=== PATIENT | male | born 1950 | race American Indian/Alaskan Native ===

== ENCOUNTER 2016-11-25 10:45 | Inpatient (IN) | payer OTHER ==
[2016-11-25 10:59] VITALS: BMI 34.9
[2016-11-25 11:41] LABS: BASO % 0.6 % (0.0-2.0); EOS % 0.4 % (0.0-4.0); LYMPH # 1.6 K/uL (1.0-4.3); MONO # 0.6 K/uL (0.0-0.8); WHITE BLOOD COUNT 6.3 K/uL (4.8-10.8)
[2016-11-25 11:49] LABS: HEMATOCRIT 33.1 % (35.0-51.0); LYMPH % 25.8 % (20.0-40.0); MEAN CORPUSCULAR HGB CONC 34.2 g/dL (33.0-37.0); MEAN PLATELET VOLUME 9.2 fL (7.2-11.7); MONO % 9.2 % (0.0-10.0); RED CELL DISTRIBUTION WIDTH 14.9 % (11.5-14.5)
[2016-11-25 11:51] LABS: CHLORIDE 100 mmol/L (98-107); POTASSIUM 3.5 mmol/L (3.6-5.2); SODIUM 141 mmol/L (132-148)
[2016-11-25 11:52] LABS: MEAN CELL VOLUME 108.2 fL (80.0-94.0)
[2016-11-25 11:53] LABS: AST/SGOT 80 U/L (17-59); CARBON DIOXIDE 27 mmol/L (22-30); GFR AFRICAN-AMERICAN > 60
[2016-11-25 11:54] LABS: ALKALINE PHOSPHATASE 160 U/L (38-126); ALT/SGPT 66 U/L (21-72); BLOOD UREA NITROGEN 15 mg/dL (9-20); CALCIUM 8.4 mg/dl (8.6-10.4); GLUCOSE,RANDOM 184 mg/dL (75-110); TOTAL PROTEIN 7.1 g/dL (6.3-8.3)
--- NOTE | 2016-11-25 11:59 | RAD ---
PROCEDURE: CHEST RADIOGRAPH, 1 VIEW HISTORY: SOB COMPARISON: 02/15/2015 FINDINGS: LUNGS: Clear. PLEURA: No pneumothorax or pleural fluid seen. CARDIOVASCULAR: The cardiomediastinal silhouette is suboptimally evaluated. There is obscuration of the aortic arch. OSSEOUS STRUCTURES: The osseous structures demonstrate degenerative changes. VISUALIZED UPPER ABDOMEN: Upper abdomen is suboptimally evaluated. OTHER FINDINGS: None. IMPRESSION: Suboptimally evaluated cardiomediastinal silhouette. Obscured visualization of aortic arch. This could be due to technique. Recommend PA lateral or repeat chest radiographs with optimal inspiration.
--- NOTE | 2016-11-25 12:09 | C.PDOC ---
History Of Present Illness 66 y/o male is sent to the ED by PMD, Dr. Dugan, for dizziness. Patient reports he was at his doctor's office today when he started to feel dizzy but symptoms have now resolved. Patient denies any shortness of breath, chest pain, palpitations, vomiting, or fever. Time Seen by Provider: 11/25/16 11:20 Chief Complaint (Nursing): Dizziness/Lightheaded History Per: Patient History/Exam Limitations: no limitations Onset/Duration Of Symptoms: Mins, Sudden Onset, Persistent Current Symptoms Are (Timing): Gone Fall Associated With With Symptoms: No Recent travel outside of the [place]: No Past Medical History Reviewed: Historical Data, Nursing Documentation, Vital Signs Vital Signs: Last Vital Signs Temp 97.4 F L 11/25/16 12:31 Pulse 50 L 11/25/16 12:31 Resp 18 11/25/16 12:31 BP 120/72 11/25/16 12:31 Pulse Ox 98 11/25/16 12:49 - Medical History PMH: Anemia, Diabetes, Gastritis, HTN, Hyperlipidemia Surgical History: No Surg Hx - [facility] Procedures ESOPHAGOGASTRODUODENOSCOPY [EGD] W/CLOSED BIOPSY (12/29/14) INSERT GASTRIC TUBE NEC (12/29/14) Family History: States: Unknown Family Hx - Social History Hx Tobacco Use: Yes Hx Alcohol Use: Yes (occasionally) Hx Substance Use: No - Immunization History Hx Tetanus Toxoid Vaccination: No Hx Influenza Vaccination: Yes (2014) Hx Pneumococcal Vaccination: No Review Of Systems Except As Marked, All Systems Reviewed And Found Negative. Constitutional: Negative for: Fever Cardiovascular: Negative for: Chest Pain, Palpitations Respiratory: Negative for: Shortness of Breath Gastrointestinal: Negative for: Vomiting Neurological: Positive for: Dizziness Physical Exam - Physical Exam Appears: Non-toxic, No Acute Distress Skin: Normal Color, Warm, Dry Head: Atraumatic, Normacephalic Eye(s): bilateral: Normal Inspection, PERRL, EOMI Neck: Normal ROM, Supple Chest: Symmetrical Cardiovascular: Rhythm Regular Respiratory: Normal Breath Sounds, No Rales, No Rhonchi, No Wheezing Gastrointestinal/Abdominal: Soft, No Tenderness, Hernia, Other (obese) Back: Normal Inspection, No CVA Tenderness Extremity: Normal ROM, No Swelling Neurological/Psych: Oriented x3, Normal Speech, Normal Cognition, Normal Cranial Nerves (II-XII intact), Normal Motor, Normal Sensation Gait: Steady ED Course And Treatment - Laboratory Results Result Diagrams: 11/25/16 11:32 11/25/16 11:32 Lab Interpretation: Abnormal (mild anemia, + elev glu) ECG: Interpreted By Me ECG Rhythm: Sinus Bradycardia ECG Interpretation: Abnormal Rate From EC O2 Sat by Pulse Oximetry: 98 (ra) - Radiology CXR: Interpreted by Me CXR Interpretation: Yes: No Acute Disease, Heart Size (+ megaly) Reevaluation Time: 12:50 Reassessment Condition: Unchanged - Physician Consult Information Outcome Of Conversation: 1230: d/w Dr. Kassandra Walsh to Tele obs. Medical Decision Making Medical Decision Making: Plan: * EKG * CXR * Blood Work * Blood Culture * Urinalysis dizzy ? related to scott? baseline labs Disposition Doctor Will See Patient In The: Hospital Counseled Patient/Family Regarding: Studies Performed, Diagnosis - Disposition Disposition: HOSPITALIZED Disposition Time: 12:51 Condition: GOOD - Clinical Impression Clinical Impression: Symptomatic bradycardia - Scribe Statement The provider has reviewed the documentation as recorded by the Scribe (Kari Blanchard) Provider Attestation: All medical record entries made by the Scribe were at my direction and personally dictated by me. I have reviewed the chart and agree that the record accurately reflects my personal performance of the history, physical exam, medical decision making, and the department course for this patient. I have also personally directed, reviewed, and agree with the discharge instructions and disposition.
[2016-11-25 12:42] LABS: RBC URINE 8 /hpf (0-3); URINE BACTERIA OCC (<OCC); URINE BILIRUBIN NEGATIVE (NEGATIVE); URINE BLOOD 1+ (NEGATIVE); URINE COLOR Amber (YELLOW); URINE GLUCOSE (UA) NORMAL (Normal); URINE KETONE NEGATIVE (NEGATIVE); URINE LEUKOCYTE ESTERASE 3+ Leu/uL (Negative); URINE PROTEIN NEGATIVE (NEGATIVE); WBC URINE 464 /hpf (0-5)
[2016-11-25] MEDS ORDERED: Potassium Chloride 20 mEq ER Tab PO ONE (15:00)
[2016-11-25] MEDS: cefTRIAXone IV 1 gm in Dextros 50 ML IVPB SCH (15:26)
[2016-11-25] MEDS ORDERED: (Novolog) Insulin Aspart, Recombinant 100 u/ml 10 ml vial ONE (16:44)
[2016-11-25] MEDS: (Novolog) Insulin Aspart, Recombinant 100 u/ml 10 ml vial SC SCH ×2 (16:45→22:30)
[2016-11-25] MEDS: (Novolog Mix 70/30) Insulin Aspart/Insulin Aspar 100 units/ml SC SCH (16:48)
[2016-11-25 17:32] LABS: CHLORIDE 99 mmol/L (98-107); POTASSIUM 3.5 mmol/L (3.6-5.2); SODIUM 138 mmol/L (132-148)
[2016-11-25 17:34] LABS: GFR AFRICAN-AMERICAN > 60
[2016-11-25 17:35] LABS: BLOOD UREA NITROGEN 16 mg/dL (9-20); CALCIUM 8.5 mg/dl (8.6-10.4); CARBON DIOXIDE 25 mmol/L (22-30); GLUCOSE,RANDOM 250 mg/dL (75-110)
[2016-11-25 18:07] LABS: THYROID STIMULATING HORMONE 2.92 mIU/L (0.46-4.68)
--- NOTE | 2016-11-26 00:43 | CP.PCM.HP ---
History of Present Illness - History of Present Illness History of Present Illness: cheif complain; dizziness 66 y/o AA male well known to me with h/o diabetes, htn, hyperlipidemia, BPH, Non complint with meds, diet & follow up, lives independently , drinks alcohol came in with c/o dizzines at my office today , even he couldnot stand up so 99 was called and he was transferred to ER pt did not recall when he started to feel dizzy but symptoms have now resolved. Patient denies any shortness of breath, chest pain, palpitations, vomiting, or fever. Review of Systems - Review of Systems Systems not reviewed;Unavailable: Acuity of Condition - Constitutional Constitutional: Anorexia, Fatigue, Lethargy, Malaise - EENT Eyes: absent: As Per HPI, Blind Spots, Blurred Vision, Change in Vision, Decreased Night Vision, Diplopia, Discharge, Dry Eye, Exophthalmos, Floaters, Irritation, Itchy Eyes, Loss of Peripheral Vision, Pain, Photophobia, Requires Corrective Lenses, Sees Flashes, Spots in Vision, Tunnel Vision, Other Visual Disturbances, Loss of Vision, Other Ears: Dizziness. absent: As Per HPI, Decreased Hearing, Ear Discharge, Ear Pain , Tinnitus, Abnormal Hearing, Disequilibrium, Other Nose/Mouth/Throat: absent: As Per HPI, Epistaxis, Nasal Congestion, Nasal Discharge, Nasal Obstruction, Nasal Trauma, Nose Pain, Post Nasal Drip, Sinus Pain, Sinus Pressure, Bleeding Gums, Change in Voice, Dental Pain, Dry Mouth, Dysphagia, Halitosis, Hoarsness, Lip Swelling, Mouth Lesions, Mouth Pain, Odynophagia, Sore Throat, Throat Swelling, Tongue Swelling, Facial Pain, Neck Pain, Neck Mass, Other - Cardiovascular Cardiovascular: absent: As Per HPI, Acrocyanosis, Chest Pain, Chest Pain at Rest , Chest Pain with Activity, Claudication, Diaphoresis, Dyspnea, Dyspnea on Exertion, Edema, Irregular Heart Rhythm, Pain Radiating to Arm/Neck/Jaw, Leg Edema, Leg Ulcers, Lightheadedness, Orthopnea, Palpitations, Paroxysmal Nocturnal Dyspnea, Pedal Edema, Radiating Pain, Rapid Heart Rate, Slow Heart Rate, Syncope, Other - Respiratory Respiratory: absent: As Per HPI, Cough, Dyspnea, Hemoptysis, Dyspnea on Exertion , Wheezing, Snoring, Stridor, Pain on Inspiration, Chest Congestion, Excessive Mucous Production, Change in Mucous Color, Pain with Coughing, Other - Gastrointestinal Gastrointestinal: absent: As Per HPI, Abdominal Pain, Belching, Bloating, Change in Bowel Habits, Change in Stool Character, Coffee Ground Emesis, Constipation, Cramping, Diarrhea, Dyspepsia, Dysphagia, Early Satiety, Excessive Flatus, Fecal Incontinence, Heartburn, Hematemesis, Hematochezia, Loose Stools, Melena, Nausea, Odynophagia, Temesmus, Vomiting, Other - Genitourinary Genitourinary: absent: As Per HPI, Change in Urinary Stream, Difficulty Urinating, Dysuria, Flank Pain, Hematuria, Pyuria, Nocturia, Urinary Incontinence, Urinary Frequency, Urinary Hesitance, Urinary Urgency, Voiding Freq/Small Amts, Freq UTI, Hx Renal/Bladder Calculi, Hx /Renal Surgery, Bladder Distension, Other - Integumentary Integumentary: absent: As Per HPI, Acne, Alopecia, Bleeding Lesions, Change in Hair, Change in Nails, Change in Pigmentation, Changing Lesions, Dry Skin, Erythema, Furuncle, Hirsutism, Lesions, New Lesions, Non-Healing Lesions, Photosensitivity, Pruritus, Rash, Skin Pain, Skin Ulcer, Sores, Striae, Swelling , Unusual Bruising, Wounds, Jaundice, Other - Neurological Neurological: Dizziness. absent: As Per HPI, Abnormal Gait, Abnormal Hearing, Abnormal Movements, Abnormal Speech, Behavioral Changes, Burning Sensations, Confusion, Convulsions, Disequilibrium, Numbness, Focal Weakness, Frequent Falls , Headaches, Lack of Coordination, Loss of Vision, Memory Loss, Paresthesias, Radicular Pain, Restless Legs, Sensory Deficit, Syncope, Tingling, Tremor, Vertigo, Weakness, Other Visual Disturbances, Other Past Patient History - Past Medical History & Family History Past Medical History?: Yes - Past Social History Smoking Status: Light Smoker < 10 Cigarettes Daily - CARDIAC Hx Hypertension: Yes - PULMONARY Hx Respiratory Disorders: No - NEUROLOGICAL Hx Neurological Disorder: No - HEENT Hx HEENT Problems: No Hx Sinusitis: Yes - RENAL Other/Comment: pt claims he has kidney problem - ENDOCRINE/METABOLIC Hx Diabetes Mellitus Type 2: Yes - HEMATOLOGICAL/ONCOLOGICAL Hx Anemia: Yes - INTEGUMENTARY Hx Dermatological Problems: No - MUSCULOSKELETAL/RHEUMATOLOGICAL Hx Musculoskeletal Disorders: No Hx Falls: No - GASTROINTESTINAL Hx Gastritis: Yes - GENITOURINARY/GYNECOLOGICAL Hx Genitourinary Disorders: Yes Hx Urinary Tract Infection: Yes - PSYCHIATRIC Hx Substance Use: No - SURGICAL HISTORY Hx Surgeries: Yes Hx Herniorrhaphy: Yes (2011) - ANESTHESIA Hx Anesthesia: Yes Hx Anesthesia Reactions: No Hx Malignant Hyperthermia: No Meds Allergies/Adverse Reactions: Allergies Allergy/AdvReac Type Severity Reaction Status Date / Time aspirin Allergy Verified 11/25/16 10:47 Physical Exam - Constitutional Appears: No Acute Distress - Head Exam Head Exam: ATRAUMATIC, NORMAL INSPECTION, NORMOCEPHALIC Additional comments: adentinous oral cavity poor oral hygeine - Eye Exam Eye Exam: EOMI, Normal appearance, PERRL Pupil Exam: NORMAL ACCOMODATION, PERRL - Respiratory Exam Respiratory Exam: Clear to Auscultation Bilateral, NORMAL BREATHING PATTERN - Cardiovascular Exam Cardiovascular Exam: Bradycardia, +S1, +S2 - GI/Abdominal Exam GI & Abdominal Exam: Distended, Normal Bowel Sounds, Organomegaly. absent: Bruit, Diminished Bowel Sounds, Firm, Guarding, Hernia, Hyperactive Bowel Sounds , Hypoactive Bowel Sounds, Mass, Pulsatile Mass, Rebound, Rigid, Soft, Tenderness - Extremities Exam Extremities exam: Positive for: pedal edema Results - Vital Signs Recent Vital Signs: Last Vital Signs Temp 98.2 F 11/25/16 18:25 Pulse 58 L 11/25/16 20:00 Resp 20 11/25/16 18:25 BP 114/72 11/25/16 18:25 Pulse Ox 100 11/25/16 18:25 - Labs Result Diagrams: 11/25/16 11:32 11/25/16 17:20 Labs: Laboratory Results - last 24 hr 11/25/16 11/25/16 11/25/16 16:26 17:20 22:14 Sodium 138 Potassium 3.5 L Chloride 99 Carbon Dioxide 25 Anion Gap 18 BUN 16 Creatinine 1.1 Est GFR ( Amer) > 60 Est GFR (Non-Af Amer) > 60 POC Glucose (mg/dL) 273 H 255 H 96 Random Glucose 250 H Calcium 8.5 L Troponin I < 0.0120 TSH 3rd Generation 2.92 Assessment & Plan (1) Symptomatic bradycardia Status: Acute (2) Diabetes mellitus Status: Chronic (3) Hepatitis C infection Status: Chronic (4) Hypertension Status: Chronic (5) Hypotension Status: Acute (6) BPH (benign prostatic hyperplasia) Status: Acute
[2016-11-26 04:45] LABS: T4 14.8 ug/dL (5.5-11.0)
[2016-11-26] MEDS: Levothyroxine 25 MCG TAB PO SCH (06:30)
[2016-11-26] MEDS: (Novolog) Insulin Aspart, Recombinant 100 u/ml 10 ml vial SC SCH ×4 (08:08→22:15)
[2016-11-26] MEDS: (Novolog Mix 70/30) Insulin Aspart/Insulin Aspar 100 units/ml SC SCH ×2 (08:09→18:25)
[2016-11-26] MEDS: Enoxaparin 40 mg Syringe SC SCH (09:23)
[2016-11-26] MEDS: Rosuvastatin Calcium 2.5 mg Tab PO SCH ×2 (09:24→21:26)
[2016-11-26] MEDS: Multivitamin With Minerals Tab PO SCH (09:24)
[2016-11-26] MEDS: Pantoprazole 40 mg EC Tab PO SCH (09:24)
[2016-11-26] MEDS: cefTRIAXone IV 1 gm in Dextros 50 ML IVPB SCH (09:24)
--- NOTE | 2016-11-26 11:49 | CARD ---
APPROVED REPORT EKG Measurement Heart [id number] <Conclusion> Sinus bradycardia with 1st degree AV block Minimal voltage criteria for LVH, may be normal variant Borderline ECG
--- NOTE | 2016-11-26 13:41 | CARD ---
APPROVED REPORT EXAM: Two-dimensional and M-mode echocardiogram with Doppler and color Doppler. Other Information Quality : AverageRhythm : NSR INDICATION Syncope RISK FACTORS Hypertension Diabetes M-Mode DIMENSIONS RVDd1.57 (2.1-3.2cm)Left Atrium (MM)4.04 (2.5-4.0cm) IVSd1.03 (0.7-1.1cm)Aortic Root2.72 (2.2-3.7cm) LVDd5.19 (4.0-5.6cm)Aortic Cusp Exc.2.10 (1.5-2.0cm) PWd1.03 (0.7-1.1cm)FS (%) 36 % LVDs3.34 (2.0-3.8cm)LVEF (%)65 (>50%) Aortic Valve AoV Peak Zmlcjplo136.0cm/Lisa Peak GR.4mmHg Mitral Valve MV E Gbzyzyyh55.9cm/sMV A Xvjnxmas101.1cm/sE/A ratio0.8 TDI E/Lateral E'0.0E/Medial E'0.0 Tricuspid Valve TR Peak Fuuikaqr847ay/sTR Peak Gr.2bvKgOJVC61znCq LEFT VENTRICLE The left ventricle is normal size. There is normal left ventricular wall thickness. The left ventricular function is normal. The left ventricular ejection fraction is within the normal range. No regional wall motion abnormalities noted. Transmitral Doppler flow pattern is Grade I-abnormal relaxation pattern. No left ventricle thrombus noted on this study. There is no ventricular septal defect visualized. There is no left ventricular aneurysm. There is no mass noted in the left ventricle. RIGHT VENTRICLE The right ventricle is normal size. There is normal right ventricular wall thickness. The right ventricular systolic function is normal. ATRIA The left atrium is mildly dilated. The right atrium size is normal. The interatrial septum is intact with no evidence for an atrial septal defect. AORTIC VALVE The aortic valve is normal in structure and function. No aortic regurgitation is present. There is no aortic valvular stenosis. There is no aortic valvular vegetation. MITRAL VALVE The mitral valve is normal in structure and function. There is no evidence of mitral valve prolapse. There is no mitral valve stenosis. There is no mitral valve regurgitation noted. TRICUSPID VALVE The tricuspid valve is normal in structure and function. There is mild tricuspid regurgitation. Right ventricular systolic pressure is estimated at less than 30 mmHg. There is no tricuspid valve prolapse or vegetation. There is no tricuspid valve stenosis. PULMONIC VALVE The pulmonary valve is normal in structure and function. There is no pulmonic valvular regurgitation. There is no pulmonic valvular stenosis. GREAT VESSELS The aortic root is normal in size. The ascending aorta is normal in size. The pulmonary artery is normal. The IVC is normal in size and collapses >50% with inspiration. PERICARDIAL EFFUSION The pericardium appears normal. There is no pleural effusion. <Conclusion> The left ventricular function is normal. The left ventricular ejection fraction is within the normal range. No regional wall motion abnormalities noted. The left atrium is mildly dilated.
[2016-11-26 15:17] VITALS: RESP 20
[2016-11-26] MEDS: Fluticasone Nasal 50 mcg/Spray NAS SCH (22:56)
[2016-11-27] MEDS: Levothyroxine 25 MCG TAB PO SCH (06:23)
[2016-11-27 07:51] VITALS: PULSE 62
[2016-11-27 07:59] LABS: CHLORIDE 100 mmol/L (98-107); POTASSIUM 3.4 mmol/L (3.6-5.2); SODIUM 139 mmol/L (132-148)
[2016-11-27 08:02] LABS: GFR AFRICAN-AMERICAN > 60
[2016-11-27 08:03] LABS: BLOOD UREA NITROGEN 17 mg/dL (9-20); CALCIUM 8.6 mg/dl (8.6-10.4); CARBON DIOXIDE 25 mmol/L (22-30); GLUCOSE,RANDOM 147 mg/dL (75-110)
[2016-11-27] MEDS: (Novolog) Insulin Aspart, Recombinant 100 u/ml 10 ml vial SC SCH ×2 (08:13→13:09)
[2016-11-27] MEDS: (Novolog Mix 70/30) Insulin Aspart/Insulin Aspar 100 units/ml SC SCH (08:15)
[2016-11-27] MEDS ORDERED: Potassium Chloride 20 mEq ER Tab PO ONE (10:00)
[2016-11-27] MEDS: cefTRIAXone IV 1 gm in Dextros 50 ML IVPB SCH (10:00)
[2016-11-27] MEDS ORDERED: Fluticasone Nasal 50 mcg/Spray NAS SCH (10:00)
[2016-11-27] MEDS: Multivitamin With Minerals Tab PO SCH (10:09)
[2016-11-27] MEDS: Fluticasone Nasal 50 mcg/Spray NAS SCH ×2 (10:10→10:52)
[2016-11-27] MEDS: Pantoprazole 40 mg EC Tab PO SCH (10:10)
[2016-11-27] MEDS: Enoxaparin 40 mg Syringe SC SCH (10:10)
[2016-11-27 12:22] VITALS: BP 127/73; TEMP 97.7
--- NOTE | 2016-11-27 13:10 | CP.PCM.PN ---
Subjective - Date & Time of Evaluation Date of Evaluation: 11/27/16 Time of Evaluation: 11:00 - Subjective Subjective: Pt seen today , denies any dizziness, sob, chest pain, palpitations , No overnight events recorded on monitor HR - Improved above 60,s Objective - Vital Signs/Intake and Output Vital Signs (last 24 hours): Temp Pulse Resp BP Pulse Ox 97.7 F 62 20 127/73 100 11/27/16 07:00 11/27/16 07:30 11/27/16 07:00 11/27/16 07:00 11/27/16 07:00 Intake and Output: 11/27/16 11/27/16 06:59 18:59 Output Total 550 Balance -550 - Medications Medications: Current Medications Enoxaparin Sodium (Lovenox) 40 mg SC DAILY [facility] Last Admin: 11/27/16 10:10 Dose: 40 mg Fluticasone Propionate (Flonase) 2 spr VIRA DAILY [facility] Last Admin: 11/27/16 10:52 Dose: 2 sprays Ceftriaxone Sodium (Rocephin Iv 1 Gm Duplex) 50 mls @ 100 mls/hr IVPB DAILY [facility] Last Admin: 11/27/16 10:00 Dose: 100 mls/hr Insulin Aspart (Novolog) 0 unit SC ACHS [facility] PRN Reason: Protocol Last Admin: 11/27/16 13:09 Dose: 3 unit Insulin Aspart (Novolog Mix 70/30 (70/30 Units/Ml)) 10 units SC ACBD [facility] Last Admin: 11/27/16 08:15 Dose: 10 units Levothyroxine Sodium (Synthroid) 25 mcg PO DAILY@0630 [facility] Last Admin: 11/27/16 06:23 Dose: 25 mcg Metformin HCl (Glucophage) 500 mg PO BIDCC [facility] Last Admin: 11/27/16 08:15 Dose: 500 mg Multivitamins/Minerals (Therapeutic-M Tab) 1 tab PO DAILY [facility] Last Admin: 11/27/16 10:09 Dose: 1 tab Pantoprazole Sodium (Protonix Ec Tab) 40 mg PO DAILY [facility] Last Admin: 11/27/16 10:10 Dose: 40 mg Rosuvastatin Calcium (Crestor) 2.5 mg PO HS [facility] Last Admin: 11/26/16 21:26 Dose: 2.5 mg Tamsulosin HCl (Flomax) 0.4 mg PO DAILY [facility] Last Admin: 11/27/16 10:10 Dose: 0.4 mg Tramadol HCl (Ultram) 50 mg PO TID PRN PRN Reason: Pain, moderate (4-7) - Labs Labs: 11/27/16 07:23 Assessment and Plan - Assessment and Plan (Free Text) Assessment: A/P 66 yr old male admitted for symptomatic bradycardia/ hypotension /UTI HR- improved after discounted metoprolol and cardura HR - above 60,s labs- WNL U/a + - STRATED ON ROCEPHIN Urinew culture - Contaminated D/w Dr. Dugan, stable for discharge home today and f/u with Dr. Dugan office in 1 week Discharge plan discussed with patient , including meidcation and f/u visit who understands an dagrees with plan Patient instructed to returns to ED if symptoms returns RX e prescribed to [facility]
--- NOTE | 2016-11-27 16:09 | CP.PCM.PN ---
Subjective - Date & Time of Evaluation Date of Evaluation: 11/26/16 - Subjective Subjective: pt seen &examined, he is improving, bradycardia is improved, afebrile, no sob, off beta kalin, we discontinued his antihypertensive meds, continue on antibiotics Objective - Vital Signs/Intake and Output Vital Signs (last 24 hours): Temp Pulse Resp BP Pulse Ox 97.7 F 62 20 127/73 100 11/27/16 07:00 11/27/16 07:30 11/27/16 07:00 11/27/16 07:00 11/27/16 07:00 Intake and Output: 11/27/16 11/27/16 06:59 18:59 Output Total 550 Balance -550 - Labs Labs: 11/27/16 07:23 - Constitutional Appears: No Acute Distress - Head Exam Head Exam: ATRAUMATIC, NORMAL INSPECTION, NORMOCEPHALIC - Eye Exam Eye Exam: EOMI, Normal appearance, PERRL Pupil Exam: NORMAL ACCOMODATION, PERRL - Respiratory Exam Respiratory Exam: Clear to Ausculation Bilateral, NORMAL BREATHING PATTERN - Cardiovascular Exam Cardiovascular Exam: REGULAR RHYTHM, +S1, +S2. absent: Murmur - GI/Abdominal Exam GI & Abdominal Exam: Soft, Normal Bowel Sounds. absent: Tenderness Assessment and Plan (1) Symptomatic bradycardia Status: Acute (2) Diabetes mellitus Status: Chronic (3) Hepatitis C infection Status: Chronic (4) Hypertension Status: Chronic (5) Hypotension Status: Acute (6) BPH (benign prostatic hyperplasia) Status: Acute
--- NOTE | 2016-11-27 16:11 | CP.PCM.DIS ---
Provider - Provider Date of Admission: 11/26/16 11:09 Attending physician: Harshal Dugan MD Diagnosis - Discharge Diagnosis (1) Symptomatic bradycardia Status: Acute (2) Diabetes mellitus Status: Chronic (3) Hepatitis C infection Status: Chronic (4) Hypertension Status: Chronic (5) Hypotension Status: Acute (6) BPH (benign prostatic hyperplasia) Status: Acute Hospital Course - Lab Results Lab Results: Most Recent Lab Values WBC 6.3 K/uL (4.8-10.8) 11/25/16 11:32 RBC 3.06 Mil/uL (4.40-5.90) L 11/25/16 11:32 Hgb 11.3 g/dL (12.0-18.0) L 11/25/16 11:32 Hct 33.1 % (35.0-51.0) L 11/25/16 11:32 MCV 108.2 fL (80.0-94.0) H D 11/25/16 11:32 MCH 37.0 pg (27.0-31.0) H 11/25/16 11:32 MCHC 34.2 g/dL (33.0-37.0) 11/25/16 11:32 RDW 14.9 % (11.5-14.5) H 11/25/16 11:32 Plt Count 83 K/uL (130-400) L D 11/25/16 11:32 MPV 9.2 fL (7.2-11.7) 11/25/16 11:32 Neut % (Auto) 64.0 % (50.0-75.0) 11/25/16 11:32 Lymph % (Auto) 25.8 % (20.0-40.0) 11/25/16 11:32 Esmeralda % (Auto) 9.2 % (0.0-10.0) 11/25/16 11:32 Eos % (Auto) 0.4 % (0.0-4.0) 11/25/16 11:32 Baso % (Auto) 0.6 % (0.0-2.0) 11/25/16 11:32 Neut # 4.0 K/uL (1.8-7.0) 11/25/16 11:32 Lymph # 1.6 K/uL (1.0-4.3) 11/25/16 11:32 Esmeralda # 0.6 K/uL (0.0-0.8) 11/25/16 11:32 Eos # 0.0 K/uL (0.0-0.7) 11/25/16 11:32 Baso # 0.0 K/uL (0.0-0.2) 11/25/16 11:32 Differential Comment 11/25/16 11:32 Sodium 139 mmol/L (132-148) 11/27/16 07:23 Potassium 3.4 mmol/L (3.6-5.2) L 11/27/16 07:23 Chloride 100 mmol/L (98-107) 11/27/16 07:23 Carbon Dioxide 25 mmol/L (22-30) 11/27/16 07:23 Anion Gap 17 (10-20) 11/27/16 07:23 BUN 17 mg/dL (9-20) 11/27/16 07:23 Creatinine 0.9 MG/DL (0.8-1.5) 11/27/16 07:23 Est GFR ( Amer) > 60 11/27/16 07:23 Est GFR (Non-Af Amer) > 60 11/27/16 07:23 POC Glucose (mg/dL) 220 mg/dL (65-110) H 11/27/16 11:06 Random Glucose 147 mg/dL (75-110) H 11/27/16 07:23 Calcium 8.6 mg/dl (8.6-10.4) 11/27/16 07:23 Total Bilirubin 1.0 mg/dL (0.2-1.3) 11/25/16 11:32 AST 80 U/L (17-59) H D 11/25/16 11:32 ALT 66 U/L (21-72) 11/25/16 11:32 Alkaline Phosphatase 160 U/L (38-126) H D 11/25/16 11:32 Ammonia 9 umol/L (9-33) 11/25/16 11:32 Troponin I < 0.0120 ng/mL (0.00-0.120) 11/26/16 04:12 NT-Pro-B Natriuret Pep 122 pg/mL (0-900) 11/25/16 11:32 Total Protein 7.1 g/dL (6.3-8.3) 11/25/16 11:32 Albumin 3.5 g/dL (3.5-5.0) D 11/25/16 11:32 Globulin 3.6 gm/dL (2.2-3.9) 11/25/16 11:32 Albumin/Globulin Ratio 1.0 (1.0-2.1) 11/25/16 11:32 Thyroxine (T4) 14.8 ug/dL (5.5-11.0) H 11/26/16 04:12 TSH 3rd Generation 2.92 mIU/L (0.46-4.68) 11/25/16 17:20 Urine Color Lizzie (YELLOW) 11/25/16 12:23 Urine Clarity Hazy (Clear) 11/25/16 12:23 Urine pH 6.0 (5.0-8.0) 11/25/16 12:23 Ur Specific [place] 1.013 (1.003-1.030) 11/25/16 12:23 Urine Protein Negative mg/dL (NEGATIVE) 11/25/16 12:23 Urine Glucose (UA) Normal mg/dL (Normal) 11/25/16 12:23 Urine Ketones Negative mg/dL (NEGATIVE) 11/25/16 12:23 Urine Blood 1+ (NEGATIVE) H 11/25/16 12:23 Urine Nitrate Negative (NEGATIVE) 11/25/16 12:23 Urine Bilirubin Negative (NEGATIVE) 11/25/16 12:23 Urine Urobilinogen 2.0 mg/dL (0.2-1.0) 11/25/16 12:23 Ur Leukocyte Esterase 3+ Caryn/uL (Negative) H 11/25/16 12:23 Urine WBC (Auto) 464 /hpf (0-5) H 11/25/16 12:23 Urine RBC (Auto) 8 /hpf (0-3) H 11/25/16 12:23 Ur Squamous Epith Cells < 1 /hpf (0-5) 11/25/16 12:23 Urine Bacteria Occ (<OCC) H 11/25/16 12:23 Hyaline Casts 3-5 /lpf (0-2) H 11/25/16 12:23 - Hospital Course Hospital Course: pt is for discharge, bradycardia resolved will continue out pateint antibiotics for uti, off beta blockers and antihypertensive meds, pt is feeling better and improved clinincally Discharge Exam - Head Exam Head Exam: ATRAUMATIC, NORMAL INSPECTION, NORMOCEPHALIC - Eye Exam Eye Exam: EOMI, Normal appearance, PERRL Pupil Exam: NORMAL ACCOMODATION, PERRL - ENT Exam ENT Exam: Mucous Membranes Moist - Respiratory Exam Respiratory Exam: Clear to PA & Lateral - Cardiovascular Exam Cardiovascular Exam: REGULAR RHYTHM, +S1, +S2 - GI/Abdominal Exam GI & Abdominal Exam: Normal Bowel Sounds - Neurological Exam Neurological exam: Alert, CN II-XII Intact, Normal Gait, Oriented x3, Reflexes Normal - Psychiatric Exam Psychiatric exam: Normal Affect, Normal Mood Discharge Plan - Discharge Medications Prescriptions: Losartan [Cozaar] 25 mg PO DAILY #30 tab Tamsulosin [Flomax] 0.4 mg PO DAILY #30 cap Fluticasone Nasal [Flonase] 2 spray VIRA DAILY #1 spr Insulin Lispro Protamin/Lispro [Humalog Mix 75-25 Kwikpen] 10 unit SC BID #5 insuln.pen Cephalexin [cephalexin] 500 mg PO BID #14 cap Pravastatin Sodium [Pravachol] 20 mg PO DAILY #30 tab Omeprazole Magnesium [Prilosec Otc] 1 tab PO DAILY #[address] tablet[address] Hickey, Iron, Min #5, FA [Strovite Forte Caplet] 1 tab PO DAILY #30 tablet Levothyroxine [Synthroid] 0.025 mg PO AMHS #30 tab metFORMIN [glucOPHAGE] 500 mg PO BIDCC #60 tab - Follow Up Plan Condition: GOOD Disposition: HOME/ ROUTINE Instructions: Cephalexin (By mouth), Levothyroxine (By mouth), Omeprazole (By mouth), Pravastatin (By mouth), Losartan (By mouth), Metformin (By mouth), Tamsulosin (By mouth), Insulin Lispro Protamine/Insulin Lispro (By injection), Fluticasone (Into the nose), Heart Healthy Diet (DC), Diabetic Foot Care (DC), Meal Planning with the Plate Method (DC), Meal Planning with Diabetes Exchanges (DC), Bradycardia (DC) Additional Instructions: f/u with office in 1 week Continue medication as per Med. Rec Please [employer] the medication from [facility] pharmacy- prescription e prescribed to pharmacy Referrals: Harshal Dugan MD [Staff Provider] -
[2016-11-27 16:38] VITALS: O2SAT 98
== END 2016-11-27 14:58 | disposition home or self-care (01) | DRG 309 ==
LOC: C.ER 10:45 → C.9E 12:51 → C.6T 17:04 → OBSVTOIN 11-26 11:09
PROVIDERS: ADMIT Internal Medicine; ATTEND Internal Medicine
DX: R00.1 Bradycardia, unspecified (principal); N39.0 Urinary tract infection, site not specified; I95.9 Hypotension, unspecified; I10 Essential (primary) hypertension; B19.20 Unspecified viral hepatitis C without hepatic coma; E11.9 Type 2 diabetes mellitus without complications; N40.0 Benign prostatic hyperplasia without lower urinary tract symptoms

== ENCOUNTER 2017-06-05 00:41 | Inpatient (IN) | payer OTHER ==
[2017-06-05 00:41] VITALS: BMI 34.9
[2017-06-05] MEDS ORDERED: Sodium Chloride 0.9% 1,000 ML ONE (01:15)
[2017-06-05] MEDS ORDERED: Sodium Chloride 0.9% 1,000 ML IV ONE (01:16)
--- NOTE | 2017-06-05 02:04 | CT ---
EXAM: CT Abdomen and Pelvis Without Intravenous Contrast CLINICAL HISTORY: 66 years old, male; Pain; Abdominal pain; Patient HX: 4-24-15. Images sent already; Additional info: Upper abd pain/ hypotension TECHNIQUE: Axial computed tomography images of the abdomen and pelvis without intravenous contrast. All CT scans at this facility use one or more dose reduction techniques, viz.: automated exposure control; ma/kV adjustment per patient size (including targeted exams where dose is matched to indication; i.e. head); or iterative reconstruction technique. Coronal and sagittal reformatted images were created and reviewed. COMPARISON: CT - ABD PELVIS PO IV CONTRAST 12/29/2014 3:08:47 AM FINDINGS: Lower thorax: Small hiatal hernia. ABDOMEN: Liver: Crohn's who is lobulated contour to liver consistent with cirrhosis. Diffuse hypodensity of liver suggestive of hepatic steatosis, as well. Gallbladder and bile ducts: Unremarkable. No calcified stones. No ductal dilation. Pancreas: Unremarkable. No ductal dilation. Spleen: Unremarkable. No splenomegaly. Adrenals: Unremarkable. No mass. Kidneys and ureters: Right kidney is unremarkable. 2 CM left lower pole renal calculus. No hydronephrosis. Stomach and bowel: Stomach is unremarkable. Anterior abdominal wall hernia with mesh in place. Hernia may be recurrent. Multiple regional dilated small bowel loops. Some of these are dilated out of proportion to adjacent loops. Findings suggestive of small bowel obstruction. There is some inflammation of the regional mesenteric fat. Colonic diverticulosis. Appendix: No findings to suggest acute appendicitis. PELVIS: Bladder: Unremarkable. No stones. Reproductive: Unremarkable as visualized. ABDOMEN and PELVIS: Intraperitoneal space: Unremarkable. No free air. No significant fluid collection. Bones/joints: Diffuse spinal degenerative changes, most severe at L5-S1. No acute fracture. No dislocation. Soft tissues: Small fat containing left inguinal hernia. Vasculature: Atherosclerotic vascular disease. No abdominal aortic aneurysm. Lymph nodes: Unremarkable. No enlarged lymph nodes. IMPRESSION: Anterior abdominal wall hernia containing multiple loops of bowel, some of which are dilated and stool-filled. Several of these are dilated out of proportion to other small bowel loops. There may be an overlying mesh, and therefore this hernia may be recurrent. Correlate with surgical history. Overall findings most consistent with small bowel obstruction. Remainder of findings as above.
[2017-06-05 02:10] LABS: BASO # 0.1 K/uL (0.0-0.2); BASO % 0.7 % (0.0-2.0); EOS % 0.5 % (0.0-4.0); HEMATOCRIT 30.4 % (35.0-51.0); LYMPH # 3.9 K/uL (1.0-4.3); LYMPH % 45.9 % (20.0-40.0); MEAN CELL VOLUME 107.2 fL (80.0-94.0); MEAN CORPUSCULAR HEMOGLOBIN 37.2 pg (27.0-31.0); MEAN CORPUSCULAR HGB CONC 34.7 g/dL (33.0-37.0); MEAN PLATELET VOLUME 8.3 fL (7.2-11.7); MONO # 0.7 K/uL (0.0-0.8); MONO % 8.9 % (0.0-10.0); RED CELL DISTRIBUTION WIDTH 15.6 % (11.5-14.5); WHITE BLOOD COUNT 8.5 K/uL (4.8-10.8)
--- NOTE | 2017-06-05 02:11 | C.PDOC ---
History Of Present Illness 66 year old male with a history of HTN presents to the ED with complaints of abdominal pain that began earlier today in the colon area. He denies fever, chills, nausea, vomiting, or diarrhea. Chief Complaint (Nursing): Abdominal Pain History Per: Patient History/Exam Limitations: no limitations Onset/Duration Of Symptoms: Hrs Current Symptoms Are (Timing): Still Present Location Of Pain/Discomfort: Other ("colon area") Radiation Of Pain To:: None Quality Of Discomfort: "Pain" Associated Symptoms: denies: Fever, Chills, Nausea, Vomiting Exacerbating Factors: None Alleviating Factors: None Recent travel outside of the [place]: No Past Medical History Reviewed: Historical Data, Nursing Documentation, Vital Signs Vital Signs: Last Vital Signs Temp 97.6 F 06/05/17 04:20 Pulse 56 L 06/05/17 04:20 Resp 18 06/05/17 04:20 BP 111/64 06/05/17 04:20 Pulse Ox 96 06/05/17 04:47 - Medical History PMH: Anemia, Diabetes, Gastritis, HTN, Hyperlipidemia - [facility] Procedures ESOPHAGOGASTRODUODENOSCOPY [EGD] W/CLOSED BIOPSY (12/29/14) INSERT GASTRIC TUBE NEC (12/29/14) Family History: States: Unknown Family Hx - Social History Hx Tobacco Use: Yes Hx Alcohol Use: Yes Hx Substance Use: No - Immunization History Hx Tetanus Toxoid Vaccination: No Hx Influenza Vaccination: Yes (2014) Hx Pneumococcal Vaccination: No Review Of Systems Constitutional: Negative for: Fever, Chills Cardiovascular: Negative for: Chest Pain, Palpitations Respiratory: Negative for: Cough, Shortness of Breath Gastrointestinal: Positive for: Abdominal Pain. Negative for: Nausea, Vomiting Physical Exam - Physical Exam Appears: Non-toxic, No Acute Distress Skin: Warm, Dry Head: Atraumatic, Normacephalic Eye(s): bilateral: Normal Inspection, PERRL, EOMI Oral Mucosa: Moist Neck: Supple Chest: Symmetrical Cardiovascular: Rhythm Regular, No Murmur Respiratory: Normal Breath Sounds, No Rales, No Rhonchi, No Wheezing Gastrointestinal/Abdominal: Soft, Tenderness (RUQ tenderness), Distention, No Guarding, No Rebound Extremity: Normal ROM, No Tenderness Neurological/Psych: Oriented x3 ED Course And Treatment - Laboratory Results Result Diagrams: 06/05/17 02:05 06/05/17 02:05 O2 Sat by Pulse Oximetry: 96 (RA) - CT Scan/US Abdomen Pelvis CT Other Rad Studies (CT/US): Read By Radiologist, Radiology Report Reviewed CT/US Interpretation: FINDINGS: Lower thorax: Small hiatal hernia. ABDOMEN: Liver: Crohn's who is lobulated contour to liver consistent with cirrhosis. Diffuse hypodensity of liver. suggestive of hepatic steatosis, as well. Gallbladder and bile ducts: Unremarkable. No calcified stones. No ductal dilation. Pancreas: Unremarkable. No ductal dilation. Spleen: Unremarkable. No splenomegaly. Adrenals: Unremarkable. No mass. Kidneys and ureters: Right kidney is unremarkable. 2 CM left lower pole renal calculus. No. hydronephrosis. Stomach and bowel: Stomach is unremarkable. Anterior abdominal wall hernia with mesh in place. Hernia may be recurrent. Multiple regional dilated small bowel loops. Some of these are dilated out. of proportion to adjacent loops. Findings suggestive of small bowel obstruction. There is some. inflammation of the regional mesenteric fat. Colonic diverticulosis. Appendix: No findings to suggest acute appendicitis. PELVIS: Bladder: Unremarkable. No stones. Reproductive: Unremarkable as visualized. ABDOMEN and PELVIS: Intraperitoneal space: Unremarkable. No free air. No significant fluid collection. Bones/joints: Diffuse spinal degenerative changes, most severe at L5-S1. No acute fracture. No. dislocation. Soft tissues: Small fat containing left inguinal hernia. Vasculature: Atherosclerotic vascular disease. No abdominal aortic aneurysm. Lymph nodes: Unremarkable. No enlarged lymph nodes. IMPRESSION: Anterior abdominal wall hernia containing multiple loops of bowel , some of which are dilated and. stool-filled. Several of these are dilated out of proportion to other small bowel loops. There may be. an overlying mesh, and therefore this hernia may be recurrent. Correlate with surgical history. Overall findings most consistent with small bowel obstruction. Progress Note: EKG, CXR, Abdomen pelvis CT, labs, and blood work were ordered. Patient was given IV fluids. Dr. Isai Dugan was called approximately 8 times between 2:30 am and 4:30am with no answer or call back. 4:50am Dr. Dugan was reached and case was discussed and patient will be admitted to his services. Disposition Discussed With : Harshal Dugan Doctor Will See Patient In The: Hospital Counseled Patient/Family Regarding: Diagnosis - Disposition Disposition: HOSPITALIZED Disposition Time: 04:46 Condition: STABLE Forms: [facility] (Panamanian) - POA Present On Arrival: None - Clinical Impression Clinical Impression: Abdominal pain, Small bowel obstruction - Scribe Statement The provider has reviewed the documentation as recorded by the Scribphil Davies All medical record entries made by the Johannaibe were at my direction and personally dictated by me. I have reviewed the chart and agree that the record accurately reflects my personal performance of the history, physical exam, medical decision making, and the department course for this patient. I have also personally directed, reviewed, and agree with the discharge instructions and disposition.
--- NOTE | 2017-06-05 02:12 | C.PDOC ---
Chief Complaint (Nursing): Abdominal Pain Past Medical History Vital Signs: Last Vital Signs Temp 97.6 F 06/05/17 02:01 Pulse 72 06/05/17 02:01 Resp 16 06/05/17 02:01 BP 91/51 L 06/05/17 02:01 Pulse Ox 96 06/05/17 02:01 - Medical History PMH: Anemia, Diabetes, Gastritis, HTN, Hyperlipidemia - [facility] Procedures ESOPHAGOGASTRODUODENOSCOPY [EGD] W/CLOSED BIOPSY (12/29/14) INSERT GASTRIC TUBE NEC (12/29/14) Family History: States: Unknown Family Hx - Social History Hx Tobacco Use: Yes Hx Alcohol Use: Yes Hx Substance Use: No - Immunization History Hx Tetanus Toxoid Vaccination: No Hx Influenza Vaccination: Yes (2014) Hx Pneumococcal Vaccination: No ED Course And Treatment O2 Sat by Pulse Oximetry: 96 Disposition - Disposition
[2017-06-05 02:32] LABS: CHLORIDE 108 mmol/L (98-107)
[2017-06-05 02:33] LABS: POTASSIUM 3.4 mmol/L (3.6-5.2); SODIUM 148 mmol/L (132-148)
[2017-06-05 02:35] LABS: CARBON DIOXIDE 19 mmol/L (22-30); GFR AFRICAN-AMERICAN > 60
[2017-06-05 02:36] LABS: ALKALINE PHOSPHATASE 79 U/L (38-126); ALT/SGPT 57 U/L (21-72); AST/SGOT 58 U/L (17-59); BILIRUBIN,TOTAL 0.7 mg/dL (0.2-1.3); BLOOD UREA NITROGEN 21 mg/dL (9-20); CALCIUM 7.8 mg/dl (8.6-10.4); GLUCOSE,RANDOM 114 mg/dL (75-110); TOTAL PROTEIN 6.3 g/dL (6.3-8.3)
[2017-06-05 02:40] LABS: INR 1.2
[2017-06-05] MEDS ORDERED: Dextrose 5%/0.9% NS 1,000 ML IV ONE (05:01)
[2017-06-05] MEDS: cefTRIAXone IV 1 gm in Dextros 1 GM in Dextrose 5% In Water 50 ML IVPB SCH (05:20)
[2017-06-05] MEDS ORDERED: cefTRIAXone IV 1 gm in Dextros 50 ML IVPB ONE (05:21)
[2017-06-05] MEDS ORDERED: metroNIDAZOLE IV 500 mg/100 ml 500 MG/100 ML BAG ONE (05:22)
[2017-06-05] MEDS: Dextrose 5%/0.9% NS 1,000 ML IV SCH ×2 (05:34→16:15)
[2017-06-05] MEDS ORDERED: Potassium Chloride 20 mEq ER Tab PO STA (05:44)
[2017-06-05] MEDS ORDERED: Potassium Chloride 20 mEq ER Tab PO ONE (05:50)
[2017-06-05] MEDS: metroNIDAZOLE IV 500 mg/100 ml 500 MG/100 ML BAG IVPB SCH ×3 (06:18→21:42)
[2017-06-05] MEDS: (Novolog) Insulin Aspart, Recombinant 100 u/ml 10 ml vial SC SCH ×4 (08:20→21:43)
--- NOTE | 2017-06-05 09:08 | CON ---
LOCATION: 350, bed B. HISTORY OF PRESENT ILLNESS: This is a 66 years old male seen for GI consultation today, entire chart is reviewed including but not limited to the most recent lab and radiology study results, current and previous medication list, current and previous medical events, allergy to medication list as well as all the available current and previous medical record, this is a short consultation sheet for consultation sheet to follow. The patient was admitted to the hospital through the emergency room with lower abdominal pain, was found to have by CAT scan abdominal hernia containing some bowel loops with possible bowel obstruction. The patient had dyspepsia, but no reported nausea or vomiting. Recent upper endoscopy done on 12/29/2014. Hemoglobin is 10.6, hematocrit 30.4 with low platelet of 87 with low potassium 3.4. No reported active bleeding. IMPRESSION: 1. Known history of hypertension and hyperlipidemia. 2. Known history of peptic ulcer disease. 3. Diabetes mellitus by history. 4. Anemia through large GI blood loss, upper versus lower. 5. Admitting diagnosis of anterior abdominal wall hernia containing multiple loops of bowel with possible partial small bowel obstruction. SUGGESTION: 1. Continue current management. 2. N.p.o. 3. Surgical consultation. 4. Proton-pump inhibitor. 5. Cancer markers. 6. Correct any underlying electrolyte imbalance. 7. Further recommendation to follow and IV antibiotics including Flagyl to be ordered. Senthil Damon MD
[2017-06-05] MEDS ORDERED: Levothyroxine 25 MCG TAB PO SCH (10:00)
[2017-06-05] MEDS ORDERED: Enoxaparin 40 mg Syringe SC SCH (10:00)
--- NOTE | 2017-06-05 11:20 | RAD ---
PROCEDURE: CHEST RADIOGRAPH, 1 VIEW HISTORY: Abdominal pain. COMPARISON: Comparison chest 11/25/2016 FINDINGS: LUNGS: Clear. PLEURA: No pneumothorax or pleural fluid seen. CARDIOVASCULAR: Normal. OSSEOUS STRUCTURES: Degenerative changes both girdles acromioclavicular joints VISUALIZED UPPER ABDOMEN: Normal. OTHER FINDINGS: None. IMPRESSION: No active disease.
[2017-06-05 11:47] LABS: INR 1.1
[2017-06-05] MEDS: Fluticasone Nasal 50 mcg/Spray NAS SCH (12:15)
--- NOTE | 2017-06-05 14:52 | CP.PCM.CON ---
History of Present Illness - History of Present Illness History of Present Illness: General Surgery- Dr. Mitchell 66M PMHx HTN, HLD, DM, Ventral hernia repair w/ mesh presented to the hospital with ABD pain started 2 days ago described as sharp middle of abd. Pt last BM was yesterday. Currently passing flatus. Denies F/C CP/SOB PMH: DM, HTN, HLD PSH: Hernia repair w/ Mesh ALL; NKDA SocialHx: ETOH,Tobacco use, denies drug use Review of Systems - Review of Systems All systems: reviewed and no additional remarkable complaints except - Constitutional Constitutional: As Per HPI Past Patient History - Past Medical History & Family History Past Medical History?: Yes - Past Social History Smoking Status: Light Smoker < 10 Cigarettes Daily - CARDIAC Hx Hypertension: Yes - PULMONARY Hx Respiratory Disorders: No - NEUROLOGICAL Hx Neurological Disorder: No - HEENT Hx HEENT Problems: No - RENAL Other/Comment: pt claims he has kidney problem - ENDOCRINE/METABOLIC Hx Diabetes Mellitus Type 2: Yes - HEMATOLOGICAL/ONCOLOGICAL Hx Anemia: Yes - INTEGUMENTARY Hx Dermatological Problems: No - MUSCULOSKELETAL/RHEUMATOLOGICAL Hx Falls: Yes - GASTROINTESTINAL Hx Gastritis: Yes - GENITOURINARY/GYNECOLOGICAL Hx Genitourinary Disorders: Yes Hx Urinary Tract Infection: Yes - PSYCHIATRIC Hx Substance Use: No - SURGICAL HISTORY Hx Surgeries: Yes Hx Herniorrhaphy: Yes (2011) - ANESTHESIA Hx Anesthesia: Yes Hx Anesthesia Reactions: No Hx Malignant Hyperthermia: No Meds Allergies/Adverse Reactions: Allergies Allergy/AdvReac Type Severity Reaction Status Date / Time aspirin Allergy Verified 06/05/17 05:14 - Medications Medications: Current Medications Fluticasone Propionate (Flonase) 2 spr VIRA DAILY [facility] Last Admin: 06/05/17 12:15 Dose: 2 sprays Ceftriaxone Sodium 1 gm/ (Dextrose) 100 mls @ 50 mls/30 min IVPB Q24H [facility] Last Admin: 06/05/17 05:20 Dose: 50 mls/30 min Metronidazole (Flagyl) 500 mg in 100 mls @ 100 mls/hr IVPB Q8 [facility] Last Admin: 06/05/17 14:05 Dose: 100 mls/hr Dextrose/Sodium Chloride (Dextrose 5%/0.9% Ns 1000 Ml) 1,000 mls @ 100 mls/hr IV .Q10H [facility] Last Admin: 06/05/17 05:34 Dose: 100 mls/hr Insulin Aspart (Novolog) 0 unit SC ACHS [facility] PRN Reason: Protocol Last Admin: 06/05/17 12:17 Dose: Not Given Levothyroxine Sodium (Synthroid) 25 mcg PO 0630 [facility] Pantoprazole Sodium (Protonix Inj) 40 mg IVP DAILY [facility] Last Admin: 06/05/17 10:41 Dose: 40 mg Pneumococcal Polyvalent Vaccine (Pneumovax 23 Vaccine) 0.5 ml IM .ONCE ONE Stop: 06/08/17 10:01 Rosuvastatin Calcium (Crestor) 2.5 mg PO HS [facility] Tamsulosin HCl (Flomax) 0.4 mg PO DAILY [facility] Last Admin: 06/05/17 10:41 Dose: 0.4 mg Physical Exam - Constitutional Appears: Non-toxic, No Acute Distress - Head Exam Head Exam: ATRAUMATIC - Eye Exam Eye Exam: EOMI. absent: Scleral icterus - ENT Exam ENT Exam: Mucous Membranes Moist - Respiratory Exam Respiratory Exam: NORMAL BREATHING PATTERN. absent: Accessory Muscle Use, Respiratory Distress - Cardiovascular Exam Cardiovascular Exam: +S1, +S2. absent: Bradycardia, Tachycardia - GI/Abdominal Exam GI & Abdominal Exam: Hernia, Normal Bowel Sounds, Soft. absent: Rigid - Extremities Exam Extremities exam: Positive for: normal inspection. Negative for: calf tenderness - Back Exam Back exam: absent: CVA tenderness (L) - Neurological Exam Neurological exam: Alert, Normal Gait, Oriented x3 - Skin Skin Exam: Dry, Normal Color, Warm Results - Vital Signs Recent Vital Signs: Last Vital Signs Temp 98.5 F 06/05/17 08:27 Pulse 60 06/05/17 08:27 Resp 20 06/05/17 08:27 BP 90/56 L 06/05/17 08:27 Pulse Ox 98 06/05/17 08:27 - Labs Result Diagrams: 06/05/17 02:05 06/05/17 02:05 Labs: Laboratory Results - last 24 hr 06/05/17 06/05/17 06/05/17 02:05 02:05 02:05 WBC 8.5 RBC 2.84 L Hgb 10.6 L Hct 30.4 L MCV 107.2 H MCH 37.2 H MCHC 34.7 RDW 15.6 H Plt Count 87 L MPV 8.3 Neut % (Auto) 44.0 L Lymph % (Auto) 45.9 H Centre % (Auto) 8.9 Eos % (Auto) 0.5 Baso % (Auto) 0.7 Neut # 3.7 Lymph # 3.9 Centre # 0.7 Eos # 0.0 Baso # 0.1 Differential Comment PT 13.2 H INR 1.2 APTT 31 Sodium 148 Potassium 3.4 L Chloride 108 H Carbon Dioxide 19 L Anion Gap 24 H BUN 21 H Creatinine 1.2 Est GFR ( Amer) > 60 Est GFR (Non-Af Amer) > 60 POC Glucose (mg/dL) Random Glucose 114 H Calcium 7.8 L Total Bilirubin 0.7 AST 58 ALT 57 Alkaline Phosphatase 79 Troponin I < 0.0120 Total Protein 6.3 Albumin 3.2 L Globulin 3.1 Albumin/Globulin Ratio 1.0 Lipase 61 Carcinoembryonic Ag Blood Type Antibody Screen 06/05/17 06/05/17 06/05/17 02:09 07:11 11:00 WBC RBC Hgb Hct MCV MCH MCHC RDW Plt Count MPV Neut % (Auto) Lymph % (Auto) Centre % (Auto) Eos % (Auto) Baso % (Auto) Neut # Lymph # Centre # Eos # Baso # Differential Comment PT INR APTT Sodium Potassium Chloride Carbon Dioxide Anion Gap BUN Creatinine Est GFR ( Amer) Est GFR (Non-Af Amer) POC Glucose (mg/dL) 171 H 170 H Random Glucose Calcium Total Bilirubin AST ALT Alkaline Phosphatase Troponin I Total Protein Albumin Globulin Albumin/Globulin Ratio Lipase Carcinoembryonic Ag Blood Type O POSITIVE Antibody Screen Negative 06/05/17 06/05/17 11:29 11:29 WBC RBC Hgb Hct MCV MCH MCHC RDW Plt Count MPV Neut % (Auto) Lymph % (Auto) Centre % (Auto) Eos % (Auto) Baso % (Auto) Neut # Lymph # Centre # Eos # Baso # Differential Comment PT 11.9 INR 1.1 APTT 25 D Sodium Potassium Chloride Carbon Dioxide Anion Gap BUN Creatinine Est GFR ( Amer) Est GFR (Non-Af Amer) POC Glucose (mg/dL) Random Glucose Calcium Total Bilirubin AST ALT Alkaline Phosphatase Troponin I Total Protein Albumin Globulin Albumin/Globulin Ratio Lipase Carcinoembryonic Ag 4.9 H Blood Type Antibody Screen Assessment & Plan - Assessment and Plan (Free Text) Assessment: 66M Reducible ventral hernia Plan: - Reduce ventral hernia at bedside - start CLD, ADAT - pain control - Patient stated he would not like surgical intervention during this visit - When patient tolerates diet, is cleared for discharge D/W Dr. Mitchell surgical attending Ned Townsend PGY1
[2017-06-05] MEDS: Rosuvastatin Calcium 2.5 mg Tab PO SCH (21:42)
--- NOTE | 2017-06-05 21:50 | CP.PCM.HP ---
History of Present Illness - History of Present Illness History of Present Illness: CC: abdominal pain, nausea, vomitting HPI: 66 AA M PMHx HTN, HLD, DM, Ventral hernia repair w/ mesh presented to the hospital with ABD pain started 2 days ago described as sharp middle of abd associated with generalized weakness, tiredness, fatigue. Pt is complaint with his diet, medication, follow up. Pt last BM was yesterday. Currently passing flatus. Denies F/C CP/SOB PMH: DM, HTN, HLD, Hep C PSH: Hernia repair w/ Mesh ALL; NKDA SocialHx: independent in ADL ETOH,Tobacco use, denies drug use Present on Admission - Present on Admission Any Indicators Present on Admission: Yes Review of Systems - Review of Systems Systems not reviewed;Unavailable: Acuity of Condition - Constitutional Constitutional: Fatigue, Lethargy, Malaise - EENT Eyes: absent: As Per HPI, Blind Spots, Blurred Vision, Change in Vision, Decreased Night Vision, Diplopia, Discharge, Dry Eye, Exophthalmos, Floaters, Irritation, Itchy Eyes, Loss of Peripheral Vision, Pain, Photophobia, Requires Corrective Lenses, Sees Flashes, Spots in Vision, Tunnel Vision, Other Visual Disturbances, Loss of Vision, Other Ears: absent: As Per HPI, Decreased Hearing, Ear Discharge, Ear Pain, Tinnitus, Abnormal Hearing, Disequilibrium, Dizziness, Other Nose/Mouth/Throat: absent: As Per HPI, Epistaxis, Nasal Congestion, Nasal Discharge, Nasal Obstruction, Nasal Trauma, Nose Pain, Post Nasal Drip, Sinus Pain, Sinus Pressure, Bleeding Gums, Change in Voice, Dental Pain, Dry Mouth, Dysphagia, Halitosis, Hoarsness, Lip Swelling, Mouth Lesions, Mouth Pain, Odynophagia, Sore Throat, Throat Swelling, Tongue Swelling, Facial Pain, Neck Pain, Neck Mass, Other - Cardiovascular Cardiovascular: absent: As Per HPI, Acrocyanosis, Chest Pain, Chest Pain at Rest , Chest Pain with Activity, Claudication, Diaphoresis, Dyspnea, Dyspnea on Exertion, Edema, Irregular Heart Rhythm, Pain Radiating to Arm/Neck/Jaw, Leg Edema, Leg Ulcers, Lightheadedness, Orthopnea, Palpitations, Paroxysmal Nocturnal Dyspnea, Pedal Edema, Radiating Pain, Rapid Heart Rate, Slow Heart Rate, Syncope, Other - Respiratory Respiratory: absent: As Per HPI, Cough, Dyspnea, Hemoptysis, Dyspnea on Exertion , Wheezing, Snoring, Stridor, Pain on Inspiration, Chest Congestion, Excessive Mucous Production, Change in Mucous Color, Pain with Coughing, Other - Gastrointestinal Gastrointestinal: Abdominal Pain, Nausea, Vomiting - Genitourinary Genitourinary: absent: As Per HPI, Change in Urinary Stream, Difficulty Urinating, Dysuria, Flank Pain, Hematuria, Pyuria, Nocturia, Urinary Incontinence, Urinary Frequency, Urinary Hesitance, Urinary Urgency, Voiding Freq/Small Amts, Freq UTI, Hx Renal/Bladder Calculi, Hx /Renal Surgery, Bladder Distension, Other - Musculoskeletal Musculoskeletal: absent: As Per HPI, Abnormal Gait, Arthralgias, Atrophy, Back Pain, Deformity, Joint Swelling, Limited Range of Motion, Loss of Height, Muscle Cramps, Muscle Weakness, Myalgias, Neck Pain, Numbness, Radiating Pain into Limb, Stiffness, Tingling, Other - Integumentary Integumentary: absent: As Per HPI, Acne, Alopecia, Bleeding Lesions, Change in Hair, Change in Nails, Change in Pigmentation, Changing Lesions, Dry Skin, Erythema, Furuncle, Hirsutism, Lesions, New Lesions, Non-Healing Lesions, Photosensitivity, Pruritus, Rash, Skin Pain, Skin Ulcer, Sores, Striae, Swelling , Unusual Bruising, Wounds, Jaundice, Other Past Patient History - Past Medical History & Family History Past Medical History?: Yes - Past Social History Smoking Status: Light Smoker < 10 Cigarettes Daily - CARDIAC Hx Hypertension: Yes - PULMONARY Hx Respiratory Disorders: No - NEUROLOGICAL Hx Neurological Disorder: No - HEENT Hx HEENT Problems: No - RENAL Other/Comment: pt claims he has kidney problem - ENDOCRINE/METABOLIC Hx Diabetes Mellitus Type 2: Yes - HEMATOLOGICAL/ONCOLOGICAL Hx Anemia: Yes - INTEGUMENTARY Hx Dermatological Problems: No - MUSCULOSKELETAL/RHEUMATOLOGICAL Hx Falls: Yes - GASTROINTESTINAL Hx Gastritis: Yes - GENITOURINARY/GYNECOLOGICAL Hx Genitourinary Disorders: Yes Hx Urinary Tract Infection: Yes - PSYCHIATRIC Hx Substance Use: No - SURGICAL HISTORY Hx Surgeries: Yes Hx Herniorrhaphy: Yes (2011) - ANESTHESIA Hx Anesthesia: Yes Hx Anesthesia Reactions: No Hx Malignant Hyperthermia: No Meds Allergies/Adverse Reactions: Allergies Allergy/AdvReac Type Severity Reaction Status Date / Time aspirin Allergy Verified 06/05/17 05:14 Physical Exam - Constitutional Appears: No Acute Distress - Head Exam Head Exam: ATRAUMATIC, NORMAL INSPECTION, NORMOCEPHALIC - Eye Exam Eye Exam: EOMI, Normal appearance, PERRL Pupil Exam: NORMAL ACCOMODATION, PERRL Additional comments: pallor - Cardiovascular Exam Cardiovascular Exam: REGULAR RHYTHM - GI/Abdominal Exam GI & Abdominal Exam: Distended, Normal Bowel Sounds Additional comments: hernia at inscinal site mid line scar of prior surgery - Rectal Exam Rectal Exam: Deferred - Neurological Exam Neurological exam: Alert, CN II-XII Intact, Normal Gait, Oriented x3, Reflexes Normal - Psychiatric Exam Psychiatric exam: Normal Affect, Normal Mood Results - Vital Signs Recent Vital Signs: Last Vital Signs Temp 98.7 F 06/05/17 19:00 Pulse 76 06/05/17 19:00 Resp 20 06/05/17 19:00 BP 151/76 H 06/05/17 19:00 Pulse Ox 98 06/05/17 19:00 - Labs Result Diagrams: 06/05/17 02:05 06/05/17 02:05 Labs: Laboratory Results - last 24 hr 06/05/17 06/05/17 06/05/17 02:05 02:05 02:05 WBC 8.5 RBC 2.84 L Hgb 10.6 L Hct 30.4 L MCV 107.2 H MCH 37.2 H MCHC 34.7 RDW 15.6 H Plt Count 87 L MPV 8.3 Neut % (Auto) 44.0 L Lymph % (Auto) 45.9 H [place] % (Auto) 8.9 Eos % (Auto) 0.5 Baso % (Auto) 0.7 Neut # 3.7 Lymph # 3.9 [place] # 0.7 Eos # 0.0 Baso # 0.1 Differential Comment PT 13.2 H INR 1.2 APTT 31 Sodium 148 Potassium 3.4 L Chloride 108 H Carbon Dioxide 19 L Anion Gap 24 H BUN 21 H Creatinine 1.2 Est GFR ( Amer) > 60 Est GFR (Non-Af Amer) > 60 POC Glucose (mg/dL) Random Glucose 114 H Calcium 7.8 L Total Bilirubin 0.7 AST 58 ALT 57 Alkaline Phosphatase 79 Troponin I < 0.0120 Total Protein 6.3 Albumin 3.2 L Globulin 3.1 Albumin/Globulin Ratio 1.0 Lipase 61 Carcinoembryonic Ag Blood Type Antibody Screen 06/05/17 06/05/17 06/05/17 02:09 07:11 11:00 WBC RBC Hgb Hct MCV MCH MCHC RDW Plt Count MPV Neut % (Auto) Lymph % (Auto) [place] % (Auto) Eos % (Auto) Baso % (Auto) Neut # Lymph # [place] # Eos # Baso # Differential Comment PT INR APTT Sodium Potassium Chloride Carbon Dioxide Anion Gap BUN Creatinine Est GFR ( Amer) Est GFR (Non-Af Amer) POC Glucose (mg/dL) 171 H 170 H Random Glucose Calcium Total Bilirubin AST ALT Alkaline Phosphatase Troponin I Total Protein Albumin Globulin Albumin/Globulin Ratio Lipase Carcinoembryonic Ag Blood Type O POSITIVE Antibody Screen Negative 06/05/17 06/05/17 06/05/17 11:29 11:29 16:41 WBC RBC Hgb Hct MCV MCH MCHC RDW Plt Count MPV Neut % (Auto) Lymph % (Auto) [place] % (Auto) Eos % (Auto) Baso % (Auto) Neut # Lymph # [place] # Eos # Baso # Differential Comment PT 11.9 INR 1.1 APTT 25 D Sodium Potassium Chloride Carbon Dioxide Anion Gap BUN Creatinine Est GFR ( Amer) Est GFR (Non-Af Amer) POC Glucose (mg/dL) 170 H Random Glucose Calcium Total Bilirubin AST ALT Alkaline Phosphatase Troponin I Total Protein Albumin Globulin Albumin/Globulin Ratio Lipase Carcinoembryonic Ag 4.9 H Blood Type Antibody Screen Assessment & Plan (1) Intestinal obstruction Assessment and Plan: most likely due to strangulated bowel loops recurent hernia PLAN: pt is for surgical consult Status: Acute (2) Thrombocytopenia Assessment and Plan: melissa HTn spleenomegaly Status: Acute - Assessment and Plan (Free Text) Plan: cardiology Eval possible surgery on wednesday Pre OP eval
[2017-06-06] MEDS: Dextrose 5%/0.9% NS 1,000 ML IV SCH ×3 (02:15→12:59)
--- NOTE | 2017-06-06 03:08 | CON ---
DATE: REASON FOR CONSULTATION: Preoperative evaluation prior to operating an incarcerated anterior abdominal wall hernia. HISTORY OF PRESENT ILLNESS: The patient is 66 years old male who is a smoker and occasional drinker. Has a history of hypertension, presented with abdominal pain and distention. He was found to incarcerated anterior abdominal wall hernia. The patient is unaware of any prior cardiac history, history of hypertension. He denies any chest pain or shortness of breath. The patient has an abdominal surgery that is not clear when and where; however, it is most likely because of hernia. The patient has moved his bowels recently and he denies any vomiting at this time. SOCIAL HISTORY: The patient is a smoker, drinker, he lives by himself. His sons lives in this house. He has his sister nearby him. MEDICATIONS: Rocephin 1 g intravenously daily, Crestor 2.5 mg at bedtime, D5 normal saline at 10 mL an hour, Flagyl 500 mg intravenously q.8 hours, Flomax 0.4 mg once a day and Synthroid 25 mcg once a day. REVIEW OF SYSTEMS: No chest pain. No palpitation. No dizziness. No recent fall. PHYSICAL EXAMINATION: GENERAL: The patient is an elderly male who does not appears to be in acute distress. VITAL SIGNS: Blood pressure 139/71, heart rate 73, temperature is 98.6 and respiration 20. HEENT: Pale conjunctivae. CHEST: Multiple anterior chest wall scars related to sharp object injury many years ago. LUNGS: Clear. HEART: S1 and S2 regular. No gallop or rub. ABDOMEN: Incarcerated anterior abdominal wall hernia, site of previous scar. EXTREMITIES: No edema. LABORATORY DATA: Hemoglobin and hematocrit 10.6 and 30.4, white count 8.5 and platelet count 87,000. Sodium 148, potassium 3.4, chloride 108, CO2 19, glucose 114, BUN 21 and creatinine 1.2. One set of troponin is negative. Carcinoembryonic antigen is elevated as 4.9. INR is 1.1. PT and PTT are within normal limits. EKG revealed sinus rhythm with poor R wave progression, heart rate was 70 per minute. Echocardiograph study performed 11/2016, revealed normal left ventricle systolic function, normal ejection fraction, normal regional wall motion, left atrium is mildly dilated. Abdomen and pelvis scan revealed anterior abdominal wall hernia containing multiple loops of bowel, some of which are dilated and stool filled. Several of these are dilated out of proportion to other small bowel loops. There may be an overlying mesh and therefore, this hernia may be recurrent. ASSESSMENT: 1. Incarcerated anterior abdominal wall hernia. 2. Hypertension. 3. Mild hypokalemia. 4. Anemia, mild thrombocytopenia. RECOMMENDATION: Continue current IV Rocephin and IV Flagyl. Optimize potassium replacement and continue intravenous hydration. The patient can undergo hernia repair from cardiac point of view with postoperative telemetry monitoring; however, electrolytes should be normalized before the surgery. Pavel Contreras MD
[2017-06-06] MEDS: cefTRIAXone IV 1 gm in Dextros 1 GM in Dextrose 5% In Water 50 ML IVPB SCH (05:15)
[2017-06-06] MEDS: metroNIDAZOLE IV 500 mg/100 ml 500 MG/100 ML BAG IVPB SCH (05:45)
[2017-06-06] MEDS: Levothyroxine 25 MCG TAB PO SCH (05:55)
[2017-06-06] MEDS: (Novolog) Insulin Aspart, Recombinant 100 u/ml 10 ml vial SC SCH ×4 (08:08→22:01)
[2017-06-06 08:19] LABS: CHLORIDE 109 mmol/L (98-107); SODIUM 144 mmol/L (132-148)
[2017-06-06 08:20] LABS: POTASSIUM 3.6 mmol/L (3.6-5.2)
[2017-06-06 08:22] LABS: CARBON DIOXIDE 25 mmol/L (22-30); GFR AFRICAN-AMERICAN > 60
[2017-06-06 08:23] LABS: BLOOD UREA NITROGEN 11 mg/dL (9-20); CALCIUM 8.3 mg/dl (8.6-10.4); GLUCOSE,RANDOM 137 mg/dL (75-110)
--- NOTE | 2017-06-06 09:19 | PN ---
DATE: 06/05/2017 LOCATION: #350, bed #B. SUBJECTIVE: This 66-year-old male was seen and examined for GI consultation yesterday, on 06/05/2017. We examined again today, appeared to be awake, alert, oriented with recurrent episodes of bowel movement, but no reported nausea or vomiting with less abdominal pain with a complaint of abdominal distention. The entire chart was reviewed including, but no limited to the most recent labs and radiology study results, current and previous medication list, current and previous medical events. Case discussed with the staff at length on the floor and the patient is to be scheduled for OR at a.m. The patient was seen by cardiology consultation, report is seen as well as is scheduled to be seen by the hematology-oncology technician on the case. Most recent lab results showed low hemoglobin and hematocrit with normal PT and PTT with low potassium, increased BUN with low CO2 content, indicative of metabolic acidosis. Today's labs still pending, but last blood glucose level reported to be 198. His CEA level was reported to be 4129, elevated, but normal lipase level. PHYSICAL EXAMINATION GENERAL: A 66-year-old male. VITAL SIGNS: Afebrile with pulse of 70, respiratory rate 20 to 22, blood pressure 132/76. HEENT: Showed pale, benign oral mucous membrane. Nonicteric sclerae. LUNGS: Few scattered mild crepitation. Breathing sounds are present bilaterally. HEART: Positive S1 and S2. ABDOMEN: Soft with [id number] distension; multiple, large, midline, ventral, incarcerated anterior abdominal wall hernia. No other mass or organomegaly. EXTREMITIES: Without edema, clubbing, or cyanosis. NEUROLOGICAL: No reported significant clinical changes or neurological new deficits. VASCULAR: Peripheral pulses are present bilaterally, but decreased. IMPRESSION: 1. Incarcerated anterior abdominal wall ventral hernia with possible partial small-bowel obstruction, the patient has bowel movement, there is no evidence clinically of complete bowel obstruction, no nausea or vomiting and no chills or fever. 2. Known history of hypertension. 3. Electrolyte imbalance with mild hypokalemia. 4. Elevated CEA level, rule out lower gastrointestinal tract occult malignancy. 5. Anemia with reported thrombocytopenia. 6. of unclear etiology. 7. Known history of poorly controlled diabetes mellitus. 8. Malnutrition, hypoalbuminemia. 9. Hypocalcemia. 10. Hyperlipidemia by history as well as peptic ulcer disease. SUGGESTION: 1. Continue current management. 2. Prepare hyperalimentation. 3. Correct any underlying electrolyte imbalance. 4. Due to the patient's elevated CEA level, colonoscopy is to be scheduled when the patient is more stable clinically. Further recommendations to follow post surgery. Senthil Damon MD
[2017-06-06] MEDS: Fluticasone Nasal 50 mcg/Spray NAS SCH (10:00)
--- NOTE | 2017-06-06 10:08 | CP.PCM.CON ---
History of Present Illness - History of Present Illness History of Present Illness: 66 year old male with a history of HTN, admitted with abdominal pain, found to have a ventral hernia with possible small bowel obstruction, anemia, and thrombocytopenia. The patient is unaware of blood problems in the past. He denies bleeding and bruising easily. He had a hernia surgery in the past and did not have abnormal bleeding or hemostasis issues. He does admit to drinking half a pint of liquor a few times a week. Past medical history: HTN Past surgical history: Hernia repair Family history: Denies hematologic and oncologic problems Social history: Smokes 4-5 cigs daily, 1/2 pin liquor several times a weeks, denies illicit drug use. Allergies: Aspirin Review of systems: All remaining review of systems including HEENT, cardiovascular, respiratory, gastrointestinal, genitourinary, musculoskeletal, dermatologic, neurologic, and psychiatric are negative unless mentioned in the HPI. Past Patient History - Past Medical History & Family History Past Medical History?: Yes - Past Social History Smoking Status: Light Smoker < 10 Cigarettes Daily - CARDIAC Hx Hypertension: Yes - PULMONARY Hx Respiratory Disorders: No - NEUROLOGICAL Hx Neurological Disorder: No - HEENT Hx HEENT Problems: No - RENAL Other/Comment: pt claims he has kidney problem - ENDOCRINE/METABOLIC Hx Diabetes Mellitus Type 2: Yes - HEMATOLOGICAL/ONCOLOGICAL Hx Anemia: Yes - INTEGUMENTARY Hx Dermatological Problems: No - MUSCULOSKELETAL/RHEUMATOLOGICAL Hx Falls: Yes - GASTROINTESTINAL Hx Gastritis: Yes - GENITOURINARY/GYNECOLOGICAL Hx Genitourinary Disorders: Yes Hx Urinary Tract Infection: Yes - PSYCHIATRIC Hx Substance Use: No - SURGICAL HISTORY Hx Surgeries: Yes Hx Herniorrhaphy: Yes (2011) - ANESTHESIA Hx Anesthesia: Yes Hx Anesthesia Reactions: No Hx Malignant Hyperthermia: No Meds Allergies/Adverse Reactions: Allergies Allergy/AdvReac Type Severity Reaction Status Date / Time aspirin Allergy Verified 06/05/17 05:14 - Medications Medications: Current Medications Fluticasone Propionate (Flonase) 2 spr VIRA DAILY [facility] Last Admin: 06/06/17 10:00 Dose: 2 sprays Ceftriaxone Sodium 1 gm/ (Dextrose) 100 mls @ 50 mls/30 min IVPB Q24H [facility] Last Admin: 06/06/17 05:15 Dose: 50 mls/30 min Metronidazole (Flagyl) 500 mg in 100 mls @ 100 mls/hr IVPB Q8 [facility] Last Admin: 06/06/17 05:45 Dose: 100 mls/hr Dextrose/Sodium Chloride (Dextrose 5%/0.9% Ns 1000 Ml) 1,000 mls @ 100 mls/hr IV .Q10H [facility] Last Admin: 06/06/17 04:00 Dose: 100 mls/hr Insulin Aspart (Novolog) 0 unit SC ACHS [facility] PRN Reason: Protocol Last Admin: 06/06/17 08:08 Dose: 1 unit Levothyroxine Sodium (Synthroid) 25 mcg PO 0630 [facility] Last Admin: 06/06/17 05:55 Dose: 25 mcg Pantoprazole Sodium (Protonix Inj) 40 mg IVP DAILY [facility] Last Admin: 06/06/17 10:00 Dose: 40 mg Pneumococcal Polyvalent Vaccine (Pneumovax 23 Vaccine) 0.5 ml IM .ONCE ONE Stop: 06/08/17 10:01 Rosuvastatin Calcium (Crestor) 2.5 mg PO HS [facility] Last Admin: 06/05/17 21:42 Dose: 2.5 mg Tamsulosin HCl (Flomax) 0.4 mg PO DAILY [facility] Last Admin: 06/06/17 10:00 Dose: 0.4 mg Results - Vital Signs Recent Vital Signs: Last Vital Signs Temp 98.1 F 06/06/17 08:00 Pulse 63 06/06/17 08:00 Resp 20 06/06/17 08:00 BP 130/80 06/06/17 08:00 Pulse Ox 100 06/06/17 08:00 - Labs Result Diagrams: 06/15/17 05:51 06/15/17 05:51 Labs: Laboratory Results - last 24 hr 06/05/17 06/05/17 06/05/17 11:00 11:29 11:29 PT 11.9 INR 1.1 APTT 25 D Sodium Potassium Chloride Carbon Dioxide Anion Gap BUN Creatinine Est GFR ( Amer) Est GFR (Non-Af Amer) POC Glucose (mg/dL) 170 H Random Glucose Calcium Carcinoembryonic Ag 4.9 H 06/05/17 06/05/17 06/06/17 16:41 21:29 07:55 PT INR APTT Sodium 144 Potassium 3.6 Chloride 109 H Carbon Dioxide 25 Anion Gap 14 BUN 11 Creatinine 0.7 L Est GFR ( Amer) > 60 Est GFR (Non-Af Amer) > 60 POC Glucose (mg/dL) 170 H 198 H Random Glucose 137 H Calcium 8.3 L Carcinoembryonic Ag Assessment & Plan (1) Thrombocytopenia Assessment and Plan: 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 Status: Acute
--- NOTE | 2017-06-06 11:43 | CP.PCM.PN ---
Subjective - Date & Time of Evaluation Date of Evaluation: 06/06/17 Time of Evaluation: 08:00 - Subjective Subjective: General Surgery Pt S&E, NAEO. C/O sore abdomen below hernia making it tough to eat. Denies N/V. No other complaints. Objective - Vital Signs/Intake and Output Vital Signs (last 24 hours): Temp Pulse Resp BP Pulse Ox 98.1 F 63 20 130/80 100 06/06/17 08:00 06/06/17 08:00 06/06/17 08:00 06/06/17 08:00 06/06/17 08:00 Intake and Output: 06/06/17 06/06/17 06:59 18:59 Intake Total 2049 Balance 2049 - Medications Medications: Current Medications Fluticasone Propionate (Flonase) 2 spr VIRA DAILY [facility] Last Admin: 06/06/17 10:00 Dose: 2 sprays Ceftriaxone Sodium 1 gm/ (Dextrose) 100 mls @ 50 mls/30 min IVPB Q24H [facility] Last Admin: 06/06/17 05:15 Dose: 50 mls/30 min Metronidazole (Flagyl) 500 mg in 100 mls @ 100 mls/hr IVPB Q8 [facility] Last Admin: 06/06/17 05:45 Dose: 100 mls/hr Dextrose/Sodium Chloride (Dextrose 5%/0.9% Ns 1000 Ml) 1,000 mls @ 100 mls/hr IV .Q10H [facility] Last Admin: 06/06/17 04:00 Dose: 100 mls/hr Insulin Aspart (Novolog) 0 unit SC ACHS [facility] PRN Reason: Protocol Last Admin: 06/06/17 08:08 Dose: 1 unit Levothyroxine Sodium (Synthroid) 25 mcg PO 0630 [facility] Last Admin: 06/06/17 05:55 Dose: 25 mcg Pantoprazole Sodium (Protonix Inj) 40 mg IVP DAILY [facility] Last Admin: 06/06/17 10:00 Dose: 40 mg Pneumococcal Polyvalent Vaccine (Pneumovax 23 Vaccine) 0.5 ml IM .ONCE ONE Stop: 06/08/17 10:01 Rosuvastatin Calcium (Crestor) 2.5 mg PO HS [facility] Last Admin: 06/05/17 21:42 Dose: 2.5 mg Tamsulosin HCl (Flomax) 0.4 mg PO DAILY [facility] Last Admin: 06/06/17 10:00 Dose: 0.4 mg - Labs Labs: 06/05/17 02:05 06/06/17 07:55 PT 11.9 SECONDS (9.7-12.2) 06/05/17 11:29 INR 1.1 06/05/17 11:29 APTT 25 SECONDS (21-34) D 06/05/17 11:29 - Constitutional Appears: Non-toxic, No Acute Distress - Head Exam Head Exam: ATRAUMATIC, NORMOCEPHALIC - Eye Exam Eye Exam: EOMI. absent: Scleral icterus - Respiratory Exam Respiratory Exam: NORMAL BREATHING PATTERN. absent: Respiratory Distress - GI/Abdominal Exam GI & Abdominal Exam: Soft, Hernia (ventral). absent: Distended, Guarding, Tenderness - Neurological Exam Neurological Exam: Alert, Awake - Skin Skin Exam: Dry, Warm Assessment and Plan - Assessment and Plan (Free Text) Assessment: 66M with ventral hernia Plan: Plan for OR Wednesday pending Cardiology clearance. Consent in chart. NPO p [place] Analgesia PRN D/W Dr Stephen Lindsey PGY4
[2017-06-06] MEDS: cefTRIAXone IV 1 gm in Dextros 50 ML IVPB SCH (17:58)
--- NOTE | 2017-06-06 19:03 | PN ---
DATE: SUBJECTIVE: The patient denied any chest pain. He has been experiencing nausea and abdominal discomfort. He only took liquids today. PHYSICAL EXAMINATION: VITAL SIGNS: Blood pressure , heart rate 63, temperature 98.1, respirations 20. HEENT: Normocephalic. CHEST: Clear. HEART: S1 and S2 regular. ABDOMEN: Incarcerated ventral hernia. Positive bowel sounds. EXTREMITIES: No edema. LABORATORY DATA: SMA-7; sodium 144, potassium 3.6, chloride 109, CO2 25, glucose 137, BUN 11, creatinine 0.7. ASSESSMENT: 1. Incarcerated ventral hernia. 2. Hypertension. 3. Improved hypokalemia. RECOMMENDATIONS: Continue IV Rocephin and oral Flagyl. Continue Crestor and Synthroid. The patient is scheduled for surgery tomorrow. Postoperative telemetry recommended. Pavel Contreras MD
[2017-06-06] MEDS: Rosuvastatin Calcium 2.5 mg Tab PO SCH (22:01)
--- NOTE | 2017-06-06 23:08 | CP.PCM.PN ---
Subjective - Date & Time of Evaluation Date of Evaluation: 06/06/17 Time of Evaluation: 08:30 - Subjective Subjective: Pt S&E, NAEO. C/O sore abdomen below hernia making it tough to eat. Denies N/V. No other complaints.Pt is for OR on wednesday Objective - Vital Signs/Intake and Output Vital Signs (last 24 hours): Temp Pulse Resp BP Pulse Ox 98.2 F 70 20 144/89 100 06/06/17 16:12 06/06/17 16:12 06/06/17 16:12 06/06/17 16:12 06/06/17 16:12 Intake and Output: 06/06/17 06/07/17 18:59 06:59 Intake Total 250 600 Balance 250 600 - Medications Medications: Current Medications Fluticasone Propionate (Flonase) 2 spr VIRA DAILY [facility] Last Admin: 06/06/17 10:00 Dose: 2 sprays Dextrose/Sodium Chloride (Dextrose 5%/0.9% Ns 1000 Ml) 1,000 mls @ 100 mls/hr IV .Q10H [facility] Last Admin: 06/06/17 12:59 Dose: Not Given Ceftriaxone Sodium (Rocephin Iv 1 Gm Duplex) 50 mls @ 50 mls/30 min IVPB Q24H [facility] Last Admin: 06/06/17 17:58 Dose: 50 mls/30 min Insulin Aspart (Novolog) 0 unit SC ACHS [facility] PRN Reason: Protocol Last Admin: 06/06/17 22:01 Dose: Not Given Levothyroxine Sodium (Synthroid) 25 mcg PO 0630 [facility] Last Admin: 06/06/17 05:55 Dose: 25 mcg Metronidazole (Flagyl) 500 mg PO Q8 [facility] Last Admin: 06/06/17 22:01 Dose: 500 mg Pantoprazole Sodium (Protonix Inj) 40 mg IVP DAILY [facility] Last Admin: 06/06/17 10:00 Dose: 40 mg Pneumococcal Polyvalent Vaccine (Pneumovax 23 Vaccine) 0.5 ml IM .ONCE ONE Stop: 06/08/17 10:01 Rosuvastatin Calcium (Crestor) 2.5 mg PO HS [facility] Last Admin: 06/06/17 22:01 Dose: 2.5 mg Tamsulosin HCl (Flomax) 0.4 mg PO DAILY [facility] Last Admin: 06/06/17 10:00 Dose: 0.4 mg - Labs Labs: 06/05/17 02:05 06/06/17 07:55 PT 11.9 SECONDS (9.7-12.2) 06/05/17 11:29 INR 1.1 06/05/17 11:29 APTT 25 SECONDS (21-34) D 06/05/17 11:29 Assessment and Plan (1) Intestinal obstruction Status: Acute (2) Thrombocytopenia Status: Acute
[2017-06-07] MEDS: Dextrose 5%/0.9% NS 1,000 ML IV SCH ×2 (04:00→18:15)
[2017-06-07] MEDS: Levothyroxine 25 MCG TAB PO SCH (05:43)
--- NOTE | 2017-06-07 07:46 | CON ---
DATE: 06/05/[address] Damon to Dr. Harshal Dugan. REASON FOR CONSULTATION: I was called for GI consultation by the admitting medical team. The patient is seen and fully examined on 06/05/2017. A short consultation dictation was performed before. The entire chart is reviewed including, but not limited to the most recent lab and radiology study results, current and previous medication list, current and previous medical events, allergy to medication list as well as all the available current and previous medical records. Case was discussed at length with the admitting medical team. HISTORY OF PRESENT ILLNESS: This is a 66 years old male who was admitted to the hospital through the emergency room with a main complaint of severe crampy abdominal pain for last few hours prior to his admission, what appears to be sudden increase of abdominal girth. There was mild nausea, but no vomiting, was mild dyspepsia. No reported active bleeding, chest pain, shortness of breath or chills or fever at that time. PAST MEDICAL HISTORY: Including mainly, but not limited to: 1. Hypertension. 2. Peptic ulcer disease. 3. Diabetes mellitus. 4. Hyperlipidemia. 5. Reported anemia. SOCIAL HISTORY: Positive for cigarette smoking and alcohol intake by history. CURRENT MEDICATIONS: Medication list was reviewed. ALLERGIES TO MEDICATIONS: UNCLEAR. FAMILY HISTORY: Noncontributory. LABORATORY DATA: After being admitted to the hospital, initial blood work showed thrombocytopenia of 87 with low hemoglobin 10.5, low hematocrit 30.4 with low potassium 3.4 with low CO2 content to 19, indicative of metabolic acidosis with slight increase of blood glucose level to 114 and increased BUN to 21, but not normal creatinine. Abdomen and pelvic CAT scan was preformed indicative of anterior abdominal wall ventral hernia continuing multiple loops of the bowel with possible partial small obstruction. PHYSICAL EXAMINATION: GENERAL: A 66 years old male complaining of abdominal pain with abdominal distention, awake, alert and oriented. VITAL SIGNS: Afebrile with pulse of 60, respiratory rate 18-20 and blood pressure 118/66. HEENT: Show pale dry oral mucoid membranes, anicteric sclerae. LYMPH NODES: No lymphadenitis or lymphadenopathy. LUNGS: Few scattered crepitations with decreased air entry at bases. HEART: Positive S1 and S2. ABDOMEN: Soft with mild distention and large anterior abdominal wall hernia. No other mass or organomegaly. No rebound tenderness or guarding. RECTAL: The patient refused. EXTREMITIES: With slight lower extremity edematous changes. No clubbing or cyanosis. NEUROLOGIC: No reported new neurological deficits, sensory or motor. IMPRESSION: 1. Anterior abdominal wall hernia formation with possible partial small bowel obstruction. 2. Known history of, but not limited to hyperlipidemia, hypertension, peptic ulcer disease and diabetes mellitus. 3. Anemia. 4. gastrointestinal blood loss, upper versus lower. 5. Rule out occult gastrointestinal malignancy. SUGGESTIONS: 1. Agree with your plan. 2. Correct any underlying electrolyte imbalance. . 3. Proton pump inhibitors. 4. Keep n.p.o. with surgical evaluation. 5. Cancer markers. 6. Further evaluation recommendation to follow with surgery. 7. Prepare hyperalimentation. Further evaluation to follow. Thank you for letting me participate in your patient's case management. Senthil Damon MD cc: Senthil Damon MD
[2017-06-07] MEDS: (Novolog) Insulin Aspart, Recombinant 100 u/ml 10 ml vial SC SCH ×4 (07:51→22:00)
[2017-06-07] MEDS: Fluticasone Nasal 50 mcg/Spray NAS SCH (09:28)
--- NOTE | 2017-06-07 10:10 | PN ---
LOCATION: [facility], bed B. SUBJECTIVE: This is a 66-year-old male seen and examined in rounds without significant clinical changes or reported active bleeding with mild intermittent period of abdominal pain and slight shortness of breath. The patient had been tolerating oral intake as pre-yesterday with no reported chest pain, bleeding, significant shortness of breath, palpitation, chills, or fever. The entire chart is reviewed including, but not limited to the most recent lab and radiology study results, current and previous medication list, current and previous medical events. Today's lab showed blood glucose level 178, elevated. No other reported lab result recently and latest PT and PTT reported normal with elevated CEA level to 4.9. PHYSICAL EXAMINATION: GENERAL: A 66 years old male. VITAL SIGNS: Afebrile with pulse of 62, respiratory rate 20 to 22 with blood pressure of 136/76. HEENT: Showed pale dry mucoid membranes, nonicteric sclerae. LUNGS: Few scattered crepitations; decreased air entry at bases. HEART: Positive S1 and S2 with increased rate mildly. ABDOMEN: Soft with mild distention with evidence of incarcerated anterior abdominal wall hernia. RECTAL: The patient refused. EXTREMITIES: Without significant edema, clubbing, or cyanosis. NEUROLOGIC: No reported new neurological deficits, sensory or motor. No focal deficits. VASCULAR: Peripheral pulses are present but weak bilaterally. IMPRESSION: 1. Incarcerated anterior abdominal wall, diagnosed by radiology study with possible partial small-bowel obstruction. 2. No evidence of complete bowel obstruction clinically. The patient passing gas and having bowel movement recently, even post admission. 3. Known history of hypertension. 4. Reported electrolyte imbalance. 5. Anemia with thrombocytopenia. 6. Known history of poorly controlled diabetes mellitus. 7. Hypocalcemia. 8. History of hyperlipidemia with peptic ulcer disease. 9. Malnutrition with hypoalbuminemia. 10. Elevated CEA level of unclear etiology to rule out occult colon cancer. 11. Hypertension by history. SUGGESTION: 1. Continue current management. 2. The patient is to be scheduled for potential surgery today; after which the patient may need endoscopic evaluation of the GI tract, especially colonoscopy due to elevated CEA level. Senthil Damon MD
[2017-06-07 11:47] LABS: BASO % 0.6 % (0.0-2.0); EOS % 0.4 % (0.0-4.0); HEMATOCRIT 28.7 % (35.0-51.0); LYMPH # 1.4 K/uL (1.0-4.3); LYMPH % 27.4 % (20.0-40.0); MEAN CELL VOLUME 107.3 fL (80.0-94.0); MEAN CORPUSCULAR HEMOGLOBIN 37.5 pg (27.0-31.0); MEAN CORPUSCULAR HGB CONC 34.9 g/dL (33.0-37.0); MEAN PLATELET VOLUME 8.7 fL (7.2-11.7); MONO # 0.4 K/uL (0.0-0.8); MONO % 7.2 % (0.0-10.0); NRBC % 0.1 % (0.0-2.0); RED CELL DISTRIBUTION WIDTH 15.5 % (11.5-14.5); WHITE BLOOD COUNT 4.9 K/uL (4.8-10.8)
[2017-06-07 14:10] LABS: CHLORIDE 107 mmol/L (98-107); POTASSIUM 3.7 mmol/L (3.6-5.2); SODIUM 142 mmol/L (132-148)
[2017-06-07 14:13] LABS: GFR AFRICAN-AMERICAN > 60
[2017-06-07 14:14] LABS: BLOOD UREA NITROGEN 6 mg/dL (9-20); CALCIUM 8.8 mg/dl (8.6-10.4); CARBON DIOXIDE 23 mmol/L (22-30); GLUCOSE,RANDOM 152 mg/dL (75-110)
[2017-06-07] MEDS: cefTRIAXone IV 1 gm in Dextros 50 ML IVPB SCH (17:25)
--- NOTE | 2017-06-07 17:47 | PN ---
SUBJECTIVE: The patient's surgery was postponed because of thrombocytopenia. The patient is moving his bowel and is able to tolerate solid diet. He denies any chest pain. PHYSICAL EXAMINATION: VITAL SIGNS: Blood pressure 132/68, heart rate 60, temperature 98.5, respirations 20. HEENT: Normocephalic. CHEST: Clear. HEART: S1 and S2 regular. ABDOMEN: Reducible ventral hernia. EXTREMITIES: No edema. LABORATORY DATA: Hemoglobin and hematocrit 10 and 28.7, platelet count today is 47,000. SMA-7 is within normal limit except for glucose of 152, BUN and creatinine are 16 and 0.6 respectively. ASSESSMENT: 1. Incarcerated ventral hernia. 2. Hypertension. 3. Uncontrolled diabetes mellitus. 4. Thrombocytopenia. 5. Mild anemia. RECOMMENDATIONS: Continue Crestor at 2.5 mg once a day, oral Flagyl 500 mg q.8 hours, Protonix 40 mg intravenously daily, Synthroid 25 mg once a day. I will consider manual platelet count. Pavel Contreras MD
--- NOTE | 2017-06-07 19:38 | CP.PCM.PN ---
Subjective - Date & Time of Evaluation Date of Evaluation: 06/07/17 Time of Evaluation: 07:00 - Subjective Subjective: GENERAL SURGERY PROGRESS NOTE FOR DR. CURIEL Patient seen and examined at bedside. He reports pain when he eats and a sore throat. He is having normal bowel movements. Objective - Vital Signs/Intake and Output Vital Signs (last 24 hours): Temp Pulse Resp BP Pulse Ox 98.4 F 84 20 123/74 98 06/07/17 15:00 06/07/17 15:00 06/07/17 15:00 06/07/17 15:00 06/07/17 15:00 Intake and Output: 06/07/17 06/08/17 18:59 06:59 Intake Total 510 Balance 510 - Medications Medications: Current Medications Fluticasone Propionate (Flonase) 2 spr VIRA DAILY [facility] Last Admin: 06/07/17 09:28 Dose: 1 sprays Dextrose/Sodium Chloride (Dextrose 5%/0.9% Ns 1000 Ml) 1,000 mls @ 100 mls/hr IV .Q10H [facility] Last Admin: 06/07/17 04:00 Dose: 100 mls/hr Ceftriaxone Sodium (Rocephin Iv 1 Gm Duplex) 50 mls @ 50 mls/30 min IVPB Q24H [facility] Last Admin: 06/07/17 17:25 Dose: 50 mls/30 min Insulin Aspart (Novolog) 0 unit SC ACHS [facility] PRN Reason: Protocol Last Admin: 06/07/17 17:25 Dose: 2 unit Levothyroxine Sodium (Synthroid) 25 mcg PO 0630 [facility] Last Admin: 06/07/17 05:43 Dose: 25 mcg Metronidazole (Flagyl) 500 mg PO Q8 [facility] Last Admin: 06/07/17 14:12 Dose: 500 mg Pantoprazole Sodium (Protonix Inj) 40 mg IVP DAILY [facility] Last Admin: 06/07/17 09:29 Dose: 40 mg Pneumococcal Polyvalent Vaccine (Pneumovax 23 Vaccine) 0.5 ml IM .ONCE ONE Stop: 06/08/17 10:01 Rosuvastatin Calcium (Crestor) 2.5 mg PO HS [facility] Last Admin: 06/06/17 22:01 Dose: 2.5 mg Tamsulosin HCl (Flomax) 0.4 mg PO DAILY [facility] Last Admin: 10/02/17 09:28 Dose: 0.4 mg - Labs Labs: 06/07/17 11:30 06/07/17 13:37 PT 11.9 SECONDS (9.7-12.2) 06/05/17 11:29 INR 1.1 06/05/17 11:29 APTT 25 SECONDS (21-34) D 06/05/17 11:29 - Constitutional Appears: Non-toxic, No Acute Distress - Head Exam Head Exam: ATRAUMATIC, NORMAL INSPECTION - Eye Exam Eye Exam: EOMI, Normal appearance - Respiratory Exam Respiratory Exam: NORMAL BREATHING PATTERN. absent: Respiratory Distress - Cardiovascular Exam Cardiovascular Exam: +S1, +S2 - GI/Abdominal Exam GI & Abdominal Exam: Soft, Hernia (reducible ventral hernia). absent: Distended , Firm, Tenderness, Rebound - Neurological Exam Neurological Exam: Alert, Awake, Oriented x3 - Psychiatric Exam Psychiatric exam: Normal Affect, Normal Mood - Skin Skin Exam: Dry, Normal Color, Warm Assessment and Plan - Assessment and Plan (Free Text) Assessment: 66yo M with ventral hernia and thrombocytopenia - Afebrile, VSS - Platelets 47 today - OR on hold until platelets improve - Discussed plan with Dr. Stephen Brownlee PGY-3
[2017-06-07] MEDS: Rosuvastatin Calcium 2.5 mg Tab PO SCH (22:00)
--- NOTE | 2017-06-07 22:25 | CP.PCM.PN ---
Subjective - Date & Time of Evaluation Date of Evaluation: 06/07/17 Time of Evaluation: 21:00 - Subjective Subjective: Pt S&E, NAEO. C/O sore abdomen below hernia making it tough to eat. Denies N/V. No other complaints. Objective - Vital Signs/Intake and Output Vital Signs (last 24 hours): Temp Pulse Resp BP Pulse Ox 98.4 F 84 20 123/74 98 06/07/17 15:00 06/07/17 15:00 06/07/17 15:00 06/07/17 15:00 06/07/17 15:00 Intake and Output: 06/07/17 06/08/17 18:59 06:59 Intake Total 510 750 Output Total 400 Balance 510 350 - Medications Medications: Current Medications Fluticasone Propionate (Flonase) 2 spr VIRA DAILY [facility] Last Admin: 06/07/17 09:28 Dose: 1 sprays Dextrose/Sodium Chloride (Dextrose 5%/0.9% Ns 1000 Ml) 1,000 mls @ 100 mls/hr IV .Q10H [facility] Last Admin: 06/07/17 18:15 Dose: Not Given Ceftriaxone Sodium (Rocephin Iv 1 Gm Duplex) 50 mls @ 50 mls/30 min IVPB Q24H [facility] Last Admin: 06/07/17 17:25 Dose: 50 mls/30 min Insulin Aspart (Novolog) 0 unit SC ACHS [facility] PRN Reason: Protocol Last Admin: 06/07/17 17:25 Dose: 2 unit Levothyroxine Sodium (Synthroid) 25 mcg PO 0630 [facility] Last Admin: 06/07/17 05:43 Dose: 25 mcg Metronidazole (Flagyl) 500 mg PO Q8 [facility] Last Admin: 06/07/17 21:13 Dose: 500 mg Pantoprazole Sodium (Protonix Inj) 40 mg IVP DAILY [facility] Last Admin: 06/07/17 09:29 Dose: 40 mg Pneumococcal Polyvalent Vaccine (Pneumovax 23 Vaccine) 0.5 ml IM .ONCE ONE Stop: 06/08/17 10:01 Rosuvastatin Calcium (Crestor) 2.5 mg PO HS [facility] Last Admin: 06/06/17 22:01 Dose: 2.5 mg Tamsulosin HCl (Flomax) 0.4 mg PO DAILY [facility] Last Admin: 06/07/17 09:28 Dose: 0.4 mg - Labs Labs: 06/07/17 11:30 06/07/17 13:37 PT 11.9 SECONDS (9.7-12.2) 06/05/17 11:29 INR 1.1 06/05/17 11:29 APTT 25 SECONDS (21-34) D 06/05/17 11:29 - Constitutional Appears: No Acute Distress - Head Exam Head Exam: ATRAUMATIC, NORMAL INSPECTION, NORMOCEPHALIC - Eye Exam Eye Exam: EOMI, Normal appearance, PERRL Pupil Exam: NORMAL ACCOMODATION, PERRL - Respiratory Exam Respiratory Exam: Clear to Ausculation Bilateral, NORMAL BREATHING PATTERN - GI/Abdominal Exam GI & Abdominal Exam: Tenderness, Pulsatile Mass - Rectal Exam Rectal Exam: Deferred Assessment and Plan (1) Intestinal obstruction Status: Acute (2) Thrombocytopenia Status: Acute
[2017-06-08] MEDS: Dextrose 5%/0.9% NS 1,000 ML IV SCH ×2 (02:35→04:15)
[2017-06-08] MEDS: Levothyroxine 25 MCG TAB PO SCH (05:32)
[2017-06-08] MEDS: (Novolog) Insulin Aspart, Recombinant 100 u/ml 10 ml vial SC SCH ×3 (07:45→17:05)
[2017-06-08] MEDS: Fluticasone Nasal 50 mcg/Spray NAS SCH (09:12)
[2017-06-08] MEDS ORDERED: Influenza Vaccine 60 mcg/0.5 mL SYR (4YR UP) IM ONE (10:00)
[2017-06-08] MEDS ORDERED: Pneumococcal 23-Valent Vaccine IM ONE (10:00)
--- NOTE | 2017-06-08 10:48 | CP.PCM.PN ---
Subjective - Date & Time of Evaluation Date of Evaluation: 06/08/17 Time of Evaluation: 10:30 - Subjective Subjective: Patient seen today , denies any chest saxena, sob, N/V, c/o abdominal pain on an d off, + BM and tolerating diet labs - plt - 47 Objective - Vital Signs/Intake and Output Vital Signs (last 24 hours): Temp Pulse Resp BP Pulse Ox 98.2 F 70 20 128/75 100 06/08/17 07:31 06/08/17 07:31 06/08/17 07:31 06/08/17 07:31 06/08/17 07:31 Intake and Output: 06/08/17 06/08/17 06:59 18:59 Intake Total 1700 Output Total 400 Balance 1300 - Medications Medications: Current Medications Famotidine (Pepcid) 20 mg IVP Q12 [facility] Fluticasone Propionate (Flonase) 2 spr VIRA DAILY [facility] Last Admin: 06/08/17 09:12 Dose: 1 sprays Ceftriaxone Sodium (Rocephin Iv 1 Gm Duplex) 50 mls @ 50 mls/30 min IVPB Q24H [facility] Last Admin: 06/07/17 17:25 Dose: 50 mls/30 min Insulin Aspart (Novolog) 0 unit SC ACHS [facility] PRN Reason: Protocol Last Admin: 06/08/17 07:45 Dose: 1 unit Levothyroxine Sodium (Synthroid) 25 mcg PO 0630 [facility] Last Admin: 06/08/17 05:32 Dose: 25 mcg Metronidazole (Flagyl) 500 mg PO Q8 [facility] Last Admin: 06/08/17 05:32 Dose: 500 mg Rosuvastatin Calcium (Crestor) 2.5 mg PO HS [facility] Last Admin: 06/06/17 22:01 Dose: 2.5 mg Tamsulosin HCl (Flomax) 0.4 mg PO DAILY [facility] Last Admin: 06/08/17 09:14 Dose: 0.4 mg - Labs Labs: 06/07/17 11:30 06/07/17 13:37 PT 11.9 SECONDS (9.7-12.2) 06/05/17 11:29 INR 1.1 06/05/17 11:29 APTT 25 SECONDS (21-34) D 06/05/17 11:29 - Constitutional Appears: Well, No Acute Distress - ENT Exam ENT Exam: Mucous Membranes Moist - Respiratory Exam Respiratory Exam: Clear to Ausculation Bilateral, NORMAL BREATHING PATTERN - Cardiovascular Exam Cardiovascular Exam: REGULAR RHYTHM, +S1, +S2 - GI/Abdominal Exam GI & Abdominal Exam: Distended, Hernia Assessment and Plan - Assessment and Plan (Free Text) Assessment: A/P 66 yr old male admitted with ventral hernia, thrombocytopenia OR on hold secondary to low platelet count - 47 D/W DR. Xiong, [facility] surgery team, recommends plt over 100 will transfuse 1 unit of platelet and repeat CBC after and plt still below 100 will transfuse 1 more unit D/W Dr. Munoz D/W DR. Dugan, agrees with above plan
--- NOTE | 2017-06-08 11:05 | CP.PCM.PN ---
Subjective - Date & Time of Evaluation Date of Evaluation: 06/08/17 Time of Evaluation: 07:00 - Subjective Subjective: GENERAL SURGERY PROGRESS NOTE FOR DR. CURIEL Patient seen and examined at bedside. He is tolerating his diet. He denies nausea or vomiting. He reports pain "from time to time". He had a bowel movement last night and is passing flatus. Objective - Vital Signs/Intake and Output Vital Signs (last 24 hours): Temp Pulse Resp BP Pulse Ox 98.2 F 70 20 128/75 100 06/08/17 07:31 06/08/17 07:31 06/08/17 07:31 06/08/17 07:31 06/08/17 07:31 Intake and Output: 06/08/17 06/08/17 06:59 18:59 Intake Total 1700 Output Total 400 Balance 1300 - Medications Medications: Current Medications Famotidine (Pepcid) 20 mg IVP Q12 [facility] Fluticasone Propionate (Flonase) 2 spr VIRA DAILY [facility] Last Admin: 06/08/17 09:12 Dose: 1 sprays Ceftriaxone Sodium (Rocephin Iv 1 Gm Duplex) 50 mls @ 50 mls/30 min IVPB Q24H [facility] Last Admin: 06/07/17 17:25 Dose: 50 mls/30 min Insulin Aspart (Novolog) 0 unit SC ACHS [facility] PRN Reason: Protocol Last Admin: 06/08/17 07:45 Dose: 1 unit Levothyroxine Sodium (Synthroid) 25 mcg PO 0630 [facility] Last Admin: 06/08/17 05:32 Dose: 25 mcg Metronidazole (Flagyl) 500 mg PO Q8 [facility] Last Admin: 06/08/17 05:32 Dose: 500 mg Rosuvastatin Calcium (Crestor) 2.5 mg PO HS [facility] Last Admin: 06/06/17 22:01 Dose: 2.5 mg Tamsulosin HCl (Flomax) 0.4 mg PO DAILY [facility] Last Admin: 06/08/17 09:14 Dose: 0.4 mg - Labs Labs: 06/07/17 11:30 06/07/17 13:37 PT 11.9 SECONDS (9.7-12.2) 06/05/17 11:29 INR 1.1 06/05/17 11:29 APTT 25 SECONDS (21-34) D 06/05/17 11:29 - Constitutional Appears: Non-toxic, No Acute Distress - Head Exam Head Exam: ATRAUMATIC, NORMAL INSPECTION - Eye Exam Eye Exam: EOMI, Normal appearance - Respiratory Exam Respiratory Exam: NORMAL BREATHING PATTERN. absent: Respiratory Distress - Cardiovascular Exam Cardiovascular Exam: +S1, +S2 - GI/Abdominal Exam GI & Abdominal Exam: Soft, Tenderness (mild tenderness at hernia site), Hernia ( reducible ventral hernia). absent: Distended, Firm, Guarding, Rigid - Neurological Exam Neurological Exam: Alert, Awake, Oriented x3 - Psychiatric Exam Psychiatric exam: Normal Affect, Normal Mood - Skin Skin Exam: Dry, Normal Color, Warm Assessment and Plan - Assessment and Plan (Free Text) Assessment: 66yo M with ventral hernia and thrombocytopenia - Afebrile, VSS - Platelets 47 yesterday - OR on hold until platelets improve to >100 - Discussed plan with Dr. Stephen Brownlee PGY-3
--- NOTE | 2017-06-08 14:00 | CARD ---
APPROVED REPORT EKG Measurement Heart [id number] <Conclusion> Sinus rhythm with 1st degree AV block Possible Anterior infarct, age undetermined Abnormal ECG
--- NOTE | 2017-06-08 15:55 | PN ---
DATE: LOCATION: [facility], bed B. SUBJECTIVE: This is a 66-year-old male seen and examined in rounds, appears to be awake, alert and oriented, admitted passing bowel movement and passing gas with occasional period of mild nausea and dyspepsia, but no vomiting with occasional abdominal pain and mild increase of abdominal girth at the site of the anterior abdominal wall ventral hernia today. Most recent lab results done yesterday showed low hemoglobin and hematocrit with very low platelet count of 47. Today's lab is still pending, but blood glucose level measured to be at 181. The entire chart is reviewed including, but not limited to some of the recent lab and radiology study results, current and previous medication list, current and previous medical events. Case discussed at length with the staff on the floor. PHYSICAL EXAMINATION: GENERAL: A 66-year-old male. VITAL SIGNS: Afebrile with pulse of 72, respiratory rate 20 to 22 with blood pressure of 124/72. HEENT: Showed pale dry oral mucous membrane. Mild icteric sclerae bilaterally. LUNGS: Few scattered crepitation. Decreased air entry at bases. HEART: Positive S1 and S2. ABDOMEN: Soft. Bowel sounds are present with mild to moderate distention and positive for anterior abdominal wall hernia without evidence of other mass, lesion, or organomegaly. EXTREMITIES: Slight lower extremity edematous changes. NEUROLOGICAL: No reported neurological deficits, sensory or motor. IMPRESSION: 1. Incarcerated anterior abdominal wall hernia diagnosed by radiology studies. 2. Known history of hypertension. 3. Anemia with thrombocytopenia of unclear etiology, the possibility of gastrointestinal blood loss should be rule in or out. 4. Known history of poorly controlled diabetes mellitus. 5. Known history of peptic ulcer disease with hyperlipidemia. 6. Elevated CEA level to rule out occult colon and gastrointestinal tract cancer. 7. Hypertension by history. SUGGESTION: 1. I agree with your plan. 2. Treat underlying thrombocytopenia and correct and underlying coagulopathy. 3. Again, the patient may need endoscopic evaluation of the GI tract, both surgery and when he is more stable clinically. Further recommendation to follow. Senthil Damon MD cc: Senthil Damon MD
--- NOTE | 2017-06-08 16:33 | PN ---
DATE: SUBJECTIVE: The patient is not complaining of abdominal pain. He is experiencing leg cramps. PHYSICAL EXAMINATION VITAL SIGNS: Blood pressure , heart rate , temperature 98.2, and respirations 20. HEENT: Pale conjunctivae. CHEST: Clear. HEART: S1 and S2 regular. EXTREMITIES: No edema. No calf tenderness. ASSESSMENT: 1. Incarcerated ventral hernia. 2. Thrombocytopenia. 3. Hypertension. 4. Hypothyroidism. 5. Leg cramps. CONDITIONS: The patient will be maintained on Crestor 2.5 mg once a day, IV Rocephin at 1 g daily, and Synthroid 25 mcg once a day. The patient will have manual platelet count to be done today. In the meantime, he will sign the consent to receive platelet transfusion prior to the scheduled surgery tomorrow. Obtain basic electrolytes in a.m. prior to the surgery, which I will order. Pavel Contreras MD
[2017-06-08] MEDS: cefTRIAXone IV 1 gm in Dextros 50 ML IVPB SCH (17:05)
--- NOTE | 2017-06-08 19:47 | CP.PCM.PN ---
Subjective - Date & Time of Evaluation Date of Evaluation: 06/07/17 Time of Evaluation: 20:00 - Subjective Subjective: Has abdominal discomfort plt count downtrending Objective - Vital Signs/Intake and Output Vital Signs (last 24 hours): Temp Pulse Resp BP Pulse Ox 98.2 F 74 20 170/89 H 100 06/08/17 15:00 06/08/17 15:00 06/08/17 15:00 06/08/17 15:00 06/08/17 15:00 Intake and Output: 06/08/17 06/09/17 18:59 06:59 Intake Total 1100 Balance 1100 - Medications Medications: Current Medications Famotidine (Pepcid) 20 mg IVP Q12 [facility] Last Admin: 06/08/17 11:45 Dose: 20 mg Fluticasone Propionate (Flonase) 2 spr VIRA DAILY [facility] Last Admin: 06/08/17 09:12 Dose: 1 sprays Ceftriaxone Sodium (Rocephin Iv 1 Gm Duplex) 50 mls @ 50 mls/30 min IVPB Q24H [facility] Last Admin: 06/08/17 17:05 Dose: 50 mls/30 min Insulin Aspart (Novolog) 0 unit SC ACHS [facility] PRN Reason: Protocol Last Admin: 06/08/17 17:05 Dose: 2 unit Levothyroxine Sodium (Synthroid) 25 mcg PO 0630 [facility] Last Admin: 06/08/17 05:32 Dose: 25 mcg Metronidazole (Flagyl) 500 mg PO Q8 [facility] Last Admin: 06/08/17 13:14 Dose: 500 mg Rosuvastatin Calcium (Crestor) 2.5 mg PO HS [facility] Last Admin: 06/07/17 22:00 Dose: Not Given Tamsulosin HCl (Flomax) 0.4 mg PO DAILY [facility] Last Admin: 06/08/17 09:14 Dose: 0.4 mg - Labs Labs: 06/07/17 11:30 06/07/17 13:37 PT 11.9 SECONDS (9.7-12.2) 06/05/17 11:29 INR 1.1 06/05/17 11:29 APTT 25 SECONDS (21-34) D 06/05/17 11:29 - Head Exam Head Exam: ATRAUMATIC - Eye Exam Eye Exam: Normal appearance - ENT Exam ENT Exam: Mucous Membranes Dry - Respiratory Exam Respiratory Exam: NORMAL BREATHING PATTERN - Cardiovascular Exam Cardiovascular Exam: +S1, +S2 - GI/Abdominal Exam GI & Abdominal Exam: Normal Bowel Sounds - Extremities Exam Extremities Exam: Normal Inspection Assessment and Plan (1) Thrombocytopenia Assessment & Plan: element of bone marrow suppression from alcohol imaging suggestive of liver cirrhosis platelet transfusion for goal plt > 50,000 for hernia repair Status: Acute (2) Anemia Assessment & Plan: will check ferritin, retic count, b12, folate, FOBT to further characterize Status: Acute
[2017-06-08 19:49] LABS: HEMATOCRIT 29.8 % (35.0-51.0); MEAN CORPUSCULAR HEMOGLOBIN 37.1 pg (27.0-31.0); MEAN CORPUSCULAR HGB CONC 34.7 g/dL (33.0-37.0); MEAN PLATELET VOLUME 8.1 fL (7.2-11.7); RED CELL DISTRIBUTION WIDTH 15.4 % (11.5-14.5)
--- NOTE | 2017-06-08 19:50 | CP.PCM.PN ---
Subjective - Date & Time of Evaluation Date of Evaluation: 06/08/17 Time of Evaluation: 13:00 - Subjective Subjective: Has mild abdominal discomfort for platelet transfusion and post transfusion plt count today. Objective - Vital Signs/Intake and Output Vital Signs (last 24 hours): Temp Pulse Resp BP Pulse Ox 98.2 F 74 20 170/89 H 100 06/08/17 15:00 06/08/17 15:00 06/08/17 15:00 06/08/17 15:00 06/08/17 15:00 Intake and Output: 06/08/17 06/09/17 18:59 06:59 Intake Total 1100 Balance 1100 - Medications Medications: Current Medications Famotidine (Pepcid) 20 mg IVP Q12 [facility] Last Admin: 06/08/17 11:45 Dose: 20 mg Fluticasone Propionate (Flonase) 2 spr VIRA DAILY [facility] Last Admin: 06/08/17 09:12 Dose: 1 sprays Ceftriaxone Sodium (Rocephin Iv 1 Gm Duplex) 50 mls @ 50 mls/30 min IVPB Q24H [facility] Last Admin: 06/08/17 17:05 Dose: 50 mls/30 min Insulin Aspart (Novolog) 0 unit SC ACHS [facility] PRN Reason: Protocol Last Admin: 06/08/17 17:05 Dose: 2 unit Levothyroxine Sodium (Synthroid) 25 mcg PO 0630 [facility] Last Admin: 06/08/17 05:32 Dose: 25 mcg Metronidazole (Flagyl) 500 mg PO Q8 [facility] Last Admin: 06/08/17 13:14 Dose: 500 mg Rosuvastatin Calcium (Crestor) 2.5 mg PO HS [facility] Last Admin: 06/07/17 22:00 Dose: Not Given Tamsulosin HCl (Flomax) 0.4 mg PO DAILY [facility] Last Admin: 06/08/17 09:14 Dose: 0.4 mg - Labs Labs: 06/07/17 11:30 06/07/17 13:37 PT 11.9 SECONDS (9.7-12.2) 06/05/17 11:29 INR 1.1 06/05/17 11:29 APTT 25 SECONDS (21-34) D 06/05/17 11:29 - Head Exam Head Exam: ATRAUMATIC - Eye Exam Eye Exam: Normal appearance - ENT Exam ENT Exam: Mucous Membranes Dry - Respiratory Exam Respiratory Exam: NORMAL BREATHING PATTERN - Cardiovascular Exam Cardiovascular Exam: +S1, +S2 - GI/Abdominal Exam GI & Abdominal Exam: Normal Bowel Sounds Assessment and Plan (1) Thrombocytopenia Assessment & Plan: imaging suggestive of liver disease bone marrow suppression from recent alcohol for plt transfusion for goal plt > 100,000 as requested by surgery Status: Acute (2) Anemia Assessment & Plan: f/u anemia w/u Status: Acute
[2017-06-08] MEDS: Rosuvastatin Calcium 2.5 mg Tab PO SCH (21:43)
--- NOTE | 2017-06-08 22:14 | CP.PCM.PN ---
Subjective - Date & Time of Evaluation Date of Evaluation: 06/08/17 Time of Evaluation: 09:10 - Subjective Subjective: Pt seen and evaluated at bedside, Has mild abdominal discomfort for platelet transfusion and post transfusion plt count today. Objective - Vital Signs/Intake and Output Vital Signs (last 24 hours): Temp Pulse Resp BP Pulse Ox 98.2 F 74 20 170/89 H 100 06/08/17 15:00 06/08/17 15:00 06/08/17 15:00 06/08/17 15:00 06/08/17 15:00 Intake and Output: 06/08/17 06/09/17 18:59 06:59 Intake Total 1100 Balance 1100 - Medications Medications: Current Medications Famotidine (Pepcid) 20 mg IVP Q12 [facility] Last Admin: 06/08/17 21:43 Dose: 20 mg Fluticasone Propionate (Flonase) 2 spr VIRA DAILY [facility] Last Admin: 06/08/17 09:12 Dose: 1 sprays Ceftriaxone Sodium (Rocephin Iv 1 Gm Duplex) 50 mls @ 50 mls/30 min IVPB Q24H [facility] Last Admin: 06/08/17 17:05 Dose: 50 mls/30 min Insulin Aspart (Novolog) 0 unit SC ACHS [facility] PRN Reason: Protocol Last Admin: 06/08/17 17:05 Dose: 2 unit Levothyroxine Sodium (Synthroid) 25 mcg PO 0630 [facility] Last Admin: 06/08/17 05:32 Dose: 25 mcg Metronidazole (Flagyl) 500 mg PO Q8 [facility] Last Admin: 06/08/17 21:42 Dose: 500 mg Rosuvastatin Calcium (Crestor) 2.5 mg PO HS [facility] Last Admin: 06/08/17 21:43 Dose: 2.5 mg Tamsulosin HCl (Flomax) 0.4 mg PO DAILY [facility] Last Admin: 06/08/17 09:14 Dose: 0.4 mg - Labs Labs: 06/08/17 19:43 06/07/17 13:37 PT 11.9 SECONDS (9.7-12.2) 06/05/17 11:29 INR 1.1 06/05/17 11:29 APTT 25 SECONDS (21-34) D 06/05/17 11:29 Assessment and Plan (1) Intestinal obstruction Status: Acute (2) Thrombocytopenia Assessment & Plan: - Afebrile, VSS - Platelets 47 yesterday - OR on hold until platelets improve to >100 - Discussed plan with Dr. Mitchell Status: Acute (3) Ventral hernia Assessment & Plan: for surgical consult Status: Acute
[2017-06-09] MEDS: Levothyroxine 25 MCG TAB PO SCH (05:51)
[2017-06-09] MEDS: (Novolog) Insulin Aspart, Recombinant 100 u/ml 10 ml vial SC SCH ×4 (07:37→22:01)
[2017-06-09 07:48] LABS: BASO % 0.3 % (0.0-2.0); EOS % 0.4 % (0.0-4.0); HEMATOCRIT 25.9 % (35.0-51.0); LYMPH # 1.6 K/uL (1.0-4.3); LYMPH % 25.3 % (20.0-40.0); MEAN CELL VOLUME 107.3 fL (80.0-94.0); MEAN CORPUSCULAR HEMOGLOBIN 37.9 pg (27.0-31.0); MEAN CORPUSCULAR HGB CONC 35.3 g/dL (33.0-37.0); MEAN PLATELET VOLUME 8.9 fL (7.2-11.7); MONO # 0.6 K/uL (0.0-0.8); MONO % 9.3 % (0.0-10.0); RED CELL DISTRIBUTION WIDTH 15.6 % (11.5-14.5); WHITE BLOOD COUNT 6.4 K/uL (4.8-10.8)
[2017-06-09 07:58] LABS: INR 1.4
[2017-06-09 08:14] LABS: RETIC% 1.5 % (0.5-1.5)
[2017-06-09 08:15] LABS: CHLORIDE 106 mmol/L (98-107); POTASSIUM 3.2 mmol/L (3.6-5.2); SODIUM 135 mmol/L (132-148)
[2017-06-09 08:18] LABS: BLOOD UREA NITROGEN 5 mg/dL (9-20); CARBON DIOXIDE 19 mmol/L (22-30); GFR AFRICAN-AMERICAN > 60
[2017-06-09 08:19] LABS: CALCIUM 8.3 mg/dl (8.6-10.4); GLUCOSE,RANDOM 135 mg/dL (75-110)
[2017-06-09 09:05] LABS: FOLATE 15.8 ng/mL
[2017-06-09] MEDS: Fluticasone Nasal 50 mcg/Spray NAS SCH (09:22)
--- NOTE | 2017-06-09 12:47 | CP.PCM.PN ---
Subjective - Date & Time of Evaluation Date of Evaluation: 06/09/17 Time of Evaluation: 12:44 - Subjective Subjective: Surgery: Dr. Mitchell Pt seen and exmained. Resting comfortably in bed. Received 1U PRBC this AM. Plts remain low 62. Will post-pone surgery. Objective - Vital Signs/Intake and Output Vital Signs (last 24 hours): Temp Pulse Resp BP Pulse Ox 98.4 F 62 20 135/82 97 06/09/17 08:21 06/09/17 08:21 06/09/17 08:21 06/09/17 08:21 06/09/17 08:21 Intake and Output: 06/09/17 06/09/17 06:59 18:59 Intake Total 980 Output Total 400 Balance 580 - Medications Medications: Current Medications Famotidine (Pepcid) 20 mg IVP Q12 [facility] Last Admin: 06/09/17 09:23 Dose: 20 mg Fluticasone Propionate (Flonase) 2 spr VIRA DAILY [facility] Last Admin: 06/09/17 09:22 Dose: 1 sprays Ceftriaxone Sodium (Rocephin Iv 1 Gm Duplex) 50 mls @ 50 mls/30 min IVPB Q24H [facility] Last Admin: 06/08/17 17:05 Dose: 50 mls/30 min Potassium Chloride (Potassium Chloride 20 Meq/100 Ml) 20 meq in 100 mls @ 50 mls/hr IVPB Q2 [facility] Stop: 06/09/17 13:59 Last Admin: 06/09/17 11:18 Dose: 50 mls/hr Insulin Aspart (Novolog) 0 unit SC ACHS [facility] PRN Reason: Protocol Last Admin: 06/09/17 11:55 Dose: 1 unit Levothyroxine Sodium (Synthroid) 25 mcg PO 0630 [facility] Last Admin: 06/09/17 05:51 Dose: 25 mcg Metronidazole (Flagyl) 500 mg PO Q8 [facility] Last Admin: 06/09/17 05:16 Dose: 500 mg Rosuvastatin Calcium (Crestor) 2.5 mg PO HS [facility] Last Admin: 06/08/17 21:43 Dose: 2.5 mg Tamsulosin HCl (Flomax) 0.4 mg PO DAILY [facility] Last Admin: 06/09/17 09:22 Dose: 0.4 mg - Labs Labs: 06/09/17 07:34 06/09/17 07:34 PT 15.7 SECONDS (9.7-12.2) H 06/09/17 07:43 INR 1.4 06/09/17 07:43 APTT 19 SECONDS (21-34) L 06/09/17 07:43 - Constitutional Appears: Non-toxic, No Acute Distress - Head Exam Head Exam: ATRAUMATIC, NORMOCEPHALIC - Eye Exam Eye Exam: EOMI - ENT Exam ENT Exam: Mucous Membranes Moist - Neck Exam Neck Exam: Full ROM - Respiratory Exam Respiratory Exam: NORMAL BREATHING PATTERN. absent: Accessory Muscle Use, Respiratory Distress - GI/Abdominal Exam GI & Abdominal Exam: Soft, Hernia (ventral, reducible). absent: Distended, Firm , Guarding, Rigid, Tenderness, Rebound - Neurological Exam Neurological Exam: Alert, Awake, Oriented x3 - Skin Skin Exam: Dry, Warm Assessment and Plan - Assessment and Plan (Free Text) Assessment: 66M w. ventral hernia -persistent thromboyctopenia despite Plt transfusion -would like plts to be >100k for surgery -follow up heme/onc recommendations -d/w attending Dionna PGY3
[2017-06-09] MEDS ORDERED: DiphenhydrAMINE 50 mg/ml Inj IVP ONE (16:15)
[2017-06-09] MEDS ORDERED: Propofol 10 mg/ml Inj (20 ML) ONE (16:20)
--- NOTE | 2017-06-09 17:06 | PN ---
DATE: LOCATION: Room 350, bed B. SUBJECTIVE: This is a 66-year-old male seen and examined in rounds for platelet transfusion today. The patient appear to be awake, alert and oriented. No reported active bleeding and the entire chart is reviewed including, but not limited to normal recent lab and radiology study results, current and previous medication list, current and previous medical events. The patient still has intermittent period of abdominal pain with abdominal distention, oncology/hematology is on case. Entire chart is reviewed including, but not limited to the most recent lab and radiology study results, current and previous medication list, current and previous medical events and the patient's hemoglobin dropped to 9.1, hematocrit 25.9 with platelets only 62. Increased PT to 15.9 and low potassium 3.2, low CO2 content 19 indicative of metabolic acidosis with blood glucose level 160, and the calcium low at 8.3. PHYSICAL EXAMINATION: GENERAL: A 66-year-old male, awake, and alert. VITAL SIGNS: Afebrile with pulse of 66, respiratory rate 20-22, blood pressure of 132/76. HEENT: Showed pale, dry oral mucous membrane. Nonicteric sclerae. LUNGS: Few scattered crepitation with decreased air entry at bases. HEART: Positive S1 and S2. ABDOMEN: Evidence of anterior abdominal wall hernia. Bowel sounds are present. No mass or organomegaly other than the hernia. EXTREMITIES: Without edema, clubbing, or cyanosis. NEUROLOGIC: No reported neurological deficits, sensory or motor. The patient is still passing gas and has bowel movement recently. IMPRESSION: 1. Incarcerated anterior abdominal wall hernia diagnosed by radiology studies. 2. Known history of hypertension. 3. Known history of poorly controlled diabetes mellitus. 4. Hyperlipidemia by history. 5. Peptic ulcer disease by history. 6. Elevated CEA level to rule out lower gastrointestinal tract or occult malignancy. 7. Anemia with subsequent drop of hemoglobin and hematocrit secondary to above versus upper gastrointestinal blood loss. SUGGESTION: 1. Continue current management. 2. Correct underlying thrombocytopenia. 3. Endoscopic evaluation of the GI tract once the patient is more stable clinically. However, if there is subsequent drop of hemoglobin and hematocrit then surgery has to be on hold until endoscopic evaluation of the GI tract took place. Senthil Damon MD cc: Senthil Damon MD [facility] # [id number]
[2017-06-09 17:34] LABS: BASO % 0.2 % (0.0-2.0); EOS % 0.4 % (0.0-4.0); HEMATOCRIT 27.2 % (35.0-51.0); LYMPH # 1.6 K/uL (1.0-4.3); LYMPH % 20.9 % (20.0-40.0); MEAN CELL VOLUME 107.4 fL (80.0-94.0); MEAN CORPUSCULAR HEMOGLOBIN 37.9 pg (27.0-31.0); MEAN CORPUSCULAR HGB CONC 35.2 g/dL (33.0-37.0); MEAN PLATELET VOLUME 8.4 fL (7.2-11.7); MONO # 0.7 K/uL (0.0-0.8); MONO % 8.6 % (0.0-10.0); RED CELL DISTRIBUTION WIDTH 15.2 % (11.5-14.5); WHITE BLOOD COUNT 7.8 K/uL (4.8-10.8)
[2017-06-09] MEDS: cefTRIAXone IV 1 gm in Dextros 50 ML IVPB SCH (17:54)
[2017-06-09] MEDS: Rosuvastatin Calcium 2.5 mg Tab PO SCH (22:00)
--- NOTE | 2017-06-09 22:44 | CP.PCM.PN ---
Subjective - Date & Time of Evaluation Date of Evaluation: 06/09/17 Time of Evaluation: 21:05 - Subjective Subjective: Pt seen and examined, Pt is for Or tommorow, pt platelet count has to be 100, 000 [place] [id number] right now, he is for antothe platelet transfusion , pt is afebrile, no shortness of breath. Large incarcerated hernia in upper abdominal wall Objective - Vital Signs/Intake and Output Vital Signs (last 24 hours): Temp Pulse Resp BP Pulse Ox 98.3 F 86 20 114/74 97 06/09/17 15:00 06/09/17 15:00 06/09/17 15:00 06/09/17 15:00 06/09/17 15:00 Intake and Output: 06/09/17 06/10/17 18:59 06:59 Intake Total 900 Balance 900 - Medications Medications: Current Medications Famotidine (Pepcid) 20 mg IVP Q12 [facility] Last Admin: 06/09/17 22:01 Dose: 20 mg Fluticasone Propionate (Flonase) 2 spr VIRA DAILY [facility] Last Admin: 06/09/17 09:22 Dose: 1 sprays Ceftriaxone Sodium (Rocephin Iv 1 Gm Duplex) 50 mls @ 50 mls/30 min IVPB Q24H [facility] Last Admin: 06/09/17 17:54 Dose: 50 mls/30 min Insulin Aspart (Novolog) 0 unit SC ACHS [facility] PRN Reason: Protocol Last Admin: 06/09/17 22:01 Dose: Not Given Levothyroxine Sodium (Synthroid) 25 mcg PO 0630 [facility] Last Admin: 06/09/17 05:51 Dose: 25 mcg Metronidazole (Flagyl) 500 mg PO Q8 [facility] Last Admin: 06/09/17 22:00 Dose: 500 mg Rosuvastatin Calcium (Crestor) 2.5 mg PO HS [facility] Last Admin: 06/09/17 22:00 Dose: 2.5 mg Tamsulosin HCl (Flomax) 0.4 mg PO DAILY [facility] Last Admin: 06/09/17 09:22 Dose: 0.4 mg - Labs Labs: 06/09/17 17:25 06/09/17 07:34 PT 15.7 SECONDS (9.7-12.2) H 06/09/17 07:43 INR 1.4 06/09/17 07:43 APTT 19 SECONDS (21-34) L 06/09/17 07:43 - Constitutional Appears: No Acute Distress - Head Exam Head Exam: ATRAUMATIC, NORMAL INSPECTION, NORMOCEPHALIC - Cardiovascular Exam Cardiovascular Exam: REGULAR RHYTHM, +S1, +S2. absent: Murmur - GI/Abdominal Exam GI & Abdominal Exam: Mass Additional comments: incarcerated hernia in abdomnial wall - Rectal Exam Rectal Exam: Deferred Assessment and Plan (1) Intestinal obstruction Status: Acute (2) Thrombocytopenia Assessment & Plan: due to combination of alcohol abuse and hyperspleenism Status: Acute (3) Ventral hernia Assessment & Plan: for OR tommorow Status: Acute (4) HTN (hypertension) Status: Acute (5) Diabetes mellitus Status: Chronic
[2017-06-10] MEDS: Levothyroxine 25 MCG TAB PO SCH (06:20)
--- NOTE | 2017-06-10 07:21 | CP.PCM.PN ---
Subjective - Date & Time of Evaluation Date of Evaluation: 06/10/17 Time of Evaluation: 09:25 - Subjective Subjective: Pt is for OR tommorow for ventral hernia repair Objective - Vital Signs/Intake and Output Vital Signs (last 24 hours): Temp Pulse Resp BP Pulse Ox 98.4 F 72 18 136/57 L 97 06/10/17 02:41 06/10/17 02:41 06/10/17 02:41 06/10/17 02:41 06/10/17 00:00 Intake and Output: 06/10/17 06/10/17 06:59 18:59 Intake Total 1030 Output Total 250 Balance 780 - Medications Medications: Current Medications Famotidine (Pepcid) 20 mg IVP Q12 [facility] Last Admin: 06/09/17 22:01 Dose: 20 mg Fluticasone Propionate (Flonase) 2 spr VIRA DAILY [facility] Last Admin: 06/09/17 09:22 Dose: 1 sprays Ceftriaxone Sodium (Rocephin Iv 1 Gm Duplex) 50 mls @ 50 mls/30 min IVPB Q24H [facility] Last Admin: 06/09/17 17:54 Dose: 50 mls/30 min Insulin Aspart (Novolog) 0 unit SC ACHS [facility] PRN Reason: Protocol Last Admin: 06/09/17 22:01 Dose: Not Given Levothyroxine Sodium (Synthroid) 25 mcg PO 0630 [facility] Last Admin: 06/10/17 06:20 Dose: 25 mcg Metronidazole (Flagyl) 500 mg PO Q8 [facility] Last Admin: 06/10/17 06:20 Dose: 500 mg Rosuvastatin Calcium (Crestor) 2.5 mg PO HS [facility] Last Admin: 06/09/17 22:00 Dose: 2.5 mg Tamsulosin HCl (Flomax) 0.4 mg PO DAILY [facility] Last Admin: 06/09/17 09:22 Dose: 0.4 mg - Labs Labs: 06/09/17 17:25 06/09/17 07:34 PT 15.7 SECONDS (9.7-12.2) H 06/09/17 07:43 INR 1.4 06/09/17 07:43 APTT 19 SECONDS (21-34) L 06/09/17 07:43 - Constitutional Appears: No Acute Distress - Head Exam Head Exam: ATRAUMATIC, NORMAL INSPECTION, NORMOCEPHALIC - Eye Exam Eye Exam: EOMI, Normal appearance, PERRL Pupil Exam: NORMAL ACCOMODATION, PERRL - Respiratory Exam Respiratory Exam: Clear to Ausculation Bilateral, NORMAL BREATHING PATTERN - Cardiovascular Exam Cardiovascular Exam: REGULAR RHYTHM, +S1, +S2. absent: Murmur Assessment and Plan (1) Intestinal obstruction Status: Acute (2) Thrombocytopenia Status: Acute (3) Ventral hernia Status: Acute (4) HTN (hypertension) Status: Acute (5) Diabetes mellitus Status: Chronic
[2017-06-10] MEDS: (Novolog) Insulin Aspart, Recombinant 100 u/ml 10 ml vial SC SCH ×4 (08:26→21:30)
[2017-06-10 08:34] LABS: BASO % 0.1 % (0.0-2.0); EOS % 0.3 % (0.0-4.0); HEMATOCRIT 28.8 % (35.0-51.0); LYMPH # 0.8 K/uL (1.0-4.3); LYMPH % 11.4 % (20.0-40.0); MEAN CELL VOLUME 107.3 fL (80.0-94.0); MEAN CORPUSCULAR HGB CONC 35.4 g/dL (33.0-37.0); MEAN PLATELET VOLUME 8.8 fL (7.2-11.7); MONO # 0.4 K/uL (0.0-0.8); RED CELL DISTRIBUTION WIDTH 15.8 % (11.5-14.5); WHITE BLOOD COUNT 6.8 K/uL (4.8-10.8)
[2017-06-10 08:35] LABS: CHLORIDE 105 mmol/L (98-107); POTASSIUM 3.4 mmol/L (3.6-5.2); SODIUM 137 mmol/L (132-148)
[2017-06-10 08:37] LABS: GFR AFRICAN-AMERICAN > 60
[2017-06-10 08:38] LABS: BLOOD UREA NITROGEN 6 mg/dL (9-20); CALCIUM 8.6 mg/dl (8.6-10.4); CARBON DIOXIDE 20 mmol/L (22-30); GLUCOSE,RANDOM 134 mg/dL (75-110)
[2017-06-10] MEDS: Fluticasone Nasal 50 mcg/Spray NAS SCH (09:45)
--- NOTE | 2017-06-10 09:48 | PN ---
HISTORY OF PRESENT ILLNESS: The patient denies any abdominal pain. His leg cramps have improved. He denies any chest pain or dizziness. PHYSICAL EXAMINATION: VITAL SIGNS: Blood pressure 114/74, heart rate 86, temperature is 98.3 and respiration 20. HEENT: Pale conjunctivae. CHEST: Clear. HEART: S1 and S2 regular. ABDOMEN: Soft. EXTREMITIES: No edema. LABORATORY DATA: Trace hemoglobin and hematocrit 9.1 and 25.9, platelet count is 62,000. Today's INR is 1.4 and PTT 19. ASSESSMENT: 1. Hypertension. 2. Incarcerated anterior abdominal wall hernia. 3. History of hyperlipidemia. 4. Elevated carcinoembryonic antigen level, rule out occult malignancy. 5. Thrombocytopenia. 6. Mild anemia. RECOMMENDATIONS: Continue Crestor at 2.5 mg once a day, Flagyl at 500 mg orally q. 8 hours, Pepcid 20 mg intravenous twice a day, Synthroid 25 mcg once a day, IV Rocephin at 1 g daily. I did review gastroenterology evaluation who recommended endoscopic workup once the patient is more stable. Pavel Contreras MD
[2017-06-10] MEDS: Potassium Chloride 10 mEq ER Tab PO SCH (13:56)
--- NOTE | 2017-06-10 15:55 | CP.PCM.PN ---
Subjective - Date & Time of Evaluation Date of Evaluation: 06/10/17 Time of Evaluation: 09:00 - Subjective Subjective: GENERAL SURGERY PROGRESS NOTE FOR DR. CURIEL Patient seen and examined at bedside. He states that he wants his surgery done soon. He had a bowel movement today. He reports occasional abdominal pain. Objective - Vital Signs/Intake and Output Vital Signs (last 24 hours): Temp Pulse Resp BP Pulse Ox 99.4 F 88 20 127/76 98 06/10/17 07:22 06/10/17 07:22 06/10/17 07:22 06/10/17 07:22 06/10/17 07:22 Intake and Output: 06/10/17 06/10/17 06:59 18:59 Intake Total 1030 360 Output Total 250 Balance 780 360 - Medications Medications: Current Medications Famotidine (Pepcid) 20 mg IVP Q12 [facility] Last Admin: 06/10/17 09:45 Dose: 20 mg Fluticasone Propionate (Flonase) 2 spr VIRA DAILY [facility] Last Admin: 06/10/17 09:45 Dose: 2 sprays Ceftriaxone Sodium (Rocephin Iv 1 Gm Duplex) 50 mls @ 50 mls/30 min IVPB Q24H [facility] Last Admin: 06/09/17 17:54 Dose: 50 mls/30 min Insulin Aspart (Novolog) 0 unit SC ACHS [facility] PRN Reason: Protocol Last Admin: 06/10/17 12:00 Dose: Not Given Levothyroxine Sodium (Synthroid) 25 mcg PO 0630 [facility] Last Admin: 06/10/17 06:20 Dose: 25 mcg Metronidazole (Flagyl) 500 mg PO Q8 [facility] Last Admin: 06/10/17 13:25 Dose: 500 mg Potassium Chloride (Klor-Con 10) 10 meq PO BRK [facility] Last Admin: 06/10/17 13:56 Dose: 10 meq Rosuvastatin Calcium (Crestor) 2.5 mg PO HS [facility] Last Admin: 06/09/17 22:00 Dose: 2.5 mg Tamsulosin HCl (Flomax) 0.4 mg PO DAILY [facility] Last Admin: 06/10/17 09:45 Dose: 0.4 mg - Labs Labs: 06/10/17 07:10 06/10/17 08:25 PT 15.7 SECONDS (9.7-12.2) H 06/09/17 07:43 INR 1.4 06/09/17 07:43 APTT 19 SECONDS (21-34) L 06/09/17 07:43 - Constitutional Appears: Non-toxic, No Acute Distress - Head Exam Head Exam: ATRAUMATIC, NORMAL INSPECTION - Respiratory Exam Respiratory Exam: NORMAL BREATHING PATTERN. absent: Respiratory Distress - Cardiovascular Exam Cardiovascular Exam: +S1, +S2 - GI/Abdominal Exam GI & Abdominal Exam: Soft, Hernia (reducible ventral hernia). absent: Distended , Firm, Guarding, Rigid, Tenderness, Rebound - Neurological Exam Neurological Exam: Alert, Awake, Oriented x3 - Psychiatric Exam Psychiatric exam: Normal Affect, Normal Mood - Skin Skin Exam: Dry, Normal Color, Warm Assessment and Plan - Assessment and Plan (Free Text) Assessment: 66yo M with ventral hernia and thrombocytopenia - Afebrile, VSS - Platelets 94 this morning after platelets early this AM and yesterday afternoon - OR tomorrow for ventral hernia repair around noon - Will give another unit of platelets tomorrow morning at 8AM prior to OR - NPO past midnight - Discussed plan with Dr. Stephen Brownlee PGY-3
--- NOTE | 2017-06-10 16:15 | HP ---
LOCATION: [facility], bed B. HISTORY OF PRESENT ILLNESS: This is a 66-year-old male seen and examined in rounds today with status post platelet transfusion without any new reported complaints or evidence of active bleeding. No chest pain, no palpitation, but mild abdominal distention and discomfort. The entire chart is reviewed including, but not limited to the most recent lab and radiology study results, current and previous medication list, current and previous medical events and the latest hemoglobin is 10.2, hematocrit 28.8 with increased platelet count 94 with low potassium 3.4, low CO2 content of 20 with increased blood glucose level to 176, but normal calcium. PHYSICAL EXAMINATION: GENERAL: A 66-year-old male, awake, alert and oriented. VITAL SIGNS: Afebrile with pulse of 84, respiratory rate 20-22, blood pressure 130/74. HEENT: Show pale dry mucous membrane, nonicteric sclera. LUNGS: He has got crepitation, decreased air entry at bases. HEART: Positive S1 and S2. ABDOMEN: Soft with [id number] distention. Positive for ventral hernia. No masses or organomegaly. No rebound tenderness or guarding. NEUROLOGIC: No reported new neurological deficits, sensory or motor. IMPRESSION: 1. Incarcerated anterior abdominal wall ventral hernia. 2. Known history of hypertension. 3. Hyperlipidemia. 4. Elevated carcinoembryonic antigen level to rule out lower gastrointestinal tract cancer. 5. Anemia. 6. Thrombocytopenia of unclear etiology. 7. History of peptic ulcer disease. SUGGESTION: 1. Agree with your complaint. 2. Well control of his poorly controlled diabetes mellitus. Again the patient would need endoscopic evaluation of the GI tract when he is more stable clinically, however, that could be done post-surgically. Senthil Damon MD cc: Senthil Damon MD
[2017-06-10] MEDS: cefTRIAXone IV 1 gm in Dextros 50 ML IVPB SCH (16:51)
[2017-06-10] MEDS: Rosuvastatin Calcium 2.5 mg Tab PO SCH (21:29)
[2017-06-11] MEDS: Levothyroxine 25 MCG TAB PO SCH (05:38)
[2017-06-11 07:15] LABS: BASO % 0.3 % (0.0-2.0); EOS % 0.7 % (0.0-4.0); LYMPH # 1.6 K/uL (1.0-4.3); LYMPH % 29.8 % (20.0-40.0); MEAN CELL VOLUME 107.2 fL (80.0-94.0); MEAN CORPUSCULAR HEMOGLOBIN 37.5 pg (27.0-31.0); MEAN PLATELET VOLUME 9.1 fL (7.2-11.7); MONO # 0.8 K/uL (0.0-0.8); MONO % 15.3 % (0.0-10.0); NRBC % 0.2 % (0.0-2.0); RED CELL DISTRIBUTION WIDTH 15.5 % (11.5-14.5); WHITE BLOOD COUNT 5.5 K/uL (4.8-10.8)
[2017-06-11 07:30] LABS: CHLORIDE 105 mmol/L (98-107); POTASSIUM 3.5 mmol/L (3.6-5.2); SODIUM 136 mmol/L (132-148)
[2017-06-11 07:32] LABS: GFR AFRICAN-AMERICAN > 60
[2017-06-11 07:33] LABS: BLOOD UREA NITROGEN 8 mg/dL (9-20); CALCIUM 8.3 mg/dl (8.6-10.4); CARBON DIOXIDE 23 mmol/L (22-30); GLUCOSE,RANDOM 139 mg/dL (75-110)
--- NOTE | 2017-06-11 08:11 | PN ---
SUBJECTIVE: The surgery is postponed. The patient denies any chest pain. PHYSICAL EXAMINATION: VITAL SIGNS: Blood pressure 127/76, heart rate 88, temperature 99.4 and respiration 20. HEENT: Normocephalic. CHEST: Clear. HEART: S1 and S2 regular. EXTREMITIES: Trace leg edema. LABORATORY DATA: Hemoglobin and hematocrit 10.2 and 28.6; platelet count is 94,000. Today's potassium is 3.4, BUN and creatinine are 6 and 0.7 respectively, glucose is elevated at 134. ASSESSMENT: 1. Incarcerated anterior abdominal wall hernia. 2. Hypertension. 3. Hypokalemia. 4. Improving thrombocytopenia. 5. Mild anemia. RECOMMENDATIONS: Continue Crestor at 2.5 mg once a day, Synthroid 25 mcg once a day, Flagyl 500 mg q .8 hours, start K-Dur at 10 mEq orally daily, and obtain BMP in a.m. Pavel Contreras MD
[2017-06-11] MEDS: (Novolog) Insulin Aspart, Recombinant 100 u/ml 10 ml vial SC SCH ×3 (08:30→17:37)
[2017-06-11] MEDS: Potassium Chloride 10 mEq ER Tab PO SCH (08:45)
[2017-06-11] MEDS: Fluticasone Nasal 50 mcg/Spray NAS SCH (09:13)
--- NOTE | 2017-06-11 12:17 | PN ---
DATE: LOCATION: [facility], bed B. SUBJECTIVE: This 66-year-old male seen and examined in rounds without significant clinical changes, reported active bleeding, still has intermittent period of abdominal distension, passing gas with bowel movement reported to be positive. No reported active bleeding, but nausea with mild dyspepsia. The entire chart was reviewed including, but not limited to the most recent lab and radiology study results, current and previous medication list, current and previous medical events. Case discussed with the staff at length. It has to be mentioned that the patient has subsequent drop of his hemoglobin with today's hemoglobin of 8.8, hematocrit dropped to 25, with platelet count still low of 95, was low with 73.5, blood glucose level 166 with low calcium of 8.3. PHYSICAL EXAMINATION: GENERAL: A 66-year-old male awake, alert, and oriented. VITAL SIGNS: Afebrile, with pulse of 72, respiratory rate 20-22, blood pressure 136/82. HEENT: Show pale dry oral mucoid membranes, anicteric sclerae. LUNGS: Few scattered crepitations with decreased air entry at bases. HEART: Positive S1 and S2. ABDOMEN: Soft with positive midline abdominal hernia. Bowel sounds are hypoactive. No other mass or organomegaly. EXTREMITIES: Without edema, clubbing, or cyanosis. NEUROLOGIC: No reported new neurological deficits, sensory, or motor. IMPRESSION: 1. Incarcerated anterior abdominal wall hernia. 2. Anemia through gastrointestinal blood loss, upper versus lower. 3. Known history of hypertension, poorly controlled diabetes mellitus. 4. Hyperlipidemia by history. 5. Exacerbation of peptic ulcer disease. 6. Elevated CEA level to rule out occult lower gastrointestinal malignancy. SUGGESTIONS: 1. Continue current management. 2. Blood transfusion to keep hemoglobin around 10 g percent. Case is to be discussed with the [employer] on the case. Senthil Damon MD cc: Senthil Damon MD
--- NOTE | 2017-06-11 12:22 | CP.PCM.PN ---
Subjective - Date & Time of Evaluation Date of Evaluation: 06/11/17 Time of Evaluation: 07:00 - Subjective Subjective: GENERAL SURGERY PROGRESS NOTE FOR DR. CURIEL Patient seen and examined at bedside. He was scheduled for ventral hernia repair today but AM labs showed a drop in hemoglobin to 8.8 and a drop in platelets to 85. Surgery was cancelled. Patient was put back on regular diet. Objective - Vital Signs/Intake and Output Vital Signs (last 24 hours): Temp Pulse Resp BP Pulse Ox 98.0 F 76 20 144/85 100 06/11/17 08:28 06/11/17 08:28 06/11/17 08:28 06/11/17 08:28 06/11/17 08:28 Intake and Output: 06/11/17 06/11/17 06:59 18:59 Intake Total 700 Balance 700 - Medications Medications: Current Medications Famotidine (Pepcid) 20 mg IVP Q12 [facility] Last Admin: 06/11/17 09:13 Dose: 20 mg Fluticasone Propionate (Flonase) 2 spr VIRA DAILY [facility] Last Admin: 06/11/17 09:13 Dose: 2 sprays Ceftriaxone Sodium (Rocephin Iv 1 Gm Duplex) 50 mls @ 50 mls/30 min IVPB Q24H [facility] Last Admin: 06/10/17 16:51 Dose: 50 mls/30 min Insulin Aspart (Novolog) 0 unit SC ACHS [facility] PRN Reason: Protocol Last Admin: 06/11/17 11:49 Dose: 1 unit Levothyroxine Sodium (Synthroid) 25 mcg PO 0630 [facility] Last Admin: 06/11/17 05:38 Dose: 25 mcg Metronidazole (Flagyl) 500 mg PO Q8 [facility] Last Admin: 06/11/17 05:38 Dose: 500 mg Potassium Chloride (Klor-Con 10) 10 meq PO BRK [facility] Last Admin: 06/11/17 08:45 Dose: 10 meq Rosuvastatin Calcium (Crestor) 2.5 mg PO HS [facility] Last Admin: 06/10/17 21:29 Dose: 2.5 mg Tamsulosin HCl (Flomax) 0.4 mg PO DAILY [facility] Last Admin: 06/11/17 09:13 Dose: 0.4 mg - Labs Labs: 06/11/17 07:01 06/11/17 07:01 PT 15.7 SECONDS (9.7-12.2) H 06/09/17 07:43 INR 1.4 06/09/17 07:43 APTT 19 SECONDS (21-34) L 06/09/17 07:43 - Constitutional Appears: Non-toxic, No Acute Distress - Head Exam Head Exam: ATRAUMATIC, NORMAL INSPECTION - Respiratory Exam Respiratory Exam: NORMAL BREATHING PATTERN. absent: Respiratory Distress - Cardiovascular Exam Cardiovascular Exam: +S1, +S2 - GI/Abdominal Exam GI & Abdominal Exam: Soft, Hernia (reducible nontender ventral hernia). absent : Distended, Firm, Guarding, Rigid, Tenderness, Rebound - Neurological Exam Neurological Exam: Alert, Awake - Psychiatric Exam Psychiatric exam: Normal Affect, Normal Mood - Skin Skin Exam: Dry, Normal Color, Warm Assessment and Plan - Assessment and Plan (Free Text) Assessment: 66yo M with ventral hernia and thrombocytopenia - Afebrile, VSS - Hemoglobin dropped to 8.8 from 10.2 - Platelets 85 this morning (decreased from 94) - OR cancelled - Regular diet resumed - Patient asymptomatic, no pain, tolerating diet, having normal bowel movements - Will do surgery electively as an outpatient once medically optimized - Discussed plan with Dr. Stephen Brownlee PGY-3
--- NOTE | 2017-06-11 15:50 | PN ---
SUBJECTIVE: The patient denies any chest pain or shortness of breath at this time. He was to get n.p.o. last night; however, he was allowed to be fed today. PHYSICAL EXAMINATION: VITAL SIGNS: Blood pressure 144/85, heart rate 76, temperature 98, respirations 20. HEENT: Pale conjunctivae. CHEST: Clear. HEART: S1 and S2 regular. ABDOMEN: Soft. EXTREMITIES: Trace leg edema. LABORATORY DATA: Hemoglobin and hematocrit 8.8 and 25.0. Today's platelet count has dropped to 85,000 compared to 94,000 yesterday. White count is within normal limits. Today's potassium is 3.6, BUN and creatinine are 8 and 0.8 respectively. Calcium is within normal limit 8.3. Glucose elevated at 139. ASSESSMENT: 1. Hypertension. 2. Diabetes mellitus. 3. Hypokalemia. 4. Incarcerated ventral hernia. 5. Mild hypocalcemia. 6. Thrombocytopenia. RECOMMENDATIONS: Continue Crestor at 2.5 mg once a day, oral Flagyl 500 mg q.8 hours, increase Klor-Con to 20 mEq daily, continue IV Rocephin. Surgery was canceled today because of the drop in the platelet count. Pavel Contreras MD
[2017-06-11] MEDS: cefTRIAXone IV 1 gm in Dextros 50 ML IVPB SCH (17:36)
[2017-06-11] MEDS: Rosuvastatin Calcium 2.5 mg Tab PO SCH (21:30)
--- NOTE | 2017-06-12 02:34 | CP.PCM.PN ---
Subjective - Date & Time of Evaluation Date of Evaluation: 06/11/17 Time of Evaluation: 17:20 - Subjective Subjective: 66yo M pateint seen and examined is for OR for ventral hernia repair ,with ventral hernia and thrombocytopenia - stable, NAD Objective - Vital Signs/Intake and Output Vital Signs (last 24 hours): Temp Pulse Resp BP Pulse Ox 98.2 F 75 20 131/75 99 06/12/17 00:00 06/12/17 00:00 06/12/17 00:00 06/12/17 00:00 06/12/17 00:00 Intake and Output: 06/11/17 06/12/17 18:59 06:59 Intake Total 600 250 Output Total 350 Balance 600 -100 - Medications Medications: Current Medications Famotidine (Pepcid) 20 mg IVP Q12 [facility] Last Admin: 06/11/17 21:30 Dose: 20 mg Fluticasone Propionate (Flonase) 2 spr VIRA DAILY [facility] Last Admin: 06/11/17 09:13 Dose: 2 sprays Ceftriaxone Sodium (Rocephin Iv 1 Gm Duplex) 50 mls @ 50 mls/30 min IVPB Q24H [facility] Last Admin: 06/11/17 17:36 Dose: 50 mls/30 min Insulin Aspart (Novolog) 0 unit SC ACHS [facility] PRN Reason: Protocol Last Admin: 06/11/17 17:37 Dose: 1 unit Levothyroxine Sodium (Synthroid) 25 mcg PO 0630 [facility] Last Admin: 06/11/17 05:38 Dose: 25 mcg Metronidazole (Flagyl) 500 mg PO Q8 [facility] Last Admin: 06/11/17 21:30 Dose: 500 mg Potassium Chloride (K-Dur 20 Meq Er Tab) 20 meq PO BRK [facility] Rosuvastatin Calcium (Crestor) 2.5 mg PO HS [facility] Last Admin: 06/11/17 21:30 Dose: 2.5 mg Tamsulosin HCl (Flomax) 0.4 mg PO DAILY [facility] Last Admin: 06/11/17 09:13 Dose: 0.4 mg - Labs Labs: 06/11/17 07:01 06/11/17 07:01 PT 15.7 SECONDS (9.7-12.2) H 06/09/17 07:43 INR 1.4 06/09/17 07:43 APTT 19 SECONDS (21-34) L 06/09/17 07:43 - Constitutional Appears: No Acute Distress - Head Exam Head Exam: ATRAUMATIC, NORMAL INSPECTION, NORMOCEPHALIC - Eye Exam Eye Exam: EOMI, Normal appearance, PERRL Pupil Exam: NORMAL ACCOMODATION, PERRL - Respiratory Exam Respiratory Exam: Clear to Ausculation Bilateral, NORMAL BREATHING PATTERN - Cardiovascular Exam Cardiovascular Exam: REGULAR RHYTHM, +S1, +S2. absent: Murmur - GI/Abdominal Exam GI & Abdominal Exam: Soft, Normal Bowel Sounds, Pulsatile Mass. absent: Tenderness - Rectal Exam Rectal Exam: Deferred Assessment and Plan (1) Intestinal obstruction Status: Acute (2) Thrombocytopenia Status: Acute (3) Ventral hernia Assessment & Plan: Pt is anticipating surgery Status: Acute (4) HTN (hypertension) Status: Acute (5) Diabetes mellitus Status: Chronic
--- NOTE | 2017-06-12 02:36 | CP.PCM.PN ---
Subjective - Date & Time of Evaluation Date of Evaluation: 06/12/17 Time of Evaluation: 09:00 - Subjective Subjective: PT SEEN & EXAMINED AT BEDSIDE Objective - Vital Signs/Intake and Output Vital Signs (last 24 hours): Temp Pulse Resp BP Pulse Ox 98.2 F 75 20 131/75 99 06/12/17 00:00 06/12/17 00:00 06/12/17 00:00 06/12/17 00:00 06/12/17 00:00 Intake and Output: 06/11/17 06/12/17 18:59 06:59 Intake Total 600 250 Output Total 350 Balance 600 -100 - Medications Medications: Current Medications Famotidine (Pepcid) 20 mg IVP Q12 [facility] Last Admin: 06/11/17 21:30 Dose: 20 mg Fluticasone Propionate (Flonase) 2 spr VIRA DAILY [facility] Last Admin: 06/11/17 09:13 Dose: 2 sprays Ceftriaxone Sodium (Rocephin Iv 1 Gm Duplex) 50 mls @ 50 mls/30 min IVPB Q24H [facility] Last Admin: 06/11/17 17:36 Dose: 50 mls/30 min Insulin Aspart (Novolog) 0 unit SC ACHS [facility] PRN Reason: Protocol Last Admin: 06/11/17 17:37 Dose: 1 unit Levothyroxine Sodium (Synthroid) 25 mcg PO 0630 [facility] Last Admin: 06/11/17 05:38 Dose: 25 mcg Metronidazole (Flagyl) 500 mg PO Q8 [facility] Last Admin: 06/11/17 21:30 Dose: 500 mg Potassium Chloride (K-Dur 20 Meq Er Tab) 20 meq PO BRK [facility] Rosuvastatin Calcium (Crestor) 2.5 mg PO HS [facility] Last Admin: 06/11/17 21:30 Dose: 2.5 mg Tamsulosin HCl (Flomax) 0.4 mg PO DAILY [facility] Last Admin: 06/11/17 09:13 Dose: 0.4 mg - Labs Labs: 06/11/17 07:01 06/11/17 07:01 PT 15.7 SECONDS (9.7-12.2) H 06/09/17 07:43 INR 1.4 06/09/17 07:43 APTT 19 SECONDS (21-34) L 06/09/17 07:43 Assessment and Plan (1) Intestinal obstruction Status: Acute (2) Thrombocytopenia Status: Acute (3) Ventral hernia Status: Acute (4) HTN (hypertension) Status: Acute (5) Diabetes mellitus Status: Chronic
[2017-06-12] MEDS: Levothyroxine 25 MCG TAB PO SCH (06:11)
[2017-06-12 06:38] LABS: BASO % 0.4 % (0.0-2.0); EOS % 0.5 % (0.0-4.0); HEMATOCRIT 26.2 % (35.0-51.0); LYMPH # 1.8 K/uL (1.0-4.3); LYMPH % 31.1 % (20.0-40.0); MEAN CELL VOLUME 107.3 fL (80.0-94.0); MEAN CORPUSCULAR HEMOGLOBIN 37.6 pg (27.0-31.0); MEAN CORPUSCULAR HGB CONC 35.1 g/dL (33.0-37.0); MEAN PLATELET VOLUME 9.6 fL (7.2-11.7); MONO # 1.2 K/uL (0.0-0.8); MONO % 21.2 % (0.0-10.0); NRBC % 0.2 % (0.0-2.0); PLATELET COUNT 88 K/uL (130-400); RED CELL DISTRIBUTION WIDTH 16.3 % (11.5-14.5); WHITE BLOOD COUNT 5.7 K/uL (4.8-10.8)
[2017-06-12] MEDS: (Novolog) Insulin Aspart, Recombinant 100 u/ml 10 ml vial SC SCH ×4 (07:50→21:39)
[2017-06-12 08:49] LABS: NEUTROPHIL 59 % (50-75); TOTAL CELLS COUNTED 100
[2017-06-12] MEDS: Potassium Chloride 20 mEq ER Tab PO SCH (09:00)
--- NOTE | 2017-06-12 10:00 | CP.PCM.PN ---
Subjective - Date & Time of Evaluation Date of Evaluation: 06/12/17 Time of Evaluation: 07:00 - Subjective Subjective: General Surgery Dr. Mitchell Pt S&E @tan. GARO. denies abd pain, F/C, N/V, D/C. tolerating diet. Objective - Vital Signs/Intake and Output Vital Signs (last 24 hours): Temp Pulse Resp BP Pulse Ox 98.4 F 78 20 130/81 99 06/12/17 08:12 06/12/17 08:12 06/12/17 08:12 06/12/17 08:12 06/12/17 08:12 Intake and Output: 06/12/17 06/12/17 06:59 18:59 Intake Total 490 Output Total 350 Balance 140 - Medications Medications: Current Medications Famotidine (Pepcid) 20 mg IVP Q12 [facility] Last Admin: 06/11/17 21:30 Dose: 20 mg Fluticasone Propionate (Flonase) 2 spr VIRA DAILY [facility] Last Admin: 06/11/17 09:13 Dose: 2 sprays Ceftriaxone Sodium (Rocephin Iv 1 Gm Duplex) 50 mls @ 50 mls/30 min IVPB Q24H [facility] Last Admin: 06/11/17 17:36 Dose: 50 mls/30 min Insulin Aspart (Novolog) 0 unit SC ACHS [facility] PRN Reason: Protocol Last Admin: 06/12/17 07:50 Dose: 2 unit Levothyroxine Sodium (Synthroid) 25 mcg PO 0630 [facility] Last Admin: 06/12/17 06:11 Dose: 25 mcg Metronidazole (Flagyl) 500 mg PO Q8 [facility] Last Admin: 06/12/17 06:11 Dose: 500 mg Potassium Chloride (K-Dur 20 Meq Er Tab) 20 meq PO BRK [facility] Rosuvastatin Calcium (Crestor) 2.5 mg PO HS [facility] Last Admin: 06/11/17 21:30 Dose: 2.5 mg Tamsulosin HCl (Flomax) 0.4 mg PO DAILY [facility] Last Admin: 06/11/17 09:13 Dose: 0.4 mg - Labs Labs: 06/12/17 06:25 06/11/17 07:01 PT 15.7 SECONDS (9.7-12.2) H 06/09/17 07:43 INR 1.4 06/09/17 07:43 APTT 19 SECONDS (21-34) L 06/09/17 07:43 - Constitutional Appears: Non-toxic, No Acute Distress - Head Exam Head Exam: NORMAL INSPECTION - Eye Exam Eye Exam: Normal appearance - ENT Exam ENT Exam: Mucous Membranes Moist - Respiratory Exam Respiratory Exam: NORMAL BREATHING PATTERN. absent: Accessory Muscle Use, Respiratory Distress - Cardiovascular Exam Cardiovascular Exam: absent: Bradycardia, Tachycardia - GI/Abdominal Exam GI & Abdominal Exam: Soft, Hernia. absent: Distended, Tenderness - Extremities Exam Extremities Exam: Normal Inspection - Neurological Exam Neurological Exam: Alert, Awake, Oriented x3 - Psychiatric Exam Psychiatric exam: Normal Affect, Normal Mood - Skin Skin Exam: Dry, Intact, Normal Color, Warm Assessment and Plan - Assessment and Plan (Free Text) Assessment: 66 y/o M w/ ventral hernia and thrombocytopenia - cont regular diet - transfuse for Hgb <8 - surgery rescheduled for Wednesday - transfuse platelets Wednesday morning prior to surgery Pt discussed w/ Dr. Stephen Patel DO PGY2
[2017-06-12] MEDS: Fluticasone Nasal 50 mcg/Spray NAS SCH (10:11)
--- NOTE | 2017-06-12 12:55 | CP.PCM.PN ---
Subjective - Date & Time of Evaluation Date of Evaluation: 06/12/17 Time of Evaluation: 12:53 - Subjective Subjective: needs more blood. High complication rate anticipated particularly in view of coagulation diorder. all are aware of the situation Prbc ordered today \\plateletes for Wednesday Objective - Vital Signs/Intake and Output Vital Signs (last 24 hours): Temp Pulse Resp BP Pulse Ox 98.4 F 78 20 130/81 99 06/12/17 08:12 06/12/17 08:12 06/12/17 08:12 06/12/17 08:12 06/12/17 08:12 Intake and Output: 06/12/17 06/12/17 06:59 18:59 Intake Total 490 Output Total 350 Balance 140 - Medications Medications: Current Medications Famotidine (Pepcid) 20 mg IVP Q12 [facility] Last Admin: 06/12/17 10:09 Dose: 20 mg Fluticasone Propionate (Flonase) 2 spr VIRA DAILY [facility] Last Admin: 06/12/17 10:11 Dose: 1 sprays Ceftriaxone Sodium (Rocephin Iv 1 Gm Duplex) 50 mls @ 50 mls/30 min IVPB Q24H [facility] Last Admin: 06/11/17 17:36 Dose: 50 mls/30 min Insulin Aspart (Novolog) 0 unit SC ACHS [facility] PRN Reason: Protocol Last Admin: 06/12/17 11:49 Dose: 3 unit Levothyroxine Sodium (Synthroid) 25 mcg PO 0630 [facility] Last Admin: 06/12/17 06:11 Dose: 25 mcg Metronidazole (Flagyl) 500 mg PO Q8 [facility] Last Admin: 06/12/17 06:11 Dose: 500 mg Potassium Chloride (K-Dur 20 Meq Er Tab) 20 meq PO BRK [facility] Last Admin: 06/12/17 09:00 Dose: 20 meq Rosuvastatin Calcium (Crestor) 2.5 mg PO HS [facility] Last Admin: 06/11/17 21:30 Dose: 2.5 mg Tamsulosin HCl (Flomax) 0.4 mg PO DAILY [facility] Last Admin: 06/12/17 10:10 Dose: 0.4 mg - Labs Labs: 06/12/17 06:25 06/11/17 07:01 PT 15.7 SECONDS (9.7-12.2) H 06/09/17 07:43 INR 1.4 06/09/17 07:43 APTT 19 SECONDS (21-34) L 06/09/17 07:43
--- NOTE | 2017-06-12 13:27 | PN ---
LOCATION: #350, bed B. SUBJECTIVE: The patient is a 66-year-old male, seen and examined in rounds without significant clinical changes, but reported active bleeding with revaluation for platelets as well as blood transfusion as needed, start before any surgical aggressive procedure. The patient tolerated oral intake well and passing gas with reported bowel movement recently. The entire chart is reviewed, including but not limited to the most recent lab and radiology study results, current and the previous medication list, current and the previous medical events. Case discussed with the staff at length. Today's lab showed hemoglobin is still low of 9.2, his hematocrit is 26.2 with thrombocytopenia of 88 and blood glucose level of 250. PHYSICAL EXAMINATION: GENERAL: A 66-year-old male, appears to be awake, alert and oriented. VITAL SIGNS: Afebrile with pulse of 82, respiratory rate of 20 to 22, blood pressure of 136/78. HEENT: Showed pale, dry oral mucous membrane. Nonicteric sclerae. LUNGS: Few scattered crepitation. Decreased air entry at bases. HEART: Positive S1 and S2. ABDOMEN: Soft. Bowel sounds are present. No mass or organomegaly. No rebound tenderness or guarding. Anterior abdominal wall hernia seen, pulsating. EXTREMITIES: Without lower extremity slight edematous changes. No clubbing or cyanosis. NEUROLOGIC: No reported new neurological deficits, sensory or motor. No focal deficits. IMPRESSION: 1. Incarcerated anterior abdominal wall hernia. 2. Anemia. 3. Thrombocytopenia. 4. Known history of hyperlipidemia. 5. Known history of hypertension. 6. Poorly controlled diabetes mellitus. 7. Re-exacerbation of the peptic ulcer disease. 8. Elevated CEA level, the possibility of lower gastrointestinal tract occult malignancy should be kept in line. 9. Recent history of hypokalemia and hypocalcemia. SUGGESTION: 1. Continue current management. 2. Antireflux measure. 3. Further recommendation to follow. Still awaiting for surgical interference after correcting the patient's thrombocytopenia. Senthil Damon MD cc: Senthil Damon MD
[2017-06-12] MEDS: cefTRIAXone IV 1 gm in Dextros 50 ML IVPB SCH (17:04)
--- NOTE | 2017-06-12 19:56 | PN ---
DATE: SUBJECTIVE: The patient is currently receiving packed RBC transfusion. He denies any shortness of breath or chest pain. PHYSICAL EXAMINATION VITAL SIGNS: Blood pressure 147/81, heart rate 68, temperature 97.9, respirations 21. HEENT: Pale conjunctivae. CHEST: Clear. HEART: S1 and S2, regular. EXTREMITIES: Trace leg edema. LABORATORY DATA: Today's blood sugars up to 106, 250 and 218. Today's hemoglobin and hematocrit is 9.1 and 26.2, white count 5.7, platelet count 88, 000. ASSESSMENT: 1. Hypertension. 2. Hyperlipidemia. 3. Incarcerated anterior abdominal wall hernia. 4. Anemia. 5. Thrombocytopenia. RECOMMENDATIONS: Continue Crestor 2.5 mg daily, Flagyl 500 mg orally q. 8 hours, K-Dur 20 mEq orally daily, Synthroid 25 mcg once a day, continue IV Rocephin 1 g daily, administer Lasix 20 mg IV push and further completion of packed RBC transfusion, obtain BNP and CBC in a.m. Pavel Contreras MD
[2017-06-12] MEDS: Rosuvastatin Calcium 2.5 mg Tab PO SCH (21:35)
[2017-06-13] MEDS: Levothyroxine 25 MCG TAB PO SCH (05:36)
[2017-06-13 07:16] LABS: HEMATOCRIT 30.3 % (35.0-51.0); MEAN CELL VOLUME 104.6 fL (80.0-94.0); MEAN CORPUSCULAR HEMOGLOBIN 36.5 pg (27.0-31.0); MEAN CORPUSCULAR HGB CONC 34.9 g/dL (33.0-37.0); MEAN PLATELET VOLUME 8.8 fL (7.2-11.7); RED CELL DISTRIBUTION WIDTH 18.6 % (11.5-14.5); WHITE BLOOD COUNT 6.4 K/uL (4.8-10.8)
[2017-06-13] MEDS: (Novolog) Insulin Aspart, Recombinant 100 u/ml 10 ml vial SC SCH ×4 (07:30→22:08)
[2017-06-13] MEDS: Potassium Chloride 20 mEq ER Tab PO SCH ×2 (07:32→17:22)
[2017-06-13 07:49] LABS: CHLORIDE 103 mmol/L (98-107); POTASSIUM 3.7 mmol/L (3.6-5.2); SODIUM 135 mmol/L (132-148)
[2017-06-13 07:52] LABS: BLOOD UREA NITROGEN 11 mg/dL (9-20); CARBON DIOXIDE 21 mmol/L (22-30); GFR AFRICAN-AMERICAN > 60; GLUCOSE,RANDOM 169 mg/dL (75-110)
[2017-06-13 07:53] LABS: CALCIUM 8.6 mg/dl (8.6-10.4)
--- NOTE | 2017-06-13 08:05 | CP.PCM.PN ---
Subjective - Date & Time of Evaluation Date of Evaluation: 06/13/17 Time of Evaluation: 06:45 - Subjective Subjective: General Surgery Dr. Mitchell Pt S&E @bedside. NAEO. no complaints. denies F/C, N/V, abd pain. tolerating regular diet. Objective - Vital Signs/Intake and Output Vital Signs (last 24 hours): Temp Pulse Resp BP Pulse Ox 98.6 F 79 20 115/71 97 06/13/17 00:14 06/13/17 00:14 06/13/17 00:14 06/13/17 00:14 06/13/17 00:14 Intake and Output: 06/13/17 06/13/17 06:59 18:59 Intake Total 965 Output Total 1500 Balance -535 - Medications Medications: Current Medications Famotidine (Pepcid) 20 mg IVP Q12 [facility] Last Admin: 06/12/17 21:35 Dose: 20 mg Fluticasone Propionate (Flonase) 2 spr VIRA DAILY [facility] Last Admin: 06/12/17 10:11 Dose: 1 sprays Ceftriaxone Sodium (Rocephin Iv 1 Gm Duplex) 50 mls @ 50 mls/30 min IVPB Q24H [facility] Last Admin: 06/12/17 17:04 Dose: 50 mls/30 min Insulin Aspart (Novolog) 0 unit SC ACHS [facility] PRN Reason: Protocol Last Admin: 06/13/17 07:30 Dose: 1 unit Levothyroxine Sodium (Synthroid) 25 mcg PO 0630 [facility] Last Admin: 06/13/17 05:36 Dose: 25 mcg Metronidazole (Flagyl) 500 mg PO Q8 [facility] Last Admin: 06/13/17 05:36 Dose: 500 mg Potassium Chloride (K-Dur 20 Meq Er Tab) 20 meq PO BRK [facility] Last Admin: 06/13/17 07:32 Dose: 20 meq Rosuvastatin Calcium (Crestor) 2.5 mg PO HS [facility] Last Admin: 06/12/17 21:35 Dose: 2.5 mg Tamsulosin HCl (Flomax) 0.4 mg PO DAILY [facility] Last Admin: 06/12/17 10:10 Dose: 0.4 mg - Labs Labs: 06/13/17 07:01 06/13/17 07:01 PT 15.7 SECONDS (9.7-12.2) H 06/09/17 07:43 INR 1.4 06/09/17 07:43 APTT 19 SECONDS (21-34) L 06/09/17 07:43 - Constitutional Appears: Non-toxic, No Acute Distress - Head Exam Head Exam: NORMAL INSPECTION - Eye Exam Eye Exam: Normal appearance - ENT Exam ENT Exam: Mucous Membranes Moist - Respiratory Exam Respiratory Exam: NORMAL BREATHING PATTERN. absent: Accessory Muscle Use, Respiratory Distress - Cardiovascular Exam Cardiovascular Exam: absent: Bradycardia, Tachycardia - GI/Abdominal Exam GI & Abdominal Exam: Soft, Hernia (ventral). absent: Distended, Guarding, Tenderness, Rebound - Extremities Exam Extremities Exam: Normal Inspection - Neurological Exam Neurological Exam: Alert, Awake, Oriented x3 - Psychiatric Exam Psychiatric exam: Normal Affect, Normal Mood - Skin Skin Exam: Dry, Intact, Normal Color, Warm Assessment and Plan - Assessment and Plan (Free Text) Assessment: 66 y/o M w/ ventral hernia and thrombocytopenia - cont regular diet - NPO @midnight - transfuse 1 unit pRBC today - surgery rescheduled for Wednesday - transfuse platelets Wednesday morning prior to surgery Pt discussed w/ Dr. Stephen Patel DO PGY2
[2017-06-13] MEDS: Fluticasone Nasal 50 mcg/Spray NAS SCH (09:11)
--- NOTE | 2017-06-13 13:34 | PN ---
DATE: LOCATION: [address] [place] [address] B. SUBJECTIVE: A 66-year-old male and examined in rounds early in the morning without significant clinical changes, reported active bleeding. Appear to be awake, alert and oriented with intermittent period of mild abdominal pain. Again, the patient is passing gas as well as bowel movements and denied any chest pain, palpitation or significant shortness of breath. No reported bleeding. PHYSICAL EXAMINATION: GENERAL: A 66-year-old male awake, alert and oriented. VITAL SIGNS: Afebrile with pulse of 83, respiratory rate of 20 to 22, blood pressure of 124/76. HEENT: Showed pale, dry oral mucous membrane. Nonicteric sclerae. LUNGS: Few scattered crepitation. Decreased air entry at bases. HEART: Positive S1 and S2. ABDOMEN: Soft. Bowel sounds are present, but hypoactive. Positive for anterior abdominal wall hernia. No other mass or organomegaly. No rebound tenderness or guarding. EXTREMITIES: Without significant edema, clubbing or cyanosis. NEUROLOGIC: No reported new neurological deficits, sensory or motor. VASCULAR: Peripheral pulses are present bilaterally. No reported active bleeding despite the subsequent drop of hemoglobin and hematocrit. LABORATORY DATA: Most recent lab results showed hemoglobin of 10.6, hematocrit 30.3, with platelet count still 94, low with blood glucose level 179. IMPRESSION: 1. Incarcerated anterior abdominal wall hernia. 2. Known history of hypertension. 3. Known history of hyperlipidemia. 4. Anemia, the possibility of gastrointestinal blood loss was raised. 5. Thrombocytopenia of unclear etiology. 6. Poorly controlled diabetes mellitus. 7. Re-exacerbation of peptic ulcer disease. 8. Electrolyte imbalance gradually improving including hypokalemia and hypocalcemia. 9. Elevated CEA level raising the question of possible lower gastrointestinal neoplastic lesion. SUGGESTION: 1. Continue current management. 2. Correct underlying thrombocytopenia. 3. Surgical re-evaluation for possible OR at a.m. 4. The patient will need; however, in general need endoscopic evaluation of the GI tract surgically and when he is more stable clinically. Senthil Damon MD cc: Senthil Damon MD
[2017-06-13] MEDS: cefTRIAXone IV 1 gm in Dextros 50 ML IVPB SCH (17:34)
--- NOTE | 2017-06-13 18:46 | PN ---
DATE: SUBJECTIVE: The patient is experiencing worsening right leg swelling, mild abdominal pain. No chest pain. PHYSICAL EXAMINATION VITAL SIGNS: Blood pressure 150/85, heart rate 76, temperature 97.7, respirations 20. HEENT: Pale conjunctiva. CHEST: Clear. HEART: S1 and S2 regular. EXTREMITIES: A 2+ pitting edema. LABORATORY DATA: Hemoglobin and hematocrit 10.6 and 33.3, white count 6.4, platelet count 94,000. SMA-7 within normal limits except for glucose 169 and carbon dioxide 21. ASSESSMENT: 1. Anterior. abdominal wall hernia. 2. Hypertension. 3. Uncontrolled diabetes mellitus. 4. Diastolic heart failure. RECOMMENDATIONS: Continue Crestor 2.5 mg once a day, IV Rocephin 1 g daily, 40 mg once a day, and increase K-Dur 20 mEq orally once a day. Pavel Contreras MD
[2017-06-13] MEDS: Rosuvastatin Calcium 2.5 mg Tab PO SCH (21:01)
--- NOTE | 2017-06-13 22:22 | CP.PCM.PN ---
Subjective - Date & Time of Evaluation Date of Evaluation: 06/09/17 Time of Evaluation: 18:00 - Subjective Subjective: Surgery postponed for thrombocytopenia s/p 1U PRBC this AM Objective - Vital Signs/Intake and Output Vital Signs (last 24 hours): Temp Pulse Resp BP Pulse Ox 98.2 F 72 20 126/74 96 06/13/17 16:52 06/13/17 16:52 06/13/17 16:52 06/13/17 17:22 06/13/17 16:52 Intake and Output: 06/13/17 06/14/17 18:59 06:59 Intake Total 895 550 Output Total 1200 Balance 895 -650 - Medications Medications: Current Medications Famotidine (Pepcid) 20 mg IVP Q12 [facility] Last Admin: 06/13/17 21:17 Dose: 20 mg Fluticasone Propionate (Flonase) 2 spr VIRA DAILY [facility] Last Admin: 06/13/17 09:11 Dose: 1 sprays Furosemide (Lasix) 40 mg IVP DAILY [facility] Last Admin: 06/13/17 17:22 Dose: 40 mg Ceftriaxone Sodium (Rocephin Iv 1 Gm Duplex) 50 mls @ 50 mls/30 min IVPB Q24H [facility] Last Admin: 06/13/17 17:34 Dose: 50 mls/30 min Lactated Ringer's (Lactated Ringer's) 1,000 mls @ 125 mls/hr IV .Q8H [facility] Insulin Aspart (Novolog) 0 unit SC ACHS [facility] PRN Reason: Protocol Last Admin: 06/13/17 22:08 Dose: Not Given Levothyroxine Sodium (Synthroid) 25 mcg PO 0630 [facility] Last Admin: 06/13/17 05:36 Dose: 25 mcg Metronidazole (Flagyl) 500 mg PO Q8 [facility] Last Admin: 06/13/17 21:01 Dose: 500 mg Potassium Chloride (K-Dur 20 Meq Er Tab) 20 meq PO BID [facility] Last Admin: 06/13/17 17:22 Dose: 20 meq Rosuvastatin Calcium (Crestor) 2.5 mg PO HS [facility] Last Admin: 06/13/17 21:01 Dose: 2.5 mg Tamsulosin HCl (Flomax) 0.4 mg PO DAILY [facility] Last Admin: 06/13/17 09:11 Dose: 0.4 mg - Labs Labs: 06/13/17 07:01 06/13/17 07:01 PT 15.7 SECONDS (9.7-12.2) H 06/09/17 07:43 INR 1.4 06/09/17 07:43 APTT 19 SECONDS (21-34) L 06/09/17 07:43 - Head Exam Head Exam: ATRAUMATIC - Eye Exam Eye Exam: Normal appearance - ENT Exam ENT Exam: Mucous Membranes Dry - Respiratory Exam Respiratory Exam: NORMAL BREATHING PATTERN - Cardiovascular Exam Cardiovascular Exam: +S1, +S2 - GI/Abdominal Exam GI & Abdominal Exam: Normal Bowel Sounds - Extremities Exam Extremities Exam: Normal Inspection Assessment and Plan (1) Thrombocytopenia Assessment & Plan: liver disease, alcohol abuse transfusion support surgery requesting goal plt 100,000 Status: Acute (2) Anemia Assessment & Plan: chronic disease, alcohol abuse s/p 1U PRBC today Status: Acute (3) Elevated CEA Assessment & Plan: outpatient GI w/u after hernia repair. Status: Acute
--- NOTE | 2017-06-13 22:26 | CP.PCM.PN ---
Subjective - Date & Time of Evaluation Date of Evaluation: 06/10/17 Time of Evaluation: 13:00 - Subjective Subjective: No complaints plt count 94,000 Objective - Vital Signs/Intake and Output Vital Signs (last 24 hours): Temp Pulse Resp BP Pulse Ox 98.2 F 72 20 126/74 96 06/13/17 16:52 06/13/17 16:52 06/13/17 16:52 06/13/17 17:22 06/13/17 16:52 Intake and Output: 06/13/17 06/14/17 18:59 06:59 Intake Total 895 550 Output Total 1200 Balance 895 -650 - Medications Medications: Current Medications Famotidine (Pepcid) 20 mg IVP Q12 [facility] Last Admin: 06/13/17 21:17 Dose: 20 mg Fluticasone Propionate (Flonase) 2 spr VIRA DAILY [facility] Last Admin: 06/13/17 09:11 Dose: 1 sprays Furosemide (Lasix) 40 mg IVP DAILY [facility] Last Admin: 06/13/17 17:22 Dose: 40 mg Ceftriaxone Sodium (Rocephin Iv 1 Gm Duplex) 50 mls @ 50 mls/30 min IVPB Q24H [facility] Last Admin: 06/13/17 17:34 Dose: 50 mls/30 min Lactated Ringer's (Lactated Ringer's) 1,000 mls @ 125 mls/hr IV .Q8H [facility] Insulin Aspart (Novolog) 0 unit SC ACHS [facility] PRN Reason: Protocol Last Admin: 06/13/17 22:08 Dose: Not Given Levothyroxine Sodium (Synthroid) 25 mcg PO 0630 [facility] Last Admin: 06/13/17 05:36 Dose: 25 mcg Metronidazole (Flagyl) 500 mg PO Q8 [facility] Last Admin: 06/13/17 21:01 Dose: 500 mg Potassium Chloride (K-Dur 20 Meq Er Tab) 20 meq PO BID [facility] Last Admin: 06/13/17 17:22 Dose: 20 meq Rosuvastatin Calcium (Crestor) 2.5 mg PO HS [facility] Last Admin: 06/13/17 21:01 Dose: 2.5 mg Tamsulosin HCl (Flomax) 0.4 mg PO DAILY [facility] Last Admin: 06/13/17 09:11 Dose: 0.4 mg - Labs Labs: 06/13/17 07:01 06/13/17 07:01 PT 15.7 SECONDS (9.7-12.2) H 06/09/17 07:43 INR 1.4 06/09/17 07:43 APTT 19 SECONDS (21-34) L 06/09/17 07:43 - Head Exam Head Exam: ATRAUMATIC - Eye Exam Eye Exam: Normal appearance - ENT Exam ENT Exam: Mucous Membranes Dry - Respiratory Exam Respiratory Exam: NORMAL BREATHING PATTERN - Cardiovascular Exam Cardiovascular Exam: +S1, +S2 - GI/Abdominal Exam GI & Abdominal Exam: Normal Bowel Sounds - Extremities Exam Extremities Exam: Normal Inspection Assessment and Plan (1) Thrombocytopenia Assessment & Plan: liver disease, alcohol abuse transfusion support surgery requesting goal plt 100,000 Status: Acute (2) Anemia Assessment & Plan: chronic disease, alcohol abuse s/p PRBC tx Status: Acute (3) Elevated CEA Assessment & Plan: outpatient GI w/u post surgery Status: Acute
--- NOTE | 2017-06-13 22:29 | CP.PCM.PN ---
Subjective - Date & Time of Evaluation Date of Evaluation: 06/11/17 Time of Evaluation: 19:00 - Subjective Subjective: Surgery canceled due to anemia and thrombocytopenia Objective - Vital Signs/Intake and Output Vital Signs (last 24 hours): Temp Pulse Resp BP Pulse Ox 98.2 F 72 20 126/74 96 06/13/17 16:52 06/13/17 16:52 06/13/17 16:52 06/13/17 17:22 06/13/17 16:52 Intake and Output: 06/13/17 06/14/17 18:59 06:59 Intake Total 895 550 Output Total 1200 Balance 895 -650 - Medications Medications: Current Medications Famotidine (Pepcid) 20 mg IVP Q12 [facility] Last Admin: 06/13/17 21:17 Dose: 20 mg Fluticasone Propionate (Flonase) 2 spr VIRA DAILY [facility] Last Admin: 06/13/17 09:11 Dose: 1 sprays Furosemide (Lasix) 40 mg IVP DAILY [facility] Last Admin: 06/13/17 17:22 Dose: 40 mg Ceftriaxone Sodium (Rocephin Iv 1 Gm Duplex) 50 mls @ 50 mls/30 min IVPB Q24H [facility] Last Admin: 06/13/17 17:34 Dose: 50 mls/30 min Lactated Ringer's (Lactated Ringer's) 1,000 mls @ 125 mls/hr IV .Q8H [facility] Insulin Aspart (Novolog) 0 unit SC ACHS [facility] PRN Reason: Protocol Last Admin: 06/13/17 22:08 Dose: Not Given Levothyroxine Sodium (Synthroid) 25 mcg PO 0630 [facility] Last Admin: 06/13/17 05:36 Dose: 25 mcg Metronidazole (Flagyl) 500 mg PO Q8 [facility] Last Admin: 06/13/17 21:01 Dose: 500 mg Potassium Chloride (K-Dur 20 Meq Er Tab) 20 meq PO BID [facility] Last Admin: 06/13/17 17:22 Dose: 20 meq Rosuvastatin Calcium (Crestor) 2.5 mg PO HS [facility] Last Admin: 06/13/17 21:01 Dose: 2.5 mg Tamsulosin HCl (Flomax) 0.4 mg PO DAILY [facility] Last Admin: 06/13/17 09:11 Dose: 0.4 mg - Labs Labs: 06/13/17 07:01 06/13/17 07:01 PT 15.7 SECONDS (9.7-12.2) H 06/09/17 07:43 INR 1.4 06/09/17 07:43 APTT 19 SECONDS (21-34) L 06/09/17 07:43 - Head Exam Head Exam: ATRAUMATIC - Eye Exam Eye Exam: Normal appearance - ENT Exam ENT Exam: Mucous Membranes Dry - Respiratory Exam Respiratory Exam: NORMAL BREATHING PATTERN - Cardiovascular Exam Cardiovascular Exam: +S1, +S2 - GI/Abdominal Exam GI & Abdominal Exam: Normal Bowel Sounds - Extremities Exam Extremities Exam: Normal Inspection Assessment and Plan (1) Thrombocytopenia Assessment & Plan: liver disease, alcohol abuse transfusion support surgery requesting goal plt 100,000 Status: Acute (2) Anemia Assessment & Plan: chronic disease, alcohol abuse s/p transfusion support Status: Acute (3) Elevated CEA Assessment & Plan: GI w/u Status: Acute
--- NOTE | 2017-06-13 22:30 | CP.PCM.PN ---
Subjective - Date & Time of Evaluation Date of Evaluation: 06/12/17 Time of Evaluation: 16:00 - Subjective Subjective: No complaints. Objective - Vital Signs/Intake and Output Vital Signs (last 24 hours): Temp Pulse Resp BP Pulse Ox 98.2 F 72 20 126/74 96 06/13/17 16:52 06/13/17 16:52 06/13/17 16:52 06/13/17 17:22 06/13/17 16:52 Intake and Output: 06/13/17 06/14/17 18:59 06:59 Intake Total 895 550 Output Total 1200 Balance 895 -650 - Medications Medications: Current Medications Famotidine (Pepcid) 20 mg IVP Q12 [facility] Last Admin: 06/13/17 21:17 Dose: 20 mg Fluticasone Propionate (Flonase) 2 spr VIRA DAILY [facility] Last Admin: 06/13/17 09:11 Dose: 1 sprays Furosemide (Lasix) 40 mg IVP DAILY [facility] Last Admin: 06/13/17 17:22 Dose: 40 mg Ceftriaxone Sodium (Rocephin Iv 1 Gm Duplex) 50 mls @ 50 mls/30 min IVPB Q24H [facility] Last Admin: 06/13/17 17:34 Dose: 50 mls/30 min Lactated Ringer's (Lactated Ringer's) 1,000 mls @ 125 mls/hr IV .Q8H [facility] Insulin Aspart (Novolog) 0 unit SC ACHS [facility] PRN Reason: Protocol Last Admin: 06/13/17 22:08 Dose: Not Given Levothyroxine Sodium (Synthroid) 25 mcg PO 0630 [facility] Last Admin: 06/13/17 05:36 Dose: 25 mcg Metronidazole (Flagyl) 500 mg PO Q8 [facility] Last Admin: 06/13/17 21:01 Dose: 500 mg Potassium Chloride (K-Dur 20 Meq Er Tab) 20 meq PO BID [facility] Last Admin: 06/13/17 17:22 Dose: 20 meq Rosuvastatin Calcium (Crestor) 2.5 mg PO HS [facility] Last Admin: 06/13/17 21:01 Dose: 2.5 mg Tamsulosin HCl (Flomax) 0.4 mg PO DAILY [facility] Last Admin: 06/13/17 09:11 Dose: 0.4 mg - Labs Labs: 06/13/17 07:01 06/13/17 07:01 PT 15.7 SECONDS (9.7-12.2) H 06/09/17 07:43 INR 1.4 06/09/17 07:43 APTT 19 SECONDS (21-34) L 06/09/17 07:43 - Head Exam Head Exam: ATRAUMATIC - Eye Exam Eye Exam: Normal appearance - ENT Exam ENT Exam: Mucous Membranes Dry - Respiratory Exam Respiratory Exam: NORMAL BREATHING PATTERN - Cardiovascular Exam Cardiovascular Exam: +S1, +S2 - GI/Abdominal Exam GI & Abdominal Exam: Normal Bowel Sounds - Extremities Exam Extremities Exam: Normal Inspection Assessment and Plan (1) Thrombocytopenia Assessment & Plan: liver disease, alcohol abuse transfusion support surgery requesting goal plt 100,000 Status: Acute (2) Anemia Assessment & Plan: chronic disease, alcohol abuse transfusion support Status: Acute (3) Elevated CEA Assessment & Plan: GI w/u Status: Acute
--- NOTE | 2017-06-13 23:11 | CP.PCM.PN ---
Subjective - Date & Time of Evaluation Date of Evaluation: 06/13/17 Time of Evaluation: 08:45 - Subjective Subjective: PT SEEN & EXAMINED AT BEDSIDE Objective - Vital Signs/Intake and Output Vital Signs (last 24 hours): Temp Pulse Resp BP Pulse Ox 98.2 F 72 20 126/74 96 06/13/17 16:52 06/13/17 16:52 06/13/17 16:52 06/13/17 17:22 06/13/17 16:52 Intake and Output: 06/13/17 06/14/17 18:59 06:59 Intake Total 895 550 Output Total 1200 Balance 895 -650 - Medications Medications: Current Medications Famotidine (Pepcid) 20 mg IVP Q12 [facility] Last Admin: 06/13/17 21:17 Dose: 20 mg Fluticasone Propionate (Flonase) 2 spr VIRA DAILY [facility] Last Admin: 06/13/17 09:11 Dose: 1 sprays Furosemide (Lasix) 40 mg IVP DAILY [facility] Last Admin: 06/13/17 17:22 Dose: 40 mg Ceftriaxone Sodium (Rocephin Iv 1 Gm Duplex) 50 mls @ 50 mls/30 min IVPB Q24H [facility] Last Admin: 06/13/17 17:34 Dose: 50 mls/30 min Lactated Ringer's (Lactated Ringer's) 1,000 mls @ 125 mls/hr IV .Q8H [facility] Insulin Aspart (Novolog) 0 unit SC ACHS [facility] PRN Reason: Protocol Last Admin: 06/13/17 22:08 Dose: Not Given Levothyroxine Sodium (Synthroid) 25 mcg PO 0630 [facility] Last Admin: 06/13/17 05:36 Dose: 25 mcg Metronidazole (Flagyl) 500 mg PO Q8 [facility] Last Admin: 06/13/17 21:01 Dose: 500 mg Potassium Chloride (K-Dur 20 Meq Er Tab) 20 meq PO BID [facility] Last Admin: 06/13/17 17:22 Dose: 20 meq Rosuvastatin Calcium (Crestor) 2.5 mg PO HS [facility] Last Admin: 06/13/17 21:01 Dose: 2.5 mg Tamsulosin HCl (Flomax) 0.4 mg PO DAILY [facility] Last Admin: 06/13/17 09:11 Dose: 0.4 mg - Labs Labs: 06/13/17 07:01 06/13/17 07:01 PT 15.7 SECONDS (9.7-12.2) H 06/09/17 07:43 INR 1.4 06/09/17 07:43 APTT 19 SECONDS (21-34) L 06/09/17 07:43 Assessment and Plan (1) Intestinal obstruction Status: Acute (2) Thrombocytopenia Status: Acute (3) Ventral hernia Status: Acute (4) HTN (hypertension) Status: Acute (5) Diabetes mellitus Status: Chronic
[2017-06-14] MEDS: Lactated Ringer's 1,000 ML IV SCH ×2 (00:11→08:00)
[2017-06-14] MEDS: Levothyroxine 25 MCG TAB PO SCH (06:22)
[2017-06-14] MEDS: (Novolog) Insulin Aspart, Recombinant 100 u/ml 10 ml vial SC SCH ×3 (07:44→21:42)
--- NOTE | 2017-06-14 08:46 | RAD ---
HISTORY: pre-op eval COMPARISON: 06/05/2017 FINDINGS: LUNGS: No active pulmonary disease. PLEURA: No significant pleural effusion identified, no pneumothorax apparent. CARDIOVASCULAR: Normal. OSSEOUS STRUCTURES: No significant abnormalities. VISUALIZED UPPER ABDOMEN: Normal. OTHER FINDINGS: None. IMPRESSION: No active disease.
[2017-06-14 08:50] LABS: BASO % 0.5 % (0.0-2.0); EOS % 0.3 % (0.0-4.0); HEMATOCRIT 32.6 % (35.0-51.0); LYMPH # 2.1 K/uL (1.0-4.3); LYMPH % 29.5 % (20.0-40.0); MEAN CELL VOLUME 102.9 fL (80.0-94.0); MEAN CORPUSCULAR HEMOGLOBIN 35.7 pg (27.0-31.0); MEAN CORPUSCULAR HGB CONC 34.7 g/dL (33.0-37.0); MEAN PLATELET VOLUME 8.3 fL (7.2-11.7); MONO # 1.2 K/uL (0.0-0.8); MONO % 16.8 % (0.0-10.0); RED CELL DISTRIBUTION WIDTH 19.6 % (11.5-14.5)
[2017-06-14 09:03] LABS: INR 1.4
[2017-06-14 09:12] LABS: CHLORIDE 102 mmol/L (98-107); POTASSIUM 3.5 mmol/L (3.6-5.2); SODIUM 135 mmol/L (132-148)
[2017-06-14 09:14] LABS: ALB/GLOB RATIO 0.9 (1.0-2.1); ALKALINE PHOSPHATASE 100 U/L (38-126); AST/SGOT 73 U/L (17-59); CARBON DIOXIDE 23 mmol/L (22-30); GFR AFRICAN-AMERICAN > 60; TOTAL PROTEIN 6.8 g/dL (6.3-8.3)
[2017-06-14 09:15] LABS: ALT/SGPT 44 U/L (21-72); BLOOD UREA NITROGEN 12 mg/dL (9-20); CALCIUM 8.8 mg/dl (8.6-10.4); GLUCOSE,RANDOM 138 mg/dL (75-110)
[2017-06-14] MEDS ORDERED: Midazolam 2 MG/2 ML VIAL ONE (09:26)
[2017-06-14] MEDS ORDERED: Propofol 10 mg/ml Inj (20 ML) ONE (09:27)
[2017-06-14] MEDS ORDERED: Lactated Ringer's 1,000 ML IV ONE ×6 (09:30→21:00)
[2017-06-14] MEDS ORDERED: cefTRIAXone IV 1 gm in Dextros 50 ML IVPB ONE (09:38)
[2017-06-14] MEDS ORDERED: HYDROmorphone 0.5 mg/0.5 ml ISec IVP PRN ×2 (10:17→13:36)
[2017-06-14] MEDS ORDERED: ePHEDrine 50 mg/ml Inj ONE (10:49)
[2017-06-14] MEDS ORDERED: Rocuronium 10 mg/ml (5 ml) ONE (10:49)
[2017-06-14] MEDS ORDERED: Succinylcholine Chloride 20 mg/ml Syr (5 ml) IV ONE (10:49)
[2017-06-14] MEDS ORDERED: Phenylephrine 10 mg/ml Inj ONE (10:49)
[2017-06-14] MEDS: Fluticasone Nasal 50 mcg/Spray NAS SCH (10:52)
[2017-06-14] MEDS: Potassium Chloride 20 mEq ER Tab PO SCH (10:52)
[2017-06-14] MEDS ORDERED: Sodium Chloride 0.9% 20 ML IV ONE (11:48)
[2017-06-14] MEDS ORDERED: Neostigmine Methylsulfate 3mg/3ml Syringe IV ONE (11:56)
[2017-06-14] MEDS ORDERED: Piperacillin/Tazobact 3.375 GM in Sodium Chloride 100 ML IVPB SCH (13:15)
--- NOTE | 2017-06-14 13:20 | PCM.SURG1 ---
Surgeon's Initial Post Op Note - Surgeon's Notes Surgeon: Dr. Mitchell School Supervisor: Dr. Brownlee PGY3, Dr. Patel PGY2 Type of Anesthesia: General Endo Pre-Operative Diagnosis: ventral hernia Operative Findings: see dictation Post-Operative Diagnosis: same Operation Performed: open ventral hernia repair w/ biologic mesh, small bowel resection, ROLANDO Specimen/Specimens Removed: small bowel Estimated Blood Loss: EBL {In ML}: 350 Blood Products Given: N/A Drains Used: No Drains Post-Op Condition: Fair Date of Surgery/Procedure: 06/14/17 Time of Surgery/Procedure: 09:30
[2017-06-14] MEDS: HYDROmorphone 0.5 mg/0.5 ml ISec IVP PRN ×3 (13:21→17:33)
[2017-06-14] MEDS ORDERED: HYDROmorphone 0.5 mg/0.5 ml ISec ONE (13:22)
--- NOTE | 2017-06-14 16:08 | PN ---
SUBJECTIVE: The patient underwent central hernia repair with a mesh and a small bowel resection as well as lysis of adhesions. The patient is currently in the recovery room. He denies any chest pain or shortness of breath. PHYSICAL EXAMINATION VITAL SIGNS: Blood pressure 96/63, heart rate 97, temperature 96.9, respirations 19. HEENT: Normocephalic. CHEST: Clear. HEART: S1 and S2 regular. EXTREMITIES: 1+ pitting edema. LABORATORY DATA: Hemoglobin and hematocrit today is 11.3 and 32.6. Today's platelet count 117 prior to the surgery. Today's SMA-7 in the morning was within normal limit except for potassium 3.5 and glucose 138. Today's INR before surgery is 1.4. ASSESSMENT: 1. Status post ventricular hernia repair with a mesh as well as small bowel resection and lysis of adhesions. 2. Mild hypokalemia. 3. Hypertension and mild hypertensive heart failure. RECOMMENDATIONS: Continue Crestor at 2.5 mg once a day, IV Dilaudid p.r.n., Flagyl 500 mg q. 8 hours. Obtain CBC, SMA-7 and EKG postoperatively. The patient will be transferred to the ICU. Pavel Contreras MD
[2017-06-14] MEDS ORDERED: Sodium Chloride 0.9% 500 ML IV ONE (16:50)
--- NOTE | 2017-06-14 19:07 | PN ---
LOCATION: 350, bed B. SUBJECTIVE: This is a 66-year-old male with no significant clinical changes, is scheduled for the OR today. The entire chart is reviewed, including but not limited to the most recent lab and radiology study results, current and the previous medication list, current and the previous medical events. Case discussed at length with the staff including the surgical team. Today's lab showed hemoglobin of 11.3, hematocrit is 32.6 with platelet count improved to 117, still low, with PT of 15.5 with low potassium of 3.5, blood glucose level of 138, was elevated. AST 73 but normal, ALT was low, albumin 3.2. Today's chest x-ray report and results was seen indicative of no active disease. PHYSICAL EXAMINATION: GENERAL: A 66 years old male. VITAL SIGNS: Afebrile with pulse of 68, respiratory rate of 20 to 22 with blood pressure of 136/80. HEENT: Showed pale, dry oral mucous membrane. Nonicteric sclerae. LUNGS: Few scattered crepitation. Decreased air entry at bases. HEART: Positive S1 and S2. ABDOMEN: Soft. There is mild distention. Positive for anterior abdominal wall hernia. EXTREMITIES: Without significant edema, clubbing or cyanosis. NEUROLOGIC: No reported new neurological deficits, sensory or motor. IMPRESSION: 1. Anterior abdominal wall hernia. 2. Exacerbation of peptic ulcer disease. 3. Anemia most likely secondary to peritoneal line and known history of hyperlipidemia. 4. Hypertension by history. 5. Thrombocytopenia of unclear etiology, gradually improving. 6. Poorly controlled diabetes mellitus. 7. Elevated CEA level, should rule out possible lower gastrointestinal tract occult malignancy. SUGGESTION: 1. I agree with your plan. 2. Central hyperalimentation. 3. We will follow up for surgery. 4. Further recommendation to follow and again the patient may need endoscopic evaluation of the GI tract post surgery and when he is more stable clinically. Senthil Damon MD
[2017-06-14 21:11] LABS: HEMATOCRIT 33.9 % (35.0-51.0); MEAN CELL VOLUME 102.3 fL (80.0-94.0); MEAN CORPUSCULAR HEMOGLOBIN 35.1 pg (27.0-31.0); MEAN CORPUSCULAR HGB CONC 34.4 g/dL (33.0-37.0); MEAN PLATELET VOLUME 8.5 fL (7.2-11.7); RED CELL DISTRIBUTION WIDTH 20.3 % (11.5-14.5)
[2017-06-14 21:12] LABS: WHITE BLOOD COUNT 11.3 K/uL (4.8-10.8)
[2017-06-14] MEDS: Rosuvastatin Calcium 2.5 mg Tab PO SCH (21:30)
[2017-06-14 21:50] LABS: CHLORIDE 102 mmol/L (98-107); SODIUM 133 mmol/L (132-148)
[2017-06-14 21:51] LABS: POTASSIUM 3.9 mmol/L (3.6-5.2)
[2017-06-14 21:53] LABS: CARBON DIOXIDE 20 mmol/L (22-30); GFR AFRICAN-AMERICAN > 60
[2017-06-14 21:54] LABS: BLOOD UREA NITROGEN 11 mg/dL (9-20); CALCIUM 8.2 mg/dl (8.6-10.4); GLUCOSE,RANDOM 168 mg/dL (75-110)
[2017-06-14] MEDS: metroNIDAZOLE IV 500 mg/100 ml 500 MG/100 ML BAG IVPB SCH (22:05)
[2017-06-14] MEDS: HYDROmorphone 1 mg/ml ISec IVP PRN (22:11)
[2017-06-14] MEDS: Piperacill/Tazo 3.375gm in Dex 3.375 GM/50 ML BAG IVPB SCH (22:25)
--- NOTE | 2017-06-14 23:02 | CP.PCM.PN ---
Subjective - Date & Time of Evaluation Date of Evaluation: 06/14/17 Time of Evaluation: 20:20 - Subjective Subjective: Pt seen and examined at bedside s/o OR, recovering from surgery NAD Objective - Vital Signs/Intake and Output Vital Signs (last 24 hours): Temp Pulse Resp BP Pulse Ox 98.7 F 96 H 18 112/66 97 06/14/17 21:40 06/14/17 22:21 06/14/17 22:21 06/14/17 22:21 06/14/17 21:24 Intake and Output: 06/14/17 06/15/17 18:59 06:59 Intake Total 0 Output Total 100 275 Balance -100 -275 - Medications Medications: Current Medications Famotidine (Pepcid) 20 mg IVP Q12 [facility] Last Admin: 06/14/17 22:05 Dose: 20 mg Fluticasone Propionate (Flonase) 2 spr VIRA DAILY [facility] Last Admin: 06/14/17 10:52 Dose: Not Given Furosemide (Lasix) 40 mg IVP DAILY [facility] Last Admin: 06/14/17 10:52 Dose: Not Given Hydromorphone HCl (Dilaudid) 1 mg IVP Q3 PRN PRN Reason: Pain, severe (8-10) Last Admin: 06/14/17 22:11 Dose: 1 mg Hydromorphone HCl (Dilaudid) 0.5 mg IVP Q3 PRN PRN Reason: Pain, moderate (4-7) Last Admin: 06/14/17 17:33 Dose: 0.5 mg Lactated Ringer's (Lactated Ringer's) 1,000 mls @ 125 mls/hr IV .Q8H [facility] Last Admin: 06/14/17 08:00 Dose: Not Given Piperacillin Sod/Tazobactam Sod (Zosyn 3.375 Gm Iv Premix) 3.375 gm in 50 mls @ 100 mls/hr IVPB Q6H [facility] Last Admin: 06/14/17 22:25 Dose: 100 mls/hr Metronidazole (Flagyl) 500 mg in 100 mls @ 100 mls/hr IVPB Q8 [facility] Last Admin: 06/14/17 22:05 Dose: 100 mls/hr Insulin Aspart (Novolog) 0 unit SC ACHS [facility] PRN Reason: Protocol Last Admin: 06/14/17 21:42 Dose: Not Given Levothyroxine Sodium (Synthroid) 25 mcg PO 0630 [facility] Last Admin: 06/14/17 06:22 Dose: 25 mcg Potassium Chloride (K-Dur 20 Meq Er Tab) 20 meq PO BID [facility] Last Admin: 06/14/17 10:52 Dose: Not Given Rosuvastatin Calcium (Crestor) 2.5 mg PO HS [facility] Last Admin: 06/14/17 21:30 Dose: Not Given Tamsulosin HCl (Flomax) 0.4 mg PO DAILY [facility] Last Admin: 06/14/17 10:52 Dose: Not Given - Labs Labs: 06/14/17 21:04 06/14/17 21:04 PT 15.5 SECONDS (9.7-12.2) H 06/14/17 08:47 INR 1.4 06/14/17 08:47 APTT 31 SECONDS (21-34) 06/14/17 08:47 - Constitutional Appears: No Acute Distress - Head Exam Head Exam: ATRAUMATIC, NORMAL INSPECTION, NORMOCEPHALIC - Eye Exam Eye Exam: EOMI, Normal appearance, PERRL Pupil Exam: NORMAL ACCOMODATION, PERRL - Respiratory Exam Respiratory Exam: Clear to Ausculation Bilateral, NORMAL BREATHING PATTERN - Cardiovascular Exam Cardiovascular Exam: REGULAR RHYTHM, +S1, +S2. absent: Murmur - GI/Abdominal Exam GI & Abdominal Exam: Tenderness Additional comments: post op Assessment and Plan (1) Intestinal obstruction Assessment & Plan: s/p surgery of incarcerated hernia Status: Acute (2) Thrombocytopenia Status: Acute (3) Ventral hernia Status: Acute (4) HTN (hypertension) Status: Acute (5) Diabetes mellitus Status: Chronic
[2017-06-15] MEDS: Lactated Ringer's 1,000 ML IV SCH ×4 (00:30→16:42)
[2017-06-15] MEDS: HYDROmorphone 1 mg/ml ISec IVP PRN ×5 (03:02→22:53)
[2017-06-15] MEDS: Piperacill/Tazo 3.375gm in Dex 3.375 GM/50 ML BAG IVPB SCH ×5 (04:04→21:35)
[2017-06-15] MEDS: Levothyroxine 25 MCG TAB PO SCH (05:59)
[2017-06-15] MEDS: metroNIDAZOLE IV 500 mg/100 ml 500 MG/100 ML BAG IVPB SCH ×3 (05:59→21:48)
[2017-06-15 06:06] LABS: BASO % 0.3 % (0.0-2.0); HEMATOCRIT 32.2 % (35.0-51.0); LYMPH # 1.4 K/uL (1.0-4.3); LYMPH % 12.2 % (20.0-40.0); MEAN CELL VOLUME 101.4 fL (80.0-94.0); MEAN CORPUSCULAR HEMOGLOBIN 34.9 pg (27.0-31.0); MEAN CORPUSCULAR HGB CONC 34.4 g/dL (33.0-37.0); MEAN PLATELET VOLUME 8.4 fL (7.2-11.7); MONO # 1.6 K/uL (0.0-0.8); MONO % 13.5 % (0.0-10.0); RED CELL DISTRIBUTION WIDTH 20.5 % (11.5-14.5); WHITE BLOOD COUNT 11.8 K/uL (4.8-10.8)
[2017-06-15 06:14] LABS: CHLORIDE 102 mmol/L (98-107); POTASSIUM 3.9 mmol/L (3.6-5.2); SODIUM 134 mmol/L (132-148)
[2017-06-15 06:16] LABS: ALB/GLOB RATIO 0.9 (1.0-2.1); AST/SGOT 45 U/L (17-59); BILIRUBIN,TOTAL 1.2 mg/dL (0.2-1.3); CARBON DIOXIDE 21 mmol/L (22-30); GFR AFRICAN-AMERICAN > 60; TOTAL PROTEIN 6.2 g/dL (6.3-8.3)
[2017-06-15 06:17] LABS: ALKALINE PHOSPHATASE 59 U/L (38-126); ALT/SGPT 42 U/L (21-72); BLOOD UREA NITROGEN 11 mg/dL (9-20); CALCIUM 8.1 mg/dl (8.6-10.4); GLUCOSE,RANDOM 162 mg/dL (75-110)
--- NOTE | 2017-06-15 07:19 | OP ---
PROCEDURE DATE: 06/14/2017 PREOPERATIVE DIAGNOSIS: History of incarcerated abdominal wall hernia. POSTOPERATIVE DIAGNOSIS: History of incarcerated abdominal wall hernia. PROCEDURE CARRIED OUT: Exploratory laparotomy, small bowel resection with anastomosis, lysis of adhesions and repair of recurrent incisional hernia with mesh. SURGEON: Colby Mitchell Jr., MD ASSISTANTS: Dr. Brownlee and Dr. Patel. TYPE OF ANESTHESIA: General anesthesia. ANESTHESIOLOGIST: Dr. Lemus. INDICATIONS: The patient is a man with a history of hepatitis C and variety of other medical problems who presents with bowel obstruction. After this had resolved, he had thrombocytopenia, which prevented us from operating and eventually, he was explored. OPERATIVE FINDINGS: The liver was nodular and cirrhotic. The rest of the abdominal findings show that there is a previous mesh on the left side of the abdomen. There were multiple Mexican cheese type defects in the anterior abdominal wall and there were dense adhesions between the previously placed mesh and the bowel. At one segment of bowel, we had approximately five serosal tears and enterotomies, which required resection of approximately 18 inches to 2 feet of small bowel. The rest of the abdominal exploration and findings were unremarkable. DESCRIPTION OF PROCEDURE: The patient was given general anesthesia and intravenous antibiotics. Venodyne boots were applied. A midline incision was carried down. The were present. The mesh had shifted to the patient's left side. This was all freed up. The bowel was run three separate times. The decision to resect the segment of bowel was made. The anastomosis was carried out. Given the situation of the contamination of the peritoneum and the other problems, we then elected to use a Stratticc mesh measuring 20 x 30 cm to allow foreclosure of this, this was secured at the top, bottom, and one side and then secured in to place with the previously placed abdominal wall being closed over this. Blood loss of the procedure was approximately 300 mL. There were no operative complications or problems. The operation carried out is exploratory laparotomy, repair of recurrent incisional hernia and use of biologic mesh. Colby Mitchell Jr., MD cc: Harshal Dugan MD
[2017-06-15] MEDS: (Novolog) Insulin Aspart, Recombinant 100 u/ml 10 ml vial SC SCH ×4 (07:49→22:08)
[2017-06-15] MEDS: Fluticasone Nasal 50 mcg/Spray NAS SCH (10:00)
--- NOTE | 2017-06-15 10:29 | CP.PCM.PN ---
Subjective - Date & Time of Evaluation Date of Evaluation: 06/15/17 Time of Evaluation: 07:00 - Subjective Subjective: GENERAL SURGERY PROGRESS NOTE FOR DR. CURIEL Patient seen and examined at bedside in the ICU. He is status post ex lap with hernia repair. Patient reports back pain when he moves and some mild abdominal pain that is controlled with the medications. He denies nausea or vomiting. He remains NPO with NG tube. He has not passed flatus or had a BM yet since surgery. He has not been OOB yet but states that he wants to get out of bed. He is voiding. Objective - Vital Signs/Intake and Output Vital Signs (last 24 hours): Temp Pulse Resp BP Pulse Ox 98.5 F 94 H 16 159/93 H 99 06/15/17 04:00 06/15/17 07:00 06/15/17 07:00 06/15/17 09:39 06/15/17 07:00 Intake and Output: 06/15/17 06/15/17 06:59 18:59 Intake Total 1125 425 Output Total 825 300 Balance 300 125 - Medications Medications: Current Medications Famotidine (Pepcid) 20 mg IVP Q12 [facility] Last Admin: 06/15/17 09:41 Dose: 20 mg Fluticasone Propionate (Flonase) 2 spr VIRA DAILY [facility] Last Admin: 06/14/17 10:52 Dose: Not Given Furosemide (Lasix) 40 mg IVP DAILY [facility] Last Admin: 06/15/17 09:39 Dose: 40 mg Hydromorphone HCl (Dilaudid) 1 mg IVP Q3 PRN PRN Reason: Pain, severe (8-10) Last Admin: 06/15/17 06:21 Dose: 1 mg Hydromorphone HCl (Dilaudid) 0.5 mg IVP Q3 PRN PRN Reason: Pain, moderate (4-7) Last Admin: 06/14/17 17:33 Dose: 0.5 mg Lactated Ringer's (Lactated Ringer's) 1,000 mls @ 125 mls/hr IV .Q8H [facility] Last Admin: 06/15/17 07:54 Dose: 125 mls/hr Piperacillin Sod/Tazobactam Sod (Zosyn 3.375 Gm Iv Premix) 3.375 gm in 50 mls @ 100 mls/hr IVPB Q6H [facility] Last Admin: 06/15/17 09:38 Dose: 100 mls/hr Metronidazole (Flagyl) 500 mg in 100 mls @ 100 mls/hr IVPB Q8 [facility] Last Admin: 06/15/17 05:59 Dose: 100 mls/hr Insulin Aspart (Novolog) 0 unit SC ACHS [facility] PRN Reason: Protocol Last Admin: 06/15/17 07:49 Dose: Not Given Levothyroxine Sodium (Synthroid) 25 mcg PO 0630 [facility] Last Admin: 06/15/17 05:59 Dose: Not Given Potassium Chloride (K-Dur 20 Meq Er Tab) 20 meq PO BID [facility] Last Admin: 06/14/17 10:52 Dose: Not Given Rosuvastatin Calcium (Crestor) 2.5 mg PO HS [facility] Last Admin: 06/14/17 21:30 Dose: Not Given Tamsulosin HCl (Flomax) 0.4 mg PO DAILY [facility] Last Admin: 06/14/17 10:52 Dose: Not Given - Labs Labs: 06/15/17 05:51 06/15/17 05:51 PT 15.5 SECONDS (9.7-12.2) H 06/14/17 08:47 INR 1.4 06/14/17 08:47 APTT 31 SECONDS (21-34) 06/14/17 08:47 - Constitutional Appears: Non-toxic, No Acute Distress - Head Exam Head Exam: ATRAUMATIC, NORMAL INSPECTION - Eye Exam Eye Exam: EOMI, Normal appearance - Respiratory Exam Respiratory Exam: NORMAL BREATHING PATTERN. absent: Respiratory Distress - Cardiovascular Exam Cardiovascular Exam: +S1, +S2 - GI/Abdominal Exam GI & Abdominal Exam: Distended (mild), Soft, Tenderness (mild tenderness around incision). absent: Firm, Guarding, Rigid, Rebound Additional comments: NG tube in place Abdominal binder in place Dressing clean/dry/intact - Neurological Exam Neurological Exam: Alert, Awake, Oriented x3 - Psychiatric Exam Psychiatric exam: Normal Affect, Normal Mood - Skin Skin Exam: Dry, Normal Color Assessment and Plan - Assessment and Plan (Free Text) Assessment: 66yo M with recurrent ventral hernia and thrombocytopenia s/p exploratory laparotomy, extensive ROLANDO, repair of recurrent ventral hernia with biologic mesh , small bowel resection with primary anastomosis POD#1 - Afebrile, VSS - WBC 11.8 - Hemoglobin stable 11.1 - Platelets improved 164 - Continue bowel rest, NPO with NG tube decompression - Physical therapy ordered - Encouraged OOB, ambulation, and IS use - Will monitor for return of bowel function - Discussed plan with Dr. Stephen Brownlee PGY-3
[2017-06-15] MEDS: Potassium Chloride 20 mEq ER Tab PO SCH ×2 (12:34→18:48)
--- NOTE | 2017-06-15 13:24 | PN ---
LOCATION: ICU #14, bed A. SUBJECTIVE: This 66-year-old male was seen and examined in rounds early today without significant clinical changes post open ventral hernia repair with partial small-bowel resection. The entire chart is reviewed, including but not limited to the most recent lab and radiology study results, current and the previous medication list, current and the previous medical events and today's lab showed white blood cell elevated to 11.3 with low hemoglobin of 11.1, low hematocrit of 32.2 with platelet count of 164 with CO2 content 21, indicative of metabolic acidosis. Blood glucose level 187 with low calcium and low albumin of 2.7 and low total protein of 6.2. Most recent chest x-ray done yesterday, results and films are seen. PHYSICAL EXAMINATION: GENERAL: A 66-year-old male. VITAL SIGNS: Afebrile with pulse of 96, blood pressure of 140/82. HEENT: Shows pale, dry oral mucous membrane. Nonicteric sclerae. LUNGS: Scattered bilateral crepitation. Decreased air entry at bases. HEART: Positive S1 and S2 with increased rate. ABDOMEN: With clean dressing, bowel sounds are zero with mild distention. EXTREMITIES: With mild lower extremity edematous changes. NEUROLOGIC: No reported new neurological deficits, sensory or motor. IMPRESSION: 1. Status post abdominal ventral hernia repair with partial small-bowel resection as per surgical report. 2. Anemia. 3. Re-exacerbation of peptic ulcer disease. 4. Known history of hypertension. 5. Poorly controlled diabetes mellitus. 6. Thrombocytopenia, more stable. SUGGESTIONS: 1. Continue current management. 2. Central hyperalimentation. 3. Further recommendations to follow. Senthil Damon MD cc: Senthil Damon MD
--- NOTE | 2017-06-15 16:25 | PN ---
SUBJECTIVE: The patient is currently in his postoperative day #1, had NG tube suction. No reported ventricular arrhythmia. He denies any chest pain. PHYSICAL EXAMINATION: VITAL SIGNS: Blood pressure 134/84, heart rate 100, respirations 17, temperature 98.5. HEENT: Normocephalic. CHEST: Diminished breath sounds over the bases. HEART: S1 and S2 regular. ABDOMEN: Absent bowel sounds. EXTREMITIES: 1+ pitting edema. LABORATORY DATA: Hemoglobin and hematocrit of 11.1 and 32.2; white count 11.8; platelet count 164,000. The SMA-7 was within normal limits except for glucose of 162, carbon dioxide of 21 and creatinine of 0.7. Yesterday's EKG was done, but not accessible on the [employer] database and I will try to access the paper version. ASSESSMENT: 1. Status post anterior abdominal wall hernia repair with a mesh and a small-bowel resection. 2. Hypertension. 3. Mild diastolic heart failure. RECOMMENDATIONS: Continue IV Dilaudid p.r.n. Continue Flagyl at 500 mg intravenously q. 8 hours. Continue Lasix at 40 mg intravenously daily. Continue Zosyn at 3.375 g intravenously q. 6 hours. Oral medications are still on hold. Pavel Contreras MD
--- NOTE | 2017-06-15 16:26 | CP.PCM.CON ---
<Veronica Carmen E - Last Filed: 06/15/17 17:46> History of Present Illness - History of Present Illness History of Present Illness: ICU consult note: HPI as per admission note HPI: Patient is a 66 year old male with past medical history of HTN, HLD, DM, Ventral hernia repair w/ mesh presented to the hospital with abdominal pain started 2 days ago described as sharp that is associated with generalized weakness, tiredness, fatigue. Patient is complaint with his diet, medication and folloe-up. Pt last BM was yesterday. Currently passing flatus. Denies F/C CP/SOB PMH: DM, HTN, HLD, Hep C PSH: Hernia repair w/ Mesh ALL; NKDA SocialHx: independent in ADL ETOH,Tobacco use, denies drug use Review of Systems - Constitutional Constitutional: absent: Chills, Headache - EENT Eyes: absent: Change in Vision - Cardiovascular Cardiovascular: absent: Chest Pain, Dyspnea, Lightheadedness, Palpitations - Gastrointestinal Gastrointestinal: Abdominal Pain (S/p open ventral hernia repair with biological mesh, small bowel resection ). absent: Nausea, Vomiting - Neurological Neurological: Weakness. absent: Dizziness, Headaches, Syncope - Endocrine Endocrine: Fatigue. absent: Palpitations Past Patient History - Past Medical History & Family History Past Medical History?: Yes - Past Social History Smoking Status: Light Smoker < 10 Cigarettes Daily - CARDIAC Hx Hypertension: Yes - PULMONARY Hx Respiratory Disorders: No - NEUROLOGICAL Hx Neurological Disorder: No - HEENT Hx HEENT Problems: No - RENAL Other/Comment: pt claims he has kidney problem - ENDOCRINE/METABOLIC Hx Diabetes Mellitus Type 2: Yes - HEMATOLOGICAL/ONCOLOGICAL Hx Anemia: Yes - INTEGUMENTARY Hx Dermatological Problems: No - MUSCULOSKELETAL/RHEUMATOLOGICAL Hx Falls: Yes - GASTROINTESTINAL Hx Gastritis: Yes - GENITOURINARY/GYNECOLOGICAL Hx Genitourinary Disorders: Yes Hx Urinary Tract Infection: Yes - PSYCHIATRIC Hx Substance Use: No - SURGICAL HISTORY Hx Surgeries: Yes Hx Herniorrhaphy: Yes (2011) - ANESTHESIA Hx Anesthesia: Yes Hx Anesthesia Reactions: No Hx Malignant Hyperthermia: No Meds Allergies/Adverse Reactions: Allergies Allergy/AdvReac Type Severity Reaction Status Date / Time aspirin Allergy Verified 06/05/17 05:14 - Medications Medications: Current Medications Famotidine (Pepcid) 20 mg IVP Q12 [facility] Last Admin: 06/15/17 09:41 Dose: 20 mg Fluticasone Propionate (Flonase) 2 spr VIRA DAILY [facility] Last Admin: 06/15/17 10:00 Dose: 2 sprays Furosemide (Lasix) 40 mg IVP DAILY [facility] [place] Last Admin: 06/15/17 09:39 Dose: 40 mg Hydromorphone HCl (Dilaudid) 1 mg IVP Q3 PRN PRN Reason: Pain, severe (8-10) Last Admin: 06/15/17 12:21 Dose: 1 mg Hydromorphone HCl (Dilaudid) 0.5 mg IVP Q3 PRN PRN Reason: Pain, moderate (4-7) Last Admin: 06/14/17 17:33 Dose: 0.5 mg Lactated Ringer's (Lactated Ringer's) 1,000 mls @ 125 mls/hr IV .Q8H [facility] [place] Last Admin: 06/15/17 07:54 Dose: 125 mls/hr Piperacillin Sod/Tazobactam Sod (Zosyn 3.375 Gm Iv Premix) 3.375 gm in 50 mls @ 100 mls/hr IVPB Q6H [facility] [place] Last Admin: 06/15/17 09:38 Dose: 100 mls/hr Metronidazole (Flagyl) 500 mg in 100 mls @ 100 mls/hr IVPB Q8 [facility] [place] Last Admin: 06/15/17 14:57 Dose: 100 mls/hr Insulin Aspart (Novolog) 0 unit SC ACHS [facility] PRN Reason: Protocol Last Admin: 06/15/17 12:34 Dose: Not Given Levothyroxine Sodium (Synthroid) 25 mcg PO 0630 [facility] Last Admin: 06/15/17 05:59 Dose: Not Given Potassium Chloride (K-Dur 20 Meq Er Tab) 20 meq PO BID [facility] [place] Last Admin: 06/15/17 12:34 Dose: Not Given Rosuvastatin Calcium (Crestor) 2.5 mg PO HS [facility] [place] Last Admin: 06/14/17 21:30 Dose: Not Given Tamsulosin HCl (Flomax) 0.4 mg PO DAILY [facility] [place] Last Admin: 06/15/17 12:33 Dose: Not Given Physical Exam - Head Exam Head Exam: ATRAUMATIC - Eye Exam Eye Exam: EOMI - ENT Exam ENT Exam: Mucous Membranes Dry - Respiratory Exam Respiratory Exam: NORMAL BREATHING PATTERN - Cardiovascular Exam Cardiovascular Exam: REGULAR RHYTHM, +S1, +S2 - GI/Abdominal Exam GI & Abdominal Exam: Diminished Bowel Sounds, Tenderness (S/p open ventral hernia repair with biological mesh, small bowel resection ) - Extremities Exam Extremities exam: Positive for: pedal edema. Negative for: calf tenderness - Neurological Exam Neurological exam: Alert, Oriented x3 Results - Vital Signs Recent Vital Signs: Last Vital Signs Temp 98.4 F 06/15/17 08:00 Pulse 100 H 06/15/17 10:21 Resp 17 06/15/17 10:21 BP 134/84 06/15/17 10:21 Pulse Ox 95 06/15/17 09:21 - Labs Result Diagrams: 06/15/17 05:51 06/15/17 05:51 Labs: Laboratory Results - last 24 hr 06/14/17 06/14/17 06/14/17 14:42 21:04 21:04 WBC 11.3 H D RBC 3.31 L Hgb 11.6 L Hct 33.9 L MCV 102.3 H MCH 35.1 H MCHC 34.4 RDW 20.3 H Plt Count 176 MPV 8.5 Neut % (Auto) Lymph % (Auto) [place] % (Auto) Eos % (Auto) Baso % (Auto) Neut # Lymph # [place] # Eos # Baso # Sodium 133 Potassium 3.9 Chloride 102 Carbon Dioxide 20 L Anion Gap 15 BUN 11 Creatinine 0.7 L Est GFR ( Amer) > 60 Est GFR (Non-Af Amer) > 60 POC Glucose (mg/dL) Random Glucose 168 H Calcium 8.2 L Total Bilirubin AST ALT Alkaline Phosphatase Total Protein Albumin Globulin Albumin/Globulin Ratio Blood Type O POSITIVE Antibody Screen Negative Crossmatch See Detail 06/14/17 06/15/17 06/15/17 21:41 05:51 05:51 WBC 11.8 H RBC 3.18 L Hgb 11.1 L Hct 32.2 L MCV 101.4 H MCH 34.9 H MCHC 34.4 RDW 20.5 H Plt Count 164 MPV 8.4 Neut % (Auto) 74.0 Lymph % (Auto) 12.2 L [place] % (Auto) 13.5 H Eos % (Auto) 0.0 Baso % (Auto) 0.3 Neut # 8.7 H Lymph # 1.4 [place]gett # 1.6 H Eos # 0.0 Baso # 0.0 Sodium 134 Potassium 3.9 Chloride 102 Carbon Dioxide 21 L Anion Gap 15 BUN 11 Creatinine 0.7 L Est GFR ( Amer) > 60 Est GFR (Non-Af Amer) > 60 POC Glucose (mg/dL) 213 H Random Glucose 162 H Calcium 8.1 L Total Bilirubin 1.2 AST 45 ALT 42 Alkaline Phosphatase 59 Total Protein 6.2 L Albumin 2.9 L Globulin 3.4 Albumin/Globulin Ratio 0.9 L Blood Type Antibody Screen Crossmatch 06/15/17 06/15/17 06/15/17 07:29 11:33 16:09 WBC RBC Hgb Hct MCV MCH MCHC RDW Plt Count MPV Neut % (Auto) Lymph % (Auto) [place] % (Auto) Eos % (Auto) Baso % (Auto) Neut # Lymph # [place] # Eos # Baso # Sodium Potassium Chloride Carbon Dioxide Anion Gap BUN Creatinine Est GFR ( Amer) Est GFR (Non-Af Amer) POC Glucose (mg/dL) 168 H 187 H 191 H Random Glucose Calcium Total Bilirubin AST ALT Alkaline Phosphatase Total Protein Albumin Globulin Albumin/Globulin Ratio Blood Type Antibody Screen Crossmatch Assessment & Plan - Assessment and Plan (Free Text) Assessment: Patient is a 66 year old male with past medical history of HTN , HLD, DM, Ventral hernia repair w/ mesh presented to the hospital with abdominal pain s/p open ventral hernia repair w/ biologic mesh, small bowel resection, ROLANDO, POD #1 Today Plan: Transfer to medical surgical floor as per General surgery Plan: Neuro: Alert, Awake and oriented Cardio: Hx of HTN AND HLD Medication/Management: * Crestor 2.5mg PO HS * Lasix 40mg IVP daily Pulm: No acute issues GI: s/p open ventral hernia repair w/ biologic mesh, small bowel resection, ROLANDO , POD #1 General Surgery, Dr. Mitchell----> Help appreciated Medication/Management: * Dilaudid 1mg IVP q3 PRN and 0.5mg Q3prn (pain control) * LR @125mls/hr Endo: Hx of DM and Hypothyrodism Medication/Management: * Accuchecks * ISS low dose protocol * Levothyroxine 25mcg PO daily ID:s/p open ventral hernia repair w/ biologic mesh, small bowel resection, ROLANDO, POD #1 Prophylaxis: Flagyl 500mg IV Q8H and Zosyn 3.375 gm IV q6 : Hx of BPH Medication/Management: Tamulosin 0.4mg PO daily Prophylaxis: DVT: SCDs GI: Pepcid 20mg IVP Q12H <Bairon Brumfield P - Last Filed: 06/22/17 07:58> Meds - Medications Medications: Current Medications Benzocaine/Menthol (Cepacol Sore Throat) 1 deep MT Q2 PRN PRN Reason: Sore Throat Last Admin: 06/20/17 09:19 Dose: 1 deep Clonidine HCl (Catapres Tts1 0.1 Mg/24 Hr) 1 patch TD Q7D@1000 [facility] Last Admin: 06/17/17 00:24 Dose: 1 patch Famotidine (Pepcid) 20 mg IVP Q12 [facility] Last Admin: 06/21/17 22:18 Dose: 20 mg Heparin Sodium (Porcine) (Heparin) 5,000 units SC Q8 [facility] Last Admin: 06/21/17 22:50 Dose: Not Given Hydromorphone HCl (Dilaudid) 0.5 mg IVP Q3 PRN PRN Reason: Pain, severe (8-10) Last Admin: 06/22/17 02:35 Dose: 0.5 mg Piperacillin Sod/Tazobactam Sod (Zosyn 3.375 Gm Iv Premix) 3.375 gm in 50 mls @ 100 mls/hr IVPB Q6H [facility] [place] Last Admin: 06/22/17 04:04 Dose: 100 mls/hr Chromium/Copper/Manganese/Zinc 1 ml/ Multivitamins/Vitamin C 10 ml/ Amino Acids 1,011 mls @ 65 mls/hr IV .[id number] [facility] Stop: 06/22/17 09:33 Last Admin: 06/21/17 18:26 Dose: 65 mls/hr Chromium/Copper/Manganese/Zinc (1 ml/ Amino Acids) 1,001 mls @ 65 mls/hr IV .[id number] [facility] Stop: 06/22/17 17:59 Insulin Aspart (Novolog) 0 unit SC ACHS [facility] PRN Reason: Protocol Last Admin: 06/21/17 22:19 Dose: Not Given Ondansetron HCl (Zofran Inj) 4 mg IVP Q4 PRN PRN Reason: nausea Last Admin: 06/21/17 23:18 Dose: 4 mg Oxycodone/Acetaminophen (Percocet 5/325 Mg Tab) 1 tab PO Q4H PRN PRN Reason: Pain, moderate (4-7) Stop: 06/24/17 15:42 Potassium Chloride (K-Dur 20 Meq Er Tab) 20 meq PO BID [facility] Last Admin: 06/17/17 19:29 Dose: Not Given Results - Vital Signs Recent Vital Signs: Last Vital Signs Temp 98.2 F 06/22/17 07:00 Pulse 85 06/22/17 07:00 Resp 20 06/22/17 07:00 BP 120/73 06/22/17 07:00 Pulse Ox 97 06/22/17 07:00 - Labs Result Diagrams: 06/22/17 06:50 06/22/17 06:50 Labs: Laboratory Results - last 24 hr 06/21/17 06/21/17 06/21/17 07:07 12:04 16:53 WBC RBC Hgb Hct MCV MCH MCHC RDW Plt Count MPV Neut % (Auto) Lymph % (Auto) [place] % (Auto) Eos % (Auto) Baso % (Auto) Neut # Lymph # [place] # Eos # Baso # Sodium 142 Potassium 3.3 L Chloride 99 Carbon Dioxide 37 H Anion Gap 9 L BUN 16 Creatinine 0.7 L Est GFR ( Amer) > 60 Est GFR (Non-Af Amer) > 60 POC Glucose (mg/dL) 191 H 196 H Random Glucose 167 H Calcium 8.3 L Phosphorus 3.2 Magnesium 1.8 Total Bilirubin 0.9 AST 40 ALT 28 Alkaline Phosphatase 58 Total Protein 6.5 Albumin 2.8 L Globulin 3.7 Albumin/Globulin Ratio 0.8 L Triglycerides 83 Cholesterol 73 LDL Cholesterol Direct 40 HDL Cholesterol 19 L 06/21/17 06/22/17 06/22/17 21:09 06:36 06:50 WBC 13.1 H RBC 2.50 L Hgb 8.7 L Hct 25.8 L MCV 103.4 H MCH 34.7 H MCHC 33.6 RDW 19.1 H Plt Count 101 L MPV 9.5 Neut % (Auto) 71.7 Lymph % (Auto) 18.2 L [place] % (Auto) 9.5 Eos % (Auto) 0.2 Baso % (Auto) 0.4 Neut # 9.4 H Lymph # 2.4 [place] # 1.2 H Eos # 0.0 Baso # 0.1 Sodium Potassium Chloride Carbon Dioxide Anion Gap BUN Creatinine Est GFR ( Amer) Est GFR (Non-Af Amer) POC Glucose (mg/dL) 224 H 225 H Random Glucose Calcium Phosphorus Magnesium Total Bilirubin AST ALT Alkaline Phosphatase Total Protein Albumin Globulin Albumin/Globulin Ratio Triglycerides Cholesterol LDL Cholesterol Direct HDL Cholesterol 06/22/17 06:50 WBC RBC Hgb Hct MCV MCH MCHC RDW Plt Count MPV Neut % (Auto) Lymph % (Auto) [place] % (Auto) Eos % (Auto) Baso % (Auto) Neut # Lymph # [place] # Eos # Baso # Sodium 133 Potassium 3.1 L Chloride 94 L Carbon Dioxide 33 H Anion Gap 9 L BUN 21 H Creatinine 0.8 Est GFR ( Amer) > 60 Est GFR (Non-Af Amer) > 60 POC Glucose (mg/dL) Random Glucose 187 H Calcium 7.8 L Phosphorus 3.2 Magnesium 1.7 Total Bilirubin 0.7 AST 36 ALT 31 Alkaline Phosphatase 57 Total Protein 6.1 L Albumin 2.7 L Globulin 3.4 Albumin/Globulin Ratio 0.8 L Triglycerides 96 Cholesterol 61 LDL Cholesterol Direct 32 HDL Cholesterol 16 L Attending/Attestation - Attestation I have personally seen and examined this patient.: Yes I have fully participated in the care of the patient.: Yes I have reviewed all pertinent clinical information: Yes Notes (Text): See note on the same day.
--- NOTE | 2017-06-15 18:11 | CP.CCUPN ---
<Veronica Carmen E - Last Filed: 06/15/17 18:12> CCU Subjective - Physician Review Subjective (Free Text): Patient was seen and examined at bedside. Patient reports that he is doing well but admits to moderate abdominal pain as he is s/p open ventral hernia repair w / biologic mesh, small bowel resection, ROLANDO, POD #1. Patient denies chest pain, palpitations, SOB, fever, chills, nausea and vomiting. CCU Objective - Vital Signs / Intake & Output Intake and Output (Last 8hrs): Intake & Output 06/15/17 06/15/17 06/15/17 06:59 14:59 22:59 Intake Total 1000 800 Output Total 550 1100 Balance 450 -300 Intake: Intake, IV Amount 1000 800 Left Wrist 1000 800 Output: Gastric Amount 50 Right Nares 50 Urine 500 1100 Urine, Voided 500 1100 - Physical Exam Head: Positive for: Atraumatic Extroacular Muscles: Positive for: EOMI Mouth: Positive for: Dry Respiratory/Chest: Positive for: Clear to Auscultation. Negative for: Accessory Muscle Use Cardiovascular: Positive for: Regular Rate and Rhythm, Murmurs Abdomen: Positive for: Tenderness, Other (Decreased BS, s/p open ventral hernia repair w/ biologic mesh, small bowel resection, ROLANDO, POD #1 ) Upper Extremity: Positive for: Normal Inspection Lower Extremity: Positive for: Normal Inspection Neurological: Positive for: GCS=15, Speech Normal Skin: Positive for: Normal Color Psychiatric: Positive for: Alert, Oriented x 3 - Medications Active Medications: Active Medications Generic Name Dose Route Start Last Admin Trade Name Freq PRN Reason Stop Dose Admin Famotidine 20 mg 06/08/17 10:00 06/15/17 09:41 Pepcid IVP 20 mg Q12 CASSIDY Administration Fluticasone Propionate 2 spr 06/05/17 10:00 06/15/17 10:00 Flonase VIRA 2 sprays DAILY CASSIDY Administration Furosemide 40 mg 06/13/17 16:45 06/15/17 09:39 Lasix IVP 40 mg DAILY CASSIDY Administration Hydromorphone HCl 1 mg 06/14/17 13:13 06/15/17 12:21 Dilaudid IVP 1 mg Q3 PRN Administration Pain, severe (8-10) Hydromorphone HCl 0.5 mg 06/14/17 13:13 06/14/17 17:33 Dilaudid IVP 0.5 mg Q3 PRN Administration Pain, moderate (4-7) Lactated Ringer's 1,000 mls @ 125 mls/hr 06/14/17 00:01 06/15/17 16:42 Lactated Ringer's IV 125 mls/hr .Q8H CASSIDY Administration Piperacillin Sod/Tazobactam Sod 3.375 gm in 50 mls @ 100 mls/hr 06/14/17 16: 00 06/15/17 16:48 Zosyn 3.375 Gm Iv Premix IVPB 100 mls/hr Q6H CASSIDY Administration Metronidazole 500 mg in 100 mls @ 100 mls/hr 06/14/17 22:00 06/15/17 14:57 Flagyl IVPB 100 mls/hr Q8 CASSIDY Administration Insulin Aspart 0 unit 06/05/17 07:30 06/15/17 16:34 Novolog SC Not Given ACHS [facility] Protocol Levothyroxine Sodium 25 mcg 06/06/17 06:30 06/15/17 05:59 Synthroid PO Not Given 0630 CASSIDY Potassium Chloride 20 meq 06/13/17 18:00 06/15/17 12:34 K-Dur 20 Meq Er Tab PO Not Given BID CASSIDY Rosuvastatin Calcium 2.5 mg 06/05/17 22:00 06/14/17 21:30 Crestor PO Not Given HS CASSIDY Tamsulosin HCl 0.4 mg 06/05/17 10:00 06/15/17 12:33 Flomax PO Not Given DAILY CASSIDY - Patient Studies Lab Studies: Lab Studies 06/15/17 06/15/17 06/15/17 Range/Units 16:09 11:33 07:29 WBC (4.8-10.8) K/uL RBC (4.40-5.90) Mil/uL Hgb (12.0-18.0) g/dL Hct (35.0-51.0) % MCV (80.0-94.0) fL MCH (27.0-31.0) pg MCHC (33.0-37.0) g/dL RDW (11.5-14.5) % Plt Count (130-400) K/uL MPV (7.2-11.7) fL Neut % (Auto) (50.0-75.0) % Lymph % (Auto) (20.0-40.0) % Alfalfa % (Auto) (0.0-10.0) % Eos % (Auto) (0.0-4.0) % Baso % (Auto) (0.0-2.0) % Neut # (1.8-7.0) K/uL Lymph # (1.0-4.3) K/uL Alfalfa # (0.0-0.8) K/uL Eos # (0.0-0.7) K/uL Baso # (0.0-0.2) K/uL Sodium (132-148) mmol/L Potassium (3.6-5.2) mmol/L Chloride (98-107) mmol/L Carbon Dioxide (22-30) mmol/L Anion Gap (10-20) BUN (9-20) mg/dL Creatinine (0.8-1.5) mg/dL Est GFR ( Amer) Est GFR (Non-Af Amer) POC Glucose (mg/dL) 191 H 187 H 168 H (65-110) mg/dL Random Glucose (75-110) mg/dL Calcium (8.6-10.4) mg/dl Total Bilirubin (0.2-1.3) mg/dL AST (17-59) U/L ALT (21-72) U/L Alkaline Phosphatase (38-126) U/L Total Protein (6.3-8.3) g/dL Albumin (3.5-5.0) g/dL Globulin (2.2-3.9) gm/dL Albumin/Globulin Ratio (1.0-2.1) Blood Type Antibody Screen Crossmatch 06/15/17 06/15/17 06/14/17 Range/Units 05:51 05:51 21:41 WBC 11.8 H (4.8-10.8) K/uL RBC 3.18 L (4.40-5.90) Mil/uL Hgb 11.1 L (12.0-18.0) g/dL Hct 32.2 L (35.0-51.0) % MCV 101.4 H (80.0-94.0) fL MCH 34.9 H (27.0-31.0) pg MCHC 34.4 (33.0-37.0) g/dL RDW 20.5 H (11.5-14.5) % Plt Count 164 (130-400) K/uL MPV 8.4 (7.2-11.7) fL Neut % (Auto) 74.0 (50.0-75.0) % Lymph % (Auto) 12.2 L (20.0-40.0) % Alfalfa % (Auto) 13.5 H (0.0-10.0) % Eos % (Auto) 0.0 (0.0-4.0) % Baso % (Auto) 0.3 (0.0-2.0) % Neut # 8.7 H (1.8-7.0) K/uL Lymph # 1.4 (1.0-4.3) K/uL Alfalfa # 1.6 H (0.0-0.8) K/uL Eos # 0.0 (0.0-0.7) K/uL Baso # 0.0 (0.0-0.2) K/uL Sodium 134 (132-148) mmol/L Potassium 3.9 (3.6-5.2) mmol/L Chloride 102 (98-107) mmol/L Carbon Dioxide 21 L (22-30) mmol/L Anion Gap 15 (10-20) BUN 11 (9-20) mg/dL Creatinine 0.7 L (0.8-1.5) mg/dL Est GFR ( Amer) > 60 Est GFR (Non-Af Amer) > 60 POC Glucose (mg/dL) 213 H (65-110) mg/dL Random Glucose 162 H (75-110) mg/dL Calcium 8.1 L (8.6-10.4) mg/dl Total Bilirubin 1.2 (0.2-1.3) mg/dL AST 45 (17-59) U/L ALT 42 (21-72) U/L Alkaline Phosphatase 59 (38-126) U/L Total Protein 6.2 L (6.3-8.3) g/dL Albumin 2.9 L (3.5-5.0) g/dL Globulin 3.4 (2.2-3.9) gm/dL Albumin/Globulin Ratio 0.9 L (1.0-2.1) Blood Type Antibody Screen Crossmatch 06/14/17 06/14/17 06/14/17 Range/Units 21:04 21:04 14:42 WBC 11.3 H D (4.8-10.8) K/uL RBC 3.31 L (4.40-5.90) Mil/uL Hgb 11.6 L (12.0-18.0) g/dL Hct 33.9 L (35.0-51.0) % MCV 102.3 H (80.0-94.0) fL MCH 35.1 H (27.0-31.0) pg MCHC 34.4 (33.0-37.0) g/dL RDW 20.3 H (11.5-14.5) % Plt Count 176 (130-400) K/uL MPV 8.5 (7.2-11.7) fL Neut % (Auto) (50.0-75.0) % Lymph % (Auto) (20.0-40.0) % Alfalfa % (Auto) (0.0-10.0) % Eos % (Auto) (0.0-4.0) % Baso % (Auto) (0.0-2.0) % Neut # (1.8-7.0) K/uL Lymph # (1.0-4.3) K/uL Alfalfa # (0.0-0.8) K/uL Eos # (0.0-0.7) K/uL Baso # (0.0-0.2) K/uL Sodium 133 (132-148) mmol/L Potassium 3.9 (3.6-5.2) mmol/L Chloride 102 (98-107) mmol/L Carbon Dioxide 20 L (22-30) mmol/L Anion Gap 15 (10-20) BUN 11 (9-20) mg/dL Creatinine 0.7 L (0.8-1.5) mg/dL Est GFR ( Amer) > 60 Est GFR (Non-Af Amer) > 60 POC Glucose (mg/dL) (65-110) mg/dL Random Glucose 168 H (75-110) mg/dL Calcium 8.2 L (8.6-10.4) mg/dl Total Bilirubin (0.2-1.3) mg/dL AST (17-59) U/L ALT (21-72) U/L Alkaline Phosphatase (38-126) U/L Total Protein (6.3-8.3) g/dL Albumin (3.5-5.0) g/dL Globulin (2.2-3.9) gm/dL Albumin/Globulin Ratio (1.0-2.1) Blood Type O POSITIVE Antibody Screen Negative Crossmatch See Detail Laboratory Results - last 24 hr 06/14/17 06/14/17 06/14/17 14:42 21:04 21:04 WBC 11.3 H D RBC 3.31 L Hgb 11.6 L Hct 33.9 L MCV 102.3 H MCH 35.1 H MCHC 34.4 RDW 20.3 H Plt Count 176 MPV 8.5 Neut % (Auto) Lymph % (Auto) Alfalfa % (Auto) Eos % (Auto) Baso % (Auto) Neut # Lymph # Alfalfa # Eos # Baso # Sodium 133 Potassium 3.9 Chloride 102 Carbon Dioxide 20 L Anion Gap 15 BUN 11 Creatinine 0.7 L Est GFR ( Amer) > 60 Est GFR (Non-Af Amer) > 60 POC Glucose (mg/dL) Random Glucose 168 H Calcium 8.2 L Total Bilirubin AST ALT Alkaline Phosphatase Total Protein Albumin Globulin Albumin/Globulin Ratio Blood Type O POSITIVE Antibody Screen Negative Crossmatch See Detail 06/14/17 06/15/17 06/15/17 21:41 05:51 05:51 WBC 11.8 H RBC 3.18 L Hgb 11.1 L Hct 32.2 L MCV 101.4 H MCH 34.9 H MCHC 34.4 RDW 20.5 H Plt Count 164 MPV 8.4 Neut % (Auto) 74.0 Lymph % (Auto) 12.2 L Alfalfa % (Auto) 13.5 H Eos % (Auto) 0.0 Baso % (Auto) 0.3 Neut # 8.7 H Lymph # 1.4 Alfalfa # 1.6 H Eos # 0.0 Baso # 0.0 Sodium 134 Potassium 3.9 Chloride 102 Carbon Dioxide 21 L Anion Gap 15 BUN 11 Creatinine 0.7 L Est GFR ( Amer) > 60 Est GFR (Non-Af Amer) > 60 POC Glucose (mg/dL) 213 H Random Glucose 162 H Calcium 8.1 L Total Bilirubin 1.2 AST 45 ALT 42 Alkaline Phosphatase 59 Total Protein 6.2 L Albumin 2.9 L Globulin 3.4 Albumin/Globulin Ratio 0.9 L Blood Type Antibody Screen Crossmatch 06/15/17 06/15/17 06/15/17 07:29 11:33 16:09 WBC RBC Hgb Hct MCV MCH MCHC RDW Plt Count MPV Neut % (Auto) Lymph % (Auto) Alfalfa % (Auto) Eos % (Auto) Baso % (Auto) Neut # Lymph # Alfalfa # Eos # Baso # Sodium Potassium Chloride Carbon Dioxide Anion Gap BUN Creatinine Est GFR ( Amer) Est GFR (Non-Af Amer) POC Glucose (mg/dL) 168 H 187 H 191 H Random Glucose Calcium Total Bilirubin AST ALT Alkaline Phosphatase Total Protein Albumin Globulin Albumin/Globulin Ratio Blood Type Antibody Screen Crossmatch Fingerstick Blood Sugar Results: 168 Review of Systems - Constitutional Constitutional: Weakness. absent: Fever, Chills - EENT Eyes: absent: Change in Vision Ears: absent: Dizziness - Cardiovascular Cardiovascular: absent: Chest Pain, Diaphoresis, Dyspnea, Lightheadedness - Respiratory Respiratory: absent: Dyspnea - Gastrointestinal Gastrointestinal: Abdominal Pain (s/p open ventral hernia repair w/ biologic mesh, small bowel resection, ROLANDO, POD #1 ). absent: Nausea, Vomiting - Neurological Neurological: Weakness. absent: Dizziness, Headaches, Syncope - Endocrine Endocrine: absent: Fatigue, Palpitations Critical Care Progress Note - Nutrition Nutrition: Nutrition Category Date Time Status NPO Diet [DIET] Diets 06/14/17 Dinner Active Assessment/Plan - Assessment and Plan (Free Text) Assessment: Patient is a 66 year old male with past medical history of HTN , HLD, DM, Ventral hernia repair w/ mesh presented to the hospital with abdominal pain s/p open ventral hernia repair w/ biologic mesh, small bowel resection, ROLANDO, POD #1 Today Plan: Transfer to medical surgical floor as per General surgery Plan: Neuro: Alert, Awake and oriented Cardio: Hx of HTN AND HLD Medication/Management: * Crestor 2.5mg PO HS * Lasix 40mg IVP daily Pulm: No acute issues GI: s/p open ventral hernia repair w/ biologic mesh, small bowel resection, ROLANDO , POD #1 General Surgery, Dr. Mitchell----> Help appreciated Medication/Management: * Dilaudid 1mg IVP q3 PRN and 0.5mg Q3prn (pain control) * LR @125mls/hr Endo: Hx of DM and Hypothyrodism Medication/Management: * Accuchecks * ISS low dose protocol * Levothyroxine 25mcg PO daily ID:s/p open ventral hernia repair w/ biologic mesh, small bowel resection, ROLANDO, POD #1 Prophylaxis: Flagyl 500mg IV Q8H and Zosyn 3.375 gm IV q6 : Hx of BPH Medication/Management: Tamulosin 0.4mg PO daily Prophylaxis: DVT: SCDs GI: Pepcid 20mg IVP Q12H <Bairon Brumfield P - Last Filed: 06/15/17 18:42> CCU Objective - Vital Signs / Intake & Output Intake and Output (Last 8hrs): Intake & Output 06/15/17 06/15/17 06/15/17 06:59 14:59 22:59 Intake Total 1000 800 Output Total 550 1100 Balance 450 -300 Intake: Intake, IV Amount 1000 800 Left Wrist 1000 800 Output: Gastric Amount 50 Right Nares 50 Urine 500 1100 Urine, Voided 500 1100 - Medications Active Medications: Active Medications Generic Name Dose Route Start Last Admin Trade Name Freq PRN Reason Stop Dose Admin Famotidine 20 mg 06/08/17 10:00 06/15/17 09:41 Pepcid IVP 20 mg Q12 CASSIDY Administration Fluticasone Propionate 2 spr 06/05/17 10:00 06/15/17 10:00 Flonase VIRA 2 sprays DAILY CASSIDY Administration Furosemide 40 mg 06/13/17 16:45 06/15/17 09:39 Lasix IVP 40 mg DAILY CASSIDY Administration Hydromorphone HCl 1 mg 06/14/17 13:13 06/15/17 18:31 Dilaudid IVP 1 mg Q3 PRN Administration Pain, severe (8-10) Hydromorphone HCl 0.5 mg 06/14/17 13:13 06/14/17 17:33 Dilaudid IVP 0.5 mg Q3 PRN Administration Pain, moderate (4-7) Lactated Ringer's 1,000 mls @ 125 mls/hr 06/14/17 00:01 06/15/17 16:42 Lactated Ringer's IV 125 mls/hr .Q8H CASSIDY Administration Piperacillin Sod/Tazobactam Sod 3.375 gm in 50 mls @ 100 mls/hr 06/14/17 16: 00 06/15/17 16:48 Zosyn 3.375 Gm Iv Premix IVPB 100 mls/hr Q6H CASSIDY Administration Metronidazole 500 mg in 100 mls @ 100 mls/hr 06/14/17 22:00 06/15/17 14:57 Flagyl IVPB 100 mls/hr Q8 CASSIDY Administration Insulin Aspart 0 unit 06/05/17 07:30 06/15/17 16:34 Novolog SC Not Given ACHS [facility] Protocol Levothyroxine Sodium 25 mcg 06/06/17 06:30 06/15/17 05:59 Synthroid PO Not Given 0630 CASSIDY Potassium Chloride 20 meq 06/13/17 18:00 06/15/17 12:34 K-Dur 20 Meq Er Tab PO Not Given BID CASSIDY Rosuvastatin Calcium 2.5 mg 06/05/17 22:00 06/14/17 21:30 Crestor PO Not Given HS CASSIDY Tamsulosin HCl 0.4 mg 06/05/17 10:00 06/15/17 12:33 Flomax PO Not Given DAILY CASSIDY - Patient Studies Lab Studies: Lab Studies 06/15/17 06/15/17 06/15/17 Range/Units 16:09 11:33 07:29 WBC (4.8-10.8) K/uL RBC (4.40-5.90) Mil/uL Hgb (12.0-18.0) g/dL Hct (35.0-51.0) % MCV (80.0-94.0) fL MCH (27.0-31.0) pg MCHC (33.0-37.0) g/dL RDW (11.5-14.5) % Plt Count (130-400) K/uL MPV (7.2-11.7) fL Neut % (Auto) (50.0-75.0) % Lymph % (Auto) (20.0-40.0) % Alfalfa % (Auto) (0.0-10.0) % Eos % (Auto) (0.0-4.0) % Baso % (Auto) (0.0-2.0) % Neut # (1.8-7.0) K/uL Lymph # (1.0-4.3) K/uL Alfalfa # (0.0-0.8) K/uL Eos # (0.0-0.7) K/uL Baso # (0.0-0.2) K/uL Sodium (132-148) mmol/L Potassium (3.6-5.2) mmol/L Chloride (98-107) mmol/L Carbon Dioxide (22-30) mmol/L Anion Gap (10-20) BUN (9-20) mg/dL Creatinine (0.8-1.5) mg/dL Est GFR ( Amer) Est GFR (Non-Af Amer) POC Glucose (mg/dL) 191 H 187 H 168 H (65-110) mg/dL Random Glucose (75-110) mg/dL Calcium (8.6-10.4) mg/dl Total Bilirubin (0.2-1.3) mg/dL AST (17-59) U/L ALT (21-72) U/L Alkaline Phosphatase (38-126) U/L Total Protein (6.3-8.3) g/dL Albumin (3.5-5.0) g/dL Globulin (2.2-3.9) gm/dL Albumin/Globulin Ratio (1.0-2.1) Blood Type Antibody Screen Crossmatch 06/15/17 06/15/17 06/14/17 Range/Units 05:51 05:51 21:41 WBC 11.8 H (4.8-10.8) K/uL RBC 3.18 L (4.40-5.90) Mil/uL Hgb 11.1 L (12.0-18.0) g/dL Hct 32.2 L (35.0-51.0) % MCV 101.4 H (80.0-94.0) fL MCH 34.9 H (27.0-31.0) pg MCHC 34.4 (33.0-37.0) g/dL RDW 20.5 H (11.5-14.5) % Plt Count 164 (130-400) K/uL MPV 8.4 (7.2-11.7) fL Neut % (Auto) 74.0 (50.0-75.0) % Lymph % (Auto) 12.2 L (20.0-40.0) % Alfalfa % (Auto) 13.5 H (0.0-10.0) % Eos % (Auto) 0.0 (0.0-4.0) % Baso % (Auto) 0.3 (0.0-2.0) % Neut # 8.7 H (1.8-7.0) K/uL Lymph # 1.4 (1.0-4.3) K/uL Alfalfa # 1.6 H (0.0-0.8) K/uL Eos # 0.0 (0.0-0.7) K/uL Baso # 0.0 (0.0-0.2) K/uL Sodium 134 (132-148) mmol/L Potassium 3.9 (3.6-5.2) mmol/L Chloride 102 (98-107) mmol/L Carbon Dioxide 21 L (22-30) mmol/L Anion Gap 15 (10-20) BUN 11 (9-20) mg/dL Creatinine 0.7 L (0.8-1.5) mg/dL Est GFR ( Amer) > 60 Est GFR (Non-Af Amer) > 60 POC Glucose (mg/dL) 213 H (65-110) mg/dL Random Glucose 162 H (75-110) mg/dL Calcium 8.1 L (8.6-10.4) mg/dl Total Bilirubin 1.2 (0.2-1.3) mg/dL AST 45 (17-59) U/L ALT 42 (21-72) U/L Alkaline Phosphatase 59 (38-126) U/L Total Protein 6.2 L (6.3-8.3) g/dL Albumin 2.9 L (3.5-5.0) g/dL Globulin 3.4 (2.2-3.9) gm/dL Albumin/Globulin Ratio 0.9 L (1.0-2.1) Blood Type Antibody Screen Crossmatch 06/14/17 06/14/17 06/14/17 Range/Units 21:04 21:04 14:42 WBC 11.3 H D (4.8-10.8) K/uL RBC 3.31 L (4.40-5.90) Mil/uL Hgb 11.6 L (12.0-18.0) g/dL Hct 33.9 L (35.0-51.0) % MCV 102.3 H (80.0-94.0) fL MCH 35.1 H (27.0-31.0) pg MCHC 34.4 (33.0-37.0) g/dL RDW 20.3 H (11.5-14.5) % Plt Count 176 (130-400) K/uL MPV 8.5 (7.2-11.7) fL Neut % (Auto) (50.0-75.0) % Lymph % (Auto) (20.0-40.0) % Alfalfa % (Auto) (0.0-10.0) % Eos % (Auto) (0.0-4.0) % Baso % (Auto) (0.0-2.0) % Neut # (1.8-7.0) K/uL Lymph # (1.0-4.3) K/uL Alfalfa # (0.0-0.8) K/uL Eos # (0.0-0.7) K/uL Baso # (0.0-0.2) K/uL Sodium 133 (132-148) mmol/L Potassium 3.9 (3.6-5.2) mmol/L Chloride 102 (98-107) mmol/L Carbon Dioxide 20 L (22-30) mmol/L Anion Gap 15 (10-20) BUN 11 (9-20) mg/dL Creatinine 0.7 L (0.8-1.5) mg/dL Est GFR ( Amer) > 60 Est GFR (Non-Af Amer) > 60 POC Glucose (mg/dL) (65-110) mg/dL Random Glucose 168 H (75-110) mg/dL Calcium 8.2 L (8.6-10.4) mg/dl Total Bilirubin (0.2-1.3) mg/dL AST (17-59) U/L ALT (21-72) U/L Alkaline Phosphatase (38-126) U/L Total Protein (6.3-8.3) g/dL Albumin (3.5-5.0) g/dL Globulin (2.2-3.9) gm/dL Albumin/Globulin Ratio (1.0-2.1) Blood Type O POSITIVE Antibody Screen Negative Crossmatch See Detail Laboratory Results - last 24 hr 06/14/17 06/14/17 06/14/17 14:42 21:04 21:04 WBC 11.3 H D RBC 3.31 L Hgb 11.6 L Hct 33.9 L MCV 102.3 H MCH 35.1 H MCHC 34.4 RDW 20.3 H Plt Count 176 MPV 8.5 Neut % (Auto) Lymph % (Auto) Alfalfa % (Auto) Eos % (Auto) Baso % (Auto) Neut # Lymph # Alfalfa # Eos # Baso # Sodium 133 Potassium 3.9 Chloride 102 Carbon Dioxide 20 L Anion Gap 15 BUN 11 Creatinine 0.7 L Est GFR ( Amer) > 60 Est GFR (Non-Af Amer) > 60 POC Glucose (mg/dL) Random Glucose 168 H Calcium 8.2 L Total Bilirubin AST ALT Alkaline Phosphatase Total Protein Albumin Globulin Albumin/Globulin Ratio Blood Type O POSITIVE Antibody Screen Negative Crossmatch See Detail 06/14/17 06/15/17 06/15/17 21:41 05:51 05:51 WBC 11.8 H RBC 3.18 L Hgb 11.1 L Hct 32.2 L MCV 101.4 H MCH 34.9 H MCHC 34.4 RDW 20.5 H Plt Count 164 MPV 8.4 Neut % (Auto) 74.0 Lymph % (Auto) 12.2 L Alfalfa % (Auto) 13.5 H Eos % (Auto) 0.0 Baso % (Auto) 0.3 Neut # 8.7 H Lymph # 1.4 Alfalfa # 1.6 H Eos # 0.0 Baso # 0.0 Sodium 134 Potassium 3.9 Chloride 102 Carbon Dioxide 21 L Anion Gap 15 BUN 11 Creatinine 0.7 L Est GFR ( Amer) > 60 Est GFR (Non-Af Amer) > 60 POC Glucose (mg/dL) 213 H Random Glucose 162 H Calcium 8.1 L Total Bilirubin 1.2 AST 45 ALT 42 Alkaline Phosphatase 59 Total Protein 6.2 L Albumin 2.9 L Globulin 3.4 Albumin/Globulin Ratio 0.9 L Blood Type Antibody Screen Crossmatch 06/15/17 06/15/17 06/15/17 07:29 11:33 16:09 WBC RBC Hgb Hct MCV MCH MCHC RDW Plt Count MPV Neut % (Auto) Lymph % (Auto) Alfalfa % (Auto) Eos % (Auto) Baso % (Auto) Neut # Lymph # Alfalfa # Eos # Baso # Sodium Potassium Chloride Carbon Dioxide Anion Gap BUN Creatinine Est GFR ( Amer) Est GFR (Non-Af Amer) POC Glucose (mg/dL) 168 H 187 H 191 H Random Glucose Calcium Total Bilirubin AST ALT Alkaline Phosphatase Total Protein Albumin Globulin Albumin/Globulin Ratio Blood Type Antibody Screen Crossmatch Critical Care Progress Note - Nutrition Nutrition: Nutrition Category Date Time Status NPO Diet [DIET] Diets 06/14/17 Dinner Active Attending/Attestation - Attestation I have personally seen and examined this patient.: Yes I have fully participated in the care of the patient.: Yes I have reviewed all pertinent clinical information: Yes Notes (Text): No acute events, patient still not passing gas, is awake, oriented and ask to remove NG, only 100 ml overnight drainage. VS stable, abd soft has binder, chest clear, no edema. Labs reviewed. Patient stable to be transferred to the floor.
--- NOTE | 2017-06-15 19:22 | CP.PCM.PN ---
Subjective - Date & Time of Evaluation Date of Evaluation: 06/14/17 Time of Evaluation: 09:00 - Subjective Subjective: For OR Objective - Vital Signs/Intake and Output Vital Signs (last 24 hours): Temp Pulse Resp BP Pulse Ox 98.6 F 105 H 29 H 176/81 H 95 06/15/17 16:00 06/15/17 18:22 06/15/17 18:22 06/15/17 18:22 06/15/17 17:05 Intake and Output: 06/15/17 06/16/17 18:59 06:59 Intake Total 1325 125 Output Total 1500 100 Balance -175 25 - Medications Medications: Current Medications Famotidine (Pepcid) 20 mg IVP Q12 [facility] Last Admin: 06/15/17 09:41 Dose: 20 mg Fluticasone Propionate (Flonase) 2 spr VIRA DAILY [facility] Last Admin: 06/15/17 10:00 Dose: 2 sprays Furosemide (Lasix) 40 mg IVP DAILY [facility] Last Admin: 06/15/17 09:39 Dose: 40 mg Hydromorphone HCl (Dilaudid) 1 mg IVP Q3 PRN PRN Reason: Pain, severe (8-10) Last Admin: 06/15/17 18:31 Dose: 1 mg Hydromorphone HCl (Dilaudid) 0.5 mg IVP Q3 PRN PRN Reason: Pain, moderate (4-7) Last Admin: 06/14/17 17:33 Dose: 0.5 mg Lactated Ringer's (Lactated Ringer's) 1,000 mls @ 125 mls/hr IV .Q8H [facility] Last Admin: 06/15/17 16:42 Dose: 125 mls/hr Piperacillin Sod/Tazobactam Sod (Zosyn 3.375 Gm Iv Premix) 3.375 gm in 50 mls @ 100 mls/hr IVPB Q6H [facility] Last Admin: 06/15/17 16:48 Dose: 100 mls/hr Metronidazole (Flagyl) 500 mg in 100 mls @ 100 mls/hr IVPB Q8 [facility] Last Admin: 06/15/17 14:57 Dose: 100 mls/hr Insulin Aspart (Novolog) 0 unit SC ACHS [facility] PRN Reason: Protocol Last Admin: 06/15/17 16:34 Dose: Not Given Levothyroxine Sodium (Synthroid) 25 mcg PO 0630 [facility] Last Admin: 06/15/17 05:59 Dose: Not Given Potassium Chloride (K-Dur 20 Meq Er Tab) 20 meq PO BID [facility] Last Admin: 06/15/17 18:48 Dose: Not Given Rosuvastatin Calcium (Crestor) 2.5 mg PO HS [facility] Last Admin: 06/14/17 21:30 Dose: Not Given Tamsulosin HCl (Flomax) 0.4 mg PO DAILY [facility] Last Admin: 06/15/17 12:33 Dose: Not Given - Labs Labs: 06/15/17 05:51 06/15/17 05:51 PT 15.5 SECONDS (9.7-12.2) H 06/14/17 08:47 INR 1.4 06/14/17 08:47 APTT 31 SECONDS (21-34) 06/14/17 08:47 - Head Exam Head Exam: ATRAUMATIC - Eye Exam Eye Exam: Normal appearance - ENT Exam ENT Exam: Mucous Membranes Dry - Respiratory Exam Respiratory Exam: NORMAL BREATHING PATTERN - Cardiovascular Exam Cardiovascular Exam: +S1, +S2 - GI/Abdominal Exam GI & Abdominal Exam: Normal Bowel Sounds - Extremities Exam Extremities Exam: Normal Inspection Assessment and Plan (1) Thrombocytopenia Assessment & Plan: liver disease, alcohol abuse s/p plt transfusion cleared for surgery from heme standpoint plt > 100,000 Status: Acute (2) Anemia Assessment & Plan: chronic disease Status: Acute (3) Elevated CEA Assessment & Plan: GI w/u Status: Acute
--- NOTE | 2017-06-15 19:24 | CP.PCM.PN ---
Subjective - Date & Time of Evaluation Date of Evaluation: 06/15/17 Time of Evaluation: 18:00 - Subjective Subjective: Has abdominal pain post surgery Objective - Vital Signs/Intake and Output Vital Signs (last 24 hours): Temp Pulse Resp BP Pulse Ox 98.6 F 105 H 29 H 176/81 H 95 06/15/17 16:00 06/15/17 18:22 06/15/17 18:22 06/15/17 18:22 06/15/17 17:05 Intake and Output: 06/15/17 06/16/17 18:59 06:59 Intake Total 1325 125 Output Total 1500 100 Balance -175 25 - Medications Medications: Current Medications Famotidine (Pepcid) 20 mg IVP Q12 [facility] Last Admin: 06/15/17 09:41 Dose: 20 mg Fluticasone Propionate (Flonase) 2 spr VIRA DAILY [facility] Last Admin: 06/15/17 10:00 Dose: 2 sprays Furosemide (Lasix) 40 mg IVP DAILY [facility] Last Admin: 06/15/17 09:39 Dose: 40 mg Hydromorphone HCl (Dilaudid) 1 mg IVP Q3 PRN PRN Reason: Pain, severe (8-10) Last Admin: 06/15/17 18:31 Dose: 1 mg Hydromorphone HCl (Dilaudid) 0.5 mg IVP Q3 PRN PRN Reason: Pain, moderate (4-7) Last Admin: 06/14/17 17:33 Dose: 0.5 mg Lactated Ringer's (Lactated Ringer's) 1,000 mls @ 125 mls/hr IV .Q8H [facility] Last Admin: 06/15/17 16:42 Dose: 125 mls/hr Piperacillin Sod/Tazobactam Sod (Zosyn 3.375 Gm Iv Premix) 3.375 gm in 50 mls @ 100 mls/hr IVPB Q6H [facility] Last Admin: 06/15/17 16:48 Dose: 100 mls/hr Metronidazole (Flagyl) 500 mg in 100 mls @ 100 mls/hr IVPB Q8 [facility] Last Admin: 06/15/17 14:57 Dose: 100 mls/hr Insulin Aspart (Novolog) 0 unit SC ACHS [facility] PRN Reason: Protocol Last Admin: 06/15/17 16:34 Dose: Not Given Levothyroxine Sodium (Synthroid) 25 mcg PO 0630 [facility] Last Admin: 06/15/17 05:59 Dose: Not Given Potassium Chloride (K-Dur 20 Meq Er Tab) 20 meq PO BID [facility] Last Admin: 06/15/17 18:48 Dose: Not Given Rosuvastatin Calcium (Crestor) 2.5 mg PO HS [facility] Last Admin: 06/14/17 21:30 Dose: Not Given Tamsulosin HCl (Flomax) 0.4 mg PO DAILY [facility] Last Admin: 06/15/17 12:33 Dose: Not Given - Labs Labs: 06/15/17 05:51 06/15/17 05:51 PT 15.5 SECONDS (9.7-12.2) H 06/14/17 08:47 INR 1.4 06/14/17 08:47 APTT 31 SECONDS (21-34) 06/14/17 08:47 - Head Exam Head Exam: ATRAUMATIC - Eye Exam Eye Exam: Normal appearance - ENT Exam ENT Exam: Mucous Membranes Dry - Respiratory Exam Respiratory Exam: NORMAL BREATHING PATTERN - Cardiovascular Exam Cardiovascular Exam: +S1, +S2 - GI/Abdominal Exam GI & Abdominal Exam: Normal Bowel Sounds Assessment and Plan (1) Thrombocytopenia Assessment & Plan: resolved with transfusion alcohol and liver disease Status: Acute (2) Anemia Assessment & Plan: chronic disease s/p prbc transfusion Status: Acute (3) Elevated CEA Assessment & Plan: GI w/u Status: Acute
[2017-06-15] MEDS: Rosuvastatin Calcium 2.5 mg Tab PO SCH (21:04)
--- NOTE | 2017-06-15 23:12 | CP.PCM.PN ---
Subjective - Date & Time of Evaluation Date of Evaluation: 06/15/17 Time of Evaluation: 20:35 - Subjective Subjective: pt is seen in ICU, recovering from surgery, not in distress Objective - Vital Signs/Intake and Output Vital Signs (last 24 hours): Temp Pulse Resp BP Pulse Ox 99.8 F H 93 H 21 176/81 H 92 L 06/15/17 20:00 06/15/17 22:21 06/15/17 22:21 06/15/17 22:21 06/15/17 19:21 Intake and Output: 06/15/17 06/16/17 18:59 06:59 Intake Total 1325 125 Output Total 1500 100 Balance -175 25 - Medications Medications: Current Medications Famotidine (Pepcid) 20 mg IVP Q12 [facility] Last Admin: 06/15/17 22:18 Dose: 20 mg Fluticasone Propionate (Flonase) 2 spr VIRA DAILY [facility] Last Admin: 06/15/17 10:00 Dose: 2 sprays Furosemide (Lasix) 40 mg IVP DAILY [facility] Last Admin: 06/15/17 09:39 Dose: 40 mg Hydromorphone HCl (Dilaudid) 1 mg IVP Q3 PRN PRN Reason: Pain, severe (8-10) Last Admin: 06/15/17 22:53 Dose: 1 mg Hydromorphone HCl (Dilaudid) 0.5 mg IVP Q3 PRN PRN Reason: Pain, moderate (4-7) Last Admin: 06/14/17 17:33 Dose: 0.5 mg Lactated Ringer's (Lactated Ringer's) 1,000 mls @ 125 mls/hr IV .Q8H [facility] Last Admin: 06/15/17 16:42 Dose: 125 mls/hr Piperacillin Sod/Tazobactam Sod (Zosyn 3.375 Gm Iv Premix) 3.375 gm in 50 mls @ 100 mls/hr IVPB Q6H [facility] Last Admin: 06/15/17 21:35 Dose: 100 mls/hr Metronidazole (Flagyl) 500 mg in 100 mls @ 100 mls/hr IVPB Q8 [facility] Last Admin: 06/15/17 21:48 Dose: 100 mls/hr Insulin Aspart (Novolog) 0 unit SC ACHS [facility] PRN Reason: Protocol Last Admin: 06/15/17 22:08 Dose: Not Given Levothyroxine Sodium (Synthroid) 25 mcg PO 0630 [facility] Last Admin: 06/15/17 05:59 Dose: Not Given Potassium Chloride (K-Dur 20 Meq Er Tab) 20 meq PO BID [facility] Last Admin: 06/15/17 18:48 Dose: Not Given Rosuvastatin Calcium (Crestor) 2.5 mg PO HS [facility] Last Admin: 06/15/17 21:04 Dose: Not Given Tamsulosin HCl (Flomax) 0.4 mg PO DAILY [facility] Last Admin: 06/15/17 12:33 Dose: Not Given - Labs Labs: 06/15/17 05:51 06/15/17 05:51 PT 15.5 SECONDS (9.7-12.2) H 06/14/17 08:47 INR 1.4 06/14/17 08:47 APTT 31 SECONDS (21-34) 06/14/17 08:47 - Constitutional Appears: No Acute Distress - Head Exam Head Exam: ATRAUMATIC, NORMAL INSPECTION, NORMOCEPHALIC - Eye Exam Eye Exam: EOMI, Normal appearance, PERRL Pupil Exam: NORMAL ACCOMODATION, PERRL - Respiratory Exam Respiratory Exam: Clear to Ausculation Bilateral, NORMAL BREATHING PATTERN - Cardiovascular Exam Cardiovascular Exam: REGULAR RHYTHM, +S1, +S2. absent: Murmur - GI/Abdominal Exam GI & Abdominal Exam: Soft, Normal Bowel Sounds. absent: Tenderness Additional comments: post op incarcerated hernia surgery - Rectal Exam Rectal Exam: Deferred Assessment and Plan (1) Intestinal obstruction Status: Acute (2) Thrombocytopenia Status: Acute (3) Ventral hernia Status: Acute (4) HTN (hypertension) Status: Acute (5) Diabetes mellitus Status: Chronic
[2017-06-16] MEDS: Lactated Ringer's 1,000 ML IV SCH ×5 (03:11→18:00)
[2017-06-16] MEDS: Piperacill/Tazo 3.375gm in Dex 3.375 GM/50 ML BAG IVPB SCH ×4 (04:21→21:45)
[2017-06-16] MEDS: HYDROmorphone 1 mg/ml ISec IVP PRN ×3 (04:22→13:24)
[2017-06-16] MEDS: metroNIDAZOLE IV 500 mg/100 ml 500 MG/100 ML BAG IVPB SCH ×3 (05:00→21:45)
[2017-06-16 06:39] LABS: BASO # 0.1 K/uL (0.0-0.2); BASO % 0.4 % (0.0-2.0); EOS % 0.1 % (0.0-4.0); HEMATOCRIT 33.7 % (35.0-51.0); LYMPH % 12.7 % (20.0-40.0); MEAN CELL VOLUME 103.2 fL (80.0-94.0); MEAN CORPUSCULAR HEMOGLOBIN 35.1 pg (27.0-31.0); MEAN PLATELET VOLUME 8.1 fL (7.2-11.7); MONO # 2.1 K/uL (0.0-0.8); MONO % 13.3 % (0.0-10.0)
[2017-06-16 06:43] LABS: CHLORIDE 102 mmol/L (98-107); POTASSIUM 3.7 mmol/L (3.6-5.2); SODIUM 135 mmol/L (132-148)
[2017-06-16 06:45] LABS: BILIRUBIN,TOTAL 1.5 mg/dL (0.2-1.3); GFR AFRICAN-AMERICAN > 60
[2017-06-16 06:46] LABS: ALB/GLOB RATIO 0.8 (1.0-2.1); ALKALINE PHOSPHATASE 58 U/L (38-126); ALT/SGPT 39 U/L (21-72); AST/SGOT 34 U/L (17-59); BLOOD UREA NITROGEN 9 mg/dL (9-20); CARBON DIOXIDE 22 mmol/L (22-30); GLUCOSE,RANDOM 132 mg/dL (75-110); TOTAL PROTEIN 7.1 g/dL (6.3-8.3)
[2017-06-16 06:47] LABS: CALCIUM 8.4 mg/dl (8.6-10.4)
[2017-06-16] MEDS ORDERED: Benzocaine/Menthol (Cepacol) Lozenge MT PRN (08:13)
[2017-06-16] MEDS: (Novolog) Insulin Aspart, Recombinant 100 u/ml 10 ml vial SC SCH ×4 (08:41→21:46)
[2017-06-16] MEDS: Potassium Chloride 20 mEq ER Tab PO SCH ×2 (09:38→18:00)
[2017-06-16] MEDS: Levothyroxine 25 MCG TAB PO SCH (09:39)
[2017-06-16] MEDS: Fluticasone Nasal 50 mcg/Spray NAS SCH (09:40)
--- NOTE | 2017-06-16 15:30 | CP.PCM.PN ---
Subjective - Date & Time of Evaluation Date of Evaluation: 06/16/17 Time of Evaluation: 07:00 - Subjective Subjective: GENERAL SURGERY PROGRESS NOTE FOR DR. CURIEL Patient seen and examined at bedside in the ICU. He is OOB to chair. He denies nausea or vomiting. He remains NPO with NG tube. He is unsure if he has passed flatus. He has not had a BM yet since surgery. Objective - Vital Signs/Intake and Output Vital Signs (last 24 hours): Temp Pulse Resp BP Pulse Ox 98.4 F 91 H 16 170/89 H 100 06/16/17 12:00 06/16/17 14:21 06/16/17 14:21 06/16/17 14:21 06/16/17 13:21 Intake and Output: 06/16/17 06/16/17 06:59 18:59 Intake Total 1925 Output Total 1500 1600 Balance 425 -1600 - Medications Medications: Current Medications Benzocaine/Menthol (Cepacol Sore Throat) 1 deep MT Q2 PRN PRN Reason: Sore Throat Famotidine (Pepcid) 20 mg IVP Q12 [facility] Last Admin: 06/16/17 09:37 Dose: 20 mg Fluticasone Propionate (Flonase) 2 spr VIRA DAILY [facility] Last Admin: 06/16/17 09:40 Dose: 1 sprays Furosemide (Lasix) 40 mg IVP DAILY [facility] Last Admin: 06/16/17 09:37 Dose: 40 mg Hydromorphone HCl (Dilaudid) 1 mg IVP Q3 PRN PRN Reason: Pain, severe (8-10) Last Admin: 06/16/17 13:24 Dose: 1 mg Hydromorphone HCl (Dilaudid) 0.5 mg IVP Q3 PRN PRN Reason: Pain, moderate (4-7) Last Admin: 06/14/17 17:33 Dose: 0.5 mg Lactated Ringer's (Lactated Ringer's) 1,000 mls @ 125 mls/hr IV .Q8H [facility] Last Admin: 06/16/17 13:26 Dose: 125 mls/hr Piperacillin Sod/Tazobactam Sod (Zosyn 3.375 Gm Iv Premix) 3.375 gm in 50 mls @ 100 mls/hr IVPB Q6H [facility] Last Admin: 06/16/17 09:39 Dose: 100 mls/hr Metronidazole (Flagyl) 500 mg in 100 mls @ 100 mls/hr IVPB Q8 [facility] Last Admin: 06/16/17 14:18 Dose: 100 mls/hr Insulin Aspart (Novolog) 0 unit SC ACHS [facility] PRN Reason: Protocol Last Admin: 06/16/17 12:22 Dose: Not Given Levothyroxine Sodium (Synthroid) 25 mcg PO 0630 [facility] Last Admin: 06/16/17 09:39 Dose: Not Given Ondansetron HCl (Zofran Inj) 4 mg IVP Q4 PRN PRN Reason: nausea Potassium Chloride (K-Dur 20 Meq Er Tab) 20 meq PO BID [facility] Last Admin: 06/16/17 09:38 Dose: Not Given Rosuvastatin Calcium (Crestor) 2.5 mg PO HS [facility] Last Admin: 06/15/17 21:04 Dose: Not Given Tamsulosin HCl (Flomax) 0.4 mg PO DAILY [facility] Last Admin: 06/16/17 09:38 Dose: Not Given - Labs Labs: 06/16/17 06:15 06/16/17 06:19 PT 15.5 SECONDS (9.7-12.2) H 06/14/17 08:47 INR 1.4 06/14/17 08:47 APTT 31 SECONDS (21-34) 06/14/17 08:47 - Constitutional Appears: Non-toxic, No Acute Distress - Head Exam Head Exam: ATRAUMATIC, NORMAL INSPECTION - Eye Exam Eye Exam: EOMI, Normal appearance - Respiratory Exam Respiratory Exam: NORMAL BREATHING PATTERN. absent: Respiratory Distress - Cardiovascular Exam Cardiovascular Exam: +S1, +S2 - GI/Abdominal Exam GI & Abdominal Exam: Soft, Tenderness (mild tenderness at incision site). absent: Distended, Firm, Guarding, Rigid, Rebound Additional comments: NG tube in place Abdominal binder in place Dressing clean/dry/intact - Neurological Exam Neurological Exam: Alert, Awake, Oriented x3 - Psychiatric Exam Psychiatric exam: Normal Affect, Normal Mood - Skin Skin Exam: Dry, Normal Color, Warm Assessment and Plan - Assessment and Plan (Free Text) Assessment: 66yo M with recurrent ventral hernia and thrombocytopenia s/p exploratory laparotomy, extensive ROLANDO, repair of recurrent ventral hernia with biologic mesh , small bowel resection with primary anastomosis POD#2 - Afebrile, VSS - WBC increased to 16.0 - Hemoglobin stable - Thrombocytopenia resolved - Continue bowel rest, NPO - NG tube had 600cc output overnight, will continue NG tube decompression - Physical therapy ordered - Encouraged OOB, ambulation, and IS use - Will monitor for return of bowel function - Clear for transfer out of ICU from surgical standpoint - Discussed plan with Dr. Stephen Brownlee PGY-3
--- NOTE | 2017-06-16 17:01 | PN ---
LOCATION: ICU 14, bed E. SUBJECTIVE: This is an 66 years old male post abdominal hernia repair with partial small-bowel resection; seen and examined in rounds; out of bed to chair and no reported bowel movement or passing gas but with intermittent period of abdominal pain at the sight of the surgery. No chills or fever and no reported actual palpitation or chest pain. The entire chart is reviewed, including but not limited to the most recent lab and radiology study results, current and the previous medication list, current and the previous medical events. Case discussed at length with the staff in the intensive care unit. Today's lab showed white blood cell of 16.0 with low hemoglobin at 11.5, hematocrit 33.7 with subsequent increase of platelet count to 149, but with low albumin of 0.7, with blood glucose level of 150 with low calcium 8.4 with mildly elevated total bilirubin to 1.5 with low albumin 3.1. PHYSICAL EXAMINATION: GENERAL: A 66 years old male, awake, alert, oriented, out of bed. VITAL SIGNS: Afebrile with pulse of 92, respiratory rate of 16 to 18 with blood pressure of 128/72. HEENT: Shows pale, dry oral mucous membrane. Mild nonicteric sclerae. LUNGS: Few scattered crepitation. Decreased air entry at bases. HEART: Positive S1 and S2. ABDOMEN: Soft with mild distension with generalized tenderness; covered with clean dressing, bowel sounds are absent. EXTREMITIES: With lower extremity mild edematous changes. No clubbing or cyanosis. NEUROLOGIC: No reported new neurological deficits, sensory or motor. IMPRESSION: 1. Anterior abdominal wall incarcerated hernia with status post hernia repair or partial bowel resection. 2. Thrombocytopenia, improving gradually. 3. Known history of hypertension. 4. Poorly controlled diabetes mellitus. 5. Anemia, most likely secondary to above. 6. Re-exacerbation of peptic ulcer disease. 7. Malnutritions, hypoalbuminemia. SUGGESTION: 1. Central hyperalimentation. 2. Physical therapy as tolerated. 3. Due to the patient's level, endoscopic evaluation of the GI tract to be kept in mind only when the patient is more stable clinically that could be done; however, as an outpatient. 4. Further recommendation to follow. Senthil Damon MD [facility] # [id number]
[2017-06-16] MEDS: HYDROmorphone 0.5 mg/0.5 ml ISec IVP PRN (19:20)
--- NOTE | 2017-06-16 19:37 | PN ---
DATE: SUBJECTIVE: The patient is still on NG tube suction. No reported ventricular arrhythmia. PHYSICAL EXAMINATION VITAL SIGNS: Blood pressure 166/87, heart rate 115, temperature 98.9, respirations 18. HEENT: Normocephalic. CHEST: Diminished breath sounds over the bases. HEART: S1 and S2 regular. ABDOMEN: Absent bowel sounds. EXTREMITIES: 1+ pitting edema. LABORATORY DATA: Hemoglobin and hematocrit of 11.5 and 33.7; white count 16,000; platelet count 149,000. Today's SMA-7 was within normal limits except for glucose of 132 and creatinine of 0.7, calcium is 8.4. Postoperative EKG revealed normal sinus rhythm, low-voltage QRS complex with nonspecific T wave changes. ASSESSMENT: 1. Uncontrolled hypertension. 2. Status post ventral hernia repair with mesh and a small bowel resection. RECOMMENDATIONS: Continue IV Zosyn 3.375 g intravenously q. 6 hours. Continue Lasix at 40 mg intravenously daily. Continue IV Flagyl 500 mg intravenously q. 8 hours, start clonidine patch at 0.1 mg weekly. The patient will be transferred to telemetry. Pavel Contreras MD
--- NOTE | 2017-06-16 22:42 | CARD ---
APPROVED REPORT EKG Measurement Heart [id number] [place] 180P40 [id number] <Conclusion> Normal sinus rhythm Low voltage QRS Nonspecific T wave abnormality Abnormal ECG
--- NOTE | 2017-06-16 22:56 | CARD ---
APPROVED REPORT EKG Measurement Heart [id number] [place] 208P58 [id number] <Conclusion> Normal sinus rhythm Prolonged QT Abnormal ECG
[2017-06-16] MEDS: Rosuvastatin Calcium 2.5 mg Tab PO SCH (23:12)
--- NOTE | 2017-06-16 23:23 | CP.PCM.PN ---
Subjective - Date & Time of Evaluation Date of Evaluation: 06/16/17 Time of Evaluation: 20:20 - Subjective Subjective: Pt seen a examined, no fever, chills, is doing well, s/p surgery of incarcerated hernia Objective - Vital Signs/Intake and Output Vital Signs (last 24 hours): Temp Pulse Resp BP Pulse Ox 98.3 F 91 H 20 160/92 H 92 L 06/16/17 18:36 06/16/17 18:36 06/16/17 18:36 06/16/17 18:36 06/16/17 18:36 Intake and Output: 06/16/17 06/17/17 18:59 06:59 Output Total 1600 Balance -1600 - Medications Medications: Current Medications Benzocaine/Menthol (Cepacol Sore Throat) 1 deep MT Q2 PRN PRN Reason: Sore Throat Clonidine HCl (Catapres Tts1 0.1 Mg/24 Hr) 1 patch TD Q7D@1000 [facility] Famotidine (Pepcid) 20 mg IVP Q12 [facility] Last Admin: 06/16/17 21:46 Dose: 20 mg Fluticasone Propionate (Flonase) 2 spr VIRA DAILY [facility] Last Admin: 06/16/17 09:40 Dose: 1 sprays Furosemide (Lasix) 40 mg IVP DAILY [facility] Last Admin: 06/16/17 09:37 Dose: 40 mg Hydromorphone HCl (Dilaudid) 1 mg IVP Q3 PRN PRN Reason: Pain, severe (8-10) Last Admin: 06/16/17 13:24 Dose: 1 mg Hydromorphone HCl (Dilaudid) 0.5 mg IVP Q3 PRN PRN Reason: Pain, moderate (4-7) Last Admin: 06/16/17 19:20 Dose: 0.5 mg Lactated Ringer's (Lactated Ringer's) 1,000 mls @ 125 mls/hr IV .Q8H [facility] Last Admin: 06/16/17 18:00 Dose: Not Given Piperacillin Sod/Tazobactam Sod (Zosyn 3.375 Gm Iv Premix) 3.375 gm in 50 mls @ 100 mls/hr IVPB Q6H [facility] Last Admin: 06/16/17 21:45 Dose: 100 mls/hr Metronidazole (Flagyl) 500 mg in 100 mls @ 100 mls/hr IVPB Q8 [facility] Last Admin: 06/16/17 21:45 Dose: 100 mls/hr Insulin Aspart (Novolog) 0 unit SC ACHS [facility] PRN Reason: Protocol Last Admin: 06/16/17 21:46 Dose: Not Given Levothyroxine Sodium (Synthroid) 25 mcg PO 0630 [facility] Last Admin: 06/16/17 09:39 Dose: Not Given Ondansetron HCl (Zofran Inj) 4 mg IVP Q4 PRN PRN Reason: nausea Potassium Chloride (K-Dur 20 Meq Er Tab) 20 meq PO BID [facility] Last Admin: 06/16/17 18:00 Dose: Not Given Rosuvastatin Calcium (Crestor) 2.5 mg PO HS [facility] Last Admin: 06/16/17 23:12 Dose: Not Given Tamsulosin HCl (Flomax) 0.4 mg PO DAILY [facility] Last Admin: 06/16/17 09:38 Dose: Not Given - Labs Labs: 06/16/17 06:15 06/16/17 06:19 PT 15.5 SECONDS (9.7-12.2) H 06/14/17 08:47 INR 1.4 06/14/17 08:47 APTT 31 SECONDS (21-34) 06/14/17 08:47 - Constitutional Appears: No Acute Distress - Head Exam Head Exam: ATRAUMATIC, NORMAL INSPECTION, NORMOCEPHALIC - Eye Exam Eye Exam: EOMI, Normal appearance, PERRL Pupil Exam: NORMAL ACCOMODATION, PERRL - Respiratory Exam Respiratory Exam: Clear to Ausculation Bilateral - Cardiovascular Exam Cardiovascular Exam: REGULAR RHYTHM, +S1, +S2. absent: Murmur - GI/Abdominal Exam GI & Abdominal Exam: Soft, Normal Bowel Sounds. absent: Tenderness - Rectal Exam Rectal Exam: Deferred Assessment and Plan (1) Intestinal obstruction Assessment & Plan: on post op care Iv fluids Status: Acute (2) Thrombocytopenia Status: Acute (3) Ventral hernia Status: Acute (4) HTN (hypertension) Status: Acute (5) Diabetes mellitus Status: Chronic
[2017-06-17] MEDS: HYDROmorphone 0.5 mg/0.5 ml ISec IVP PRN (00:24)
[2017-06-17] MEDS: Lactated Ringer's 1,000 ML IV SCH (00:30)
[2017-06-17] MEDS: Piperacill/Tazo 3.375gm in Dex 3.375 GM/50 ML BAG IVPB SCH ×4 (04:00→21:11)
[2017-06-17] MEDS: metroNIDAZOLE IV 500 mg/100 ml 500 MG/100 ML BAG IVPB SCH ×3 (05:46→22:00)
[2017-06-17 06:31] LABS: HEMATOCRIT 31.5 % (35.0-51.0); MEAN CELL VOLUME 102.3 fL (80.0-94.0); MEAN CORPUSCULAR HGB CONC 34.2 g/dL (33.0-37.0); MEAN PLATELET VOLUME 7.9 fL (7.2-11.7); RED CELL DISTRIBUTION WIDTH 19.4 % (11.5-14.5); WHITE BLOOD COUNT 13.7 K/uL (4.8-10.8)
[2017-06-17] MEDS: Levothyroxine 25 MCG TAB PO SCH (07:00)
[2017-06-17] MEDS: (Novolog) Insulin Aspart, Recombinant 100 u/ml 10 ml vial SC SCH ×4 (07:50→21:07)
[2017-06-17] MEDS: Potassium Chloride 20 mEq ER Tab PO SCH ×2 (09:27→19:29)
[2017-06-17] MEDS: Fluticasone Nasal 50 mcg/Spray NAS SCH (11:30)
--- NOTE | 2017-06-17 12:09 | CP.PCM.PN ---
Subjective - Date & Time of Evaluation Date of Evaluation: 06/17/17 Time of Evaluation: 11:00 - Subjective Subjective: General Surgery Dr. Shukla Pt S&E @bedside. NAEO. pt has been OOB to chair. Pt reports phlegm and throat irritation 2/2 NGT. Pt denies F/C, N/V, D/C. (-)BM/Flatus. Objective - Vital Signs/Intake and Output Vital Signs (last 24 hours): Temp Pulse Resp BP Pulse Ox 98.4 F 94 H 18 137/71 95 06/17/17 07:30 06/17/17 07:30 06/17/17 07:30 06/17/17 09:26 06/17/17 07:30 Intake and Output: 06/17/17 06/17/17 06:59 18:59 Intake Total 1675 Output Total 500 Balance 1175 - Medications Medications: Current Medications Benzocaine/Menthol (Cepacol Sore Throat) 1 deep MT Q2 PRN PRN Reason: Sore Throat Clonidine HCl (Catapres Tts1 0.1 Mg/24 Hr) 1 patch TD Q7D@1000 [facility] Last Admin: 06/17/17 00:24 Dose: 1 patch Famotidine (Pepcid) 20 mg IVP Q12 [facility] Last Admin: 06/17/17 09:26 Dose: 20 mg Fluticasone Propionate (Flonase) 2 spr VIRA DAILY [facility] Last Admin: 06/17/17 11:30 Dose: 2 sprays Furosemide (Lasix) 40 mg IVP DAILY [facility] Last Admin: 06/17/17 09:26 Dose: 40 mg Hydromorphone HCl (Dilaudid) 0.5 mg IVP Q3 PRN PRN Reason: Pain, moderate (4-7) Last Admin: 06/17/17 00:24 Dose: 0.5 mg Hydromorphone HCl (Dilaudid) 1 mg IVP Q3 PRN PRN Reason: Pain, severe (8-10) Last Admin: 06/17/17 09:23 Dose: 1 mg Piperacillin Sod/Tazobactam Sod (Zosyn 3.375 Gm Iv Premix) 3.375 gm in 50 mls @ 100 mls/hr IVPB Q6H [facility] Last Admin: 06/17/17 09:27 Dose: 100 mls/hr Metronidazole (Flagyl) 500 mg in 100 mls @ 100 mls/hr IVPB Q8 [facility] Last Admin: 06/17/17 05:46 Dose: 100 mls/hr Insulin Aspart (Novolog) 0 unit SC ACHS [facility] PRN Reason: Protocol Last Admin: 06/17/17 07:50 Dose: Not Given Levothyroxine Sodium (Synthroid) 25 mcg PO 0630 [facility] Last Admin: 06/17/17 07:00 Dose: Not Given Ondansetron HCl (Zofran Inj) 4 mg IVP Q4 PRN PRN Reason: nausea Potassium Chloride (K-Dur 20 Meq Er Tab) 20 meq PO BID [facility] Last Admin: 06/17/17 09:27 Dose: Not Given Rosuvastatin Calcium (Crestor) 2.5 mg PO HS [facility] Last Admin: 06/16/17 23:12 Dose: Not Given Tamsulosin HCl (Flomax) 0.4 mg PO DAILY [facility] Last Admin: 06/17/17 09:26 Dose: Not Given - Labs Labs: 06/17/17 06:21 06/16/17 06:19 PT 15.5 SECONDS (9.7-12.2) H 06/14/17 08:47 INR 1.4 06/14/17 08:47 APTT 31 SECONDS (21-34) 06/14/17 08:47 - Constitutional Appears: Non-toxic, No Acute Distress - Head Exam Head Exam: NORMAL INSPECTION - Eye Exam Eye Exam: Normal appearance - ENT Exam ENT Exam: Mucous Membranes Moist Additional comments: NGT in place - Respiratory Exam Respiratory Exam: NORMAL BREATHING PATTERN. absent: Accessory Muscle Use, Respiratory Distress - Cardiovascular Exam Cardiovascular Exam: absent: Bradycardia, Tachycardia - GI/Abdominal Exam GI & Abdominal Exam: Distended (minimally), Soft, Tenderness (flor-incisional TTP). absent: Firm, Guarding, Hernia, Rebound Additional comments: incision c/d/i. dressing stained abd binder in place. - Neurological Exam Neurological Exam: Alert, Awake, Oriented x3 - Psychiatric Exam Psychiatric exam: Normal Affect, Normal Mood - Skin Skin Exam: Dry, Normal Color, Warm Assessment and Plan - Assessment and Plan (Free Text) Assessment: 66 y/o M POD#3 s/p ex-lap, extensive ROLANDO, small bowel resection, and repair of recurrent ventral hernia w/ biologic mesh - Cont NPO, IVF - cont pain management - Monitor bowel fxn - cont NGT to LCS, clamp NGT for Ambulation - Encouraged OOB to chair/Amb/IS use Pt discussed w/ Dr. Stephen Patel DO PGY2
--- NOTE | 2017-06-17 13:56 | PN ---
LOCATION: 660, bed A. SUBJECTIVE: This is a 66 years old male with status post abdominal hernia repair with partial small bowel resection, seen and examined in rounds, appeared to be more stable out of the intensive care unit with intermittent period of severe crampy, possibly on the left abdominal pain. Complained at some time of not passing gas with abdominal distention and no complete bowel movement yet. The patient appeared to be awake, alert, and oriented, had NG tube, is in place for intermittent suction before. The entire chart is reviewed including but not limited to most recent lab and radiological results, current and the previous medication list, current and the previous medical events as well as all the medical and surgical staff notes were reviewed. Case discussed with the staff at length. LABORATORY DATA: Today's lab showed white blood cells of 13.7, elevated with drop of hemoglobin to 10.8, drop of hematocrit to 31.5, but normal platelet count with blood glucose level of 130. The patient still has low albumin as well as low calcium. PHYSICAL EXAMINATION: GENERAL: A 66-year-old male. VITAL SIGNS: Afebrile with heart rate of 92, respiratory rate 20 to 22, blood pressure of 140/82. HEENT: Showed pale, dry oral mucous membrane. Nonicteric sclerae. LUNGS: Few scattered crepitation. Decreased air entry at bases. HEART: Positive S1 and S2. ABDOMEN: Soft with mild distention. Bowel sounds are negative. No mass or organomegaly. Clean dressing is in place. EXTREMITIES: Slight lower extremity edematous changes. NEUROLOGIC: No reported new neurological deficits, sensory or motor. IMPRESSION: 1. Status post abdominal wall hernia repair, it was incarcerated with partial resection of small bowel. 2. Thrombocytopenia, improving gradually. 3. Known history of peptic ulcer disease, hypertension as well as poorly controlled diabetes mellitus. 4. Anemia secondary to above. 5. Malnutritions, hypoalbuminemia. 6. Elevated carcinoembryonic antigen level by recent history. SUGGESTION: 1. Continue current management. 2. Central hyperalimentation. 3. Endoscopic evaluation of the GI tract only when the patient is more stable clinically. Otherwise, close observation to follow. Senthil Damon MD cc: Senthil Damon MD
--- NOTE | 2017-06-17 14:26 | PN ---
SUBJECTIVE: The patient still on NG tube suction. He denies any chest pain or shortness of breath. PHYSICAL EXAMINATION: VITAL SIGNS: Blood pressure 160/71, heart rate 94, temperature 98.4, respirations 18. HEENT: Pale conjunctivae. CHEST: Diminished breath sounds over the bases. HEART: S1 and S2 regular. EXTREMITIES: 1+ pitting edema. LABORATORY DATA: Today's sugars are 130 and 142 respectively. Hemoglobin and hematocrit 10.8 and 31.5, white count 13.7, platelet count 137,000. ASSESSMENT: 1. Hypertension, hypertensive heart disease. 2. Status post repair of anterior wall incisional hernia with a mesh placement as well as a small bowel resection. 3. Ileus. RECOMMENDATIONS: Continue nasogastric tube suction. Continue clonidine patch at 0.1 mg daily. Continue IV Flagyl and p.r.n. IV Dilaudid. Please continue Lasix at 40 mg intravenously daily and Zofran 4 mg intravenously q. 4 hours p.r.n. as well as IV Zosyn at 3.375 g intravenously q. 6 hours. Pavel Contreras MD
--- NOTE | 2017-06-17 15:00 | CP.PCM.PN ---
Subjective - Date & Time of Evaluation Date of Evaluation: 06/17/17 Time of Evaluation: 09:50 - Subjective Subjective: Pt seen and examined at bedside, has NG tube with suction of brown fluid, he denies any abdominal pain, afebrile Objective - Vital Signs/Intake and Output Vital Signs (last 24 hours): Temp Pulse Resp BP Pulse Ox 98.4 F 94 H 18 137/71 95 06/17/17 07:30 06/17/17 07:30 06/17/17 07:30 06/17/17 09:26 06/17/17 07:30 Intake and Output: 06/17/17 06/17/17 06:59 18:59 Intake Total 1675 Output Total 500 Balance 1175 - Medications Medications: Current Medications Benzocaine/Menthol (Cepacol Sore Throat) 1 deep MT Q2 PRN PRN Reason: Sore Throat Clonidine HCl (Catapres Tts1 0.1 Mg/24 Hr) 1 patch TD Q7D@1000 [facility] Last Admin: 06/17/17 00:24 Dose: 1 patch Famotidine (Pepcid) 20 mg IVP Q12 [facility] Last Admin: 06/17/17 09:26 Dose: 20 mg Fluticasone Propionate (Flonase) 2 spr VIRA DAILY [facility] Last Admin: 06/17/17 11:30 Dose: 2 sprays Furosemide (Lasix) 40 mg IVP DAILY [facility] Last Admin: 06/17/17 09:26 Dose: 40 mg Hydromorphone HCl (Dilaudid) 0.5 mg IVP Q3 PRN PRN Reason: Pain, moderate (4-7) Last Admin: 06/17/17 00:24 Dose: 0.5 mg Hydromorphone HCl (Dilaudid) 1 mg IVP Q3 PRN PRN Reason: Pain, severe (8-10) Last Admin: 06/17/17 14:13 Dose: 1 mg Piperacillin Sod/Tazobactam Sod (Zosyn 3.375 Gm Iv Premix) 3.375 gm in 50 mls @ 100 mls/hr IVPB Q6H [facility] Last Admin: 06/17/17 09:27 Dose: 100 mls/hr Metronidazole (Flagyl) 500 mg in 100 mls @ 100 mls/hr IVPB Q8 [facility] Last Admin: 06/17/17 14:17 Dose: 100 mls/hr Insulin Aspart (Novolog) 0 unit SC ACHS [facility] PRN Reason: Protocol Last Admin: 06/17/17 12:11 Dose: Not Given Levothyroxine Sodium (Synthroid) 25 mcg PO 0630 [facility] Last Admin: 06/17/17 07:00 Dose: Not Given Ondansetron HCl (Zofran Inj) 4 mg IVP Q4 PRN PRN Reason: nausea Potassium Chloride (K-Dur 20 Meq Er Tab) 20 meq PO BID [facility] Last Admin: 06/17/17 09:27 Dose: Not Given Rosuvastatin Calcium (Crestor) 2.5 mg PO HS [facility] Last Admin: 06/16/17 23:12 Dose: Not Given Tamsulosin HCl (Flomax) 0.4 mg PO DAILY [facility] Last Admin: 06/17/17 09:26 Dose: Not Given - Labs Labs: 06/17/17 06:21 06/16/17 06:19 PT 15.5 SECONDS (9.7-12.2) H 06/14/17 08:47 INR 1.4 06/14/17 08:47 APTT 31 SECONDS (21-34) 06/14/17 08:47 - Constitutional Appears: No Acute Distress - Head Exam Head Exam: ATRAUMATIC, NORMAL INSPECTION, NORMOCEPHALIC - Eye Exam Eye Exam: EOMI, Normal appearance, PERRL Pupil Exam: NORMAL ACCOMODATION, PERRL - Respiratory Exam Respiratory Exam: Clear to Ausculation Bilateral, NORMAL BREATHING PATTERN - Cardiovascular Exam Cardiovascular Exam: REGULAR RHYTHM, +S1, +S2. absent: Murmur - GI/Abdominal Exam GI & Abdominal Exam: Distended Additional comments: post Op bowel sounds are present Assessment and Plan (1) Intestinal obstruction Status: Acute (2) Thrombocytopenia Status: Acute (3) Ventral hernia Status: Acute (4) HTN (hypertension) Status: Acute (5) Diabetes mellitus Status: Chronic - Assessment and Plan (Free Text) Plan: 66 y/o M POD#3 s/p ex-lap, extensive ROLANDO, small bowel resection, and repair of recurrent ventral hernia w/ biologic mesh - Cont NPO, IVF _consider TPN if pt still have NG tube tommorow - cont pain management - Monitor bowel fxn - cont NGT to LCS, clamp NGT for Ambulation - Encouraged OOB to chair/Amb/IS use
--- NOTE | 2017-06-17 15:01 | CP.PCM.PN ---
Subjective - Date & Time of Evaluation Date of Evaluation: 06/17/17 Time of Evaluation: 10:00 Objective - Vital Signs/Intake and Output Vital Signs (last 24 hours): Temp Pulse Resp BP Pulse Ox 98.4 F 94 H 18 137/71 95 06/17/17 07:30 06/17/17 07:30 06/17/17 07:30 06/17/17 09:26 06/17/17 07:30 Intake and Output: 06/17/17 06/17/17 06:59 18:59 Intake Total 1675 Output Total 500 Balance 1175 - Medications Medications: Current Medications Benzocaine/Menthol (Cepacol Sore Throat) 1 deep MT Q2 PRN PRN Reason: Sore Throat Clonidine HCl (Catapres Tts1 0.1 Mg/24 Hr) 1 patch TD Q7D@1000 [facility] Last Admin: 06/17/17 00:24 Dose: 1 patch Famotidine (Pepcid) 20 mg IVP Q12 [facility] Last Admin: 06/17/17 09:26 Dose: 20 mg Fluticasone Propionate (Flonase) 2 spr VIRA DAILY [facility] Last Admin: 06/17/17 11:30 Dose: 2 sprays Furosemide (Lasix) 40 mg IVP DAILY [facility] Last Admin: 06/17/17 09:26 Dose: 40 mg Hydromorphone HCl (Dilaudid) 0.5 mg IVP Q3 PRN PRN Reason: Pain, moderate (4-7) Last Admin: 06/17/17 00:24 Dose: 0.5 mg Hydromorphone HCl (Dilaudid) 1 mg IVP Q3 PRN PRN Reason: Pain, severe (8-10) Last Admin: 06/17/17 14:13 Dose: 1 mg Piperacillin Sod/Tazobactam Sod (Zosyn 3.375 Gm Iv Premix) 3.375 gm in 50 mls @ 100 mls/hr IVPB Q6H [facility] Last Admin: 06/17/17 09:27 Dose: 100 mls/hr Metronidazole (Flagyl) 500 mg in 100 mls @ 100 mls/hr IVPB Q8 [facility] Last Admin: 06/17/17 14:17 Dose: 100 mls/hr Insulin Aspart (Novolog) 0 unit SC ACHS [facility] PRN Reason: Protocol Last Admin: 06/17/17 12:11 Dose: Not Given Levothyroxine Sodium (Synthroid) 25 mcg PO 0630 [facility] Last Admin: 06/17/17 07:00 Dose: Not Given Ondansetron HCl (Zofran Inj) 4 mg IVP Q4 PRN PRN Reason: nausea Potassium Chloride (K-Dur 20 Meq Er Tab) 20 meq PO BID [facility] Last Admin: 06/17/17 09:27 Dose: Not Given Rosuvastatin Calcium (Crestor) 2.5 mg PO HS [facility] Last Admin: 06/16/17 23:12 Dose: Not Given Tamsulosin HCl (Flomax) 0.4 mg PO DAILY [facility] Last Admin: 06/17/17 09:26 Dose: Not Given - Labs Labs: 06/17/17 06:21 06/16/17 06:19 PT 15.5 SECONDS (9.7-12.2) H 06/14/17 08:47 INR 1.4 06/14/17 08:47 APTT 31 SECONDS (21-34) 06/14/17 08:47 Assessment and Plan (1) Intestinal obstruction Status: Acute (2) Thrombocytopenia Status: Acute (3) Ventral hernia Status: Acute (4) HTN (hypertension) Status: Acute (5) Diabetes mellitus Status: Chronic
[2017-06-17] MEDS ORDERED: Dextrose 5%/0.45% NS 1,000 ML IV SCH (17:45)
[2017-06-17] MEDS: Rosuvastatin Calcium 2.5 mg Tab PO SCH (21:59)
[2017-06-18] MEDS: Piperacill/Tazo 3.375gm in Dex 3.375 GM/50 ML BAG IVPB SCH ×4 (03:24→22:02)
[2017-06-18] MEDS: Levothyroxine 25 MCG TAB PO SCH (05:36)
[2017-06-18] MEDS: metroNIDAZOLE IV 500 mg/100 ml 500 MG/100 ML BAG IVPB SCH ×3 (05:36→22:03)
[2017-06-18 07:25] LABS: BASO # 0.1 K/uL (0.0-0.2); BASO % 0.6 % (0.0-2.0); EOS % 0.2 % (0.0-4.0); HEMATOCRIT 30.4 % (35.0-51.0); LYMPH # 1.4 K/uL (1.0-4.3); LYMPH % 13.7 % (20.0-40.0); MEAN CORPUSCULAR HGB CONC 34.3 g/dL (33.0-37.0); MEAN PLATELET VOLUME 7.9 fL (7.2-11.7); MONO # 1.4 K/uL (0.0-0.8); MONO % 13.1 % (0.0-10.0); WHITE BLOOD COUNT 10.4 K/uL (4.8-10.8)
[2017-06-18] MEDS: (Novolog) Insulin Aspart, Recombinant 100 u/ml 10 ml vial SC SCH ×4 (07:39→22:16)
[2017-06-18 07:59] LABS: CHLORIDE 97 mmol/L (98-107); POTASSIUM 2.8 mmol/L (3.6-5.2); SODIUM 138 mmol/L (132-148)
[2017-06-18 08:02] LABS: BLOOD UREA NITROGEN 11 mg/dL (9-20); CARBON DIOXIDE 32 mmol/L (22-30); GFR AFRICAN-AMERICAN > 60
[2017-06-18 08:03] LABS: CALCIUM 8.3 mg/dl (8.6-10.4); GLUCOSE,RANDOM 132 mg/dL (75-110)
[2017-06-18] MEDS ORDERED: Potassium Ch 20mEq in D5-1/2NS 1,000 ML IV SCH ×3 (09:00→17:16)
[2017-06-18] MEDS: Fluticasone Nasal 50 mcg/Spray NAS SCH (09:22)
[2017-06-18] MEDS ORDERED: Albuterol-Ipratrop 3 mg / 0.5 (3 ml) UD INH STA ×2 (10:32→11:54)
--- NOTE | 2017-06-18 11:00 | RAD ---
HISTORY: check NG tube placement COMPARISON: Chest radiograph 06/14/2017. FINDINGS: Nasogastric tube is in placed terminating at the left upper quadrant abdomen. Skin roddy seen overlying the abdomen. LUNGS: History volume appears poor probable chronic in the bronchovascular markings of the bilateral bases. Nevertheless, limited airspace disease not excluded medial bases bilaterally. PLEURA: No significant pleural effusion identified, no pneumothorax apparent. CARDIOVASCULAR: Normal. OSSEOUS STRUCTURES: No significant abnormalities. VISUALIZED UPPER ABDOMEN: Normal. OTHER FINDINGS: None. IMPRESSION: Limited history volume. Crowding of the bronchovascular markings is identified however bilateral medial basilar airspace disease not excluded in the interval. Follow-up chest radiography is advised. Nasogastric tube in position as discussed above.
[2017-06-18] MEDS: HYDROmorphone 0.5 mg/0.5 ml ISec IVP PRN ×3 (11:29→22:14)
--- NOTE | 2017-06-18 15:10 | CP.PCM.PN ---
Subjective - Date & Time of Evaluation Date of Evaluation: 06/18/17 Time of Evaluation: 06:30 - Subjective Subjective: GENERAL SURGERY PROGRESS NOTE FOR DR. CURIEL Patient seen and examined at bedside. He denies nausea or vomiting. He remains NPO with NG tube. He denies passing flatus or having a BM yet since surgery. Objective - Vital Signs/Intake and Output Vital Signs (last 24 hours): Temp Pulse Resp BP Pulse Ox 98.8 F 94 H 16 156/82 H 98 06/18/17 11:53 06/18/17 11:53 06/18/17 11:53 06/18/17 11:53 06/18/17 11:53 Intake and Output: 06/18/17 06/18/17 06:59 18:59 Intake Total 1300 Output Total 1600 600 Balance -300 -600 - Medications Medications: Current Medications Benzocaine/Menthol (Cepacol Sore Throat) 1 deep MT Q2 PRN PRN Reason: Sore Throat Clonidine HCl (Catapres Tts1 0.1 Mg/24 Hr) 1 patch TD Q7D@1000 [facility] Last Admin: 06/17/17 00:24 Dose: 1 patch Famotidine (Pepcid) 20 mg IVP Q12 [facility] Last Admin: 06/18/17 09:26 Dose: 20 mg Fluticasone Propionate (Flonase) 2 spr VIRA DAILY [facility] Last Admin: 06/18/17 09:22 Dose: 2 sprays Furosemide (Lasix) 40 mg IVP DAILY [facility] Last Admin: 06/18/17 09:10 Dose: 40 mg Hydromorphone HCl (Dilaudid) 0.5 mg IVP Q3 PRN PRN Reason: Pain, moderate (4-7) Last Admin: 06/18/17 11:29 Dose: 0.5 mg Hydromorphone HCl (Dilaudid) 1 mg IVP Q3 PRN PRN Reason: Pain, severe (8-10) Last Admin: 06/18/17 09:14 Dose: 1 mg Piperacillin Sod/Tazobactam Sod (Zosyn 3.375 Gm Iv Premix) 3.375 gm in 50 mls @ 100 mls/hr IVPB Q6H [facility] Last Admin: 06/18/17 13:15 Dose: 100 mls/hr Metronidazole (Flagyl) 500 mg in 100 mls @ 100 mls/hr IVPB Q8 [facility] Last Admin: 06/18/17 13:17 Dose: 100 mls/hr Chromium/Copper/Manganese/Zinc 1 ml/ Multivitamins/Vitamin C 10 ml/ Amino Acids 1,011 mls @ 65 mls/hr IV .[id number] [facility] Stop: 06/19/17 09:33 Chromium/Copper/Manganese/Zinc (1 ml/ Amino Acids) 1,001 mls @ 65 mls/hr IV .[id number] [facility] Stop: 06/19/17 17:59 Potassium Chloride/Dextrose/Sod Cl (Potassium Chl 20 Meq In D5-1/2ns) 1,000 mls @ 150 mls/hr IV .[id number] [facility] Last Admin: 06/18/17 11:12 Dose: Not Given Insulin Aspart (Novolog) 0 unit SC ACHS [facility] PRN Reason: Protocol Last Admin: 06/18/17 13:18 Dose: Not Given Levothyroxine Sodium (Synthroid) 25 mcg PO 0630 [facility] Last Admin: 06/18/17 05:36 Dose: Not Given Ondansetron HCl (Zofran Inj) 4 mg IVP Q4 PRN PRN Reason: nausea Potassium Chloride (K-Dur 20 Meq Er Tab) 20 meq PO BID [facility] Last Admin: 06/17/17 19:29 Dose: Not Given Rosuvastatin Calcium (Crestor) 2.5 mg PO HS [facility] Last Admin: 06/17/17 21:59 Dose: Not Given Tamsulosin HCl (Flomax) 0.4 mg PO DAILY [facility] Last Admin: 06/18/17 09:24 Dose: Not Given - Labs Labs: 06/18/17 07:07 06/18/17 07:07 PT 15.5 SECONDS (9.7-12.2) H 06/14/17 08:47 INR 1.4 06/14/17 08:47 APTT 31 SECONDS (21-34) 06/14/17 08:47 - Constitutional Appears: Non-toxic - Head Exam Head Exam: ATRAUMATIC, NORMAL INSPECTION - Eye Exam Eye Exam: EOMI, Normal appearance - Respiratory Exam Respiratory Exam: NORMAL BREATHING PATTERN. absent: Respiratory Distress - Cardiovascular Exam Cardiovascular Exam: +S1, +S2 - GI/Abdominal Exam GI & Abdominal Exam: Soft, Tenderness (mild tenderness around incision site). absent: Distended, Firm, Guarding, Rigid, Rebound Additional comments: NG tube in place with 600cc over 11pm-7am shift - Neurological Exam Neurological Exam: Alert, Awake, Oriented x3 - Psychiatric Exam Psychiatric exam: Normal Affect, Normal Mood - Skin Skin Exam: Dry, Normal Color, Warm Assessment and Plan - Assessment and Plan (Free Text) Assessment: 66yo M with recurrent ventral hernia and thrombocytopenia s/p exploratory laparotomy, extensive ROLANDO, repair of recurrent ventral hernia with biologic mesh , small bowel resection with primary anastomosis POD#4 - Afebrile, VSS - Leukocytosis resolved - Hemoglobin stable - Thrombocytopenia resolved - Hypokalemia K 2.8 - switched fluids to D5 1/2NS + 20meq K - Continue bowel rest, NPO - NG tube had 600cc output 11pm-7am shift and another 600cc the prior 3pm-11pm shift - CXR was done to confirm placement due to continued high output from NG tube - Will continue NG tube decompression - Physical therapy ordered - Encouraged OOB, ambulation, and IS use - Heparin PPx - Will monitor for return of bowel function - Discussed plan with Dr. Stephen Brownlee PGY-3
--- NOTE | 2017-06-18 17:39 | PN ---
DATE: LOCATION: Room 660, bed A. SUBJECTIVE: This is a 66-year-old male post abdominal hernia repair, seen and examined in rounds, still with NG tube is in place intermittent suction, still n.p.o., however. The entire chart was reviewed including, but not limited to the most recent lab and radiology study results, current and the previous medication list, current and the previous medical events. Case discussed with the staff at length and the patient still have intermittent period of abdominal pain at the site of the surgery. Today's chest x-ray reported and seen. PHYSICAL EXAMINATION GENERAL: A 66-year-old male. VITAL SIGNS: Afebrile with pulse of 92, respiratory rate 20 to 22, blood pressure of 160/78. HEENT: Show mildly pale dry oral mucous membranes. Nonicteric sclerae. LUNGS: Few scattered crepitation. Decreased air entry at bases. HEART: Positive S1 and S2 with increased rate. ABDOMEN: Soft with generalized tenderness. No mass or organomegaly. No rebound tenderness or guarding. Bowel sounds are absent. NG tube is in place. EXTREMITIES: With mild edematous changes in the lower extremity. No clubbing or cyanosis. NEUROLOGICAL: No reported new neurologic deficits, sensory, or motor. IMPRESSION: 1. Incarcerated abdominal wall ventral hernia treated surgically with partial small bowel resection. 2. Thrombocytopenia, improved. 3. Re-exacerbation of peptic ulcer disease. 4. Known history of poorly controlled diabetes mellitus, hypertension. 5. Anemia secondary to above. 6. Hypoalbuminemia with malnutrition. 7. Elevated CEA level. SUGGESTIONS: 1. Continue current management. 2. The patient will need central hyperalimentation at this point. 3. Endoscopic evaluation of the GI tract when the patient is more stable clinically. Senthil Damon MD cc: Senthil Damon MD
[2017-06-18] MEDS ORDERED: PPN#1 IV SCH (18:00)
[2017-06-18] MEDS: Sodium Chloride 0.9% 1,000 ML IV SCH (18:16)
--- NOTE | 2017-06-18 20:07 | PN ---
SUBJECTIVE: The patient is still having the nasogastric tube suctioned. She denies any chest pain or shortness of breath. PHYSICAL EXAMINATION: VITAL SIGNS: Blood pressure 151/73, heart rate 82, temperature 98.9, respirations 18. HEENT: Normocephalic. CHEST: Bibasilar rhonchi. HEART: S1 and S2 regular. ABDOMEN: Absent bowel sounds. EXTREMITIES: 1+ pitting edema. LABORATORY DATA: Hemoglobin and hematocrit are 10.4 and 30.4, white count and platelet count are within normal limit. Today's BUN and creatinine are 11 and 0.7, glucose 132. ASSESSMENT: 1. Status-post repair of incarcerated anterior abdominal wall hernia with a mesh placement and small bowel resection. 2. Ileus. 3. Hypokalemia. Today's potassium level is 2.8. 4. Hypertension. RECOMMENDATIONS: Continue current clonidine patch at 0.1 mg daily. The patient was started on PPN. Continue IV Flagyl. Total of 30 mEq of intravenous potassium was replaced today. Obtain a followup BNP in a.m. Pavel Contreras MD
[2017-06-18] MEDS: Rosuvastatin Calcium 2.5 mg Tab PO SCH (22:15)
--- NOTE | 2017-06-18 22:57 | CP.PCM.PN ---
Subjective - Date & Time of Evaluation Date of Evaluation: 06/18/17 Time of Evaluation: 18:00 - Subjective Subjective: started on TPN, afberile no shortness of breath s/p incacerated hernia repair surgery, no flatus since then Objective - Vital Signs/Intake and Output Vital Signs (last 24 hours): Temp Pulse Resp BP Pulse Ox 98.9 F 82 18 151/73 H 96 06/18/17 15:02 06/18/17 15:02 06/18/17 15:02 06/18/17 15:02 06/18/17 15:02 Intake and Output: 06/18/17 06/19/17 18:59 06:59 Output Total 600 Balance -600 - Medications Medications: Current Medications Benzocaine/Menthol (Cepacol Sore Throat) 1 deep MT Q2 PRN PRN Reason: Sore Throat Clonidine HCl (Catapres Tts1 0.1 Mg/24 Hr) 1 patch TD Q7D@1000 [facility] Last Admin: 06/17/17 00:24 Dose: 1 patch Famotidine (Pepcid) 20 mg IVP Q12 [facility] Last Admin: 06/18/17 22:02 Dose: 20 mg Fluticasone Propionate (Flonase) 2 spr VIRA DAILY [facility] Last Admin: 06/18/17 09:22 Dose: 2 sprays Furosemide (Lasix) 40 mg IVP DAILY [facility] Last Admin: 06/18/17 09:10 Dose: 40 mg Heparin Sodium (Porcine) (Heparin) 5,000 units SC Q8 [facility] Last Admin: 06/18/17 22:02 Dose: 5,000 units Hydromorphone HCl (Dilaudid) 0.5 mg IVP Q3 PRN PRN Reason: Pain, moderate (4-7) Last Admin: 06/18/17 22:14 Dose: 0.5 mg Piperacillin Sod/Tazobactam Sod (Zosyn 3.375 Gm Iv Premix) 3.375 gm in 50 mls @ 100 mls/hr IVPB Q6H [facility] Last Admin: 06/18/17 22:02 Dose: 100 mls/hr Metronidazole (Flagyl) 500 mg in 100 mls @ 100 mls/hr IVPB Q8 [facility] Last Admin: 06/18/17 22:03 Dose: 100 mls/hr Chromium/Copper/Manganese/Zinc 1 ml/ Multivitamins/Vitamin C 10 ml/ Amino Acids 1,011 mls @ 65 mls/hr IV .[id number] [facility] Stop: 06/19/17 09:33 Last Admin: 06/18/17 18:15 Dose: 65 mls/hr Chromium/Copper/Manganese/Zinc (1 ml/ Amino Acids) 1,001 mls @ 65 mls/hr IV .[id number] [facility] Stop: 06/19/17 17:59 Sodium Chloride (Sodium Chloride 0.9%) 1,000 mls @ 65 mls/hr IV .[id number] [facility] Last Admin: 06/18/17 18:16 Dose: 65 mls/hr Insulin Aspart (Novolog) 0 unit SC ACHS [facility] PRN Reason: Protocol Last Admin: 06/18/17 22:16 Dose: Not Given Levothyroxine Sodium (Synthroid) 25 mcg PO 0630 [facility] Last Admin: 06/18/17 05:36 Dose: Not Given Ondansetron HCl (Zofran Inj) 4 mg IVP Q4 PRN PRN Reason: nausea Potassium Chloride (K-Dur 20 Meq Er Tab) 20 meq PO BID [facility] Last Admin: 06/17/17 19:29 Dose: Not Given Rosuvastatin Calcium (Crestor) 2.5 mg PO HS [facility] Last Admin: 06/18/17 22:15 Dose: Not Given Tamsulosin HCl (Flomax) 0.4 mg PO DAILY [facility] Last Admin: 06/18/17 09:24 Dose: Not Given - Labs Labs: 06/18/17 07:07 06/18/17 07:07 PT 15.5 SECONDS (9.7-12.2) H 06/14/17 08:47 INR 1.4 06/14/17 08:47 APTT 31 SECONDS (21-34) 06/14/17 08:47 - Constitutional Appears: No Acute Distress - Head Exam Head Exam: ATRAUMATIC, NORMAL INSPECTION, NORMOCEPHALIC - Eye Exam Eye Exam: EOMI, Normal appearance, PERRL Pupil Exam: NORMAL ACCOMODATION, PERRL - Respiratory Exam Respiratory Exam: Clear to Ausculation Bilateral, NORMAL BREATHING PATTERN - Cardiovascular Exam Cardiovascular Exam: REGULAR RHYTHM, +S1, +S2. absent: Murmur - GI/Abdominal Exam GI & Abdominal Exam: Soft, Diminished Bowel Sounds. absent: Tenderness Additional comments: post op abdomen - Rectal Exam Rectal Exam: Deferred Assessment and Plan (1) Intestinal obstruction Status: Acute (2) Thrombocytopenia Status: Acute (3) Ventral hernia Status: Acute (4) HTN (hypertension) Status: Acute (5) Diabetes mellitus Status: Chronic
[2017-06-19] MEDS: HYDROmorphone 0.5 mg/0.5 ml ISec IVP PRN ×4 (02:39→20:29)
[2017-06-19] MEDS: Piperacill/Tazo 3.375gm in Dex 3.375 GM/50 ML BAG IVPB SCH ×4 (04:30→22:01)
[2017-06-19] MEDS: metroNIDAZOLE IV 500 mg/100 ml 500 MG/100 ML BAG IVPB SCH ×3 (05:58→21:50)
[2017-06-19] MEDS: Levothyroxine 25 MCG TAB PO SCH (06:29)
[2017-06-19 07:14] LABS: BASO % 0.4 % (0.0-2.0); HEMATOCRIT 30.1 % (35.0-51.0); LYMPH # 1.5 K/uL (1.0-4.3); LYMPH % 12.7 % (20.0-40.0); MEAN CELL VOLUME 102.3 fL (80.0-94.0); MEAN CORPUSCULAR HEMOGLOBIN 35.1 pg (27.0-31.0); MEAN CORPUSCULAR HGB CONC 34.4 g/dL (33.0-37.0); MEAN PLATELET VOLUME 8.4 fL (7.2-11.7); MONO # 1.5 K/uL (0.0-0.8); MONO % 12.1 % (0.0-10.0); NRBC % 0.1 % (0.0-2.0); RED CELL DISTRIBUTION WIDTH 18.9 % (11.5-14.5)
[2017-06-19 07:27] LABS: CHLORIDE 97 mmol/L (98-107); POTASSIUM 2.7 mmol/L (3.6-5.2); SODIUM 141 mmol/L (132-148)
[2017-06-19 07:30] LABS: BLOOD UREA NITROGEN 11 mg/dL (9-20); CARBON DIOXIDE 33 mmol/L (22-30); GFR AFRICAN-AMERICAN > 60
[2017-06-19 07:31] LABS: CALCIUM 8.2 mg/dl (8.6-10.4); GLUCOSE,RANDOM 153 mg/dL (75-110)
[2017-06-19] MEDS: (Novolog) Insulin Aspart, Recombinant 100 u/ml 10 ml vial SC SCH ×4 (08:46→21:49)
--- NOTE | 2017-06-19 09:27 | CP.PCM.PN ---
Subjective - Date & Time of Evaluation Date of Evaluation: 06/19/17 Time of Evaluation: 06:45 - Subjective Subjective: General Surgery Dr. Mitchell Pt S&E @bedside. pt c/o phlegm and throat irritation from NGT. abd pain well controlled. deneis F/C, N/V, D/C. (+)Flatus, (-)BM. NGT w/ 600cc out overnight. Objective - Vital Signs/Intake and Output Vital Signs (last 24 hours): Temp Pulse Resp BP Pulse Ox 99.9 F H 84 20 148/82 95 06/18/17 23:40 06/18/17 23:40 06/18/17 23:40 06/18/17 23:40 06/18/17 23:40 Intake and Output: 06/19/17 06/19/17 06:59 18:59 Intake Total 1520 Output Total 1350 Balance 170 - Medications Medications: Current Medications Benzocaine/Menthol (Cepacol Sore Throat) 1 deep MT Q2 PRN PRN Reason: Sore Throat Clonidine HCl (Catapres Tts1 0.1 Mg/24 Hr) 1 patch TD Q7D@1000 [facility] Last Admin: 06/17/17 00:24 Dose: 1 patch Famotidine (Pepcid) 20 mg IVP Q12 [facility] Last Admin: 06/18/17 22:02 Dose: 20 mg Fluticasone Propionate (Flonase) 2 spr VIRA DAILY [facility] Last Admin: 06/18/17 09:22 Dose: 2 sprays Furosemide (Lasix) 40 mg IVP DAILY [facility] Last Admin: 06/18/17 09:10 Dose: 40 mg Heparin Sodium (Porcine) (Heparin) 5,000 units SC Q8 [facility] Last Admin: 06/19/17 06:43 Dose: 5,000 units Hydromorphone HCl (Dilaudid) 0.5 mg IVP Q3 PRN PRN Reason: Pain, moderate (4-7) Last Admin: 06/19/17 05:53 Dose: 0.5 mg Piperacillin Sod/Tazobactam Sod (Zosyn 3.375 Gm Iv Premix) 3.375 gm in 50 mls @ 100 mls/hr IVPB Q6H [facility] Last Admin: 06/19/17 04:30 Dose: 100 mls/hr Metronidazole (Flagyl) 500 mg in 100 mls @ 100 mls/hr IVPB Q8 [facility] Last Admin: 06/19/17 05:58 Dose: 100 mls/hr Chromium/Copper/Manganese/Zinc 1 ml/ Multivitamins/Vitamin C 10 ml/ Amino Acids 1,011 mls @ 65 mls/hr IV .[id number] [facility] Stop: 06/19/17 09:33 Last Admin: 06/18/17 18:15 Dose: 65 mls/hr Chromium/Copper/Manganese/Zinc (1 ml/ Amino Acids) 1,001 mls @ 65 mls/hr IV .[id number] [facility] Stop: 06/19/17 17:59 Sodium Chloride (Sodium Chloride 0.9%) 1,000 mls @ 65 mls/hr IV .[id number] [facility] Last Admin: 06/18/17 18:16 Dose: 65 mls/hr Chromium/Copper/Manganese/Zinc 1 ml/ Multivitamins/Vitamin C 10 ml/ Amino Acids 1,011 mls @ 65 mls/hr IV .[id number] [facility] Stop: 06/20/17 09:33 Chromium/Copper/Manganese/Zinc (1 ml/ Amino Acids) 1,001 mls @ 65 mls/hr IV .[id number] [facility] Stop: 06/20/17 17:59 Insulin Aspart (Novolog) 0 unit SC ACHS [facility] PRN Reason: Protocol Last Admin: 06/19/17 08:46 Dose: Not Given Levothyroxine Sodium (Synthroid) 25 mcg PO 0630 [facility] Last Admin: 06/19/17 06:29 Dose: Not Given Ondansetron HCl (Zofran Inj) 4 mg IVP Q4 PRN PRN Reason: nausea Potassium Chloride (K-Dur 20 Meq Er Tab) 20 meq PO BID [facility] Last Admin: 06/17/17 19:29 Dose: Not Given Rosuvastatin Calcium (Crestor) 2.5 mg PO HS [facility] Last Admin: 06/18/17 22:15 Dose: Not Given Tamsulosin HCl (Flomax) 0.4 mg PO DAILY [facility] Last Admin: 06/18/17 09:24 Dose: Not Given - Labs Labs: 06/19/17 07:03 06/19/17 07:03 PT 15.5 SECONDS (9.7-12.2) H 06/14/17 08:47 INR 1.4 06/14/17 08:47 APTT 31 SECONDS (21-34) 06/14/17 08:47 - Constitutional Appears: Non-toxic, No Acute Distress - Head Exam Head Exam: NORMAL INSPECTION - Eye Exam Eye Exam: Normal appearance - ENT Exam ENT Exam: Mucous Membranes Moist Additional comments: NGT in place - Respiratory Exam Respiratory Exam: NORMAL BREATHING PATTERN. absent: Accessory Muscle Use, Respiratory Distress - Cardiovascular Exam Cardiovascular Exam: absent: Bradycardia, Tachycardia - GI/Abdominal Exam GI & Abdominal Exam: Distended (improved), Soft, Tenderness (minimal flor- incisional TTP). absent: Firm, Guarding, Rebound Additional comments: mild erythema around incision site serosanguinous drainage from caudal aspect of incision. skin well approximated - Extremities Exam Extremities Exam: Normal Inspection - Neurological Exam Neurological Exam: Alert, Awake, Oriented x3 - Psychiatric Exam Psychiatric exam: Normal Affect, Normal Mood - Skin Skin Exam: Dry, Warm Assessment and Plan - Assessment and Plan (Free Text) Assessment: 66 y/o M w/ recurrent ventral hernia POD#5 s/p ex-lap, extensive ROLANDO, repair of ventral hernia w/ biologic mesh, and small bowel resection - increasing Leukocytosis - Hypokalemia - replace electrolytes PRN - NGT clamp trial - advance to [facility] pending results - Encourage OOB to chair/amb/IS use - monitor bowel function Will discuss w/ Dr. Stephen Patel DO PGY2
[2017-06-19] MEDS ORDERED: PPN#2 IV SCH (09:34)
[2017-06-19 10:55] LABS: MAGNESIUM 1.4 mg/dL (1.6-2.3); PHOSPHOROUS 2.9 mg/dL (2.5-4.5)
[2017-06-19] MEDS: Fluticasone Nasal 50 mcg/Spray NAS SCH ×2 (11:00→11:10)
[2017-06-19] MEDS: Sodium Chloride 0.9% 1,000 ML IV SCH (11:06)
[2017-06-19] MEDS ORDERED: Magnesium Oxide 400 mg Tab UD PO SCH (16:15)
[2017-06-19] MEDS ORDERED: Magnesium Sulfate 1 gm in D5W 1 GM/100 ML BAG IVPB ONE (16:30)
[2017-06-19] MEDS ORDERED: PPN#3 IV SCH (18:00)
[2017-06-19] MEDS: Rosuvastatin Calcium 2.5 mg Tab PO SCH (21:20)
--- NOTE | 2017-06-19 21:27 | CP.PCM.PN ---
Subjective - Date & Time of Evaluation Date of Evaluation: 06/19/17 Time of Evaluation: 19:35 - Subjective Subjective: Pt seen and examined, on post op care, feeling better Objective - Vital Signs/Intake and Output Vital Signs (last 24 hours): Temp Pulse Resp BP Pulse Ox 99.5 F 96 H 20 142/81 94 L 06/19/17 15:32 06/19/17 15:32 06/19/17 15:32 06/19/17 15:32 06/19/17 15:32 Intake and Output: 06/19/17 06/20/17 18:59 06:59 Intake Total 1040 Output Total 1250 Balance -210 - Medications Medications: Current Medications Benzocaine/Menthol (Cepacol Sore Throat) 1 deep MT Q2 PRN PRN Reason: Sore Throat Clonidine HCl (Catapres Tts1 0.1 Mg/24 Hr) 1 patch TD Q7D@1000 [facility] Last Admin: 06/17/17 00:24 Dose: 1 patch Famotidine (Pepcid) 20 mg IVP Q12 [facility] Last Admin: 06/19/17 11:07 Dose: 20 mg Fluticasone Propionate (Flonase) 2 spr VIRA DAILY [facility] Last Admin: 06/19/17 11:00 Dose: Not Given Heparin Sodium (Porcine) (Heparin) 5,000 units SC Q8 [facility] Last Admin: 06/19/17 13:36 Dose: Not Given Hydromorphone HCl (Dilaudid) 0.5 mg IVP Q3 PRN PRN Reason: Pain, moderate (4-7) Last Admin: 06/19/17 20:29 Dose: 0.5 mg Piperacillin Sod/Tazobactam Sod (Zosyn 3.375 Gm Iv Premix) 3.375 gm in 50 mls @ 100 mls/hr IVPB Q6H [facility] Last Admin: 06/19/17 16:29 Dose: Not Given Metronidazole (Flagyl) 500 mg in 100 mls @ 100 mls/hr IVPB Q8 [facility] Last Admin: 06/19/17 14:57 Dose: 100 mls/hr Chromium/Copper/Manganese/Zinc 1 ml/ Multivitamins/Vitamin C 10 ml/ Amino Acids 1,011 mls @ 65 mls/hr IV .[id number] [facility] Stop: 06/20/17 09:33 Last Admin: 06/19/17 20:26 Dose: 65 mls/hr Chromium/Copper/Manganese/Zinc (1 ml/ Amino Acids) 1,001 mls @ 65 mls/hr IV .[id number] [facility] Stop: 06/20/17 17:59 Potassium Chloride (Potassium Chloride 20 Meq/100 Ml) 20 meq in 100 mls @ 50 mls/hr IVPB Q4 [facility] Stop: 06/19/17 21:59 Last Admin: 06/19/17 20:29 Dose: 50 mls/hr Potassium Chloride 40 meq/ (Sodium Chloride) 1,020 mls @ 65 mls/hr IV .[id number] [facility] Insulin Aspart (Novolog) 0 unit SC ACHS [facility] PRN Reason: Protocol Last Admin: 06/19/17 20:26 Dose: Not Given Levothyroxine Sodium (Synthroid) 25 mcg PO 0630 [facility] Last Admin: 06/19/17 06:29 Dose: Not Given Ondansetron HCl (Zofran Inj) 4 mg IVP Q4 PRN PRN Reason: nausea Potassium Chloride (K-Dur 20 Meq Er Tab) 20 meq PO BID [facility] Last Admin: 06/17/17 19:29 Dose: Not Given Rosuvastatin Calcium (Crestor) 2.5 mg PO HS [facility] Last Admin: 06/19/17 21:20 Dose: Not Given Tamsulosin HCl (Flomax) 0.4 mg PO DAILY [facility] Last Admin: 06/19/17 09:26 Dose: Not Given - Labs Labs: 06/19/17 07:03 06/19/17 17:38 PT 15.5 SECONDS (9.7-12.2) H 06/14/17 08:47 INR 1.4 06/14/17 08:47 APTT 31 SECONDS (21-34) 06/14/17 08:47 - Constitutional Appears: No Acute Distress - Head Exam Head Exam: ATRAUMATIC, NORMAL INSPECTION, NORMOCEPHALIC - Eye Exam Eye Exam: EOMI, Normal appearance, PERRL Pupil Exam: NORMAL ACCOMODATION, PERRL - Respiratory Exam Respiratory Exam: Clear to Ausculation Bilateral, NORMAL BREATHING PATTERN - Cardiovascular Exam Cardiovascular Exam: REGULAR RHYTHM, +S1, +S2. absent: Murmur - GI/Abdominal Exam GI & Abdominal Exam: Soft, Normal Bowel Sounds. absent: Tenderness Assessment and Plan (1) Intestinal obstruction Status: Acute (2) Thrombocytopenia Status: Acute (3) Ventral hernia Assessment & Plan: 66 y/o M w/ recurrent ventral hernia POD#5 s/p ex-lap, extensive ROLANDO, repair of ventral hernia w/ biologic mesh, and small bowel resection - increasing Leukocytosis - Hypokalemia - replace electrolytes PRN - NGT clamp trial - advance to [facility]D pending results - Encourage OOB to chair/amb/IS use - monitor bowel function Status: Acute (4) HTN (hypertension) Status: Acute (5) Diabetes mellitus Status: Chronic
--- NOTE | 2017-06-19 21:39 | PN ---
LOCATION: Room #660, bed #A. SUBJECTIVE: This 66-year-old male, seen and examined in rounds, without significant clinical changes or reported active bleeding, with drainage at the site of recently done surgery. The patient does still have an NG tube in place. No complain of intermittent period of severe abdominal pain post surgically is reported. The entire chart is reviewed including but not limited to most recent lab and radiology study results, current and previous medication list, current and previous medical events. Case was discussed at length with the staff. LABORATORY DATA: Today's lab showed leukocytosis of 12.0 with low hemoglobin 10.4, low hematocrit 30.1 with thrombocytopenia of 113, and low potassium 2.7 with increased CO2 content to 33 indicative of respiratory alkalosis with low calcium 8.2 and low magnesium 1.4. The patient still has reported low albumin. Chest x-ray done yesterday, report and films are seen. PHYSICAL EXAMINATION: GENERAL: A 66-year-old male, awake, alert, oriented. VITAL SIGNS: Low-grade temperature with pulse of 80, respiratory rate of 20 to 22, blood pressure 140/78. HEENT: Showed pale, dry oral mucous membranes. Anicteric sclerae. LUNGS: A few scattered crepitation. Decreased air entry at bases. HEART: Positive S1 and S2. ABDOMEN: Soft. Bowel sounds are absent so far. No mass or organomegaly. No rebound tenderness or guarding but with generalized tenderness. NG tube is in place. EXTREMITIES: Lower extremities with mild edematous changes. No clubbing or cyanosis. NEUROLOGIC: No new neurologic deficits, sensory, or motor. IMPRESSION: 1. Incarcerated anterior abdominal wall hernia, treated surgically with partial small bowel resection. 2. Anemia, most likely secondary to above. 3. Thrombocytopenia. 4. Exacerbation of peptic ulcer disease. 5. Known history of poorly-controlled hypertension and diabetes mellitus. 6. Malnutrition with hypoalbuminemia. 7. Elevated CEA level. SUGGESTIONS: 1. Agree with your plan. 2. Increase the rate of the peripheral hyperalimentation. 3. Flat and upright abdominal x-ray. 4. Further recommendation to follow up with Dr. Senthil Damon. Senthil Damon MD
--- NOTE | 2017-06-19 22:49 | CP.PCM.PN ---
Subjective - Date & Time of Evaluation Date of Evaluation: 06/19/17 Time of Evaluation: 20:00 - Subjective Subjective: Has throat discomfort from NGT Objective - Vital Signs/Intake and Output Vital Signs (last 24 hours): Temp Pulse Resp BP Pulse Ox 99.5 F 96 H 20 142/81 94 L 06/19/17 15:32 06/19/17 15:32 06/19/17 15:32 06/19/17 15:32 06/19/17 15:32 Intake and Output: 06/19/17 06/20/17 18:59 06:59 Intake Total 1040 Output Total 1250 Balance -210 - Medications Medications: Current Medications Benzocaine/Menthol (Cepacol Sore Throat) 1 deep MT Q2 PRN PRN Reason: Sore Throat Clonidine HCl (Catapres Tts1 0.1 Mg/24 Hr) 1 patch TD Q7D@1000 [facility] Last Admin: 06/17/17 00:24 Dose: 1 patch Famotidine (Pepcid) 20 mg IVP Q12 [facility] Last Admin: 06/19/17 21:50 Dose: 20 mg Fluticasone Propionate (Flonase) 2 spr VIRA DAILY [facility] Last Admin: 06/19/17 11:00 Dose: Not Given Heparin Sodium (Porcine) (Heparin) 5,000 units SC Q8 [facility] Last Admin: 06/19/17 21:50 Dose: 5,000 units Hydromorphone HCl (Dilaudid) 0.5 mg IVP Q3 PRN PRN Reason: Pain, moderate (4-7) Last Admin: 06/19/17 20:29 Dose: 0.5 mg Piperacillin Sod/Tazobactam Sod (Zosyn 3.375 Gm Iv Premix) 3.375 gm in 50 mls @ 100 mls/hr IVPB Q6H [facility] Last Admin: 06/19/17 22:01 Dose: 100 mls/hr Metronidazole (Flagyl) 500 mg in 100 mls @ 100 mls/hr IVPB Q8 [facility] Last Admin: 06/19/17 21:50 Dose: 100 mls/hr Chromium/Copper/Manganese/Zinc 1 ml/ Multivitamins/Vitamin C 10 ml/ Amino Acids 1,011 mls @ 65 mls/hr IV .[id number] [facility] Stop: 06/20/17 09:33 Last Admin: 06/19/17 20:26 Dose: 65 mls/hr Chromium/Copper/Manganese/Zinc (1 ml/ Amino Acids) 1,001 mls @ 65 mls/hr IV .[id number] [facility] Stop: 06/20/17 17:59 Potassium Chloride 40 meq/ (Sodium Chloride) 1,020 mls @ 65 mls/hr IV .[id number] [facility] Last Admin: 06/19/17 21:50 Dose: 65 mls/hr Insulin Aspart (Novolog) 0 unit SC ACHS [facility] PRN Reason: Protocol Last Admin: 06/19/17 21:49 Dose: Not Given Levothyroxine Sodium (Synthroid) 25 mcg PO 0630 [facility] Last Admin: 06/19/17 06:29 Dose: Not Given Ondansetron HCl (Zofran Inj) 4 mg IVP Q4 PRN PRN Reason: nausea Potassium Chloride (K-Dur 20 Meq Er Tab) 20 meq PO BID [facility] Last Admin: 06/17/17 19:29 Dose: Not Given Rosuvastatin Calcium (Crestor) 2.5 mg PO HS [facility] Last Admin: 06/19/17 21:20 Dose: Not Given Tamsulosin HCl (Flomax) 0.4 mg PO DAILY [facility] Last Admin: 06/19/17 09:26 Dose: Not Given - Labs Labs: 06/19/17 07:03 06/19/17 17:38 PT 15.5 SECONDS (9.7-12.2) H 06/14/17 08:47 INR 1.4 06/14/17 08:47 APTT 31 SECONDS (21-34) 06/14/17 08:47 - Head Exam Head Exam: ATRAUMATIC - Eye Exam Eye Exam: Normal appearance - ENT Exam ENT Exam: Mucous Membranes Dry - Respiratory Exam Respiratory Exam: NORMAL BREATHING PATTERN - Cardiovascular Exam Cardiovascular Exam: +S1, +S2 - GI/Abdominal Exam GI & Abdominal Exam: Normal Bowel Sounds Assessment and Plan (1) Thrombocytopenia Assessment & Plan: down trending suspect liver disease from chronic alcoholism Status: Acute (2) Anemia Assessment & Plan: chronic disease Status: Acute (3) Elevated CEA Assessment & Plan: GI w/u Status: Acute
--- NOTE | 2017-06-19 22:50 | CP.PCM.PN ---
Subjective - Date & Time of Evaluation Date of Evaluation: 06/18/17 Time of Evaluation: 19:00 - Subjective Subjective: No complaints. Objective - Vital Signs/Intake and Output Vital Signs (last 24 hours): Temp Pulse Resp BP Pulse Ox 99.5 F 96 H 20 142/81 94 L 06/19/17 15:32 06/19/17 15:32 06/19/17 15:32 06/19/17 15:32 06/19/17 15:32 Intake and Output: 06/19/17 06/20/17 18:59 06:59 Intake Total 1040 Output Total 1250 Balance -210 - Medications Medications: Current Medications Benzocaine/Menthol (Cepacol Sore Throat) 1 deep MT Q2 PRN PRN Reason: Sore Throat Clonidine HCl (Catapres Tts1 0.1 Mg/24 Hr) 1 patch TD Q7D@1000 [facility] Last Admin: 06/17/17 00:24 Dose: 1 patch Famotidine (Pepcid) 20 mg IVP Q12 [facility] Last Admin: 06/19/17 21:50 Dose: 20 mg Fluticasone Propionate (Flonase) 2 spr VIRA DAILY [facility] Last Admin: 06/19/17 11:00 Dose: Not Given Heparin Sodium (Porcine) (Heparin) 5,000 units SC Q8 [facility] Last Admin: 06/19/17 21:50 Dose: 5,000 units Hydromorphone HCl (Dilaudid) 0.5 mg IVP Q3 PRN PRN Reason: Pain, moderate (4-7) Last Admin: 06/19/17 20:29 Dose: 0.5 mg Piperacillin Sod/Tazobactam Sod (Zosyn 3.375 Gm Iv Premix) 3.375 gm in 50 mls @ 100 mls/hr IVPB Q6H [facility] Last Admin: 06/19/17 22:01 Dose: 100 mls/hr Metronidazole (Flagyl) 500 mg in 100 mls @ 100 mls/hr IVPB Q8 [facility] Last Admin: 06/19/17 21:50 Dose: 100 mls/hr Chromium/Copper/Manganese/Zinc 1 ml/ Multivitamins/Vitamin C 10 ml/ Amino Acids 1,011 mls @ 65 mls/hr IV .[id number] [facility] Stop: 06/20/17 09:33 Last Admin: 06/19/17 20:26 Dose: 65 mls/hr Chromium/Copper/Manganese/Zinc (1 ml/ Amino Acids) 1,001 mls @ 65 mls/hr IV .[id number] [facility] Stop: 06/20/17 17:59 Potassium Chloride 40 meq/ (Sodium Chloride) 1,020 mls @ 65 mls/hr IV .[id number] [facility] Last Admin: 06/19/17 21:50 Dose: 65 mls/hr Insulin Aspart (Novolog) 0 unit SC ACHS [facility] PRN Reason: Protocol Last Admin: 06/19/17 21:49 Dose: Not Given Levothyroxine Sodium (Synthroid) 25 mcg PO 0630 [facility] Last Admin: 06/19/17 06:29 Dose: Not Given Ondansetron HCl (Zofran Inj) 4 mg IVP Q4 PRN PRN Reason: nausea Potassium Chloride (K-Dur 20 Meq Er Tab) 20 meq PO BID [facility] Last Admin: 06/17/17 19:29 Dose: Not Given Rosuvastatin Calcium (Crestor) 2.5 mg PO HS [facility] Last Admin: 06/19/17 21:20 Dose: Not Given Tamsulosin HCl (Flomax) 0.4 mg PO DAILY [facility] Last Admin: 06/19/17 09:26 Dose: Not Given - Labs Labs: 06/19/17 07:03 06/19/17 17:38 PT 15.5 SECONDS (9.7-12.2) H 06/14/17 08:47 INR 1.4 06/14/17 08:47 APTT 31 SECONDS (21-34) 06/14/17 08:47 - Head Exam Head Exam: ATRAUMATIC - Eye Exam Eye Exam: Normal appearance - ENT Exam ENT Exam: Mucous Membranes Dry - Respiratory Exam Respiratory Exam: NORMAL BREATHING PATTERN - Cardiovascular Exam Cardiovascular Exam: +S1, +S2 - GI/Abdominal Exam GI & Abdominal Exam: Normal Bowel Sounds Assessment and Plan (1) Thrombocytopenia Assessment & Plan: suspect liver disease from chronic ETOH Status: Acute (2) Anemia Assessment & Plan: anemia of chronic disease Status: Acute (3) Elevated CEA Assessment & Plan: GI w/u Status: Acute
--- NOTE | 2017-06-19 22:51 | CP.PCM.PN ---
Subjective - Date & Time of Evaluation Date of Evaluation: 06/16/17 Time of Evaluation: 12:00 - Subjective Subjective: No complaints. Objective - Vital Signs/Intake and Output Vital Signs (last 24 hours): Temp Pulse Resp BP Pulse Ox 99.5 F 96 H 20 142/81 94 L 06/19/17 15:32 06/19/17 15:32 06/19/17 15:32 06/19/17 15:32 06/19/17 15:32 Intake and Output: 06/19/17 06/20/17 18:59 06:59 Intake Total 1040 Output Total 1250 Balance -210 - Medications Medications: Current Medications Benzocaine/Menthol (Cepacol Sore Throat) 1 deep MT Q2 PRN PRN Reason: Sore Throat Clonidine HCl (Catapres Tts1 0.1 Mg/24 Hr) 1 patch TD Q7D@1000 [facility] Last Admin: 06/17/17 00:24 Dose: 1 patch Famotidine (Pepcid) 20 mg IVP Q12 [facility] Last Admin: 06/19/17 21:50 Dose: 20 mg Fluticasone Propionate (Flonase) 2 spr VIRA DAILY [facility] Last Admin: 06/19/17 11:00 Dose: Not Given Heparin Sodium (Porcine) (Heparin) 5,000 units SC Q8 [facility] Last Admin: 06/19/17 21:50 Dose: 5,000 units Hydromorphone HCl (Dilaudid) 0.5 mg IVP Q3 PRN PRN Reason: Pain, moderate (4-7) Last Admin: 06/19/17 20:29 Dose: 0.5 mg Piperacillin Sod/Tazobactam Sod (Zosyn 3.375 Gm Iv Premix) 3.375 gm in 50 mls @ 100 mls/hr IVPB Q6H [facility] Last Admin: 06/19/17 22:01 Dose: 100 mls/hr Metronidazole (Flagyl) 500 mg in 100 mls @ 100 mls/hr IVPB Q8 [facility] Last Admin: 06/19/17 21:50 Dose: 100 mls/hr Chromium/Copper/Manganese/Zinc 1 ml/ Multivitamins/Vitamin C 10 ml/ Amino Acids 1,011 mls @ 65 mls/hr IV .[id number] [facility] Stop: 06/20/17 09:33 Last Admin: 06/19/17 20:26 Dose: 65 mls/hr Chromium/Copper/Manganese/Zinc (1 ml/ Amino Acids) 1,001 mls @ 65 mls/hr IV .[id number] [facility] Stop: 06/20/17 17:59 Potassium Chloride 40 meq/ (Sodium Chloride) 1,020 mls @ 65 mls/hr IV .[id number] [facility] Last Admin: 06/19/17 21:50 Dose: 65 mls/hr Insulin Aspart (Novolog) 0 unit SC ACHS [facility] PRN Reason: Protocol Last Admin: 06/19/17 21:49 Dose: Not Given Levothyroxine Sodium (Synthroid) 25 mcg PO 0630 [facility] Last Admin: 06/19/17 06:29 Dose: Not Given Ondansetron HCl (Zofran Inj) 4 mg IVP Q4 PRN PRN Reason: nausea Potassium Chloride (K-Dur 20 Meq Er Tab) 20 meq PO BID [facility] Last Admin: 06/17/17 19:29 Dose: Not Given Rosuvastatin Calcium (Crestor) 2.5 mg PO HS [facility] Last Admin: 06/19/17 21:20 Dose: Not Given Tamsulosin HCl (Flomax) 0.4 mg PO DAILY [facility] Last Admin: 06/19/17 09:26 Dose: Not Given - Labs Labs: 06/19/17 07:03 06/19/17 17:38 PT 15.5 SECONDS (9.7-12.2) H 06/14/17 08:47 INR 1.4 06/14/17 08:47 APTT 31 SECONDS (21-34) 06/14/17 08:47 - Head Exam Head Exam: ATRAUMATIC - Eye Exam Eye Exam: Normal appearance - ENT Exam ENT Exam: Mucous Membranes Dry - Respiratory Exam Respiratory Exam: NORMAL BREATHING PATTERN - Cardiovascular Exam Cardiovascular Exam: +S1, +S2 - GI/Abdominal Exam GI & Abdominal Exam: Normal Bowel Sounds - Extremities Exam Extremities Exam: Normal Inspection Assessment and Plan (1) Thrombocytopenia Assessment & Plan: liver disease s/p plt transfusion Status: Acute (2) Anemia Assessment & Plan: chronic disease Status: Acute (3) Elevated CEA Assessment & Plan: GI w/u Status: Acute
--- NOTE | 2017-06-19 22:53 | CP.PCM.PN ---
Subjective - Date & Time of Evaluation Date of Evaluation: 06/17/17 Time of Evaluation: 16:00 - Subjective Subjective: Sore throat from NGT Objective - Vital Signs/Intake and Output Vital Signs (last 24 hours): Temp Pulse Resp BP Pulse Ox 99.5 F 96 H 20 142/81 94 L 06/19/17 15:32 06/19/17 15:32 06/19/17 15:32 06/19/17 15:32 06/19/17 15:32 Intake and Output: 06/19/17 06/20/17 18:59 06:59 Intake Total 1040 Output Total 1250 Balance -210 - Medications Medications: Current Medications Benzocaine/Menthol (Cepacol Sore Throat) 1 deep MT Q2 PRN PRN Reason: Sore Throat Clonidine HCl (Catapres Tts1 0.1 Mg/24 Hr) 1 patch TD Q7D@1000 [facility] Last Admin: 06/17/17 00:24 Dose: 1 patch Famotidine (Pepcid) 20 mg IVP Q12 [facility] Last Admin: 06/19/17 21:50 Dose: 20 mg Fluticasone Propionate (Flonase) 2 spr VIRA DAILY [facility] Last Admin: 06/19/17 11:00 Dose: Not Given Heparin Sodium (Porcine) (Heparin) 5,000 units SC Q8 [facility] Last Admin: 06/19/17 21:50 Dose: 5,000 units Hydromorphone HCl (Dilaudid) 0.5 mg IVP Q3 PRN PRN Reason: Pain, moderate (4-7) Last Admin: 06/19/17 20:29 Dose: 0.5 mg Piperacillin Sod/Tazobactam Sod (Zosyn 3.375 Gm Iv Premix) 3.375 gm in 50 mls @ 100 mls/hr IVPB Q6H [facility] Last Admin: 06/19/17 22:01 Dose: 100 mls/hr Metronidazole (Flagyl) 500 mg in 100 mls @ 100 mls/hr IVPB Q8 [facility] Last Admin: 06/19/17 21:50 Dose: 100 mls/hr Chromium/Copper/Manganese/Zinc 1 ml/ Multivitamins/Vitamin C 10 ml/ Amino Acids 1,011 mls @ 65 mls/hr IV .[id number] [facility] Stop: 06/20/17 09:33 Last Admin: 06/19/17 20:26 Dose: 65 mls/hr Chromium/Copper/Manganese/Zinc (1 ml/ Amino Acids) 1,001 mls @ 65 mls/hr IV .[id number] [facility] Stop: 06/20/17 17:59 Potassium Chloride 40 meq/ (Sodium Chloride) 1,020 mls @ 65 mls/hr IV .[id number] [facility] Last Admin: 06/19/17 21:50 Dose: 65 mls/hr Insulin Aspart (Novolog) 0 unit SC ACHS [facility] PRN Reason: Protocol Last Admin: 06/19/17 21:49 Dose: Not Given Levothyroxine Sodium (Synthroid) 25 mcg PO 0630 [facility] Last Admin: 06/19/17 06:29 Dose: Not Given Ondansetron HCl (Zofran Inj) 4 mg IVP Q4 PRN PRN Reason: nausea Potassium Chloride (K-Dur 20 Meq Er Tab) 20 meq PO BID [facility] Last Admin: 06/17/17 19:29 Dose: Not Given Rosuvastatin Calcium (Crestor) 2.5 mg PO HS [facility] Last Admin: 06/19/17 21:20 Dose: Not Given Tamsulosin HCl (Flomax) 0.4 mg PO DAILY [facility] Last Admin: 06/19/17 09:26 Dose: Not Given - Labs Labs: 06/19/17 07:03 06/19/17 17:38 PT 15.5 SECONDS (9.7-12.2) H 06/14/17 08:47 INR 1.4 06/14/17 08:47 APTT 31 SECONDS (21-34) 06/14/17 08:47 - Head Exam Head Exam: ATRAUMATIC - Eye Exam Eye Exam: Normal appearance - ENT Exam ENT Exam: Mucous Membranes Dry - Respiratory Exam Respiratory Exam: NORMAL BREATHING PATTERN - Cardiovascular Exam Cardiovascular Exam: +S1, +S2 - GI/Abdominal Exam GI & Abdominal Exam: Normal Bowel Sounds Assessment and Plan (1) Thrombocytopenia Assessment & Plan: liver disease Status: Acute (2) Anemia Assessment & Plan: chronic disease Status: Acute (3) Elevated CEA Assessment & Plan: GI w/u Status: Acute
--- NOTE | 2017-06-20 00:01 | PN ---
SUBJECTIVE: The patient denies any chest pain or shortness of breath. He had a bowel movement. PHYSICAL EXAMINATION: VITAL SIGNS: Blood pressure 142/81, heart rate 96, temperature 99.5, respirations 20. HEENT: Normocephalic. CHEST: Diminished breath sounds over the bases. HEART: S1 and S2 regular. ABDOMEN: Absent bowel sounds. EXTREMITIES: 1+ pitting edema. LABORATORY DATA: Hemoglobin and hematocrit of 10.4 and 30.1, white count 12, and platelet count 113,000. SMA-7; sodium 141, potassium 2.7, chloride 97, CO2 of 33, glucose 153, BUN 11, creatinine 0.7. ASSESSMENT: 1. Hypertension. 2. Diastolic left ventricular dysfunction. 3. Hypokalemia. 4. Status post anterior abdominal wall hernia repair with small bowel resection. 5. Hypothyroidism. RECOMMENDATIONS: Continue current Zosyn 3.375 g intravenously q.6 hours. IV potassium replacement totalling 60 mEq is going on now. Continue Lasix 40 mg intravenously once a day, subcutaneous heparin 5000 units q.8 hours, and clonidine patch 0.1 mg daily. Follow up BNP in a.m. Pavel Contreras MD
[2017-06-20] MEDS: HYDROmorphone 0.5 mg/0.5 ml ISec IVP PRN ×4 (01:39→21:40)
[2017-06-20] MEDS: Piperacill/Tazo 3.375gm in Dex 3.375 GM/50 ML BAG IVPB SCH ×4 (05:25→21:29)
[2017-06-20] MEDS: Levothyroxine 25 MCG TAB PO SCH (05:30)
--- NOTE | 2017-06-20 05:33 | CP.PCM.PN ---
Subjective - Date & Time of Evaluation Date of Evaluation: 06/20/17 Time of Evaluation: 05:00 - Subjective Subjective: Patient seen and examined at bedside. NAEO. Patient denies pain, nausea, vomiting, fevers, chills, or drainage from the incision. Objective - Vital Signs/Intake and Output Vital Signs (last 24 hours): Temp Pulse Resp BP Pulse Ox 98.7 F 82 20 141/77 96 06/19/17 23:27 06/19/17 23:27 06/19/17 23:27 06/19/17 23:27 06/19/17 23:27 Intake and Output: 06/19/17 06/20/17 18:59 06:59 Intake Total 1040 1000 Output Total 1250 1650 Balance -210 -650 - Medications Medications: Current Medications Benzocaine/Menthol (Cepacol Sore Throat) 1 deep MT Q2 PRN PRN Reason: Sore Throat Clonidine HCl (Catapres Tts1 0.1 Mg/24 Hr) 1 patch TD Q7D@1000 [facility] Last Admin: 06/17/17 00:24 Dose: 1 patch Famotidine (Pepcid) 20 mg IVP Q12 [facility] Last Admin: 06/19/17 21:50 Dose: 20 mg Fluticasone Propionate (Flonase) 2 spr VIRA DAILY [facility] Last Admin: 06/19/17 11:00 Dose: Not Given Heparin Sodium (Porcine) (Heparin) 5,000 units SC Q8 [facility] Last Admin: 06/20/17 05:26 Dose: 5,000 units Hydromorphone HCl (Dilaudid) 0.5 mg IVP Q3 PRN PRN Reason: Pain, moderate (4-7) Last Admin: 06/20/17 01:39 Dose: 0.5 mg Piperacillin Sod/Tazobactam Sod (Zosyn 3.375 Gm Iv Premix) 3.375 gm in 50 mls @ 100 mls/hr IVPB Q6H [facility] Last Admin: 06/20/17 05:25 Dose: 100 mls/hr Chromium/Copper/Manganese/Zinc 1 ml/ Multivitamins/Vitamin C 10 ml/ Amino Acids 1,011 mls @ 65 mls/hr IV .[id number] [facility] Stop: 06/20/17 09:33 Last Admin: 06/19/17 20:26 Dose: 65 mls/hr Chromium/Copper/Manganese/Zinc (1 ml/ Amino Acids) 1,001 mls @ 65 mls/hr IV .[id number] [facility] Stop: 06/20/17 17:59 Potassium Chloride 40 meq/ (Sodium Chloride) 1,020 mls @ 65 mls/hr IV .[id number] [facility] Last Admin: 06/19/17 21:50 Dose: 65 mls/hr Insulin Aspart (Novolog) 0 unit SC ACHS [facility] PRN Reason: Protocol Last Admin: 06/19/17 21:49 Dose: Not Given Levothyroxine Sodium (Synthroid) 25 mcg PO 0630 [facility] Last Admin: 06/19/17 06:29 Dose: Not Given Ondansetron HCl (Zofran Inj) 4 mg IVP Q4 PRN PRN Reason: nausea Potassium Chloride (K-Dur 20 Meq Er Tab) 20 meq PO BID [facility] Last Admin: 06/17/17 19:29 Dose: Not Given Rosuvastatin Calcium (Crestor) 2.5 mg PO HS [facility] Last Admin: 06/19/17 21:20 Dose: Not Given Tamsulosin HCl (Flomax) 0.4 mg PO DAILY [facility] Last Admin: 06/19/17 09:26 Dose: Not Given - Labs Labs: 06/19/17 07:03 06/19/17 17:38 PT 15.5 SECONDS (9.7-12.2) H 06/14/17 08:47 INR 1.4 06/14/17 08:47 APTT 31 SECONDS (21-34) 06/14/17 08:47 - Constitutional Appears: Non-toxic, No Acute Distress - Head Exam Head Exam: ATRAUMATIC, NORMOCEPHALIC - Eye Exam Eye Exam: Normal appearance. absent: Conjunctival injection, Scleral icterus - ENT Exam ENT Exam: Mucous Membranes Moist, Normal Oropharynx Additional comments: NGT in place - Respiratory Exam Respiratory Exam: NORMAL BREATHING PATTERN. absent: Accessory Muscle Use, Respiratory Distress - Cardiovascular Exam Cardiovascular Exam: RRR - GI/Abdominal Exam GI & Abdominal Exam: Soft. absent: Distended, Tenderness Additional comments: Midline incision well approximated with roddy, inferior pole covered in dressing c/d/i - Extremities Exam Extremities Exam: absent: Calf Tenderness, Pedal Edema, Tenderness - Neurological Exam Neurological Exam: Alert, Awake, Oriented x3 - Psychiatric Exam Psychiatric exam: Normal Affect, Normal Mood - Skin Skin Exam: Dry, Normal Color, Warm Assessment and Plan - Assessment and Plan (Free Text) Assessment: 66 y/o M w/ recurrent ventral hernia POD#6 s/p ex-lap, extensive ROLANDO, repair of ventral hernia w/ biologic mesh, and small bowel resection Plan: -Follow up AM CBC/BMP. Monitor for leukocytosis -Monitor and supplement potassium closely--D/C lasix per primary -700cc's output from NGT overnight. >1300/24. Continue to low continuous suction -Monitor for bowel function -OOB to chair/amb/IS use -Serial abdominal exams -Pressure dressing in place over inferior incision. Only surgical team to manage. Will discuss w/ Dr. Stephen Baig, PGY2
[2017-06-20] MEDS: (Novolog) Insulin Aspart, Recombinant 100 u/ml 10 ml vial SC SCH ×4 (07:30→21:30)
[2017-06-20 08:56] LABS: BASO % 0.3 % (0.0-2.0); EOS % 0.1 % (0.0-4.0); HEMATOCRIT 31.1 % (35.0-51.0); LYMPH # 1.5 K/uL (1.0-4.3); LYMPH % 10.9 % (20.0-40.0); MEAN CELL VOLUME 102.9 fL (80.0-94.0); MEAN CORPUSCULAR HEMOGLOBIN 34.5 pg (27.0-31.0); MEAN CORPUSCULAR HGB CONC 33.5 g/dL (33.0-37.0); MONO # 1.3 K/uL (0.0-0.8); MONO % 9.2 % (0.0-10.0); NRBC % 0.1 % (0.0-2.0); RED CELL DISTRIBUTION WIDTH 19.2 % (11.5-14.5); WHITE BLOOD COUNT 13.7 K/uL (4.8-10.8)
[2017-06-20 09:02] LABS: CHLORIDE 96 mmol/L (98-107); POTASSIUM 3.2 mmol/L (3.6-5.2); SODIUM 141 mmol/L (132-148)
[2017-06-20 09:04] LABS: ALB/GLOB RATIO 0.7 (1.0-2.1); ALKALINE PHOSPHATASE 64 U/L (38-126); ALT/SGPT 35 U/L (21-72); AST/SGOT 27 U/L (17-59); BILIRUBIN,TOTAL 1.2 mg/dL (0.2-1.3); BLOOD UREA NITROGEN 12 mg/dL (9-20); CARBON DIOXIDE 39 mmol/L (22-30); CHOLESTEROL 75 mg/dL (0-199); GFR AFRICAN-AMERICAN > 60; GLUCOSE,RANDOM 164 mg/dL (75-110); TOTAL PROTEIN 6.9 g/dL (6.3-8.3)
[2017-06-20 09:05] LABS: CALCIUM 8.3 mg/dl (8.6-10.4); MAGNESIUM 1.7 mg/dL (1.6-2.3); PHOSPHOROUS 3.2 mg/dL (2.5-4.5)
[2017-06-20] MEDS: Fluticasone Nasal 50 mcg/Spray NAS SCH (09:13)
[2017-06-20] MEDS ORDERED: PPN#4 IV SCH (09:34)
--- NOTE | 2017-06-20 13:29 | PN ---
DATE: LOCATION: [facility], bed B. SUBJECTIVE: This is 66-year-old male seen and examined on rounds without significant clinical changes, had been on potassium IV supplement due to his hypokalemia. The patient still have intermittent period of postsurgical abdominal pain, but severe pain, but no reported active bleeding. No reported nausea or vomiting. No chest pain or palpitation. NG tube is still in place. LABORATORY DATA: Most recent lab results showed leukocytosis of 12.0 with low hemoglobin and low hematocrit with thrombocytopenia of 113, with potassium the latest was 2.7 and increased blood glucose level today to 174 with low calcium. Magnesium level dropped to 1.4. PHYSICAL EXAMINATION: GENERAL: A 66-year-old male. VITAL SIGNS: Afebrile with pulse of 80, respiratory rate 20 to 22, with blood pressure of 148/80. HEENT: Showed pale dry oral mucous membrane. Nonicteric sclerae. NG tube is in place. HEART: Positive S1 and S2. ABDOMEN: Covered with clean dressing. No bowel sounds could be appreciated. No mass or organomegaly. EXTREMITIES: Mild lower extremity edematous changes. No clubbing or cyanosis. Peripheral pulses are present, but weak bilaterally. NEUROLOGIC: No reported new neurological deficits, sensory or motor. IMPRESSION: 1. Incarcerated abdominal wall hernia, with status post surgically repair with partial small bowel resection. 2. Re-exacerbation of peptic ulcer disease. 3. Known history of poorly-controlled diabetes mellitus and hypertension. 4. Thrombocytopenia of unclear etiology. 5. Anemia secondary to above. 6. Elevated CEA level, the possibility of lower gastrointestinal tract neoplastic changes was raised. SUGGESTIONS: 1. Continue current management. 2. The patient will need central hyperalimentation. 3. Correct any underlying electrolyte imbalance. 4. Sectional abdominal and pelvic CAT scan. Senthil Damon MD cc: Senthil Damon MD
[2017-06-20] MEDS ORDERED: PPN#5 IV SCH (18:00)
--- NOTE | 2017-06-20 19:51 | PN ---
DATE: SUBJECTIVE: The patient still experiencing abdominal distention. Nasogastric suction totaled 1 L today. No chest pain or shortness of breath. PHYSICAL EXAMINATION: VITAL SIGNS: Blood pressure 154/82, heart rate 83, temperature 98.9, respirations 20. HEENT: Normocephalic. CHEST: Absent breath sounds over the bases. HEART: S1 and S2 regular. ABDOMEN: Absent bowel sounds. EXTREMITIES: 1+ pitting edema. LABORATORY DATA: Hemoglobin and hematocrit 10.4 and , white count 16.7, platelet count 105,000. Today's potassium 3.2, glucose 164. ASSESSMENT: 1. Hypertension. 2. Diastolic left ventricular dysfunction. 3. Status post surgical repair of anterior abdominal wall hernia with mesh placement and small bowel resection. 4. Hypokalemia. RECOMMENDATIONS: Continue current transdermal clonidine and KCL total 20 mEq intravenously was given today besides the TPN formula. Continue Zosyn 3.375 g intravenously q. 6 hours. The patient is for possible nasogastric tube removal. Pavel Contreras MD
[2017-06-20] MEDS: Rosuvastatin Calcium 2.5 mg Tab PO SCH (21:29)
--- NOTE | 2017-06-20 21:41 | CP.PCM.PN ---
Subjective - Date & Time of Evaluation Date of Evaluation: 06/20/17 Time of Evaluation: 21:00 - Subjective Subjective: PT HAS LARGE VOLUME NG TUBE DRAINING, H AND H IS STABLE, S/P OR, DRAINAGE FROM WOUND SITE TOO Objective - Vital Signs/Intake and Output Vital Signs (last 24 hours): Temp Pulse Resp BP Pulse Ox 98.9 F 77 20 146/79 94 L 06/20/17 15:25 06/20/17 15:25 06/20/17 15:25 06/20/17 15:25 06/20/17 15:25 Intake and Output: 06/20/17 06/21/17 18:59 06:59 Intake Total 910 Output Total 1525 Balance -615 - Medications Medications: Current Medications Benzocaine/Menthol (Cepacol Sore Throat) 1 deep MT Q2 PRN PRN Reason: Sore Throat Last Admin: 06/20/17 09:19 Dose: 1 deep Clonidine HCl (Catapres Tts1 0.1 Mg/24 Hr) 1 patch TD Q7D@1000 [facility] Last Admin: 06/17/17 00:24 Dose: 1 patch Famotidine (Pepcid) 20 mg IVP Q12 [facility] Last Admin: 06/20/17 21:29 Dose: 20 mg Heparin Sodium (Porcine) (Heparin) 5,000 units SC Q8 [facility] Last Admin: 06/20/17 21:29 Dose: 5,000 units Hydromorphone HCl (Dilaudid) 0.5 mg IVP Q3 PRN PRN Reason: Pain, moderate (4-7) Last Admin: 06/20/17 21:40 Dose: 0.5 mg Piperacillin Sod/Tazobactam Sod (Zosyn 3.375 Gm Iv Premix) 3.375 gm in 50 mls @ 100 mls/hr IVPB Q6H [facility] Last Admin: 06/20/17 21:29 Dose: 100 mls/hr Potassium Chloride 40 meq/ (Sodium Chloride) 1,020 mls @ 65 mls/hr IV .[id number] [facility] Last Admin: 06/20/17 17:05 Dose: 65 mls/hr Chromium/Copper/Manganese/Zinc (1 ml/ Amino Acids) 1,001 mls @ 65 mls/hr IV .[id number] [facility] Stop: 06/21/17 09:23 Last Admin: 06/20/17 18:01 Dose: 65 mls/hr Chromium/Copper/Manganese/Zinc (1 ml/ Amino Acids) 1,001 mls @ 65 mls/hr IV .[id number] [facility] Stop: 06/21/17 17:59 Insulin Aspart (Novolog) 0 unit SC ACHS [facility] PRN Reason: Protocol Last Admin: 06/20/17 21:30 Dose: Not Given Levothyroxine Sodium (Synthroid) 25 mcg PO 0630 [facility] Last Admin: 06/20/17 05:30 Dose: 25 mcg Ondansetron HCl (Zofran Inj) 4 mg IVP Q4 PRN PRN Reason: nausea Potassium Chloride (K-Dur 20 Meq Er Tab) 20 meq PO BID [facility] Last Admin: 06/17/17 19:29 Dose: Not Given Rosuvastatin Calcium (Crestor) 2.5 mg PO HS [facility] Last Admin: 06/20/17 21:29 Dose: Not Given - Labs Labs: 06/20/17 08:22 06/20/17 08:22 PT 15.5 SECONDS (9.7-12.2) H 06/14/17 08:47 INR 1.4 06/14/17 08:47 APTT 31 SECONDS (21-34) 06/14/17 08:47 - Constitutional Appears: No Acute Distress - Head Exam Head Exam: ATRAUMATIC, NORMAL INSPECTION, NORMOCEPHALIC - Eye Exam Eye Exam: EOMI, Normal appearance, PERRL Pupil Exam: NORMAL ACCOMODATION, PERRL - Respiratory Exam Respiratory Exam: Decreased Breath Sounds, Rales, Rhonchi - Cardiovascular Exam Cardiovascular Exam: REGULAR RHYTHM, +S1, +S2. absent: Murmur - GI/Abdominal Exam GI & Abdominal Exam: Diminished Bowel Sounds Additional comments: S/P OR Assessment and Plan (1) Intestinal obstruction Status: Acute (2) Thrombocytopenia Status: Acute (3) Ventral hernia Status: Acute (4) HTN (hypertension) Status: Acute (5) Diabetes mellitus Assessment & Plan: MONITOR BS ACCUCHECK Status: Chronic
[2017-06-21] MEDS: Piperacill/Tazo 3.375gm in Dex 3.375 GM/50 ML BAG IVPB SCH ×4 (04:02→22:20)
[2017-06-21] MEDS: Levothyroxine 25 MCG TAB PO SCH (05:47)
[2017-06-21 07:32] LABS: BASO # 0.1 K/uL (0.0-0.2); BASO % 0.6 % (0.0-2.0); EOS % 0.2 % (0.0-4.0); HEMATOCRIT 30.6 % (35.0-51.0); LYMPH # 1.9 K/uL (1.0-4.3); LYMPH % 14.6 % (20.0-40.0); MEAN CELL VOLUME 103.2 fL (80.0-94.0); MEAN CORPUSCULAR HEMOGLOBIN 34.8 pg (27.0-31.0); MEAN CORPUSCULAR HGB CONC 33.7 g/dL (33.0-37.0); MEAN PLATELET VOLUME 8.9 fL (7.2-11.7); MONO # 1.3 K/uL (0.0-0.8); MONO % 9.8 % (0.0-10.0); NRBC % 0.1 % (0.0-2.0); RED CELL DISTRIBUTION WIDTH 19.5 % (11.5-14.5); WHITE BLOOD COUNT 12.8 K/uL (4.8-10.8)
[2017-06-21] MEDS: HYDROmorphone 0.5 mg/0.5 ml ISec IVP PRN (07:56)
[2017-06-21] MEDS: (Novolog) Insulin Aspart, Recombinant 100 u/ml 10 ml vial SC SCH ×4 (08:06→22:19)
[2017-06-21 08:15] LABS: CHLORIDE 99 mmol/L (98-107)
[2017-06-21 08:16] LABS: SODIUM 142 mmol/L (132-148)
[2017-06-21 08:17] LABS: POTASSIUM 3.3 mmol/L (3.6-5.2)
[2017-06-21 08:18] LABS: CARBON DIOXIDE 37 mmol/L (22-30); CHOLESTEROL 73 mg/dL (0-199)
[2017-06-21 08:19] LABS: ALB/GLOB RATIO 0.8 (1.0-2.1); ALKALINE PHOSPHATASE 58 U/L (38-126); ALT/SGPT 28 U/L (21-72); AST/SGOT 40 U/L (17-59); BILIRUBIN,TOTAL 0.9 mg/dL (0.2-1.3); BLOOD UREA NITROGEN 16 mg/dL (9-20); CALCIUM 8.3 mg/dl (8.6-10.4); GFR AFRICAN-AMERICAN > 60; GLUCOSE,RANDOM 167 mg/dL (75-110); PHOSPHOROUS 3.2 mg/dL (2.5-4.5); TOTAL PROTEIN 6.5 g/dL (6.3-8.3)
[2017-06-21 08:20] LABS: MAGNESIUM 1.8 mg/dL (1.6-2.3)
--- NOTE | 2017-06-21 08:53 | CP.PCM.PN ---
Subjective - Date & Time of Evaluation Date of Evaluation: 06/21/17 Time of Evaluation: 08:52 - Subjective Subjective: likely to dc ngt today had bm Objective - Vital Signs/Intake and Output Vital Signs (last 24 hours): Temp Pulse Resp BP Pulse Ox 98.2 F 80 20 143/83 95 06/21/17 07:10 06/21/17 07:55 06/21/17 07:10 06/21/17 07:55 06/21/17 07:10 Intake and Output: 06/21/17 06/21/17 06:59 18:59 Intake Total 2039 Output Total 1749 Balance 290 - Medications Medications: Current Medications Benzocaine/Menthol (Cepacol Sore Throat) 1 deep MT Q2 PRN PRN Reason: Sore Throat Last Admin: 06/20/17 09:19 Dose: 1 deep Clonidine HCl (Catapres Tts1 0.1 Mg/24 Hr) 1 patch TD Q7D@1000 [facility] Last Admin: 06/17/17 00:24 Dose: 1 patch Famotidine (Pepcid) 20 mg IVP Q12 [facility] Last Admin: 06/20/17 21:29 Dose: 20 mg Heparin Sodium (Porcine) (Heparin) 5,000 units SC Q8 [facility] Last Admin: 06/21/17 05:47 Dose: 5,000 units Hydromorphone HCl (Dilaudid) 0.5 mg IVP Q3 PRN PRN Reason: Pain, moderate (4-7) Last Admin: 06/21/17 07:56 Dose: 0.5 mg Piperacillin Sod/Tazobactam Sod (Zosyn 3.375 Gm Iv Premix) 3.375 gm in 50 mls @ 100 mls/hr IVPB Q6H [facility] Last Admin: 06/21/17 04:02 Dose: 100 mls/hr Chromium/Copper/Manganese/Zinc (1 ml/ Amino Acids) 1,001 mls @ 65 mls/hr IV .[id number] [facility] Stop: 06/21/17 09:23 Last Admin: 06/20/17 18:01 Dose: 65 mls/hr Chromium/Copper/Manganese/Zinc (1 ml/ Amino Acids) 1,001 mls @ 65 mls/hr IV .[id number] [facility] Stop: 06/21/17 17:59 Potassium Chloride (Potassium Chloride 20 Meq/100 Ml) 20 meq in 100 mls @ 50 mls/hr IVPB ONCE ONE Stop: 06/21/17 10:26 Last Admin: 06/21/17 08:50 Dose: 50 mls/hr Insulin Aspart (Novolog) 0 unit SC ACHS [facility] PRN Reason: Protocol Last Admin: 06/21/17 08:06 Dose: 1 unit Ondansetron HCl (Zofran Inj) 4 mg IVP Q4 PRN PRN Reason: nausea Potassium Chloride (K-Dur 20 Meq Er Tab) 20 meq PO BID [facility] Last Admin: 06/17/17 19:29 Dose: Not Given - Labs Labs: 06/21/17 07:07 06/21/17 07:07 PT 15.5 SECONDS (9.7-12.2) H 06/14/17 08:47 INR 1.4 06/14/17 08:47 APTT 31 SECONDS (21-34) 06/14/17 08:47
[2017-06-21] MEDS ORDERED: PPN#6 IV SCH (09:24)
--- NOTE | 2017-06-21 11:54 | RAD ---
Chest x-ray single frontal view History: Right PICC line placement. Comparison: 06/18/2017 Findings: Right PICC line with tip extending to the cavoatrial junction. No evidence of postprocedure pneumothorax. Moderate venous congestion. Patchy increased markings at the left lung base. Cardiomegaly. NG tube extending into the stomach. Degenerative changes in the spine and shoulders. Impression: Right PICC line insertion without evidence of postprocedure pneumothorax.
[2017-06-21] MEDS ORDERED: PPN#7 IV SCH (18:00)
--- NOTE | 2017-06-21 18:07 | PN ---
SUBJECTIVE: The patient's NG tube was discontinued this morning. He has been on clear liquids. He denies any chest pain or shortness of breath. PHYSICAL EXAMINATION: VITAL SIGNS: Blood pressure 143/83, heart rate 80, temperature 98.2, respirations 20. HEENT: Normocephalic. CHEST: Diminished breath sounds over the bases. HEART: S1 and S2 regular. EXTREMITIES: 1+ pitting edema. LABORATORY DATA: Hemoglobin and hematocrit 10.3 and 30.6, white count 12.8, platelet count 97,000. SMA-7: Sodium 142, potassium 3.3, chloride 99, CO2 of 37, glucose 167, BUN 16, creatinine 0.7. Chest x-ray done today revealed right PICC line insertion without evidence of postoperative pneumothorax. My own review with x-ray revealed cardiomegaly with mild central congestion. ASSESSMENT: 1. Status post incisional hernia repair and small bowel resection. 2. Improving ileus. 3. Hypertension. 4. Hypertensive heart failure. 5. Diastolic dysfunction. 6. Hypokalemia. 7. Worsening thrombocytopenia. RECOMMENDATIONS: Continue clonidine patch, continue PPN, continue subcutaneous heparin for now and monitor platelet count. Continue Zosyn 3.375 g intravenously q.6 hours, 20 mEq of IV potassium chloride was administered today. Follow up BNP in a.m. Pavel Contreras MD
--- NOTE | 2017-06-21 21:59 | CP.PCM.PN ---
Subjective - Date & Time of Evaluation Date of Evaluation: 06/21/17 Time of Evaluation: 18:30 - Subjective Subjective: Pt seen & evaluated, is feeling better, NG tube is out, he had a bowel movement too, continues to be on post op care Objective - Vital Signs/Intake and Output Vital Signs (last 24 hours): Temp Pulse Resp BP Pulse Ox 99.6 F 96 H 20 128/84 96 06/21/17 21:15 06/21/17 21:15 06/21/17 21:15 06/21/17 21:15 06/21/17 21:15 Intake and Output: 06/21/17 06/22/17 18:59 06:59 Intake Total 935 Balance 935 - Medications Medications: Current Medications Benzocaine/Menthol (Cepacol Sore Throat) 1 deep MT Q2 PRN PRN Reason: Sore Throat Last Admin: 06/20/17 09:19 Dose: 1 deep Clonidine HCl (Catapres Tts1 0.1 Mg/24 Hr) 1 patch TD Q7D@1000 [facility] Last Admin: 06/17/17 00:24 Dose: 1 patch Famotidine (Pepcid) 20 mg IVP Q12 [facility] Last Admin: 06/21/17 09:04 Dose: 20 mg Heparin Sodium (Porcine) (Heparin) 5,000 units SC Q8 [facility] Last Admin: 06/21/17 14:31 Dose: 5,000 units Hydromorphone HCl (Dilaudid) 0.5 mg IVP Q3 PRN PRN Reason: Pain, severe (8-10) Piperacillin Sod/Tazobactam Sod (Zosyn 3.375 Gm Iv Premix) 3.375 gm in 50 mls @ 100 mls/hr IVPB Q6H [facility] Last Admin: 06/21/17 17:00 Dose: 100 mls/hr Chromium/Copper/Manganese/Zinc 1 ml/ Multivitamins/Vitamin C 10 ml/ Amino Acids 1,011 mls @ 65 mls/hr IV .[id number] [facility] Stop: 06/22/17 09:33 Last Admin: 06/21/17 18:26 Dose: 65 mls/hr Chromium/Copper/Manganese/Zinc (1 ml/ Amino Acids) 1,001 mls @ 65 mls/hr IV .[id number] [facility] Stop: 06/22/17 17:59 Insulin Aspart (Novolog) 0 unit SC ACHS [facility] PRN Reason: Protocol Last Admin: 06/21/17 17:30 Dose: 1 unit Ondansetron HCl (Zofran Inj) 4 mg IVP Q4 PRN PRN Reason: nausea Oxycodone/Acetaminophen (Percocet 5/325 Mg Tab) 1 tab PO Q4H PRN PRN Reason: Pain, moderate (4-7) Stop: 06/24/17 15:42 Potassium Chloride (K-Dur 20 Meq Er Tab) 20 meq PO BID [facility] Last Admin: 06/17/17 19:29 Dose: Not Given - Labs Labs: 06/21/17 07:07 06/21/17 07:07 PT 15.5 SECONDS (9.7-12.2) H 06/14/17 08:47 INR 1.4 06/14/17 08:47 APTT 31 SECONDS (21-34) 06/14/17 08:47 - Constitutional Appears: No Acute Distress - Head Exam Head Exam: ATRAUMATIC, NORMAL INSPECTION, NORMOCEPHALIC - Eye Exam Eye Exam: EOMI, Normal appearance, PERRL Pupil Exam: NORMAL ACCOMODATION, PERRL - ENT Exam ENT Exam: Mucous Membranes Moist, Normal Exam - Respiratory Exam Respiratory Exam: Clear to Ausculation Bilateral, NORMAL BREATHING PATTERN Assessment and Plan (1) Intestinal obstruction Status: Acute (2) Thrombocytopenia Status: Acute (3) Ventral hernia Status: Acute (4) HTN (hypertension) Status: Acute (5) Diabetes mellitus Status: Chronic
[2017-06-22] MEDS: HYDROmorphone 0.5 mg/0.5 ml ISec IVP PRN ×4 (02:35→21:15)
[2017-06-22] MEDS: Piperacill/Tazo 3.375gm in Dex 3.375 GM/50 ML BAG IVPB SCH ×4 (04:04→21:08)
[2017-06-22 07:11] LABS: BASO # 0.1 K/uL (0.0-0.2); BASO % 0.4 % (0.0-2.0); EOS % 0.2 % (0.0-4.0); HEMATOCRIT 25.8 % (35.0-51.0); LYMPH # 2.4 K/uL (1.0-4.3); LYMPH % 18.2 % (20.0-40.0); MEAN CELL VOLUME 103.4 fL (80.0-94.0); MEAN CORPUSCULAR HEMOGLOBIN 34.7 pg (27.0-31.0); MEAN CORPUSCULAR HGB CONC 33.6 g/dL (33.0-37.0); MEAN PLATELET VOLUME 9.5 fL (7.2-11.7); MONO # 1.2 K/uL (0.0-0.8); MONO % 9.5 % (0.0-10.0); NRBC % 0.1 % (0.0-2.0); RED CELL DISTRIBUTION WIDTH 19.1 % (11.5-14.5); WHITE BLOOD COUNT 13.1 K/uL (4.8-10.8)
[2017-06-22 07:17] LABS: CHLORIDE 94 mmol/L (98-107); SODIUM 133 mmol/L (132-148)
[2017-06-22 07:18] LABS: POTASSIUM 3.1 mmol/L (3.6-5.2)
[2017-06-22 07:19] LABS: CARBON DIOXIDE 33 mmol/L (22-30); CHOLESTEROL 61 mg/dL (0-199); GFR AFRICAN-AMERICAN > 60
[2017-06-22 07:20] LABS: ALB/GLOB RATIO 0.8 (1.0-2.1); ALKALINE PHOSPHATASE 57 U/L (38-126); ALT/SGPT 31 U/L (21-72); AST/SGOT 36 U/L (17-59); BILIRUBIN,TOTAL 0.7 mg/dL (0.2-1.3); BLOOD UREA NITROGEN 21 mg/dL (9-20); CALCIUM 7.8 mg/dl (8.6-10.4); GLUCOSE,RANDOM 187 mg/dL (75-110); PHOSPHOROUS 3.2 mg/dL (2.5-4.5); TOTAL PROTEIN 6.1 g/dL (6.3-8.3)
[2017-06-22 07:21] LABS: MAGNESIUM 1.7 mg/dL (1.6-2.3)
[2017-06-22] MEDS: (Novolog) Insulin Aspart, Recombinant 100 u/ml 10 ml vial SC SCH ×4 (08:42→21:52)
--- NOTE | 2017-06-22 08:55 | PN ---
DATE: LOCATION: Room 660, bed 309. SUBJECTIVE: This is a 66-year-old male seen and examined on rounds without significant clinical changes, but with intermittent complaints of abdominal pain ------ on and off and subsequently tolerated clear liquid diet. No nausea, vomiting, one time bowel movement reported. NG tube subsequently was removed. The entire chart is reviewed including but not limited to most recent lab and radiology test results, current and previous medication list, current and previous medical events. Case was discussed with the staff at length. LABORATORY DATA: Today's lab showed leukocytosis of 12.8 with low hemoglobin 10.3, hematocrit 30.6 with thrombocytopenia of 97, and low potassium 3.23. Elevated blood glucose level 196 with increased CO2 content of 37 indicative of respiratory alkalosis with low calcium 10.3 and low albumin 2.9. Most recent chest x-ray done today, report and the films are seen. No evidence of post procedure right PICC line insertion ------. PHYSICAL EXAMINATION: GENERAL: A 66-year-old male. VITAL SIGNS: Afebrile with pulse of 94, respiratory rate of 20 to 22 with a blood pressure of 136/78. HEENT: Shows pale, dry oral mucous membrane. Nonicteric sclerae. LUNGS: Few scattered crepitation. Decreased air entry at bases. HEART: Positive S1 and S2. ABDOMEN: Soft. Bowel sounds are hypoactive with mild abdominal distention. No mass or organomegaly. Clean dressing seen, dry. EXTREMITIES: Mild lower extremity edematous changes. No clubbing. No cyanosis. NEUROLOGIC: No new reported neurological deficits, sensory, or motor. IMPRESSION: 1. Known history of incarcerated abdominal wall ventral hernia, treated surgically with partial small bowel resection. 2. Anemia secondary to above. 3. Thrombocytopenia of unclear etiology. 4. Re-exacerbation of peptic ulcer disease. 5. Elevated CEA level, to rule out lower gastrointestinal tract malignancy. 6. Poorly controlled diabetes mellitus. 7. Known history of hypertension. SUGGESTIONS: 1. Continue current management. 2. Due to the patient's malnutrition with hypoalbuminemia, central hyperalimentation, ------. Senthil Damon MD
[2017-06-22] MEDS ORDERED: PPN#8 IV SCH (09:34)
[2017-06-22] MEDS ORDERED: Potassium Chloride 20 mEq ER Tab PO ONE (14:19)
--- NOTE | 2017-06-22 14:24 | CP.PCM.PN ---
Subjective - Date & Time of Evaluation Date of Evaluation: 06/22/17 Time of Evaluation: 07:00 - Subjective Subjective: GENERAL SURGERY PROGRESS NOTE FOR DR. CURIEL Patient seen and examined at bedside. NG tube was removed yesterday. Patient had 2 maroon BMs last night. Patient reports that he vomited once last night. PT came today. Objective - Vital Signs/Intake and Output Vital Signs (last 24 hours): Temp Pulse Resp BP Pulse Ox 98.2 F 85 20 120/73 97 06/22/17 07:00 06/22/17 07:00 06/22/17 07:00 06/22/17 07:00 06/22/17 07:00 Intake and Output: 06/22/17 06/22/17 06:59 18:59 Intake Total 1680 Output Total 700 Balance 980 - Medications Medications: Current Medications Benzocaine/Menthol (Cepacol Sore Throat) 1 deep MT Q2 PRN PRN Reason: Sore Throat Last Admin: 06/20/17 09:19 Dose: 1 deep Clonidine HCl (Catapres Tts1 0.1 Mg/24 Hr) 1 patch TD Q7D@1000 [facility] Last Admin: 06/17/17 00:24 Dose: 1 patch Famotidine (Pepcid) 20 mg IVP Q12 [facility] Last Admin: 06/22/17 09:45 Dose: 20 mg Heparin Sodium (Porcine) (Heparin) 5,000 units SC Q8 [facility] Last Admin: 06/21/17 22:50 Dose: Not Given Hydromorphone HCl (Dilaudid) 0.5 mg IVP Q3 PRN PRN Reason: Pain, severe (8-10) Last Admin: 06/22/17 13:27 Dose: 0.5 mg Piperacillin Sod/Tazobactam Sod (Zosyn 3.375 Gm Iv Premix) 3.375 gm in 50 mls @ 100 mls/hr IVPB Q6H [facility] Last Admin: 06/22/17 09:00 Dose: 100 mls/hr Chromium/Copper/Manganese/Zinc (1 ml/ Amino Acids) 1,001 mls @ 65 mls/hr IV .[id number] [facility] Stop: 06/22/17 17:59 Last Admin: 06/22/17 08:42 Dose: 65 mls/hr Chromium/Copper/Manganese/Zinc 1 ml/ Multivitamins/Vitamin C 10 ml/ Amino Acids 1,011 mls @ 65 mls/hr IV .[id number] [facility] Stop: 06/23/17 09:33 Chromium/Copper/Manganese/Zinc (1 ml/ Amino Acids) 1,001 mls @ 65 mls/hr IV .[id number] [facility] Potassium Chloride (Potassium Chloride 10 Meq/100 Ml) 10 meq in 100 mls @ 100 mls/hr IVPB Q1 [facility] Stop: 06/22/17 15:59 Last Admin: 06/22/17 14:21 Dose: 100 mls/hr Insulin Aspart (Novolog) 0 unit SC ACHS [facility] PRN Reason: Protocol Last Admin: 06/22/17 12:30 Dose: 2 unit Ondansetron HCl (Zofran Inj) 4 mg IVP Q4 PRN PRN Reason: nausea Last Admin: 06/22/17 09:39 Dose: 4 mg Oxycodone/Acetaminophen (Percocet 5/325 Mg Tab) 1 tab PO Q4H PRN PRN Reason: Pain, moderate (4-7) Stop: 06/24/17 15:42 Potassium Chloride (K-Dur 20 Meq Er Tab) 20 meq PO BID [facility] Last Admin: 06/17/17 19:29 Dose: Not Given - Labs Labs: 06/22/17 06:50 06/22/17 06:50 PT 15.5 SECONDS (9.7-12.2) H 06/14/17 08:47 INR 1.4 06/14/17 08:47 APTT 31 SECONDS (21-34) 06/14/17 08:47 - Constitutional Appears: Non-toxic, No Acute Distress - Head Exam Head Exam: ATRAUMATIC, NORMAL INSPECTION - Respiratory Exam Respiratory Exam: NORMAL BREATHING PATTERN. absent: Respiratory Distress - Cardiovascular Exam Cardiovascular Exam: +S1, +S2 - GI/Abdominal Exam GI & Abdominal Exam: Soft. absent: Distended, Guarding, Tenderness, Rebound Additional comments: Mila in place over midline incision - Neurological Exam Neurological Exam: Alert, Awake - Psychiatric Exam Psychiatric exam: Normal Affect, Normal Mood Assessment and Plan - Assessment and Plan (Free Text) Assessment: 66yo M with recurrent ventral hernia and thrombocytopenia s/p exploratory laparotomy, extensive ROLANDO, repair of recurrent ventral hernia with biologic mesh , small bowel resection with primary anastomosis POD#8 - Afebrile, VSS - Leukocytosis WBC 13.1 - Hemoglobin dropped to 8.7 from 10.3 yesterday. Will repeat H&H tonight - Hypokalemia K 3.1 - on PPN, fluids with K and given IV KCl as well as 20meq PO - Continue Physical therapy - Encouraged OOB, ambulation, and IS use - Heparin held due to decreased Hgb and maroon stools - Advanced to regular diet - Discussed plan with Dr. Stephen Brownlee PGY-3
--- NOTE | 2017-06-22 14:25 | PN ---
DATE: LOCATION: Room 660, bed A. SUBJECTIVE: This is a 66-year-old male seen and examined on rounds without significant clinical changes or reported active bleeding with reported some liquid black tarry stool. No reported hematemesis. The entire chart is reviewed including, but not limited to most recent lab and radiology study results, current and previous medication list, current and previous medical events as well as allergic to medication list. Case discussed with the admitting medical staff at length. The patient still have intermittent period of abdominal pain with abdominal distention. LABORATORY DATA: Today's lab showed leukocytosis of 13.1 with drop of hemoglobin to 8.7, hematocrit 25.8 with thrombocytopenia of 101 with low potassium 3.1, increased CO2 content of 33 with BUN 21, but normal creatinine. Blood glucose level 225 with low albumin 2.7. PHYSICAL EXAMINATION: GENERAL: A 66-year-old male. VITAL SIGNS: Afebrile with pulse of 82, respiratory rate of 20 to 22 with a blood pressure of 130/76. HEENT: Shows pale, dry oral mucous membrane. Nonicteric sclerae. LUNGS: Few scattered crepitation. Decreased air entry at bases. HEART: Positive S1 and S2. ABDOMEN: Clean dressing and generalized tenderness. Bowel sounds are hypoactive. EXTREMITIES: Without edema, clubbing or cyanosis. NEUROLOGIC: No new neurological deficits, sensory or motor. IMPRESSION: 1. Incarcerated abdominal hernia treated surgically with partial small bowel resection. 2. Anemia secondary to above. 3. Peptic ulcer disease. 4. Melena of unclear etiology with drop of hemoglobin and hematocrit. 5. Poorly controlled diabetes mellitus. 6. History of hypertension. SUGGESTIONS: 1. Agree with your plan. 2. The patient may need endoscopic evaluation of the GI tract when he is more stable clinically. Further recommendation to follow. Senthil Damon MD cc: Senthil Damon MD
--- NOTE | 2017-06-22 15:22 | PN ---
DATE: SUBJECTIVE: The patient did vomit today. He denied any chest pain or shortness of breath. PHYSICAL EXAMINATION: VITAL SIGNS: Blood pressure 120/73, heart rate 85, temperature 98.2, respirations 20. HEENT: Pale conjunctivae. CHEST: Diminished breath sounds over the bases. HEART: Sounds regular. EXTREMITIES: Trace leg edema. LABORATORY DATA: Hemoglobin and hematocrit 8.7 and 25.8, white count 15.1, platelet count 101,000, [place] [id number]. Today, his potassium is 3.1, glucose 187. ASSESSMENT: 1. Hypertension. 2. Hypokalemia. 3. Thrombocytopenia. 4. Status post incisional hernia repair and small bowel resection. RECOMMENDATIONS: Continue current clonidine patch. Continue PPN. Continue IV potassium replacement, which was ordered at 20 mEq orally today. Followup PMV as well as CBC is recommended for tomorrow. Pavel Contreras MD
[2017-06-22] MEDS ORDERED: PPN#9 IV SCH (18:00)
[2017-06-22 21:51] LABS: HEMATOCRIT 26.2 % (35.0-51.0)
--- NOTE | 2017-06-22 22:42 | CP.PCM.PN ---
Subjective - Date & Time of Evaluation Date of Evaluation: 06/22/17 Time of Evaluation: 09:30 - Subjective Subjective: Pt is doing well, s/p OR, Hb dropped,afebrile, will monitor if Hb further dropped, consider transfusion, pt is for PETE, he is ambulating with help of PT Objective - Vital Signs/Intake and Output Vital Signs (last 24 hours): Temp Pulse Resp BP Pulse Ox 98.4 F 88 20 131/80 96 06/22/17 15:10 06/22/17 15:10 06/22/17 15:10 06/22/17 15:10 06/22/17 15:10 Intake and Output: 06/22/17 06/23/17 18:59 06:59 Intake Total 970 Output Total 350 Balance 620 - Medications Medications: Current Medications Benzocaine/Menthol (Cepacol Sore Throat) 1 deep MT Q2 PRN PRN Reason: Sore Throat Last Admin: 06/20/17 09:19 Dose: 1 edep Clonidine HCl (Catapres Tts1 0.1 Mg/24 Hr) 1 patch TD Q7D@1000 [facility] Last Admin: 06/17/17 00:24 Dose: 1 patch Famotidine (Pepcid) 20 mg IVP Q12 [facility] Last Admin: 06/22/17 21:08 Dose: 20 mg Heparin Sodium (Porcine) (Heparin) 5,000 units SC Q8 [facility] Last Admin: 06/21/17 22:50 Dose: Not Given Hydromorphone HCl (Dilaudid) 0.5 mg IVP Q3 PRN PRN Reason: Pain, severe (8-10) Last Admin: 06/22/17 21:15 Dose: 0.5 mg Piperacillin Sod/Tazobactam Sod (Zosyn 3.375 Gm Iv Premix) 3.375 gm in 50 mls @ 100 mls/hr IVPB Q6H [facility] Last Admin: 06/22/17 21:08 Dose: 100 mls/hr Chromium/Copper/Manganese/Zinc 1 ml/ Multivitamins/Vitamin C 10 ml/ Amino Acids 1,011 mls @ 65 mls/hr IV .[id number] [facility] Stop: 06/23/17 09:33 Last Admin: 06/22/17 18:05 Dose: 65 mls/hr Chromium/Copper/Manganese/Zinc (1 ml/ Amino Acids) 1,001 mls @ 65 mls/hr IV .[id number] [facility] Insulin Aspart (Novolog) 0 unit SC ACHS [facility] PRN Reason: Protocol Last Admin: 06/22/17 21:52 Dose: Not Given Ondansetron HCl (Zofran Inj) 4 mg IVP Q4 PRN PRN Reason: nausea Last Admin: 06/22/17 14:41 Dose: 4 mg Oxycodone/Acetaminophen (Percocet 5/325 Mg Tab) 1 tab PO Q4H PRN PRN Reason: Pain, moderate (4-7) Stop: 06/24/17 15:42 Potassium Chloride (K-Dur 20 Meq Er Tab) 20 meq PO BID [facility] Last Admin: 06/17/17 19:29 Dose: Not Given - Labs Labs: 06/22/17 21:47 06/22/17 06:50 PT 15.5 SECONDS (9.7-12.2) H 06/14/17 08:47 INR 1.4 06/14/17 08:47 APTT 31 SECONDS (21-34) 06/14/17 08:47 - Constitutional Appears: No Acute Distress - Head Exam Head Exam: ATRAUMATIC, NORMAL INSPECTION, NORMOCEPHALIC - Eye Exam Eye Exam: EOMI, Normal appearance, PERRL Pupil Exam: NORMAL ACCOMODATION, PERRL - ENT Exam ENT Exam: Mucous Membranes Moist, Normal Exam - Respiratory Exam Respiratory Exam: Clear to Ausculation Bilateral, NORMAL BREATHING PATTERN - Cardiovascular Exam Cardiovascular Exam: REGULAR RHYTHM, +S1, +S2. absent: Murmur - GI/Abdominal Exam GI & Abdominal Exam: Soft, Normal Bowel Sounds. absent: Tenderness Assessment and Plan (1) Intestinal obstruction Status: Acute (2) Thrombocytopenia Status: Acute (3) Ventral hernia Status: Acute (4) HTN (hypertension) Status: Acute (5) Diabetes mellitus Status: Chronic
[2017-06-23] MEDS: HYDROmorphone 0.5 mg/0.5 ml ISec IVP PRN ×4 (03:43→14:32)
[2017-06-23] MEDS: Piperacill/Tazo 3.375gm in Dex 3.375 GM/50 ML BAG IVPB SCH ×4 (03:44→21:33)
[2017-06-23 06:35] LABS: BASO % 0.3 % (0.0-2.0); EOS # 0.1 K/uL (0.0-0.7); EOS % 0.4 % (0.0-4.0); HEMATOCRIT 24.7 % (35.0-51.0); LYMPH # 2.3 K/uL (1.0-4.3); LYMPH % 18.1 % (20.0-40.0); MEAN CELL VOLUME 102.1 fL (80.0-94.0); MEAN CORPUSCULAR HEMOGLOBIN 33.9 pg (27.0-31.0); MEAN CORPUSCULAR HGB CONC 33.2 g/dL (33.0-37.0); MONO # 1.3 K/uL (0.0-0.8); MONO % 9.7 % (0.0-10.0); NRBC % 0.1 % (0.0-2.0); RED CELL DISTRIBUTION WIDTH 18.8 % (11.5-14.5)
[2017-06-23 07:13] LABS: CHLORIDE 92 mmol/L (98-107); POTASSIUM 3.5 mmol/L (3.6-5.2); SODIUM 129 mmol/L (132-148)
[2017-06-23 07:15] LABS: BILIRUBIN,TOTAL 0.8 mg/dL (0.2-1.3); CARBON DIOXIDE 31 mmol/L (22-30); CHOLESTEROL 62 mg/dL (0-199); GFR AFRICAN-AMERICAN > 60
[2017-06-23 07:16] LABS: ALB/GLOB RATIO 0.8 (1.0-2.1); ALKALINE PHOSPHATASE 60 U/L (38-126); ALT/SGPT 47 U/L (21-72); AST/SGOT 56 U/L (17-59); BLOOD UREA NITROGEN 19 mg/dL (9-20); CALCIUM 7.7 mg/dl (8.6-10.4); GLUCOSE,RANDOM 139 mg/dL (75-110); PHOSPHOROUS 3.1 mg/dL (2.5-4.5)
[2017-06-23 07:17] LABS: MAGNESIUM 1.7 mg/dL (1.6-2.3)
[2017-06-23] MEDS: (Novolog) Insulin Aspart, Recombinant 100 u/ml 10 ml vial SC SCH ×4 (08:03→21:37)
[2017-06-23] MEDS ORDERED: Ferric Sodium Gluconat Complex 62.5 mg/5 ml Vial IVPB ONE (08:45)
[2017-06-23] MEDS ORDERED: PPN#10 IV SCH (10:00)
--- NOTE | 2017-06-23 13:44 | CP.PCM.PN ---
Subjective - Date & Time of Evaluation Date of Evaluation: 06/23/17 Time of Evaluation: 07:00 - Subjective Subjective: GENERAL SURGERY PROGRESS NOTE FOR DR. CURIEL Patient seen and examined at bedside. Patient had a BM last night. He denies abdominal pain but did have mild pain after eating yesterday. Pt states he wants to continue with the regular diet. Denies vomiting. He ambulated with PT. Objective - Vital Signs/Intake and Output Vital Signs (last 24 hours): Temp Pulse Resp BP Pulse Ox 98.4 F 83 20 116/74 94 L 06/23/17 07:00 06/23/17 07:00 06/23/17 07:00 06/23/17 07:00 06/23/17 07:00 Intake and Output: 06/23/17 06/23/17 06:59 18:59 Intake Total 720 Balance 720 - Medications Medications: Current Medications Benzocaine/Menthol (Cepacol Sore Throat) 1 deep MT Q2 PRN PRN Reason: Sore Throat Last Admin: 06/20/17 09:19 Dose: 1 deep Clonidine HCl (Catapres Tts1 0.1 Mg/24 Hr) 1 patch TD Q7D@1000 [facility] Last Admin: 06/23/17 09:58 Dose: 1 patch Famotidine (Pepcid) 20 mg IVP Q12 [facility] Last Admin: 06/23/17 09:57 Dose: 20 mg Heparin Sodium (Porcine) (Heparin) 5,000 units SC Q8 [facility] Last Admin: 06/21/17 22:50 Dose: Not Given Hydromorphone HCl (Dilaudid) 0.5 mg IVP Q3 PRN PRN Reason: Pain, severe (8-10) Last Admin: 06/23/17 10:19 Dose: 0.5 mg Piperacillin Sod/Tazobactam Sod (Zosyn 3.375 Gm Iv Premix) 3.375 gm in 50 mls @ 100 mls/hr IVPB Q6H [facility] Last Admin: 06/23/17 09:58 Dose: 100 mls/hr Chromium/Copper/Manganese/Zinc (1 ml/ Amino Acids) 1,001 mls @ 65 mls/hr IV .[id number] [facility] Last Admin: 06/23/17 10:00 Dose: 65 mls/hr Multivitamins/Vitamin C 10 ml/Chromium/Copper/Manganese/Zinc 1 ml/ Amino Acids 1,011 mls @ 65 mls/hr IV .[id number] [facility] Stop: 06/24/17 09:30 Chromium/Copper/Manganese/Zinc (1 ml/ Amino Acids) 1,001 mls @ 65 mls/hr IV .[id number] [facility] Stop: 06/24/17 17:59 Insulin Aspart (Novolog) 0 unit SC ACHS [facility] PRN Reason: Protocol Last Admin: 06/23/17 12:46 Dose: 2 unit Ondansetron HCl (Zofran Inj) 4 mg IVP Q4 PRN PRN Reason: nausea Last Admin: 06/22/17 14:41 Dose: 4 mg Oxycodone/Acetaminophen (Percocet 5/325 Mg Tab) 1 tab PO Q4H PRN PRN Reason: Pain, moderate (4-7) Stop: 06/24/17 15:42 Potassium Chloride (K-Dur 20 Meq Er Tab) 20 meq PO BID [facility] Last Admin: 06/17/17 19:29 Dose: Not Given - Labs Labs: 06/23/17 06:30 06/23/17 06:30 PT 15.5 SECONDS (9.7-12.2) H 06/14/17 08:47 INR 1.4 06/14/17 08:47 APTT 31 SECONDS (21-34) 06/14/17 08:47 - Constitutional Appears: Non-toxic, No Acute Distress - Head Exam Head Exam: ATRAUMATIC - Eye Exam Eye Exam: EOMI, Normal appearance - Respiratory Exam Respiratory Exam: NORMAL BREATHING PATTERN. absent: Respiratory Distress - Cardiovascular Exam Cardiovascular Exam: +S1, +S2 - GI/Abdominal Exam GI & Abdominal Exam: Soft. absent: Distended, Firm, Guarding, Rigid, Tenderness , Rebound Additional comments: [place] in place over midline incision, no drainage - Neurological Exam Neurological Exam: Alert, Awake, Oriented x3 - Psychiatric Exam Psychiatric exam: Normal Affect, Normal Mood - Skin Skin Exam: Normal Color, Warm Assessment and Plan - Assessment and Plan (Free Text) Assessment: 66yo M with recurrent ventral hernia and thrombocytopenia s/p exploratory laparotomy, extensive ROLANDO, repair of recurrent ventral hernia with biologic mesh , small bowel resection with primary anastomosis POD#8 - Afebrile, VSS - Leukocytosis WBC 13.0 - Hemoglobin 8.2, stable from yesterday - Hypokalemia K 3.5 - 20meq PO daily - Continue Physical therapy - On regular diet - Encouraged OOB, ambulation, and IS use - Heparin held due to decreased Hgb, will continue to monitor - Discussed plan with Dr. Stephen Brownlee PGY-3
[2017-06-23] MEDS: Potassium Chloride 20 mEq ER Tab PO SCH (14:46)
--- NOTE | 2017-06-23 15:16 | CP.PCM.PN ---
Subjective - Date & Time of Evaluation Date of Evaluation: 06/23/17 Time of Evaluation: 20:30 - Subjective Subjective: Pt seen and examined , is improving, Hb dropped but pt is stable not bleedibg, may need blood transfusion if it gets worse, pt is refusing PETE Objective - Vital Signs/Intake and Output Vital Signs (last 24 hours): Temp Pulse Resp BP Pulse Ox 98.4 F 83 20 116/74 94 L 06/23/17 07:00 06/23/17 07:00 06/23/17 07:00 06/23/17 07:00 06/23/17 07:00 Intake and Output: 06/23/17 06/23/17 06:59 18:59 Intake Total 720 Balance 720 - Medications Medications: Current Medications Benzocaine/Menthol (Cepacol Sore Throat) 1 deep MT Q2 PRN PRN Reason: Sore Throat Last Admin: 06/20/17 09:19 Dose: 1 deep Clonidine HCl (Catapres Tts1 0.1 Mg/24 Hr) 1 patch TD Q7D@1000 [facility] Last Admin: 06/23/17 09:58 Dose: 1 patch Famotidine (Pepcid) 20 mg IVP Q12 [facility] Last Admin: 06/23/17 09:57 Dose: 20 mg Heparin Sodium (Porcine) (Heparin) 5,000 units SC Q8 [facility] Last Admin: 06/21/17 22:50 Dose: Not Given Hydromorphone HCl (Dilaudid) 0.5 mg IVP Q3 PRN PRN Reason: Pain, severe (8-10) Last Admin: 06/23/17 14:32 Dose: 0.5 mg Piperacillin Sod/Tazobactam Sod (Zosyn 3.375 Gm Iv Premix) 3.375 gm in 50 mls @ 100 mls/hr IVPB Q6H [facility] Last Admin: 06/23/17 09:58 Dose: 100 mls/hr Chromium/Copper/Manganese/Zinc (1 ml/ Amino Acids) 1,001 mls @ 65 mls/hr IV .[id number] [facility] Last Admin: 06/23/17 10:00 Dose: 65 mls/hr Multivitamins/Vitamin C 10 ml/Chromium/Copper/Manganese/Zinc 1 ml/ Amino Acids 1,011 mls @ 65 mls/hr IV .[id number] [facility] Stop: 06/24/17 09:30 Chromium/Copper/Manganese/Zinc (1 ml/ Amino Acids) 1,001 mls @ 65 mls/hr IV .[id number] [facility] Stop: 06/24/17 17:59 Insulin Aspart (Novolog) 0 unit SC ACHS [facility] PRN Reason: Protocol Last Admin: 06/23/17 12:46 Dose: 2 unit Ondansetron HCl (Zofran Inj) 4 mg IVP Q4 PRN PRN Reason: nausea Last Admin: 06/22/17 14:41 Dose: 4 mg Oxycodone/Acetaminophen (Percocet 5/325 Mg Tab) 1 tab PO Q4H PRN PRN Reason: Pain, moderate (4-7) Stop: 06/24/17 15:42 Potassium Chloride (K-Dur 20 Meq Er Tab) 20 meq PO BID [facility] Last Admin: 06/17/17 19:29 Dose: Not Given Potassium Chloride (K-Dur 20 Meq Er Tab) 20 meq PO DAILY [facility] Last Admin: 06/23/17 14:46 Dose: 20 meq - Labs Labs: 06/23/17 06:30 06/23/17 06:30 PT 15.5 SECONDS (9.7-12.2) H 06/14/17 08:47 INR 1.4 06/14/17 08:47 APTT 31 SECONDS (21-34) 06/14/17 08:47 - Constitutional Appears: No Acute Distress - Head Exam Head Exam: ATRAUMATIC, NORMAL INSPECTION, NORMOCEPHALIC - Eye Exam Eye Exam: EOMI, Normal appearance, PERRL Pupil Exam: NORMAL ACCOMODATION, PERRL - Respiratory Exam Respiratory Exam: Clear to Ausculation Bilateral, NORMAL BREATHING PATTERN - Cardiovascular Exam Cardiovascular Exam: REGULAR RHYTHM, +S1, +S2. absent: Murmur - GI/Abdominal Exam GI & Abdominal Exam: Soft, Normal Bowel Sounds. absent: Tenderness Assessment and Plan (1) Intestinal obstruction Status: Acute (2) Thrombocytopenia Status: Acute (3) Ventral hernia Status: Acute (4) HTN (hypertension) Status: Acute (5) Diabetes mellitus Status: Chronic
[2017-06-23] MEDS ORDERED: PPN#11 IV SCH (18:00)
[2017-06-23] MEDS: Oxycodone/Acetaminophen 5/325 mg Tab PO PRN (21:34)
[2017-06-24] MEDS: Piperacill/Tazo 3.375gm in Dex 3.375 GM/50 ML BAG IVPB SCH ×4 (04:12→21:31)
[2017-06-24] MEDS: Oxycodone/Acetaminophen 5/325 mg Tab PO PRN ×3 (04:18→21:31)
[2017-06-24 07:19] LABS: BASO # 0.1 K/uL (0.0-0.2); BASO % 0.4 % (0.0-2.0); CHLORIDE 91 mmol/L (98-107); EOS % 0.1 % (0.0-4.0); HEMATOCRIT 23.3 % (35.0-51.0); LYMPH # 2.3 K/uL (1.0-4.3); LYMPH % 15.6 % (20.0-40.0); MEAN CELL VOLUME 102.2 fL (80.0-94.0); MEAN CORPUSCULAR HEMOGLOBIN 34.8 pg (27.0-31.0); MEAN CORPUSCULAR HGB CONC 34.1 g/dL (33.0-37.0); MEAN PLATELET VOLUME 9.6 fL (7.2-11.7); MONO # 1.5 K/uL (0.0-0.8); MONO % 10.3 % (0.0-10.0); NRBC % 0.1 % (0.0-2.0); POTASSIUM 3.4 mmol/L (3.6-5.2); SODIUM 128 mmol/L (132-148); WHITE BLOOD COUNT 14.4 K/uL (4.8-10.8)
[2017-06-24 07:22] LABS: BLOOD UREA NITROGEN 19 mg/dL (9-20); CARBON DIOXIDE 30 mmol/L (22-30); GFR AFRICAN-AMERICAN > 60; GLUCOSE,RANDOM 183 mg/dL (75-110)
[2017-06-24 07:23] LABS: CALCIUM 7.7 mg/dl (8.6-10.4)
--- NOTE | 2017-06-24 08:35 | PN ---
DATE: LOCATION: [facility], bed A. SUBJECTIVE: This is a 66-year-old male seen and examined early in rounds without significant clinical changes, but less abdominal pain reported, without reported active bleeding. No nausea or vomiting. Had bowel movement recently and was passing gas. The entire chart is reviewed including, but not limited to the most recent lab and radiology study results, current and previous medication list, and current and previous medical events. Case discussed at length with the staff in the floor. Most recent lab results showed white blood cell of 13.0 with low hemoglobin 8.2, low hematocrit 24.7, with low sodium 129, low potassium 3.5 with increased CO2 content of 31 indicative of respiratory alkalosis. Blood glucose level is 212 with low albumin 2.6. PHYSICAL EXAMINATION: GENERAL: A 66-year-old male, awake, alert, and oriented. VITAL SIGNS: Afebrile with heart rate of 80, respiratory rate of 20 to 22, and blood pressure 128/78. HEENT: Showed pale, dry oral mucous membrane. Nonicteric sclerae. LUNGS: Few scattered crepitation. Mild decreased air entry. HEART: Positive S1 and S2. ABDOMEN: Soft with slight distention with clean dressing. EXTREMITIES: Without significant edema, clubbing, or cyanosis. NEUROLOGIC: No new reported neurological deficits, sensory, or motor. IMPRESSION: 1. Recent history of incarcerated abdominal ventral hernia, treated surgically with partial small bowel resection. 2. Re-exacerbation of peptic ulcer disease. 3. Anemia secondary to above. 4. Reported melena before with subsequent drop of hemoglobin and hematocrit, none today. 5. Poorly controlled diabetes mellitus. 6. Known history of hypertension. SUGGESTIONS: 1. Continue current management. 2. Blood transfusion as needed to keep hemoglobin around . 3. Due to the patient's elevated CEA level, colonoscopy is to be kept in mind, could be done as an outpatient. Senthil Damon MD
[2017-06-24] MEDS: (Novolog) Insulin Aspart, Recombinant 100 u/ml 10 ml vial SC SCH ×4 (08:38→21:22)
[2017-06-24] MEDS ORDERED: PPN#12 IV SCH (09:31)
[2017-06-24] MEDS: Potassium Chloride 20 mEq ER Tab PO SCH (10:34)
--- NOTE | 2017-06-24 13:47 | PN ---
DATE: SUBJECTIVE: The patient is currently undergoing packed RBC transfusion. He denies any chest pain or shortness of breath. PHYSICAL EXAMINATION: VITAL SIGNS: Blood pressure 156/83, heart rate 97, temperature 98.6, and respirations 20. HEENT: Pale conjunctivae. CHEST: Diminished breath sounds over the bases. HEART: S1 and S2 regular. ABDOMEN: Positive bowel sounds. EXTREMITIES: Trace leg edema. LABORATORY DATA: Today's hemoglobin and hematocrit 7.9 and 23.3, white count 14.4, and platelet count 107,000. SMA-7; sodium 128, potassium 3.4, chloride 91, CO2 of 30, glucose 183, BUN 19, and creatinine 0.8. ASSESSMENT: 1. Status post anterior abdominal hernia repair and small bowel resection. 2. Hyponatremia and hypokalemia. 3. Hypertension. 4. Anemia requiring packed red blood cell transfusion. CONDITIONS: Continue clonidine patch at 0.1 mg daily. Continue oral K-Dur 20 mEq daily. Discontinue dietary sodium restriction. Administer Lasix 20 mg IV push after the completion of packed RBC transfusion, obtained CBC and SMA-7 in a.m. Pavel Contreras MD
--- NOTE | 2017-06-24 16:27 | CP.PCM.PN ---
Subjective - Date & Time of Evaluation Date of Evaluation: 06/24/17 Time of Evaluation: 07:00 - Subjective Subjective: GENERAL SURGERY PROGRESS NOTE FOR DR. CURIEL Patient seen and examined at bedside. Patient had a BM last night and reports passing a lot of flatus. He denies abdominal pain but does have it occasionally. He states the pain is unrelated to eating. Denies nausea or vomiting. He ambulated with PT. Objective - Vital Signs/Intake and Output Vital Signs (last 24 hours): Temp Pulse Resp BP Pulse Ox 98.8 F 95 H 20 139/82 97 06/24/17 13:28 06/24/17 13:28 06/24/17 13:28 06/24/17 13:28 06/24/17 08:08 Intake and Output: 06/24/17 06/24/17 06:59 18:59 Intake Total 520 1570 Output Total 350 Balance 170 1570 - Medications Medications: Current Medications Benzocaine/Menthol (Cepacol Sore Throat) 1 deep MT Q2 PRN PRN Reason: Sore Throat Last Admin: 06/20/17 09:19 Dose: 1 deep Clonidine HCl (Catapres Tts1 0.1 Mg/24 Hr) 1 patch TD Q7D@1000 [facility] Last Admin: 06/23/17 09:58 Dose: 1 patch Famotidine (Pepcid) 20 mg IVP Q12 [facility] Last Admin: 06/24/17 10:34 Dose: 20 mg Heparin Sodium (Porcine) (Heparin) 5,000 units SC Q8 [facility] Last Admin: 06/21/17 22:50 Dose: Not Given Piperacillin Sod/Tazobactam Sod (Zosyn 3.375 Gm Iv Premix) 3.375 gm in 50 mls @ 100 mls/hr IVPB Q6H [facility] Last Admin: 06/24/17 15:03 Dose: 100 mls/hr Chromium/Copper/Manganese/Zinc (1 ml/ Amino Acids) 1,001 mls @ 65 mls/hr IV .[id number] [facility] Stop: 06/24/17 17:59 Last Admin: 06/24/17 10:37 Dose: 65 mls/hr Chromium/Copper/Manganese/Zinc 1 ml/ Multivitamins/Vitamin C 10 ml/ Amino Acids 1,011 mls @ 65 mls/hr IV .[id number] [facility] Stop: 06/25/17 09:33 Insulin Aspart (Novolog) 0 unit SC ACHS [facility] PRN Reason: Protocol Last Admin: 06/24/17 12:22 Dose: 2 unit Ondansetron HCl (Zofran Inj) 4 mg IVP Q4 PRN PRN Reason: nausea Last Admin: 06/22/17 14:41 Dose: 4 mg Potassium Chloride (K-Dur 20 Meq Er Tab) 20 meq PO BID [facility] Last Admin: 06/17/17 19:29 Dose: Not Given Potassium Chloride (K-Dur 20 Meq Er Tab) 20 meq PO DAILY [facility] Last Admin: 06/24/17 10:34 Dose: 20 meq - Labs Labs: 06/24/17 06:45 06/24/17 06:45 PT 15.5 SECONDS (9.7-12.2) H 06/14/17 08:47 INR 1.4 06/14/17 08:47 APTT 31 SECONDS (21-34) 06/14/17 08:47 - Constitutional Appears: Non-toxic, No Acute Distress - Head Exam Head Exam: ATRAUMATIC, NORMAL INSPECTION - Eye Exam Eye Exam: EOMI, Normal appearance - Respiratory Exam Respiratory Exam: NORMAL BREATHING PATTERN. absent: Respiratory Distress - Cardiovascular Exam Cardiovascular Exam: +S1, +S2 - GI/Abdominal Exam GI & Abdominal Exam: Soft. absent: Distended, Firm, Guarding, Rigid, Tenderness , Rebound Additional comments: [place] in place, abdominal binder in place - Neurological Exam Neurological Exam: Alert, Awake, Oriented x3 - Psychiatric Exam Psychiatric exam: Normal Affect, Normal Mood - Skin Skin Exam: Dry, Normal Color, Warm Assessment and Plan - Assessment and Plan (Free Text) Assessment: 66yo M with recurrent ventral hernia and thrombocytopenia s/p exploratory laparotomy, extensive ROLANDO, repair of recurrent ventral hernia with biologic mesh , small bowel resection with primary anastomosis POD#10 - Afebrile, VSS - Leukocytosis WBC 14.4 (13 yesterday) - Hemoglobin 7.9 (was 8.2 yesterday), pt asymptomatic - Thrombocytopenia - Hypokalemia K 3.4 - 20meq PO daily - Continue Physical therapy - On regular diet - Encouraged OOB, ambulation, and IS use - Heparin held due to decreased Hgb, will continue to monitor - Discussed plan with Dr. Stephen Brownlee PGY-3
[2017-06-24] MEDS ORDERED: PPN IV SCH (18:00)
--- NOTE | 2017-06-24 20:38 | PN ---
DATE: LOCATION: [facility], [facility] A. SUBJECTIVE: This is a 66-year-old male seen and examined in rounds without significant reported clinical changes, with abdominal . Denies any significant abdominal pain today. The entire chart is reviewed including, but not limited to the most recent lab and radiology study results, current and previous medication list, and current and previous medical events. The patient tolerated blood transfusion without any allergic reaction. LABORATORY DATA: Today lab showed leukocytosis of 14.4 with hemoglobin 7.9, hematocrit 23.3 with thrombocytopenia of 107 with low sodium 128, low potassium 3.4 with blood glucose level 201 with low calcium 7.7. PHYSICAL EXAMINATION: GENERAL: A 66-year-old male, awake, alert, oriented. VITAL SIGNS: Afebrile with heart rate of 92, respiratory rate of 20 to 22, blood pressure 136/84. HEENT: Showed pale, dry oral mucous membrane. Nonicteric sclerae. LUNGS: Few scattered crepitation. Decreased air entry at bases. HEART: Positive S1 and S2 with increased rate. ABDOMEN: Soft with mild distention. No mass or organomegaly. No rebound tenderness or guarding, but slight generalized tenderness. EXTREMITIES: Without significant clubbing, cyanosis or edema. NEUROLOGIC: No new reported neurological deficits, sensory or motor. It has to be mentioned that the patient tolerated oral intake and had bowel movement recently . IMPRESSION: 1. Incarcerated abdominal wall hernia, treated surgically with partial small bowel resection. 2. Re-exacerbation of peptic ulcer disease. 3. Anemia secondary to above. 4. Poorly controlled diabetes mellitus. 5. Hypertension by history. 6. Status post blood transfusion. SUGGESTIONS: 1. Agree with your plan. 2. Repeat H and H post blood transfusion. Senthil Damon MD cc: Senthil Damon MD
--- NOTE | 2017-06-24 22:52 | CP.PCM.PN ---
Subjective - Date & Time of Evaluation Date of Evaluation: 06/24/17 Time of Evaluation: 21:00 - Subjective Subjective: Pt is doing well, his platelets are up, he is undergoing blood transfusion, he is ambulating, moving bowels and preogressively improving clinically Objective - Vital Signs/Intake and Output Vital Signs (last 24 hours): Temp Pulse Resp BP Pulse Ox 98.9 F 109 H 20 131/79 96 06/24/17 16:00 06/24/17 16:00 06/24/17 16:00 06/24/17 16:00 06/24/17 16:00 Intake and Output: 06/24/17 06/25/17 18:59 06:59 Intake Total 1570 Balance 1570 - Medications Medications: Current Medications Benzocaine/Menthol (Cepacol Sore Throat) 1 deep MT Q2 PRN PRN Reason: Sore Throat Last Admin: 06/20/17 09:19 Dose: 1 deep Clonidine HCl (Catapres Tts1 0.1 Mg/24 Hr) 1 patch TD Q7D@1000 [facility] Last Admin: 06/23/17 09:58 Dose: 1 patch Famotidine (Pepcid) 20 mg IVP Q12 [facility] Last Admin: 06/24/17 21:31 Dose: 20 mg Heparin Sodium (Porcine) (Heparin) 5,000 units SC Q8 [facility] Last Admin: 06/21/17 22:50 Dose: Not Given Piperacillin Sod/Tazobactam Sod (Zosyn 3.375 Gm Iv Premix) 3.375 gm in 50 mls @ 100 mls/hr IVPB Q6H [facility] Last Admin: 06/24/17 21:31 Dose: 100 mls/hr Chromium/Copper/Manganese/Zinc 1 ml/ Multivitamins/Vitamin C 10 ml/ Amino Acids 1,011 mls @ 65 mls/hr IV .[id number] [facility] Stop: 06/25/17 09:33 Last Admin: 06/24/17 18:50 Dose: 65 mls/hr Chromium/Copper/Manganese/Zinc (1 ml/ Amino Acids) 1,001 mls @ 65 mls/hr IV .[id number] ONE Stop: 06/26/17 00:53 Insulin Aspart (Novolog) 0 unit SC ACHS [facility] PRN Reason: Protocol Last Admin: 06/24/17 21:22 Dose: Not Given Ondansetron HCl (Zofran Inj) 4 mg IVP Q4 PRN PRN Reason: nausea Last Admin: 06/22/17 14:41 Dose: 4 mg Oxycodone/Acetaminophen (Percocet 5/325 Mg Tab) 1 tab PO Q4H PRN PRN Reason: Pain, moderate (4-7) Stop: 06/27/17 20:32 Last Admin: 06/24/17 21:31 Dose: 1 tab Potassium Chloride (K-Dur 20 Meq Er Tab) 20 meq PO BID [facility] Last Admin: 06/17/17 19:29 Dose: Not Given Potassium Chloride (K-Dur 20 Meq Er Tab) 20 meq PO DAILY [facility] Last Admin: 06/24/17 10:34 Dose: 20 meq - Labs Labs: 06/24/17 06:45 06/24/17 06:45 PT 15.5 SECONDS (9.7-12.2) H 06/14/17 08:47 INR 1.4 06/14/17 08:47 APTT 31 SECONDS (21-34) 06/14/17 08:47 - Constitutional Appears: No Acute Distress - Head Exam Head Exam: ATRAUMATIC, NORMAL INSPECTION, NORMOCEPHALIC - Eye Exam Eye Exam: EOMI, Normal appearance, PERRL Pupil Exam: NORMAL ACCOMODATION, PERRL - Respiratory Exam Respiratory Exam: Clear to Ausculation Bilateral, NORMAL BREATHING PATTERN - Cardiovascular Exam Cardiovascular Exam: REGULAR RHYTHM, +S1, +S2. absent: Murmur - GI/Abdominal Exam GI & Abdominal Exam: Soft, Normal Bowel Sounds. absent: Tenderness Assessment and Plan (1) Intestinal obstruction Status: Acute (2) Thrombocytopenia Status: Acute (3) Ventral hernia Status: Acute (4) HTN (hypertension) Status: Acute (5) Diabetes mellitus Status: Chronic - Assessment and Plan (Free Text) Plan: physical therapy wound care out of bed from chair
[2017-06-25] MEDS: Piperacill/Tazo 3.375gm in Dex 3.375 GM/50 ML BAG IVPB SCH ×4 (04:09→21:13)
[2017-06-25 06:43] LABS: BASO # 0.1 K/uL (0.0-0.2); BASO % 0.6 % (0.0-2.0); EOS % 0.2 % (0.0-4.0); HEMATOCRIT 24.5 % (35.0-51.0); LYMPH # 2.3 K/uL (1.0-4.3); LYMPH % 14.6 % (20.0-40.0); MEAN PLATELET VOLUME 9.6 fL (7.2-11.7); MONO # 1.7 K/uL (0.0-0.8); MONO % 10.5 % (0.0-10.0); NRBC % 0.1 % (0.0-2.0); RED CELL DISTRIBUTION WIDTH 20.5 % (11.5-14.5); WHITE BLOOD COUNT 15.8 K/uL (4.8-10.8)
[2017-06-25 06:48] LABS: CHLORIDE 93 mmol/L (98-107)
[2017-06-25 06:49] LABS: POTASSIUM 3.3 mmol/L (3.6-5.2); SODIUM 130 mmol/L (132-148)
[2017-06-25 06:52] LABS: BLOOD UREA NITROGEN 14 mg/dL (9-20); CALCIUM 7.7 mg/dl (8.6-10.4); CARBON DIOXIDE 29 mmol/L (22-30); GFR AFRICAN-AMERICAN > 60; GLUCOSE,RANDOM 164 mg/dL (75-110)
[2017-06-25] MEDS: (Novolog) Insulin Aspart, Recombinant 100 u/ml 10 ml vial SC SCH ×4 (07:50→21:37)
[2017-06-25] MEDS ORDERED: Potassium Chloride 20 mEq ER Tab PO ONE (08:12)
[2017-06-25] MEDS: Oxycodone/Acetaminophen 5/325 mg Tab PO PRN ×2 (08:28→16:06)
[2017-06-25] MEDS ORDERED: PPN # 14 IV ONE (09:30)
[2017-06-25] MEDS ORDERED: Iohexol 240 (50 ml) PO ONE (10:15)
[2017-06-25] MEDS: Potassium Chloride 20 mEq ER Tab PO SCH ×2 (10:22→17:21)
[2017-06-25] MEDS ORDERED: Iodixanol 320 MG/ML 100 ML BOTTLE IV ONE (11:46)
--- NOTE | 2017-06-25 15:43 | CP.PCM.PN ---
Subjective - Date & Time of Evaluation Date of Evaluation: 06/25/17 Time of Evaluation: 07:00 - Subjective Subjective: GENERAL SURGERY PROGRESS NOTE FOR DR. CURIEL Patient seen and examined at bedside. Patient had a BM yesterday and reports passing flatus. He denies abdominal pain but does have it occasionally. He states the pain is unrelated to eating. he is tolerating regular diet, denies nausea or vomiting. He ambulated with PT and states that he is now able to walk past the nursing station. Objective - Vital Signs/Intake and Output Vital Signs (last 24 hours): Temp Pulse Resp BP Pulse Ox 98.4 F 90 18 120/68 96 06/25/17 07:00 06/25/17 07:00 06/25/17 07:00 06/25/17 07:00 06/25/17 07:00 Intake and Output: 06/25/17 06/25/17 06:59 18:59 Intake Total 1820 Output Total 700 Balance 1120 - Medications Medications: Current Medications Benzocaine/Menthol (Cepacol Sore Throat) 1 deep MT Q2 PRN PRN Reason: Sore Throat Last Admin: 06/20/17 09:19 Dose: 1 deep Clonidine HCl (Catapres Tts1 0.1 Mg/24 Hr) 1 patch TD Q7D@1000 [facility] Last Admin: 06/23/17 09:58 Dose: 1 patch Famotidine (Pepcid) 20 mg IVP Q12 [facility] Last Admin: 06/25/17 10:22 Dose: 20 mg Heparin Sodium (Porcine) (Heparin) 5,000 units SC Q8 [facility] Last Admin: 06/21/17 22:50 Dose: Not Given Piperacillin Sod/Tazobactam Sod (Zosyn 3.375 Gm Iv Premix) 3.375 gm in 50 mls @ 100 mls/hr IVPB Q6H [facility] Last Admin: 06/25/17 10:00 Dose: 100 mls/hr Insulin Aspart (Novolog) 0 unit SC ACHS [facility] PRN Reason: Protocol Last Admin: 06/25/17 12:00 Dose: 3 unit Ondansetron HCl (Zofran Inj) 4 mg IVP Q4 PRN PRN Reason: nausea Last Admin: 06/22/17 14:41 Dose: 4 mg Oxycodone/Acetaminophen (Percocet 5/325 Mg Tab) 1 tab PO Q4H PRN PRN Reason: Pain, moderate (4-7) Stop: 06/27/17 20:32 Last Admin: 06/25/17 08:28 Dose: 1 tab Potassium Chloride (K-Dur 20 Meq Er Tab) 20 meq PO BID [facility] Stop: 06/29/17 18:01 - Labs Labs: 06/25/17 06:22 06/25/17 06:22 PT 15.5 SECONDS (9.7-12.2) H 06/14/17 08:47 INR 1.4 06/14/17 08:47 APTT 31 SECONDS (21-34) 06/14/17 08:47 - Constitutional Appears: Non-toxic, No Acute Distress - Head Exam Head Exam: ATRAUMATIC, NORMAL INSPECTION - Eye Exam Eye Exam: EOMI, Normal appearance - Respiratory Exam Respiratory Exam: NORMAL BREATHING PATTERN. absent: Respiratory Distress - Cardiovascular Exam Cardiovascular Exam: +S1, +S2 - GI/Abdominal Exam GI & Abdominal Exam: Soft. absent: Distended, Firm, Guarding, Rigid, Tenderness , Rebound Additional comments: roddy in place over midline incision - Neurological Exam Neurological Exam: Alert, Awake, Oriented x3 - Psychiatric Exam Psychiatric exam: Normal Affect, Normal Mood - Skin Skin Exam: Dry, Normal Color, Warm Assessment and Plan - Assessment and Plan (Free Text) Assessment: 66yo M with recurrent ventral hernia and thrombocytopenia s/p exploratory laparotomy, extensive ROLANDO, repair of recurrent ventral hernia with biologic mesh , small bowel resection with primary anastomosis POD#11 - Afebrile, VSS - Leukocytosis trending up, WBC 15.8 (14.4 yesterday) - Hemoglobin 8.3, pt asymptomatic - Thrombocytopenia, platelets 125 - Hypokalemia K 3.4 - 20meq PO daily and gave an additional 20meq PO today - Continue Physical therapy - On regular diet - Encouraged OOB, ambulation, and IS use - Heparin held due to decreased Hgb, will continue to monitor - Ordered CT Abd/Pelvis with IV and PO contrast to evaluate increasing leukocytosis - Discussed plan with Dr. Stephen Brownlee PGY-3
--- NOTE | 2017-06-25 16:44 | CT ---
PROCEDURE: CT Abdomen and Pelvis with contrast HISTORY: s/p small resection and hernia repair COMPARISON: Abdomen pelvis CT without contrast 06/05/2017. TECHNIQUE: Helical CT of the abdomen and pelvis was performed following oral and intravenous contrast administration. Contrast dose: Visipaque 320, 100 cc. Radiation dose: Total exam DLP = 1374.67 mGy-cm. This CT exam was performed using one or more of the following dose reduction techniques: Automated exposure control, adjustment of the mA and/or kV according to patient size, and/or use of iterative reconstruction technique. FINDINGS: LOWER THORAX: Small hiatal hernia identified. LIVER: A cirrhotic liver is identified without focal mass. No definite biliary tree dilatation appreciated. GALLBLADDER AND BILE DUCTS: Gallbladder mural thickening is seen though the gallbladder is collapsed and is felt to be a function of hydrops related to ascites. Clinically correlate further. PANCREAS: Trace lesser sac fluid is seen with the pancreas grossly nonfocal otherwise. Pancreatitis is not favored however clinically correlate nevertheless. SPLEEN: Unremarkable. ADRENALS: Unremarkable. No mass. KIDNEYS AND URETERS: Intrarenal calculi are again seen at the lower pole left kidney. No obstructive uropathy bilaterally. No radiodense urolithiasis right kidney. VASCULATURE: Unremarkable. No aortic aneurysm. BOWEL: Pain status post ventral abdominal hernia repair the skin roddy identified anteriorly and a questionable match identified at the prior hernia site at the mid ventral abdomen. There is a fluid collection identified at the prior operative site at the anterior abdominal wall measuring 12.0 x 3.6 x10.8 cm (transverse by anteroposterior by superoinferior dimensions). Trace emphysematous changes are seen associated with this collection with limited peripheral enhancement suspicious for an abscess. Further clinical correlation is advised. Mild abdominal ascites in the upper abdomen. No definite free intraperitoneal gas APPENDIX: Normal appendix. PERITONEUM: Reactive density is suggested throughout the mesentery which may be postoperative. Infectious or inflammatory changes are not completely excluded. Clinically correlate further. LYMPH NODES: Unremarkable. No enlarged lymph nodes. BLADDER: Unremarkable. REPRODUCTIVE: Unremarkable. BONES: No acute fracture. OTHER FINDINGS: None. IMPRESSION: Findings suspicious for an abscess within the operative site of ventral abdominal hernia repair measuring 12.0 cm greatest dimension as discussed above. Alternately, a seroma with gas is a possibility or even chronic hematoma, however, clinical correlation is advised further. Postop changes are favored over peritonitis in the perineal space although mild abdominal ascites is seen as well as in the pelvis. No free intraperitoneal gas. The lesser additional details are as described above.
[2017-06-25] MEDS ORDERED: PPN IV SCH (18:00)
--- NOTE | 2017-06-25 19:57 | PN ---
DATE: SUBJECTIVE: The patient denies chest pain, shortness of breath or abdominal pain. He received 1 unit of packed RBC transfusion yesterday. PHYSICAL EXAMINATION: VITAL SIGNS: Blood pressure 120/68, heart rate 90, temperature 98.4, respirations 18. HEENT: Pale conjunctivae. HEART: S1 and S2 regular. CHEST: Clear. ABDOMEN: Soft. EXTREMITIES: Trace leg edema. LABORATORY DATA: Today's hemoglobin and hematocrit 8.3 and 24.5, white count 15.8, and platelet count 125,000. SMA-7: Sodium 130, potassium 3.3, chloride 93, CO2 of 29, glucose 164, BUN 14, and creatinine 0.7. Abdomen and pelvic CT scan was performed, the report is still pending. ASSESSMENT: 1. Hypertension. 2. Diastolic left ventricular dysfunction. 3. Anemia. 4. Status post anterior abdominal wall hernia repair with small bowel resection. 5. Hypokalemia. 6. Mild thrombocytopenia. RECOMMENDATIONS: Continue clonidine patch, continue IV Zosyn at 3.375 g q. 6 hours. K-Dur was increased to 20 mEq oral twice a day, obtain a followup BNP in a.m. Pavel Contreras MD
--- NOTE | 2017-06-25 23:48 | CP.PCM.PN ---
Subjective - Date & Time of Evaluation Date of Evaluation: 06/25/17 Time of Evaluation: 19:00 - Subjective Subjective: Pt seen and evalauted by me at bedside Objective - Vital Signs/Intake and Output Vital Signs (last 24 hours): Temp Pulse Resp BP Pulse Ox 98.4 F 89 20 122/77 100 06/25/17 16:03 06/25/17 16:03 06/25/17 16:03 06/25/17 16:03 06/25/17 16:03 Intake and Output: 06/25/17 06/26/17 18:59 06:59 Intake Total 340 Balance 340 - Medications Medications: Current Medications Benzocaine/Menthol (Cepacol Sore Throat) 1 deep MT Q2 PRN PRN Reason: Sore Throat Last Admin: 06/20/17 09:19 Dose: 1 deep Clonidine HCl (Catapres Tts1 0.1 Mg/24 Hr) 1 patch TD Q7D@1000 [facility] Last Admin: 06/23/17 09:58 Dose: 1 patch Famotidine (Pepcid) 20 mg IVP Q12 [facility] Last Admin: 06/25/17 21:13 Dose: 20 mg Heparin Sodium (Porcine) (Heparin) 5,000 units SC Q8 [facility] Last Admin: 06/21/17 22:50 Dose: Not Given Piperacillin Sod/Tazobactam Sod (Zosyn 3.375 Gm Iv Premix) 3.375 gm in 50 mls @ 100 mls/hr IVPB Q6H [facility] Last Admin: 06/25/17 21:13 Dose: 100 mls/hr Insulin Aspart (Novolog) 0 unit SC ACHS [facility] PRN Reason: Protocol Last Admin: 06/25/17 21:37 Dose: Not Given Morphine Sulfate (Morphine) 2 mg IVP Q4 PRN PRN Reason: Pain, severe (8-10) Last Admin: 06/25/17 20:01 Dose: 2 mg Ondansetron HCl (Zofran Inj) 4 mg IVP Q4 PRN PRN Reason: nausea Last Admin: 06/22/17 14:41 Dose: 4 mg Oxycodone/Acetaminophen (Percocet 5/325 Mg Tab) 1 tab PO Q4H PRN PRN Reason: Pain, moderate (4-7) Stop: 06/27/17 20:32 Last Admin: 06/25/17 16:06 Dose: 1 tab Potassium Chloride (K-Dur 20 Meq Er Tab) 20 meq PO BID [facility] Stop: 06/29/17 18:01 Last Admin: 06/25/17 17:21 Dose: 20 meq - Labs Labs: 06/25/17 06:22 06/25/17 06:22 PT 15.5 SECONDS (9.7-12.2) H 06/14/17 08:47 INR 1.4 06/14/17 08:47 APTT 31 SECONDS (21-34) 06/14/17 08:47 Assessment and Plan (1) Intestinal obstruction Status: Acute (2) Thrombocytopenia Status: Acute (3) Ventral hernia Status: Acute (4) HTN (hypertension) Status: Acute (5) Diabetes mellitus Status: Chronic
[2017-06-26] MEDS: Piperacill/Tazo 3.375gm in Dex 3.375 GM/50 ML BAG IVPB SCH ×4 (03:05→21:14)
[2017-06-26 06:52] LABS: BASO # 0.1 K/uL (0.0-0.2); BASO % 0.4 % (0.0-2.0); EOS % 0.2 % (0.0-4.0); HEMATOCRIT 25.3 % (35.0-51.0); LYMPH # 2.2 K/uL (1.0-4.3); LYMPH % 14.9 % (20.0-40.0); MEAN CELL VOLUME 100.4 fL (80.0-94.0); MEAN CORPUSCULAR HEMOGLOBIN 34.3 pg (27.0-31.0); MEAN CORPUSCULAR HGB CONC 34.1 g/dL (33.0-37.0); MEAN PLATELET VOLUME 9.4 fL (7.2-11.7); MONO # 1.9 K/uL (0.0-0.8); MONO % 12.6 % (0.0-10.0); NRBC % 0.2 % (0.0-2.0); RED CELL DISTRIBUTION WIDTH 20.5 % (11.5-14.5); WHITE BLOOD COUNT 14.6 K/uL (4.8-10.8)
--- NOTE | 2017-06-26 06:55 | PN ---
DATE: LOCATION: [facility], bed A. SUBJECTIVE: This is a 66-year-old male, seen and examined in rounds without significant clinical changes, tolerating oral intake somewhat, without nausea or vomiting. The entire chart is reviewed including, but not limited to the most recent lab and radiology study results, current and the previous medication list, and current and the previous medical events. Today's lab showed white blood cells of 15.8 with low hemoglobin 8.3, low hematocrit 24.5, with thrombocytopenia of 125 with blood glucose level 204 with low calcium 7.7, with low potassium 3.3, with low sodium 130. PHYSICAL EXAMINATION: GENERAL: A 66-year-old male. VITAL SIGNS: Afebrile with pulse of 92, respiratory rate 20-22, blood pressure 124/66. HEENT: Show pale, dry oral mucous membrane. Nonicteric sclerae. LUNGS: Few scattered crepitation. Decreased air entry at bases. HEART: Positive S1 and S2 with increased rate. ABDOMEN: Soft. Bowel sounds are present. No mass or organomegaly. No rebound tenderness or guarding. NEUROLOGIC: No new reported neurological deficits, sensory or motor. EXTREMITIES: Without significant clubbing, cyanosis or edema. IMPRESSION: 1. Status post incarcerated abdominal wall hernia, treated surgically. 2. Status post partial small bowel resection. 3. Re-exacerbation of peptic ulcer disease. 4. Anemia secondary to above. 5. Known history of hypertension, diabetes mellitus. SUGGESTION: 1. Continue current management. 2. Due to the patient anemia, repeat CBC to be followed up. 3. Increased CEA level. We will need colonoscopy that could be done as an outpatient. When the patient is more stable clinically. No aggressive GI workup in the meantime until the patient is more stable clinically. Senthil Damon MD cc: Senthil Damon MD
[2017-06-26 07:43] LABS: CHLORIDE 94 mmol/L (98-107)
[2017-06-26 07:44] LABS: POTASSIUM 3.9 mmol/L (3.6-5.2); SODIUM 127 mmol/L (132-148)
[2017-06-26 07:47] LABS: BLOOD UREA NITROGEN 11 mg/dL (9-20); CALCIUM 7.8 mg/dl (8.6-10.4); CARBON DIOXIDE 28 mmol/L (22-30); GFR AFRICAN-AMERICAN > 60; GLUCOSE,RANDOM 145 mg/dL (75-110)
--- NOTE | 2017-06-26 08:42 | CP.PCM.PN ---
Subjective - Date & Time of Evaluation Date of Evaluation: 06/26/17 Time of Evaluation: 08:41 - Subjective Subjective: ct noted i doubt abscess will ask Ir for opinion Objective - Vital Signs/Intake and Output Vital Signs (last 24 hours): Temp Pulse Resp BP Pulse Ox 98.1 F 81 18 111/64 96 06/26/17 07:20 06/26/17 07:20 06/26/17 07:20 06/26/17 07:20 06/26/17 07:20 Intake and Output: 06/26/17 06/26/17 06:59 18:59 Intake Total 590 Output Total 400 Balance 190 - Medications Medications: Current Medications Benzocaine/Menthol (Cepacol Sore Throat) 1 deep MT Q2 PRN PRN Reason: Sore Throat Last Admin: 06/20/17 09:19 Dose: 1 deep Clonidine HCl (Catapres Tts1 0.1 Mg/24 Hr) 1 patch TD Q7D@1000 [facility] Last Admin: 06/23/17 09:58 Dose: 1 patch Famotidine (Pepcid) 20 mg IVP Q12 [facility] Last Admin: 06/25/17 21:13 Dose: 20 mg Heparin Sodium (Porcine) (Heparin) 5,000 units SC Q8 [facility] Last Admin: 06/21/17 22:50 Dose: Not Given Piperacillin Sod/Tazobactam Sod (Zosyn 3.375 Gm Iv Premix) 3.375 gm in 50 mls @ 100 mls/hr IVPB Q6H [facility] Last Admin: 06/26/17 03:05 Dose: 100 mls/hr Insulin Aspart (Novolog) 0 unit SC ACHS [facility] PRN Reason: Protocol Last Admin: 06/25/17 21:37 Dose: Not Given Morphine Sulfate (Morphine) 2 mg IVP Q4 PRN PRN Reason: Pain, severe (8-10) Last Admin: 06/25/17 20:01 Dose: 2 mg Ondansetron HCl (Zofran Inj) 4 mg IVP Q4 PRN PRN Reason: nausea Last Admin: 06/22/17 14:41 Dose: 4 mg Oxycodone/Acetaminophen (Percocet 5/325 Mg Tab) 1 tab PO Q4H PRN PRN Reason: Pain, moderate (4-7) Stop: 06/27/17 20:32 Last Admin: 06/25/17 16:06 Dose: 1 tab Potassium Chloride (K-Dur 20 Meq Er Tab) 20 meq PO BID [facility] Stop: 06/29/17 18:01 Last Admin: 06/25/17 17:21 Dose: 20 meq - Labs Labs: 06/26/17 06:44 06/26/17 06:44 PT 15.5 SECONDS (9.7-12.2) H 06/14/17 08:47 INR 1.4 06/14/17 08:47 APTT 31 SECONDS (21-34) 06/14/17 08:47
[2017-06-26] MEDS: (Novolog) Insulin Aspart, Recombinant 100 u/ml 10 ml vial SC SCH ×4 (08:45→21:50)
[2017-06-26] MEDS ORDERED: PPN IV SCH (10:00)
[2017-06-26] MEDS: Potassium Chloride 20 mEq ER Tab PO SCH ×2 (10:20→17:10)
--- NOTE | 2017-06-26 16:22 | PN ---
DATE: SUBJECTIVE: The patient denies chest pain or abdominal pain. PHYSICAL EXAMINATION VITAL SIGNS: Blood pressure 11/64, heart rate 81, temperature 98.1, respirations 18. HEENT: Normocephalic. CHEST: Clear. HEART: S1 and S2 regular. ABDOMEN: Soft. EXTREMITIES: Trace pedal edema. LABORATORY DATA: Hemoglobin and hematocrit 8.6 and 25.3, white count 14.6, platelet count 121,000. SMA-7; sodium 137, potassium 3.9, chloride 94, CO2 of 28, glucose 145, BUN 11, creatinine 0.8. Abdomen and pelvic CT scan report has finding suspicious for an abscess within the operative site of a ventral-abdominal hernia repair measuring 12 cm, greatest dimension. Alternatively, a seroma with gas is a possibility or even chronic hematoma; however, clinical correlation advised. ASSESSMENT: 1. Status post ventral-abdominal hernia repair and small bowel resection with findings suspicious of an abscess, seroma or hematoma, measuring 12 cm in its greatest dimension. 2. Hypertension. 3. Improved hypokalemia. 4. Hyponatremia. 5. Uncontrolled diabetes mellitus. 6. Anemia. RECOMMENDATIONS: Continue current clonidine patch. Continue K-Dur 20 mg once a day. Discontinue subcutaneous heparin. Continue IV Zosyn at 3.375 g q.6 hours Pavel Contreras MD
--- NOTE | 2017-06-26 16:34 | PN ---
DATE: LOCATION: [facility], bed A. SUBJECTIVE: This is a 66-year-old male seen and examined in rounds with intermittent periods of abdominal pain on and off post surgically today. The entire chart is reviewed including but not limited to the most recent lab and radiology study results, current and previous medication list, and current and previous medical events. Case discussed with the staff on the floor. Today's lab showed white blood cells of 14.6 with low hemoglobin again of 8.6, low hematocrit 25.3 with thrombocytopenia of 121. There was low sodium of 123 and increased blood glucose level of 206 with low calcium of 7.8. Review of the abdominal and pelvic scan done yesterday indicative of possible an abscess formation within the operative site of the ventral abdominal hernia repair measuring about 12 cm versus chronic hematoma with mild abdominal ascites. PHYSICAL EXAMINATION: GENERAL: A 66 years old male. VITAL SIGNS: Afebrile, with pulse of 84, respiratory rate 20-22, blood pressure of 120/66. HEENT: Show pale, dry oral mucous membrane. Nonicteric sclerae. LUNGS: Few scattered crepitation with decreased air entry at bases. HEART: Positive S1 and S2. ABDOMEN: With slight distention, covered with clean dressing, with generalized tenderness. No mass or organomegaly. No rebound tenderness or guarding. EXTREMITIES: Without significant clubbing, cyanosis, or edema. NEUROLOGIC: No reported new neurological deficits, sensory or motor. IMPRESSION: 1. Incarcerated abdominal wall ventral hernia, treated surgically with partial small bowel obstruction. 2. Recent CAT scan with abnormalities and questionable possible abscess formation. 3. Anemia secondary to above. The patient may be need more blood transfusion. 4. Known history of, but not limited to, hypertension with diastolic left ventricular dysfunction. 5. Anemia most likely secondary to above. 6. Thrombocytopenia of unclear etiology. 7. Electrolyte imbalance with hyponatremia and hypocalcemia. 8. Increased carcinoembryonic antigen level, most possible lower gastrointestinal tract neoplastic lesion. SUGGESTION: 1. Agree with your plan. 2. Blood transfusion to keep hemoglobin around 10 gram%. 3. Correct any underlying electrolyte imbalance. 4. Well control of the patient's poorly-controlled diabetes mellitus. 5. Case is to be discussed again with the operating room surgical technician team. 6. MRI of the abdomen and pelvis if the patient's fever plus leukocytosis persists. 7. No aggressive GI workup in the meantime until the patient is more stable clinically. Senthil Damon MD cc: Senthil Damon MD [facility] # [id number]
--- NOTE | 2017-06-26 22:47 | CP.PCM.PN ---
Subjective - Date & Time of Evaluation Date of Evaluation: 06/26/17 Time of Evaluation: 20:00 - Subjective Subjective: pt seen & evaluated by me today, CT of abdomen shows questionable collection of fluid Objective - Vital Signs/Intake and Output Vital Signs (last 24 hours): Temp Pulse Resp BP Pulse Ox 97.6 F 89 20 129/79 96 06/26/17 20:00 06/26/17 15:00 06/26/17 15:00 06/26/17 15:00 06/26/17 15:00 Intake and Output: 06/26/17 06/27/17 18:59 06:59 Intake Total 420 Balance 420 - Medications Medications: Current Medications Benzocaine/Menthol (Cepacol Sore Throat) 1 deep MT Q2 PRN PRN Reason: Sore Throat Last Admin: 06/20/17 09:19 Dose: 1 deep Clonidine HCl (Catapres Tts1 0.1 Mg/24 Hr) 1 patch TD Q7D@1000 [facility] Last Admin: 06/23/17 09:58 Dose: 1 patch Famotidine (Pepcid) 20 mg IVP Q12 [facility] Last Admin: 06/26/17 21:13 Dose: 20 mg Heparin Sodium (Porcine) (Heparin) 5,000 units SC Q8 [facility] Last Admin: 06/21/17 22:50 Dose: Not Given Piperacillin Sod/Tazobactam Sod (Zosyn 3.375 Gm Iv Premix) 3.375 gm in 50 mls @ 100 mls/hr IVPB Q6H [facility] Last Admin: 06/26/17 21:14 Dose: 100 mls/hr Insulin Aspart (Novolog) 0 unit SC ACHS [facility] PRN Reason: Protocol Last Admin: 06/26/17 21:50 Dose: Not Given Morphine Sulfate (Morphine) 2 mg IVP Q4 PRN PRN Reason: Pain, severe (8-10) Last Admin: 06/26/17 19:09 Dose: 2 mg Ondansetron HCl (Zofran Inj) 4 mg IVP Q4 PRN PRN Reason: nausea Last Admin: 06/22/17 14:41 Dose: 4 mg Oxycodone/Acetaminophen (Percocet 5/325 Mg Tab) 1 tab PO Q4H PRN PRN Reason: Pain, moderate (4-7) Stop: 06/27/17 20:32 Last Admin: 06/25/17 16:06 Dose: 1 tab Potassium Chloride (K-Dur 20 Meq Er Tab) 20 meq PO BID [facility] Stop: 06/29/17 18:01 Last Admin: 06/26/17 17:10 Dose: 20 meq - Labs Labs: 06/26/17 06:44 06/26/17 06:44 PT 15.5 SECONDS (9.7-12.2) H 06/14/17 08:47 INR 1.4 06/14/17 08:47 APTT 31 SECONDS (21-34) 06/14/17 08:47 - Constitutional Appears: No Acute Distress - Head Exam Head Exam: ATRAUMATIC, NORMAL INSPECTION, NORMOCEPHALIC - Eye Exam Eye Exam: EOMI, Normal appearance, PERRL Pupil Exam: NORMAL ACCOMODATION, PERRL - Cardiovascular Exam Cardiovascular Exam: REGULAR RHYTHM, +S1, +S2. absent: Murmur - GI/Abdominal Exam GI & Abdominal Exam: Soft, Normal Bowel Sounds, Organomegaly - Neurological Exam Neurological Exam: Alert, Awake, CN II-XII Intact, Normal Gait, Oriented x3 Assessment and Plan (1) Intestinal obstruction Status: Acute (2) Thrombocytopenia Status: Acute (3) Ventral hernia Status: Acute (4) HTN (hypertension) Status: Acute (5) Diabetes mellitus Status: Chronic
[2017-06-27] MEDS: Piperacill/Tazo 3.375gm in Dex 3.375 GM/50 ML BAG IVPB SCH ×4 (03:39→21:29)
[2017-06-27 07:19] LABS: BASO # 0.1 K/uL (0.0-0.2); BASO % 0.5 % (0.0-2.0); EOS % 0.2 % (0.0-4.0); HEMATOCRIT 24.8 % (35.0-51.0); LYMPH # 2.3 K/uL (1.0-4.3); LYMPH % 18.2 % (20.0-40.0); MEAN CELL VOLUME 100.7 fL (80.0-94.0); MEAN CORPUSCULAR HEMOGLOBIN 34.1 pg (27.0-31.0); MEAN CORPUSCULAR HGB CONC 33.9 g/dL (33.0-37.0); MEAN PLATELET VOLUME 9.8 fL (7.2-11.7); MONO # 1.7 K/uL (0.0-0.8); MONO % 13.4 % (0.0-10.0); RED CELL DISTRIBUTION WIDTH 20.4 % (11.5-14.5); WHITE BLOOD COUNT 12.4 K/uL (4.8-10.8)
[2017-06-27] MEDS: (Novolog) Insulin Aspart, Recombinant 100 u/ml 10 ml vial SC SCH ×4 (07:30→21:29)
[2017-06-27 08:00] LABS: CHLORIDE 95 mmol/L (98-107); SODIUM 127 mmol/L (132-148)
[2017-06-27 08:03] LABS: CARBON DIOXIDE 28 mmol/L (22-30); GFR AFRICAN-AMERICAN > 60
[2017-06-27 08:04] LABS: BLOOD UREA NITROGEN 9 mg/dL (9-20); CALCIUM 7.6 mg/dl (8.6-10.4); GLUCOSE,RANDOM 120 mg/dL (75-110)
[2017-06-27] MEDS: Oxycodone/Acetaminophen 5/325 mg Tab PO PRN (09:46)
--- NOTE | 2017-06-27 10:02 | CP.PCM.PN ---
Subjective - Date & Time of Evaluation Date of Evaluation: 06/27/17 Time of Evaluation: 07:00 - Subjective Subjective: General Surgery Dr. Mitchell Pt seen and examined @bedside. NAEO. no complaints. pt reports abd pain only w/ movement. denies F/C, N/V, D/C. tolerating regular diet. Objective - Vital Signs/Intake and Output Vital Signs (last 24 hours): Temp Pulse Resp BP Pulse Ox 98.5 F 84 20 129/68 96 06/26/17 23:40 06/26/17 23:40 06/26/17 23:40 06/27/17 06:35 06/26/17 23:40 Intake and Output: 06/27/17 06/27/17 06:59 18:59 Intake Total 670 Output Total 300 Balance 370 - Medications Medications: Current Medications Benzocaine/Menthol (Cepacol Sore Throat) 1 deep MT Q2 PRN PRN Reason: Sore Throat Last Admin: 06/20/17 09:19 Dose: 1 deep Clonidine HCl (Catapres Tts1 0.1 Mg/24 Hr) 1 patch TD Q7D@1000 [facility] Last Admin: 06/23/17 09:58 Dose: 1 patch Famotidine (Pepcid) 20 mg IVP Q12 [facility] Last Admin: 06/26/17 21:13 Dose: 20 mg Heparin Sodium (Porcine) (Heparin) 5,000 units SC Q8 [facility] Last Admin: 06/21/17 22:50 Dose: Not Given Piperacillin Sod/Tazobactam Sod (Zosyn 3.375 Gm Iv Premix) 3.375 gm in 50 mls @ 100 mls/hr IVPB Q6H [facility] Last Admin: 06/27/17 03:39 Dose: 100 mls/hr Insulin Aspart (Novolog) 0 unit SC ACHS [facility] PRN Reason: Protocol Last Admin: 06/26/17 21:50 Dose: Not Given Morphine Sulfate (Morphine) 2 mg IVP Q4 PRN PRN Reason: Pain, severe (8-10) Last Admin: 06/27/17 06:35 Dose: 2 mg Ondansetron HCl (Zofran Inj) 4 mg IVP Q4 PRN PRN Reason: nausea Last Admin: 06/22/17 14:41 Dose: 4 mg Oxycodone/Acetaminophen (Percocet 5/325 Mg Tab) 1 tab PO Q4H PRN PRN Reason: Pain, moderate (4-7) Stop: 06/27/17 20:32 Last Admin: 06/27/17 09:46 Dose: 1 tab Potassium Chloride (K-Dur 20 Meq Er Tab) 20 meq PO BID [facility] Stop: 06/29/17 18:01 Last Admin: 06/26/17 17:10 Dose: 20 meq - Labs Labs: 06/27/17 07:12 06/27/17 07:12 PT 15.5 SECONDS (9.7-12.2) H 06/14/17 08:47 INR 1.4 06/14/17 08:47 APTT 31 SECONDS (21-34) 06/14/17 08:47 - Constitutional Appears: Non-toxic, No Acute Distress - Head Exam Head Exam: NORMAL INSPECTION - Eye Exam Eye Exam: Normal appearance - ENT Exam ENT Exam: Mucous Membranes Moist - Respiratory Exam Respiratory Exam: NORMAL BREATHING PATTERN. absent: Accessory Muscle Use, Respiratory Distress - Cardiovascular Exam Cardiovascular Exam: absent: Bradycardia, Tachycardia - GI/Abdominal Exam GI & Abdominal Exam: Soft. absent: Distended, Guarding, Rigid, Tenderness, Rebound Additional comments: incision C/D/I mild erythema around incision. no warmth, induration, fluctuance. no drainage noted - Extremities Exam Extremities Exam: Normal Inspection - Neurological Exam Neurological Exam: Alert, Awake, Oriented x3 - Psychiatric Exam Psychiatric exam: Normal Affect, Normal Mood - Skin Skin Exam: Dry, Intact, Warm Assessment and Plan - Assessment and Plan (Free Text) Assessment: 66 y/o M POD#13 s/p ventral hernia repair w/ biologic mesh and small bowel resection - leukocytosis trending down - cont to monitor - hypokalemia - resolved - repeat CT shows flor-incisional fluid collection seroma vs abscess - consider IR for potential drainage - cont PT - encouraged OOB to chair/Amb/IS use Pt discussed w/ Dr. Stephen Patel DO PGY2
[2017-06-27] MEDS: Potassium Chloride 20 mEq ER Tab PO SCH ×2 (10:50→17:31)
--- NOTE | 2017-06-27 21:03 | CP.PCM.PN ---
Subjective - Date & Time of Evaluation Date of Evaluation: 06/27/17 Time of Evaluation: 20:20 - Subjective Subjective: Pt seen and examined, is feeling better and improving, afebrile, no new complains Objective - Vital Signs/Intake and Output Vital Signs (last 24 hours): Temp Pulse Resp BP Pulse Ox 98.1 F 86 20 147/85 100 06/27/17 15:22 06/27/17 15:22 06/27/17 15:22 06/27/17 15:22 06/27/17 15:22 - Medications Medications: Current Medications Benzocaine/Menthol (Cepacol Sore Throat) 1 deep MT Q2 PRN PRN Reason: Sore Throat Last Admin: 06/20/17 09:19 Dose: 1 deep Clonidine HCl (Catapres Tts1 0.1 Mg/24 Hr) 1 patch TD Q7D@1000 [facility] Last Admin: 06/23/17 09:58 Dose: 1 patch Famotidine (Pepcid) 20 mg IVP Q12 [facility] Last Admin: 06/27/17 10:50 Dose: 20 mg Heparin Sodium (Porcine) (Heparin) 5,000 units SC Q8 [facility] Last Admin: 06/21/17 22:50 Dose: Not Given Piperacillin Sod/Tazobactam Sod (Zosyn 3.375 Gm Iv Premix) 3.375 gm in 50 mls @ 100 mls/hr IVPB Q6H [facility] Last Admin: 06/27/17 17:00 Dose: 100 mls/hr Insulin Aspart (Novolog) 0 unit SC ACHS [facility] PRN Reason: Protocol Last Admin: 06/27/17 17:30 Dose: 1 unit Morphine Sulfate (Morphine) 2 mg IVP Q4 PRN PRN Reason: Pain, severe (8-10) Last Admin: 06/27/17 18:53 Dose: 2 mg Ondansetron HCl (Zofran Inj) 4 mg IVP Q4 PRN PRN Reason: nausea Last Admin: 06/22/17 14:41 Dose: 4 mg Potassium Chloride (K-Dur 20 Meq Er Tab) 20 meq PO BID [facility] Stop: 06/29/17 18:01 Last Admin: 06/27/17 17:31 Dose: 20 meq - Labs Labs: 06/27/17 07:12 06/27/17 07:12 PT 15.5 SECONDS (9.7-12.2) H 06/14/17 08:47 INR 1.4 06/14/17 08:47 APTT 31 SECONDS (21-34) 06/14/17 08:47 - Constitutional Appears: No Acute Distress - Head Exam Head Exam: ATRAUMATIC, NORMAL INSPECTION, NORMOCEPHALIC - Eye Exam Eye Exam: EOMI, Normal appearance, PERRL Pupil Exam: NORMAL ACCOMODATION, PERRL - Respiratory Exam Respiratory Exam: Decreased Breath Sounds, Clear to Ausculation Bilateral, Rales - Cardiovascular Exam Cardiovascular Exam: REGULAR RHYTHM, +S1, +S2. absent: Murmur - GI/Abdominal Exam GI & Abdominal Exam: Soft, Normal Bowel Sounds. absent: Tenderness - Neurological Exam Neurological Exam: Alert, Awake, CN II-XII Intact, Normal Gait, Oriented x3 Assessment and Plan (1) Intestinal obstruction Status: Acute (2) Thrombocytopenia Status: Acute (3) Ventral hernia Status: Acute (4) HTN (hypertension) Status: Acute (5) Diabetes mellitus Status: Chronic
--- NOTE | 2017-06-28 00:40 | PN ---
DATE: SUBJECTIVE: The patient denies any chest pain or shortness of breath. No vomiting or diarrhea. PHYSICAL EXAMINATION VITAL SIGNS: Blood pressure of 147/85, heart rate of 86, temperature of 98.1, and respirations of 20. HEENT: Pale conjunctivae. CHEST: Diminished breath sounds over the bases. HEART: S1 and S2 regular. ABDOMEN: Positive bowel sounds. EXTREMITIES: He has 1+ pitting edema. LABORATORY DATA: Today's hemoglobin and hematocrit of 8.4 and 24.8, white count of 12.4, and platelet count of 152,000. SMA-7: Sodium of 127, potassium of 4.0, chloride of 95, CO2 of 28, glucose of 120, BUN of 9 and creatinine of 0.7. ASSESSMENT: 1. Hypertension. 2. Diastolic heart failure. 3. Anterior abdominal over fluid collection, unlikely abscess as per consult Interventional Radiology. RECOMMENDATIONS: Continue clonidine patch. Continue K-Dur 20 mEq twice a day, Zosyn at 3.375 g q. 6 hours. Subcutaneous heparin is currently on hold. Pavel Contreras MD
[2017-06-28] MEDS: Piperacill/Tazo 3.375gm in Dex 3.375 GM/50 ML BAG IVPB SCH ×4 (03:43→21:43)
--- NOTE | 2017-06-28 06:31 | PN ---
DATE: LOCATION: [facility], bed A. SUBJECTIVE: This is a 66-year-old male seen and examined in rounds with recurrent episodes of abdominal pain again, but no reported belly pain. The patient appeared to be awake, alert, and oriented. The entire chart is reviewed including, but not limited to the most recent lab and radiology study results, current and previous medication list, and current and previous medical events. Case discussed with the staff. As we mentioned, the patient denied this morning any reported significant shortness of breath, actual chest pain nor palpitation. No reported bleeding. LABORATORY DATA: Today's lab showed leukocytosis of 12.4 with low hemoglobin of 8.4, hematocrit of 24.8, but normal platelet count of 152 with blood glucose level of 135. The sodium reported to be low yesterday of 127 with low calcium of 7.8. PHYSICAL EXAMINATION: GENERAL: A 66-year-old male. VITAL SIGNS: Afebrile with pulse of 84, respiratory rate 20-22, and blood pressure of 124/66. HEENT: Show pale, dry oral mucous membrane. Nonicteric sclerae. LUNGS: Few scattered crepitation with decreased air entry at bases. HEART: Positive S1 and S2. ABDOMEN: With slight distention, mild generalized tenderness with slightly hypoactive bowel sounds. No mass or organomegaly could be appreciated. No rebound tenderness or guarding. RECTAL: The patient refused. EXTREMITIES: Without significant clubbing, cyanosis, or edema. NEUROLOGIC: No reported new neurological deficits, focal sensory or motor. Peripheral pulses are present bilaterally. IMPRESSION: 1. Recent history of incarcerated abdominal anterior wall ventral hernia, treated surgically. 2. Status post partial small bowel resection. 3. Re-exacerbation of peptic ulcer disease. 4. Anemia with recent blood transfusion. 5. Recent CAT scan of abdomen and pelvis is indicative of possible fluid collection, abscess versus hematoma, I believe to the CAT scan report. 6. Thrombocytopenia by recent history of unclear etiology. 7. Electrolyte imbalance with hyponatremia and hypocalcemia. 8. Malnutrition with hypoalbuminemia. SUGGESTION: 1. Continue current management. 2. The patient may need abdominal and pelvic MRI. 3. Repeat blood culture x2. 4. Repeat stool for occult blood. 5. Further evaluation and recommendation to follow. Senthil Damon MD
[2017-06-28 07:38] LABS: BASO # 0.1 K/uL (0.0-0.2); BASO % 0.5 % (0.0-2.0); EOS % 0.3 % (0.0-4.0); HEMATOCRIT 24.1 % (35.0-51.0); LYMPH % 18.4 % (20.0-40.0); MEAN CELL VOLUME 101.4 fL (80.0-94.0); MEAN CORPUSCULAR HEMOGLOBIN 35.1 pg (27.0-31.0); MEAN CORPUSCULAR HGB CONC 34.6 g/dL (33.0-37.0); MEAN PLATELET VOLUME 9.8 fL (7.2-11.7); MONO # 1.6 K/uL (0.0-0.8); MONO % 14.5 % (0.0-10.0); NRBC % 0.1 % (0.0-2.0); RED CELL DISTRIBUTION WIDTH 20.6 % (11.5-14.5); WHITE BLOOD COUNT 10.7 K/uL (4.8-10.8)
[2017-06-28] MEDS: (Novolog) Insulin Aspart, Recombinant 100 u/ml 10 ml vial SC SCH ×4 (07:50→21:44)
[2017-06-28 08:01] LABS: CHLORIDE 95 mmol/L (98-107); SODIUM 127 mmol/L (132-148)
[2017-06-28 08:02] LABS: POTASSIUM 3.8 mmol/L (3.6-5.2)
[2017-06-28 08:04] LABS: GFR AFRICAN-AMERICAN > 60
[2017-06-28 08:05] LABS: BLOOD UREA NITROGEN 10 mg/dL (9-20); CALCIUM 7.4 mg/dl (8.6-10.4); CARBON DIOXIDE 27 mmol/L (22-30); GLUCOSE,RANDOM 118 mg/dL (75-110)
[2017-06-28] MEDS: Potassium Chloride 20 mEq ER Tab PO SCH ×2 (10:24→17:49)
--- NOTE | 2017-06-28 10:59 | PCM.SURG1 ---
Surgeon's Initial Post Op Note - Surgeon's Notes Surgeon: Freeman Myrick MD [employer] Manager: NONE Type of Anesthesia: Local Pre-Operative Diagnosis: Abdominal abscess Operative Findings: US showed a complex abdominal wall collection at site of surgical roddy Post-Operative Diagnosis: Abdominal abscess Operation Performed: US guided abdominal abscess drainage with placement of an 8 fr drainage catheter. Specimen/Specimens Removed: 20 cc of slight serosanguinous fluid Estimated Blood Loss: EBL {In ML}: 0 Drains Used: No Drains Post-Op Condition: Fair Date of Surgery/Procedure: 06/28/17 Time of Surgery/Procedure: 10:55
--- NOTE | 2017-06-28 13:20 | PN ---
DATE: LOCATION: [facility], bed 8 SUBJECTIVE: This 66-year-old male seen and examined in rounds today, post-invasive radiology procedure with drainage and placement of a drainage reported as abdominal abscess formation. The patient has less abdominal pain with less abdominal distention. No reported active bleeding. No hematemesis. The entire chart is reviewed including but not limited to most recent labs and radiology study results, current and previous medication list, current and previous medical events as well as IR staff procedure note was reviewed. Case discussed with staff at length. Today's lab showed hemoglobin of 8.3 with hematocrit 24.1 with sodium 127 and increased blood glucose level 211 with low calcium 7.4. PHYSICAL EXAMINATION: GENERAL: The patient is around 66-year-old male, awake, alert, oriented, afebrile with a pulse of 84, respiratory rate 20/22 with a blood pressure of 120/76. HEENT: Showed pale, dry oral mucous membranes. Nonicteric sclerae. LUNGS: A few scattered crepitations with decreased air entry at bases. HEART: Positive S1 and S2. ABDOMEN: Soft with mild distention with mild generalized tenderness. No mass or organomegaly. No rebound tenderness or guarding. EXTREMITIES: Without significant edema, clubbing, or cyanosis, but pulses are present bilaterally. NEUROLOGIC: No reported new neurological deficit, sensory or motor. IMPRESSION: 1. Post-surgical abdominal abscess formation diagnosed by radiology study results with status post drainage by the IR staff. 2. Recent history of incarcerated abdominal ventral hernia, treated surgically with partial small bowel resection. 3. Peptic ulcer disease. 4. Anemia secondary to above. 5. Thrombocytopenia of unclear etiology. 6. Electrolyte imbalance with hyponatremia and hypocalcemia. 7. Malnutrition with hypoalbuminemia. SUGGESTION: 1. Continue current management and also blood transfusion to keep hemoglobin around 10 gram . 2. Further recommendations to follow. Senthil Damon MD cc: Senthil Damon MD
--- NOTE | 2017-06-28 18:06 | PN ---
DATE: SUBJECTIVE: The patient underwent aspiration of the anterior abdominal wall fluid collection by Interventional Radiology. Official report is still pending. The patient seems to be a little upset about the fact that he had to undergo the procedure. He denies any chest pain or shortness of breath. PHYSICAL EXAMINATION VITAL SIGNS: Blood pressure 115/73, heart rate 81, temperature 98.2, and respirations 20. HEENT: Pale conjunctivae. CHEST: Minimal basal rhonchi. HEART: S1 and S2 regular. EXTREMITIES: 1+ pitting edema. LABORATORY DATA: Hemoglobin and hematocrit of 8.7 and 24.1. White count and platelet count are within normal limits. SMA-7: Sodium 127, potassium 3.8, chloride 95, CO2 of 27, glucose 118, BUN 10, creatinine 0.8. ASSESSMENT: 1. Status post drainage of anterior abdominal wall fluid collection. 2. Hypertension. 3. Diastolic heart failure. 4. Diabetes mellitus. 5. Anemia. RECOMMENDATIONS: Continue current clonidine patch. Subcutaneous heparin is on hold. Continue K-Dur 20 mEq oral twice a day and Zosyn at 3.375 g intravenously q. 6 hours. Obtain 12-lead EKG and resume telemetry monitoring. Pavel Contreras MD
--- NOTE | 2017-06-28 18:38 | CP.PCM.PN ---
Subjective - Date & Time of Evaluation Date of Evaluation: 06/28/17 Time of Evaluation: 07:00 - Subjective Subjective: GENERAL SURGERY PROGRESS NOTE FOR DR. CURIEL Patient seen and examined at bedside. He reports having a BM last night which was normal color. He is passing flatus. He reports generalized pain but not specifically abdominal pain. He is tolerating diet and denies nausea or vomiting. He had IR US guided abdominal abscess drainage with placement of an 8Fr drainage catheter by Dr. Myrick today. 20cc slightly serosanguinous fluid was drained. Objective - Vital Signs/Intake and Output Vital Signs (last 24 hours): Temp Pulse Resp BP Pulse Ox 99.4 F 89 20 103/63 98 06/28/17 15:34 06/28/17 16:00 06/28/17 15:34 06/28/17 15:34 06/28/17 15:34 Intake and Output: 06/28/17 06/28/17 06:59 18:59 Intake Total 420 550 Output Total 150 Balance 270 550 - Medications Medications: Current Medications Benzocaine/Menthol (Cepacol Sore Throat) 1 deep MT Q2 PRN PRN Reason: Sore Throat Last Admin: 06/20/17 09:19 Dose: 1 deep Clonidine HCl (Catapres Tts1 0.1 Mg/24 Hr) 1 patch TD Q7D@1000 [facility] Last Admin: 06/23/17 09:58 Dose: 1 patch Famotidine (Pepcid) 20 mg PO BID [facility] Last Admin: 06/28/17 17:49 Dose: 20 mg Heparin Sodium (Porcine) (Heparin) 5,000 units SC Q8 [facility] Last Admin: 06/21/17 22:50 Dose: Not Given Piperacillin Sod/Tazobactam Sod (Zosyn 3.375 Gm Iv Premix) 3.375 gm in 50 mls @ 100 mls/hr IVPB Q6H [facility] Last Admin: 06/28/17 16:55 Dose: 100 mls/hr Insulin Aspart (Novolog) 0 unit SC ACHS [facility] PRN Reason: Protocol Last Admin: 06/28/17 17:49 Dose: 4 unit Morphine Sulfate (Morphine) 2 mg IVP Q4 PRN PRN Reason: Pain, severe (8-10) Last Admin: 06/28/17 15:49 Dose: 2 mg Ondansetron HCl (Zofran Inj) 4 mg IVP Q4 PRN PRN Reason: nausea Last Admin: 06/22/17 14:41 Dose: 4 mg Potassium Chloride (K-Dur 20 Meq Er Tab) 20 meq PO BID [facility] Stop: 06/29/17 18:01 Last Admin: 06/28/17 17:49 Dose: 20 meq - Labs Labs: 06/28/17 07:16 06/28/17 07:16 PT 15.5 SECONDS (9.7-12.2) H 06/14/17 08:47 INR 1.4 06/14/17 08:47 APTT 31 SECONDS (21-34) 06/14/17 08:47 - Constitutional Appears: Non-toxic, No Acute Distress - Head Exam Head Exam: ATRAUMATIC, NORMAL INSPECTION - Eye Exam Eye Exam: EOMI, Normal appearance - Respiratory Exam Respiratory Exam: NORMAL BREATHING PATTERN. absent: Respiratory Distress - Cardiovascular Exam Cardiovascular Exam: +S1, +S2 - GI/Abdominal Exam GI & Abdominal Exam: Soft. absent: Distended, Firm, Guarding, Rigid, Tenderness , Rebound Additional comments: [place] in place - Neurological Exam Neurological Exam: Alert, Awake, Oriented x3 - Psychiatric Exam Psychiatric exam: Normal Affect, Normal Mood - Skin Skin Exam: Dry, Normal Color, Warm Assessment and Plan - Assessment and Plan (Free Text) Assessment: 66yo M with recurrent ventral hernia and thrombocytopenia s/p exploratory laparotomy, extensive ROLANDO, repair of recurrent ventral hernia with biologic mesh , small bowel resection with primary anastomosis POD#14, now s/p IR US guided abdominal abscess drainage with placement of an 8Fr drainage catheter today. - Afebrile, VSS - Leukocytosis resolved - Hemoglobin 8.3, pt asymptomatic - Thrombocytopenia resolved - Hypokalemia resolved - Continue Physical therapy - On regular diet - Encouraged OOB, ambulation, and IS use - Discussed plan with Dr. Stephen Brownlee PGY-3
--- NOTE | 2017-06-28 23:03 | CP.PCM.PN ---
Subjective - Date & Time of Evaluation Date of Evaluation: 06/28/17 Time of Evaluation: 20:00 - Subjective Subjective: Pt is improving, he has decraesed abdominal pain, leg edema is improving Objective - Vital Signs/Intake and Output Vital Signs (last 24 hours): Temp Pulse Resp BP Pulse Ox 99.4 F 89 20 103/63 98 06/28/17 15:34 06/28/17 16:00 06/28/17 15:34 06/28/17 15:34 06/28/17 15:34 Intake and Output: 06/28/17 06/29/17 18:59 06:59 Intake Total 550 420 Output Total 30 Balance 550 390 - Medications Medications: Current Medications Benzocaine/Menthol (Cepacol Sore Throat) 1 deep MT Q2 PRN PRN Reason: Sore Throat Last Admin: 06/20/17 09:19 Dose: 1 deep Clonidine HCl (Catapres Tts1 0.1 Mg/24 Hr) 1 patch TD Q7D@1000 [facility] Last Admin: 06/23/17 09:58 Dose: 1 patch Famotidine (Pepcid) 20 mg PO BID [facility] Last Admin: 06/28/17 17:49 Dose: 20 mg Heparin Sodium (Porcine) (Heparin) 5,000 units SC Q8 [facility] Last Admin: 06/21/17 22:50 Dose: Not Given Piperacillin Sod/Tazobactam Sod (Zosyn 3.375 Gm Iv Premix) 3.375 gm in 50 mls @ 100 mls/hr IVPB Q6H [facility] Last Admin: 06/28/17 21:43 Dose: 100 mls/hr Insulin Aspart (Novolog) 0 unit SC ACHS [facility] PRN Reason: Protocol Last Admin: 06/28/17 21:44 Dose: Not Given Morphine Sulfate (Morphine) 2 mg IVP Q4 PRN PRN Reason: Pain, severe (8-10) Last Admin: 06/28/17 21:44 Dose: 2 mg Ondansetron HCl (Zofran Inj) 4 mg IVP Q4 PRN PRN Reason: nausea Last Admin: 06/22/17 14:41 Dose: 4 mg Potassium Chloride (K-Dur 20 Meq Er Tab) 20 meq PO BID [facility] Stop: 06/29/17 18:01 Last Admin: 06/28/17 17:49 Dose: 20 meq - Labs Labs: 06/28/17 07:16 06/28/17 07:16 PT 15.5 SECONDS (9.7-12.2) H 06/14/17 08:47 INR 1.4 06/14/17 08:47 APTT 31 SECONDS (21-34) 06/14/17 08:47 - Constitutional Appears: No Acute Distress - Head Exam Head Exam: ATRAUMATIC, NORMAL INSPECTION, NORMOCEPHALIC - Eye Exam Eye Exam: EOMI, Normal appearance, PERRL Pupil Exam: NORMAL ACCOMODATION, PERRL - Respiratory Exam Respiratory Exam: Decreased Breath Sounds, Rales, Wheezes - Cardiovascular Exam Cardiovascular Exam: REGULAR RHYTHM, +S1, +S2. absent: Murmur - GI/Abdominal Exam GI & Abdominal Exam: Soft, Normal Bowel Sounds, Organomegaly. absent: Tenderness - Neurological Exam Neurological Exam: Alert, Awake, CN II-XII Intact, Normal Gait, Oriented x3 - Psychiatric Exam Psychiatric exam: Normal Affect, Normal Mood Assessment and Plan (1) Intestinal obstruction Status: Acute (2) Thrombocytopenia Status: Acute (3) Ventral hernia Status: Acute (4) HTN (hypertension) Status: Acute (5) Diabetes mellitus Status: Chronic
[2017-06-29] MEDS: (Novolog) Insulin Aspart, Recombinant 100 u/ml 10 ml vial SC SCH ×4 (08:30→22:04)
[2017-06-29] MEDS: Potassium Chloride 20 mEq ER Tab PO SCH ×2 (10:33→17:23)
[2017-06-29] MEDS: Piperacill/Tazo 3.375gm in Dex 3.375 GM/50 ML BAG IVPB SCH ×3 (10:34→21:00)
[2017-06-29 12:25] LABS: BASO % 0.6 % (0.0-2.0); EOS % 0.3 % (0.0-4.0); HEMATOCRIT 24.2 % (35.0-51.0); LYMPH # 1.4 K/uL (1.0-4.3); LYMPH % 18.3 % (20.0-40.0); MEAN CELL VOLUME 100.9 fL (80.0-94.0); MEAN CORPUSCULAR HEMOGLOBIN 34.2 pg (27.0-31.0); MEAN CORPUSCULAR HGB CONC 33.9 g/dL (33.0-37.0); MEAN PLATELET VOLUME 9.2 fL (7.2-11.7); MONO % 12.8 % (0.0-10.0); WHITE BLOOD COUNT 7.8 K/uL (4.8-10.8)
[2017-06-29 12:34] LABS: CHLORIDE 97 mmol/L (98-107); POTASSIUM 3.7 mmol/L (3.6-5.2); SODIUM 130 mmol/L (132-148)
[2017-06-29 12:36] LABS: CARBON DIOXIDE 26 mmol/L (22-30); GFR AFRICAN-AMERICAN > 60
[2017-06-29 12:37] LABS: BLOOD UREA NITROGEN 8 mg/dL (9-20); CALCIUM 7.8 mg/dl (8.6-10.4); GLUCOSE,RANDOM 187 mg/dL (75-110)
--- NOTE | 2017-06-29 12:42 | PN ---
DATE: SUBJECTIVE: This is a 66-year-old male, seen and examined around without significant clinical changes or reported active bleeding. The entire chart is reviewed including but not limited to most recent lab and radiology study result, current and previous medication list, current and the previous medical events. Complaining of some abdominal pain. ASSESSMENT: 1. The patient is status partial thyroid resection. 2. Status post anterior abdominal wall incarcerated hernia repair. 3. Abdominal abscess formation, drained. 4. Anemia secondary to above. 5. Re-exacerbation of peptic ulcer disease. SUGGESTION: 1. Continue current management. 2. MRI of the abdomen to be considered to carry out. Further recommendation to follow. Senthil Damon MD cc: Senthil Damon MD
--- NOTE | 2017-06-29 13:19 | US ---
PROCEDURE: Date of procedure: 06/28/2017 Procedure: 1. Abdominal wall abscess drainage with ultrasound guidance, CPT 00609 Medications: 8 cubic centimeters lidocaine 1 percent. HISTORY: Abdominal wall abscess, ventral hernia repair. TECHNIQUE: Following informed consent procedure time-out, limited ultrasound of patient's abdomen confirm the presence of a complex abdominal collection seen on previous CT scan. After the patient abdomen was prepped and draped in the usual sterile fashion, the skin was anesthetized with 1 % lidocaine. A 5 Frisian Yueh catheter was advanced under ultrasound guidance into the collection. Upon return of serosanguineous fluid, the Yueh catheter was exchanged over a guidewire for an 8 Frisian all-purpose drainage catheter which was formed within the collection. 40 cubic centimeters of slight serosanguineous drainage was removed and sent for culture. IMPRESSION: Ultrasound-guided drainage of abdominal wall abscess with placement of an 8 Frisian drainage catheter. 40 cubic centimeters of slight serosanguineous fluid was removed and sent for culture and sensitivity.
--- NOTE | 2017-06-29 15:38 | CP.PCM.PN ---
Subjective - Date & Time of Evaluation Date of Evaluation: 06/29/17 Time of Evaluation: 07:00 - Subjective Subjective: GENERAL SURGERY PROGRESS NOTE FOR DR. CURIEL Patient seen and examined at bedside. He reports having 2-3 BMs last night. He is passing flatus. He reports occasional abdominal pain in the lower abdomen. He is tolerating diet and denies nausea or vomiting. He is using his IS and ambulating with PT and on his own. Objective - Vital Signs/Intake and Output Vital Signs (last 24 hours): Temp Pulse Resp BP Pulse Ox 98.2 F 77 20 108/64 100 06/29/17 08:25 06/29/17 08:25 06/29/17 08:25 06/29/17 08:25 06/29/17 08:25 Intake and Output: 06/29/17 06/29/17 06:59 18:59 Intake Total 710 Output Total 300 Balance 410 - Medications Medications: Current Medications Clonidine HCl (Catapres Tts1 0.1 Mg/24 Hr) 1 patch TD Q7D@1000 [facility] Last Admin: 06/23/17 09:58 Dose: 1 patch Famotidine (Pepcid) 20 mg PO BID [facility] Last Admin: 06/29/17 10:33 Dose: 20 mg Heparin Sodium (Porcine) (Heparin) 5,000 units SC Q8 [facility] Last Admin: 06/29/17 15:00 Dose: 5,000 units Piperacillin Sod/Tazobactam Sod (Zosyn 3.375 Gm Iv Premix) 3.375 gm in 50 mls @ 100 mls/hr IVPB Q6H [facility] Last Admin: 06/29/17 10:34 Dose: 100 mls/hr Insulin Aspart (Novolog) 0 unit SC ACHS [facility] PRN Reason: Protocol Last Admin: 06/29/17 12:22 Dose: 3 unit Ondansetron HCl (Zofran Inj) 4 mg IVP Q4 PRN PRN Reason: nausea Last Admin: 06/22/17 14:41 Dose: 4 mg Potassium Chloride (K-Dur 20 Meq Er Tab) 20 meq PO BID [facility] Stop: 06/29/17 18:01 Last Admin: 06/29/17 10:33 Dose: 20 meq Tramadol HCl (Ultram) 50 mg PO TID [facility] Last Admin: 06/29/17 15:00 Dose: 50 mg - Labs Labs: 06/29/17 12:21 06/29/17 12:21 PT 15.5 SECONDS (9.7-12.2) H 06/14/17 08:47 INR 1.4 06/14/17 08:47 APTT 31 SECONDS (21-34) 06/14/17 08:47 - Constitutional Appears: Non-toxic, No Acute Distress - Respiratory Exam Respiratory Exam: NORMAL BREATHING PATTERN. absent: Respiratory Distress - Cardiovascular Exam Cardiovascular Exam: +S1, +S2 - GI/Abdominal Exam GI & Abdominal Exam: Soft. absent: Distended, Firm, Guarding, Rigid, Tenderness Additional comments: [place] in place IR drain in place: 50cc - Neurological Exam Neurological Exam: Alert, Awake, Oriented x3 - Psychiatric Exam Psychiatric exam: Normal Affect, Normal Mood - Skin Skin Exam: Dry, Warm Assessment and Plan - Assessment and Plan (Free Text) Assessment: 66yo M with recurrent ventral hernia and thrombocytopenia s/p exploratory laparotomy, extensive ROLANDO, repair of recurrent ventral hernia with biologic mesh , small bowel resection with primary anastomosis POD#15, now s/p IR US guided abdominal abscess drainage with placement of an 8Fr drainage catheter yesterday. - Afebrile, VSS - Leukocytosis resolved - Hemoglobin 8.2, stable, pt asymptomatic, will resume heparin - Thrombocytopenia resolved - Hypokalemia resolved - Continue Physical therapy - On regular diet - Encouraged OOB, ambulation, and IS use - Removed every other staple - Will switch morphine to percocet - Discussed plan with Dr. Stephen Brownlee PGY-3
--- NOTE | 2017-06-29 19:44 | CP.PCM.PN ---
Subjective - Date & Time of Evaluation Date of Evaluation: 06/29/17 Time of Evaluation: 19:35 - Subjective Subjective: Feeling better Objective - Vital Signs/Intake and Output Vital Signs (last 24 hours): Temp Pulse Resp BP Pulse Ox 98.4 F 83 20 126/77 99 06/29/17 15:12 06/29/17 15:12 06/29/17 15:12 06/29/17 15:12 06/29/17 15:12 Intake and Output: 06/29/17 06/30/17 18:59 06:59 Intake Total 450 Output Total 415 Balance 35 - Medications Medications: Current Medications Clonidine HCl (Catapres Tts1 0.1 Mg/24 Hr) 1 patch TD Q7D@1000 [facility] Last Admin: 06/23/17 09:58 Dose: 1 patch Famotidine (Pepcid) 20 mg PO BID [facility] Last Admin: 06/29/17 17:23 Dose: 20 mg Heparin Sodium (Porcine) (Heparin) 5,000 units SC Q8 [facility] Last Admin: 06/29/17 15:00 Dose: 5,000 units Piperacillin Sod/Tazobactam Sod (Zosyn 3.375 Gm Iv Premix) 3.375 gm in 50 mls @ 100 mls/hr IVPB Q6H [facility] Last Admin: 06/29/17 17:02 Dose: 100 mls/hr Insulin Aspart (Novolog) 0 unit SC ACHS [facility] PRN Reason: Protocol Last Admin: 06/29/17 17:23 Dose: 1 unit Ondansetron HCl (Zofran Inj) 4 mg IVP Q4 PRN PRN Reason: nausea Last Admin: 06/22/17 14:41 Dose: 4 mg Tramadol HCl (Ultram) 50 mg PO TID [facility] Last Admin: 06/29/17 17:28 Dose: 50 mg - Labs Labs: 06/29/17 12:21 06/29/17 12:21 PT 15.5 SECONDS (9.7-12.2) H 06/14/17 08:47 INR 1.4 06/14/17 08:47 APTT 31 SECONDS (21-34) 06/14/17 08:47 Assessment and Plan (1) Anemia Assessment & Plan: chronic disease, PUD per GI transfusion support PRN Status: Acute (2) Elevated CEA Assessment & Plan: outpatient colonoscopy with GI Status: Acute
--- NOTE | 2017-06-29 20:45 | PN ---
DATE: SUBJECTIVE: The patient denies any chest pain. An EKG done yesterday revealed normal sinus rhythm. He is currently in sinus rhythm on the monitor. PHYSICAL EXAMINATION VITAL SIGNS: Blood pressure 108/64, heart rate 77, temperature 98.2, respiration 20. HEENT: Pale conjunctivae. CHEST: Bibasilar rhonchi. HEART: S1, S2 regular. EXTREMITIES: 1+ pitting edema. LABORATORY DATA: SMA-7: Sodium of 130, potassium of 3.7, chloride 97, CO2 of 26, glucose 187, BUN 8, creatinine 0.7. The Interventional Radiology report concluded ultrasound-guided drainage of abdominal wall abscess with placement of 8-[place] drainage catheter. 4 mL of slight serosanguineous fluid was removed and sent to the culture and sensitivity. The culture results are still pending. ASSESSMENT: 1. Hypertension. 2. Uncontrolled diabetes mellitus. 3. Diastolic heart failure. 4. Anemia. 5. Status post drainage of anterior abdominal wall abscess. RECOMMENDATIONS: Continue clonidine patch 0.1 mg daily; subcutaneous heparin 5000 units q. 8 hours; K-Dur 20 mEq twice a day; Zofran 4 mg intravenously q. 4 hours; Zosyn 3.375 g intravenously q. 6 hours. I will follow the abdominal fluid bacteriology results. Pavel Contreras MD
--- NOTE | 2017-06-29 22:50 | CP.PCM.PN ---
Subjective - Date & Time of Evaluation Date of Evaluation: 06/29/17 Time of Evaluation: 20:00 - Subjective Subjective: PT SEEN AND EXAMINED, STABLE NO SHORTNESS OF BREATH, FEELING BETTER. S/P INCARCERATED HERNIA POST OP Objective - Vital Signs/Intake and Output Vital Signs (last 24 hours): Temp Pulse Resp BP Pulse Ox 98.4 F 83 20 126/77 99 06/29/17 15:12 06/29/17 15:30 06/29/17 15:12 06/29/17 15:12 06/29/17 15:12 Intake and Output: 06/29/17 06/30/17 18:59 06:59 Intake Total 450 Output Total 415 Balance 35 - Medications Medications: Current Medications Clonidine HCl (Catapres Tts1 0.1 Mg/24 Hr) 1 patch TD Q7D@1000 [facility] Last Admin: 06/23/17 09:58 Dose: 1 patch Famotidine (Pepcid) 20 mg PO BID [facility] Last Admin: 06/29/17 17:23 Dose: 20 mg Heparin Sodium (Porcine) (Heparin) 5,000 units SC Q8 [facility] Last Admin: 06/29/17 21:55 Dose: 5,000 units Piperacillin Sod/Tazobactam Sod (Zosyn 3.375 Gm Iv Premix) 3.375 gm in 50 mls @ 100 mls/hr IVPB Q6H [facility] Last Admin: 06/29/17 21:00 Dose: 100 mls/hr Insulin Aspart (Novolog) 0 unit SC ACHS [facility] PRN Reason: Protocol Last Admin: 06/29/17 22:04 Dose: Not Given Ondansetron HCl (Zofran Inj) 4 mg IVP Q4 PRN PRN Reason: nausea Last Admin: 06/22/17 14:41 Dose: 4 mg Tramadol HCl (Ultram) 50 mg PO TID [facility] Last Admin: 06/29/17 17:28 Dose: 50 mg - Labs Labs: 06/29/17 12:21 06/29/17 12:21 PT 15.5 SECONDS (9.7-12.2) H 06/14/17 08:47 INR 1.4 06/14/17 08:47 APTT 31 SECONDS (21-34) 06/14/17 08:47 - Constitutional Appears: No Acute Distress - Head Exam Head Exam: ATRAUMATIC, NORMAL INSPECTION, NORMOCEPHALIC - Eye Exam Eye Exam: EOMI, Normal appearance, PERRL Pupil Exam: NORMAL ACCOMODATION, PERRL - Cardiovascular Exam Cardiovascular Exam: REGULAR RHYTHM, +S1, +S2. absent: Murmur - GI/Abdominal Exam GI & Abdominal Exam: Soft, Normal Bowel Sounds. absent: Tenderness - Rectal Exam Rectal Exam: Deferred Assessment and Plan (1) Intestinal obstruction Status: Acute (2) Thrombocytopenia Status: Acute (3) Ventral hernia Status: Acute (4) HTN (hypertension) Status: Acute (5) Diabetes mellitus Status: Chronic
[2017-06-30] MEDS ORDERED: Oxycodone/Acetaminophen 5/325 mg Tab PO ONE (03:33)
[2017-06-30] MEDS: Piperacill/Tazo 3.375gm in Dex 3.375 GM/50 ML BAG IVPB SCH ×4 (03:44→21:31)
[2017-06-30 07:26] LABS: WHITE BLOOD COUNT 8.1 K/uL (4.8-10.8)
[2017-06-30 07:39] LABS: CHLORIDE 98 mmol/L (98-107)
[2017-06-30 07:40] LABS: BASO # 0.1 K/uL (0.0-0.2); BASO % 0.8 % (0.0-2.0); EOS % 0.3 % (0.0-4.0); HEMATOCRIT 24.8 % (35.0-51.0); LYMPH # 1.8 K/uL (1.0-4.3); LYMPH % 22.5 % (20.0-40.0); MEAN CELL VOLUME 101.3 fL (80.0-94.0); MEAN CORPUSCULAR HEMOGLOBIN 34.4 pg (27.0-31.0); MONO # 0.9 K/uL (0.0-0.8); MONO % 11.4 % (0.0-10.0); NRBC % 0.1 % (0.0-2.0); POTASSIUM 4.1 mmol/L (3.6-5.2); RED CELL DISTRIBUTION WIDTH 19.7 % (11.5-14.5); SODIUM 129 mmol/L (132-148)
[2017-06-30 07:42] LABS: CARBON DIOXIDE 25 mmol/L (22-30); GFR AFRICAN-AMERICAN > 60
[2017-06-30 07:43] LABS: BLOOD UREA NITROGEN 9 mg/dL (9-20); CALCIUM 7.5 mg/dl (8.6-10.4); GLUCOSE,RANDOM 100 mg/dL (75-110)
[2017-06-30] MEDS: (Novolog) Insulin Aspart, Recombinant 100 u/ml 10 ml vial SC SCH ×4 (08:08→21:36)
--- NOTE | 2017-06-30 13:25 | CP.PCM.PN ---
Subjective - Date & Time of Evaluation Date of Evaluation: 06/30/17 Time of Evaluation: 13:24 - Subjective Subjective: report showed gm + cocci awaiting final ID has biologic mesh no plan to remove Objective - Vital Signs/Intake and Output Vital Signs (last 24 hours): Temp Pulse Resp BP Pulse Ox 98.5 F 77 18 115/75 97 06/30/17 07:40 06/30/17 07:40 06/30/17 07:40 06/30/17 07:40 06/30/17 07:40 Intake and Output: 06/30/17 06/30/17 06:59 18:59 Intake Total 990 Output Total 670 Balance 320 - Medications Medications: Current Medications Clonidine HCl (Catapres Tts1 0.1 Mg/24 Hr) 1 patch TD Q7D@1000 [facility] Last Admin: 06/30/17 10:52 Dose: 1 patch Famotidine (Pepcid) 20 mg PO BID [facility] Last Admin: 06/30/17 10:41 Dose: 20 mg Heparin Sodium (Porcine) (Heparin) 5,000 units SC Q8 [facility] Last Admin: 06/30/17 05:29 Dose: 5,000 units Piperacillin Sod/Tazobactam Sod (Zosyn 3.375 Gm Iv Premix) 3.375 gm in 50 mls @ 100 mls/hr IVPB Q6H [facility] Last Admin: 06/30/17 10:43 Dose: 100 mls/hr Insulin Aspart (Novolog) 0 unit SC ACHS [facility] PRN Reason: Protocol Last Admin: 06/30/17 12:29 Dose: 1 unit Ondansetron HCl (Zofran Inj) 4 mg IVP Q4 PRN PRN Reason: nausea Last Admin: 06/22/17 14:41 Dose: 4 mg Tramadol HCl (Ultram) 50 mg PO TID [facility] Last Admin: 06/30/17 10:41 Dose: 50 mg - Labs Labs: 06/30/17 07:06 06/30/17 07:06 PT 15.5 SECONDS (9.7-12.2) H 06/14/17 08:47 INR 1.4 06/14/17 08:47 APTT 31 SECONDS (21-34) 06/14/17 08:47
--- NOTE | 2017-06-30 15:15 | CP.PCM.PN ---
Subjective - Date & Time of Evaluation Date of Evaluation: 06/30/17 Time of Evaluation: 07:00 - Subjective Subjective: GENERAL SURGERY PROGRESS NOTE FOR DR. CURIEL Patient seen and examined at bedside. He is having normal bowel movements. He is passing flatus. He reports occasional abdominal pain in the lower abdomen. He is tolerating diet and denies nausea or vomiting. He is using his IS and ambulating with PT and on his own. Objective - Vital Signs/Intake and Output Vital Signs (last 24 hours): Temp Pulse Resp BP Pulse Ox 98.5 F 77 18 115/75 97 06/30/17 07:40 06/30/17 07:40 06/30/17 07:40 06/30/17 07:40 06/30/17 07:40 Intake and Output: 06/30/17 06/30/17 06:59 18:59 Intake Total 990 390 Output Total 670 Balance 320 390 - Medications Medications: Current Medications Clonidine HCl (Catapres Tts1 0.1 Mg/24 Hr) 1 patch TD Q7D@1000 [facility] Last Admin: 06/30/17 10:52 Dose: 1 patch Famotidine (Pepcid) 20 mg PO BID [facility] Last Admin: 06/30/17 10:41 Dose: 20 mg Heparin Sodium (Porcine) (Heparin) 5,000 units SC Q8 [facility] Last Admin: 06/30/17 14:14 Dose: 5,000 units Piperacillin Sod/Tazobactam Sod (Zosyn 3.375 Gm Iv Premix) 3.375 gm in 50 mls @ 100 mls/hr IVPB Q6H [facility] Last Admin: 06/30/17 10:43 Dose: 100 mls/hr Vancomycin/Sodium Chloride (Vancomycin 1 Gm/Ns 200 Ml) 1 gm in 200 mls @ 133 mls/hr IVPB Q12H [facility] Stop: 07/05/17 16:01 Insulin Aspart (Novolog) 0 unit SC ACHS [facility] PRN Reason: Protocol Last Admin: 06/30/17 12:29 Dose: 1 unit Ondansetron HCl (Zofran Inj) 4 mg IVP Q4 PRN PRN Reason: nausea Last Admin: 06/22/17 14:41 Dose: 4 mg Tramadol HCl (Ultram) 50 mg PO TID [facility] Last Admin: 06/30/17 14:13 Dose: 50 mg - Labs Labs: 06/30/17 07:06 06/30/17 07:06 PT 15.5 SECONDS (9.7-12.2) H 06/14/17 08:47 INR 1.4 06/14/17 08:47 APTT 31 SECONDS (21-34) 06/14/17 08:47 - Constitutional Appears: Non-toxic, No Acute Distress - Eye Exam Eye Exam: Normal appearance - Respiratory Exam Respiratory Exam: NORMAL BREATHING PATTERN. absent: Respiratory Distress - Cardiovascular Exam Cardiovascular Exam: +S1, +S2 - GI/Abdominal Exam GI & Abdominal Exam: Soft. absent: Distended, Firm, Guarding, Rigid, Tenderness Additional comments: rodd[place] in place - Neurological Exam Neurological Exam: Alert, Awake Assessment and Plan - Assessment and Plan (Free Text) Assessment: 66yo M with recurrent ventral hernia and thrombocytopenia s/p exploratory laparotomy, extensive ROLANDO, repair of recurrent ventral hernia with biologic mesh , small bowel resection with primary anastomosis POD#16, now s/p IR US guided abdominal abscess drainage with placement of an 8Fr drainage catheter 2 days ago. - Afebrile, VSS - Hemoglobin 8.4, stable, gave Venofer today - Continue Physical therapy - Tolerating regular diet, having regular bowel movements - Encouraged OOB, ambulation, and IS use - Culture from IR drainage: gram + cocci, patient started on Vancomycin - Hepatitis C antibody is reactive - Discussed plan with Dr. Stephen Brownlee PGY-3
--- NOTE | 2017-06-30 16:39 | CP.PCM.CON ---
History of Present Illness - History of Present Illness History of Present Illness: INFECTIOUS DISEASE CONSULTATION; PATIENT SEEN, CHART REVIEWED, CONSULTANTS NOTED, DISCUSSION WITH STAFF AND REVIEW OF MEDICAL RECORDS. HPI 66-year-old -M[place]ese male with past medical history of hypertension, hyperlipidemia, IDDM,HEPATITIS C, ventral hernia repair with mesh who presented to [facility] on 06/05/17 with abdominal pain associated with generalized weakness tiredness and fatigue. Patient had a prolonged hospitalization course and was found to have small bowel obstruction with incarcerated hernia. Patient underwent exploratory lap with open ventral hernia repair/, small bowel resection, lysis of adhesions and repair of incarcerated hernia with mesh ON 06/14/17. Postoperatively patient developed increasing abdominal pain and CT of the abdomen and pelvis with by mouth and IV contrast on 06/25/17 showed developing abscess with in postoperative site of ventral hernia repair measuring 12 cm. Also seroma with gas is a possibility versus chronic hematoma. Mild abdominal ascites also seen in the pelvis. No free intraperitoneal gas seen. Patient underwent ultrasound-guided drainage by IR and placement of 8 [place]ian drainage catheter draining seropurulent fluid on 06/28/17. Gram stain culture showing gram-positive cocci. Patient has been placed on IV Zosyn postoperatively SINCE 06/14/17 Infectious disease consultation requested by PMD for abdominal wall abscess/ and possible infected mesh. Allergy; ASPIRIN PMH: DM, HTN, HLD, Hep C PSH: Hernia repair w/ Mesh ALL; NKDA SocialHx: independent in ADL ETOH,Tobacco use, denies drug use MEDS; REVIEWED. Review of Systems - Constitutional Constitutional: absent: Chills, Fever - EENT Nose/Mouth/Throat: absent: Dysphagia, Mouth Lesions - Cardiovascular Cardiovascular: absent: Chest Pain, Dyspnea - Respiratory Respiratory: absent: Cough - Gastrointestinal Gastrointestinal: Abdominal Pain, Bloating. absent: Constipation, Diarrhea, Melena, Nausea, Vomiting - Genitourinary Genitourinary: absent: Dysuria, Hematuria, Bladder Distension - Neurological Neurological: absent: Headaches - Hematologic/Lymphatic Hematologic: As Per HPI. absent: Easy Bleeding, Easy Bruising, Lymphadenopathy Past Patient History - Past Medical History & Family History Past Medical History?: Yes - Past Social History Smoking Status: Light Smoker < 10 Cigarettes Daily - CARDIAC Hx Hypertension: Yes - PULMONARY Hx Respiratory Disorders: No - NEUROLOGICAL Hx Neurological Disorder: No - HEENT Hx HEENT Problems: No - RENAL Other/Comment: pt claims he has kidney problem - ENDOCRINE/METABOLIC Hx Diabetes Mellitus Type 2: Yes - HEMATOLOGICAL/ONCOLOGICAL Hx Anemia: Yes - INTEGUMENTARY Hx Dermatological Problems: No - MUSCULOSKELETAL/RHEUMATOLOGICAL Hx Falls: Yes - GASTROINTESTINAL Hx Gastritis: Yes - GENITOURINARY/GYNECOLOGICAL Hx Genitourinary Disorders: Yes Hx Urinary Tract Infection: Yes - PSYCHIATRIC Hx Substance Use: No - SURGICAL HISTORY Hx Surgeries: Yes Hx Herniorrhaphy: Yes (2011) - ANESTHESIA Hx Anesthesia: Yes Hx Anesthesia Reactions: No Hx Malignant Hyperthermia: No Meds Allergies/Adverse Reactions: Allergies Allergy/AdvReac Type Severity Reaction Status Date / Time aspirin Allergy Verified 06/05/17 05:14 - Medications Medications: Current Medications Clonidine HCl (Catapres Tts1 0.1 Mg/24 Hr) 1 patch TD Q7D@1000 [facility] Last Admin: 06/30/17 10:52 Dose: 1 patch Famotidine (Pepcid) 20 mg PO BID [facility] Last Admin: 06/30/17 10:41 Dose: 20 mg Heparin Sodium (Porcine) (Heparin) 5,000 units SC Q8 [facility] Last Admin: 06/30/17 14:14 Dose: 5,000 units Piperacillin Sod/Tazobactam Sod (Zosyn 3.375 Gm Iv Premix) 3.375 gm in 50 mls @ 100 mls/hr IVPB Q6H [facility] Last Admin: 06/30/17 10:43 Dose: 100 mls/hr Vancomycin/Sodium Chloride (Vancomycin 1 Gm/Ns 200 Ml) 1 gm in 200 mls @ 133 mls/hr IVPB Q12H [facility] Stop: 07/05/17 16:01 Insulin Aspart (Novolog) 0 unit SC ACHS [facility] PRN Reason: Protocol Last Admin: 06/30/17 12:29 Dose: 1 unit Ondansetron HCl (Zofran Inj) 4 mg IVP Q4 PRN PRN Reason: nausea Last Admin: 06/22/17 14:41 Dose: 4 mg Tramadol HCl (Ultram) 50 mg PO TID [facility] Last Admin: 06/30/17 14:13 Dose: 50 mg Physical Exam - Constitutional Appears: No Acute Distress - Head Exam Head Exam: NORMAL INSPECTION - Eye Exam Eye Exam: EOMI, PERRL. absent: Scleral icterus - ENT Exam ENT Exam: Normal Oropharynx - Neck Exam Neck exam: Positive for: Normal Inspection. Negative for: Lymphadenopathy - Respiratory Exam Respiratory Exam: Decreased Breath Sounds - Cardiovascular Exam Cardiovascular Exam: Tachycardia, REGULAR RHYTHM, +S1, +S2 - GI/Abdominal Exam GI & Abdominal Exam: Distended, Hypoactive Bowel Sounds, Soft (MIDLINE INCISION WITH GEENA IN PLACE. SOME BRUISING ANTERIOR ABDOMINAL WALL. ALSO DRAINAGE WITH 8 Romanian CATHETER NOTED IN Juli[place]Baird AND THE COLLECTING BAG.) - Extremities Exam Extremities exam: Positive for: pedal edema (2+ PEDAL EDEMA.), pedal pulses present (DISTANT.). Negative for: calf tenderness - Neurological Exam Neurological exam: Alert, CN II-XII Intact, Oriented x3, Reflexes Normal - Psychiatric Exam Psychiatric exam: Normal Mood - Skin Skin Exam: Dry, Warm Results - Vital Signs Recent Vital Signs: Last Vital Signs Temp 98.5 F 06/30/17 07:40 Pulse 77 06/30/17 07:40 Resp 18 06/30/17 07:40 BP 115/75 06/30/17 07:40 Pulse Ox 97 06/30/17 07:40 - Labs Result Diagrams: 06/30/17 07:06 06/30/17 07:06 Labs: Laboratory Results - last 24 hr 06/29/17 06/29/17 06/30/17 16:39 22:02 06:45 WBC RBC Hgb Hct MCV MCH MCHC RDW Plt Count MPV Neut % (Auto) Lymph % (Auto) [place] % (Auto) Eos % (Auto) Baso % (Auto) Neut # Lymph # [place] # Eos # Baso # Differential Comment Sodium Potassium Chloride Carbon Dioxide Anion Gap BUN Creatinine Est GFR ( Amer) Est GFR (Non-Af Amer) POC Glucose (mg/dL) 198 H 176 H 125 H Random Glucose Calcium Hepatitis A IgM Ab Hep Bs Antigen Hep B Core IgM Ab Hepatitis C Antibody 06/30/17 06/30/17 06/30/17 07:06 07:06 07:06 WBC 8.1 RBC 2.45 L Hgb 8.4 L Hct 24.8 L MCV 101.3 H MCH 34.4 H MCHC 34.0 RDW 19.7 H Plt Count 118 L MPV 9.0 Neut % (Auto) 65.0 Lymph % (Auto) 22.5 [place] % (Auto) 11.4 H Eos % (Auto) 0.3 Baso % (Auto) 0.8 Neut # 5.2 Lymph # 1.8 [place] # 0.9 H Eos # 0.0 Baso # 0.1 Differential Comment Sodium 129 L Potassium 4.1 Chloride 98 Carbon Dioxide 25 Anion Gap 10 BUN 9 Creatinine 0.9 Est GFR ( Amer) > 60 Est GFR (Non-Af Amer) > 60 POC Glucose (mg/dL) Random Glucose 100 Calcium 7.5 L Hepatitis A IgM Ab Negative Hep Bs Antigen Negative Hep B Core IgM Ab Negative Hepatitis C Antibody Reactive 06/30/17 11:42 WBC RBC Hgb Hct MCV MCH MCHC RDW Plt Count MPV Neut % (Auto) Lymph % (Auto) [place] % (Auto) Eos % (Auto) Baso % (Auto) Neut # Lymph # [place] # Eos # Baso # Differential Comment Sodium Potassium Chloride Carbon Dioxide Anion Gap BUN Creatinine Est GFR ( Amer) Est GFR (Non-Af Amer) POC Glucose (mg/dL) 189 H Random Glucose Calcium Hepatitis A IgM Ab Hep Bs Antigen Hep B Core IgM Ab Hepatitis C Antibody - Imaging and Cardiology CT scan - abdomen Status: Report reviewed by me (see full report 06/25/17.) Assessment & Plan (1) S/P repair of recurrent ventral hernia Assessment and Plan: S/P OPEN VENTRAL HERNIA REPAIR WITH BIOLOGICAL MESH/SMALL BOWEL RESECTION/ lYSIS OF ADHESION AND REPAIR OF RECURRENT INCISIONAL HERNIA WITH MESH ON . BY DR CURIEL. S/P IR ,ULTRASOUND GUIDED DRAINAGE OF ABDOMINAL WALL COLLECTION AT SITE OF SURGICAL GEENA AND PLACEMENT OFF 8 Romanian DRAINAGE CATHETER 06/28/17. DRAINAGE FLUID +VE GRAM-POSITIVE COCCI PANCULTURES UA/URINE CULTURES, CONTINUE iv ZOSYN 3.375 q 8 HOURLY 06/14/17. ADD iv VANCOMYCIN 1 G EVERY 12 HOURLY 06/30/17 FOR GRAM-POSITIVE MRSA COVERAGE.06/30/17. VANCO TROUGH LEVELS PRIOR TO THE FOURTH DOSE AND KEEP IT BETWEEN 10 AND 20. fOLLOW-UP CULTURES AND ADJUST ANTIBIOTICS. fOLLOW-UP RENAL FUNCTIONS CLOSELY. MRSA SCREEN IF NOT DONE. ADEQUATE CONTROL OF HIS BLOOD SUGAR. WILL DISCUSS WITH MEDICAL TEAM/ AND SURGERY. IF MESH INFECTED WILL NEED SURGICAL INTERVENTION. Status: Acute (2) Status post exploratory laparotomy Status: Acute (3) Small bowel obstruction Status: Acute (4) Diabetes mellitus Status: Chronic (5) Hepatitis C infection Status: Chronic (6) Hypertension Status: Chronic
[2017-06-30] MEDS: Vancomycin 1 gm/NS 200 ml 1 GM/200 ML BAG IVPB SCH (18:00)
--- NOTE | 2017-06-30 19:18 | PN ---
DATE: SUBJECTIVE: The patient denies chest pain. He complains of abdominal discomfort. PHYSICAL EXAMINATION VITAL SIGNS: Blood pressure 116/65, heart rate 77, temperature 98.5, respiration 18. HEENT: Pale conjunctivae. CHEST: Diminished breath sounds over the bases. HEART: S1 and S2 regular. ABDOMEN: Soft. EXTREMITIES: 1+ pitting edema. LABORATORY DATA: Today's hemoglobin and hematocrit 8.4 and 24.8, white count 8.1, and platelet count 118,000. SMA-7 is within normal limits except for sodium of 129. Calcium is within normal limits at 7.5. ASSESSMENT: 1. Status post anterior abdominal wall hernia repair and small bowel resection, status post drainage of an anterior abdominal wall fluid collection and preliminary blood culture result with Gram-positive cocci. 2. Hypertension. 3. Diastolic heart failure. 4. Anemia. 5. Mild thrombocytopenia. RECOMMENDATIONS: Continue clonidine patch at 0.5 mg daily. Subcutaneous heparin was resumed at 5000 units q. 8 hours. Continue IV vancomycin at 1 g q. 12 hours, IV Zosyn at 3.375 g intravenously q. 6 hours. Discontinue telemetry. Pavel Contreras MD
--- NOTE | 2017-06-30 19:59 | PN ---
DATE: LOCATION: [facility], bed 8. SUBJECTIVE: This is a 66-year-old male seen and examined in rounds, without significant clinical changes but with persistent abdominal pain. The entire chart is reviewed including but not limited to the most recent lab and radiology study results, current and previous medication list, current and previous medical events. Today's lab showed again low hemoglobin of 8.4, hematocrit 24.8, platelet count of 118, low sodium of 129, blood glucose level 189 and low calcium of 7.5. PHYSICAL EXAMINATION: GENERAL: A 66-year-old male. VITAL SIGNS: Afebrile with pulse of 74, respiratory rate of 18 to 20 and blood pressure of 122/72. HEENT: Show pale, dry oral mucous membrane. Nonicteric sclerae. LUNGS: Few scattered crepitations, decreased air entry at bases. HEART: Positive S1 and S2. ABDOMEN: Soft. Bowel sounds are present. No mass or organomegaly. No rebound tenderness or guarding but generalized tenderness with clean dressing. EXTREMITIES: No significant edema, clubbing or cyanosis. NEUROLOGIC: No reported neurological deficits, sensory or motor. IMPRESSION: 1. Incarcerated abdominal hernia, treated surgically. 2. Status post partial small bowel resection. 3. Postoperative intra-abdominal abscess formation, drained surgically. 4. Anemia secondary to above. 5. Peptic ulcer disease by history. 6. Known history of thrombocytopenia, electrolyte imbalance with malnutrition and hypoalbuminemia. SUGGESTION: 1. Continue current management. 2. The patient may repeat CAT scan of the abdomen and the pelvis. 3. Cancer markers. 4. Further evaluation to follow. Sentihl Damon MD cc: Senthil Damon MD
--- NOTE | 2017-06-30 23:26 | CP.PCM.PN ---
Subjective - Date & Time of Evaluation Date of Evaluation: 06/30/17 Time of Evaluation: 19:00 - Subjective Subjective: PT SEEN AND EVALUATED AT BEDSIDE, FEELING BETTER, incisonal hernia, s/p open repair w. biologic mesh, small bowel resection POD#16, w. development of seroma , s/p IR drainage -abx per ID -encourage ambulation and IS use Objective - Vital Signs/Intake and Output Vital Signs (last 24 hours): Temp Pulse Resp BP Pulse Ox 98.1 F 77 20 119/76 99 06/30/17 16:00 06/30/17 16:00 06/30/17 16:00 06/30/17 16:00 06/30/17 16:00 Intake and Output: 06/30/17 07/01/17 18:59 06:59 Intake Total 390 900 Output Total 15 815 Balance 375 85 - Medications Medications: Current Medications Clonidine HCl (Catapres Tts1 0.1 Mg/24 Hr) 1 patch TD Q7D@1000 [facility] Last Admin: 06/30/17 10:52 Dose: 1 patch Famotidine (Pepcid) 20 mg PO BID [facility] Last Admin: 06/30/17 18:24 Dose: 20 mg Heparin Sodium (Porcine) (Heparin) 5,000 units SC Q8 [facility] Last Admin: 06/30/17 21:35 Dose: 5,000 units Piperacillin Sod/Tazobactam Sod (Zosyn 3.375 Gm Iv Premix) 3.375 gm in 50 mls @ 100 mls/hr IVPB Q6H [facility] Last Admin: 06/30/17 21:31 Dose: 100 mls/hr Vancomycin/Sodium Chloride (Vancomycin 1 Gm/Ns 200 Ml) 1 gm in 200 mls @ 133 mls/hr IVPB Q12H [facility] Stop: 07/05/17 16:01 Last Admin: 06/30/17 18:00 Dose: 133 mls/hr Insulin Aspart (Novolog) 0 unit SC ACHS [facility] PRN Reason: Protocol Last Admin: 06/30/17 21:36 Dose: Not Given Ondansetron HCl (Zofran Inj) 4 mg IVP Q4 PRN PRN Reason: nausea Last Admin: 06/22/17 14:41 Dose: 4 mg Tramadol HCl (Ultram) 50 mg PO TID [facility] Last Admin: 06/30/17 18:24 Dose: 50 mg - Labs Labs: 06/30/17 07:06 06/30/17 07:06 PT 15.5 SECONDS (9.7-12.2) H 06/14/17 08:47 INR 1.4 06/14/17 08:47 APTT 31 SECONDS (21-34) 06/14/17 08:47 Assessment and Plan (1) Intestinal obstruction Status: Acute (2) Thrombocytopenia Status: Acute (3) Ventral hernia Status: Acute (4) HTN (hypertension) Status: Acute (5) Diabetes mellitus Status: Chronic
--- NOTE | 2017-06-30 23:50 | CARD ---
APPROVED REPORT EKG Measurement Heart [id number] MA [id number] [id number] <Conclusion> Normal sinus rhythm Normal ECG
[2017-07-01] MEDS ORDERED: Oxycodone/Acetaminophen 5/325 mg Tab PO STA ×2 (01:20→04:53)
[2017-07-01] MEDS: Piperacill/Tazo 3.375gm in Dex 3.375 GM/50 ML BAG IVPB SCH (04:15)
[2017-07-01] MEDS: Vancomycin 1 gm/NS 200 ml 1 GM/200 ML BAG IVPB SCH ×2 (05:09→17:09)
[2017-07-01 06:33] LABS: BASO # 0.1 K/uL (0.0-0.2); BASO % 0.7 % (0.0-2.0); EOS % 0.5 % (0.0-4.0); HEMATOCRIT 24.8 % (35.0-51.0); LYMPH # 2.1 K/uL (1.0-4.3); LYMPH % 22.3 % (20.0-40.0); MEAN CELL VOLUME 100.2 fL (80.0-94.0); MEAN PLATELET VOLUME 8.8 fL (7.2-11.7); MONO % 10.5 % (0.0-10.0); RED CELL DISTRIBUTION WIDTH 20.2 % (11.5-14.5); WHITE BLOOD COUNT 9.3 K/uL (4.8-10.8)
[2017-07-01 06:46] LABS: CHLORIDE 99 mmol/L (98-107); POTASSIUM 3.9 mmol/L (3.6-5.2); SODIUM 130 mmol/L (132-148)
[2017-07-01 06:49] LABS: BLOOD UREA NITROGEN 8 mg/dL (9-20); CARBON DIOXIDE 24 mmol/L (22-30); GFR AFRICAN-AMERICAN > 60
[2017-07-01 06:50] LABS: CALCIUM 7.9 mg/dl (8.6-10.4); GLUCOSE,RANDOM 109 mg/dL (75-110); MAGNESIUM 1.5 mg/dL (1.6-2.3)
[2017-07-01] MEDS: (Novolog) Insulin Aspart, Recombinant 100 u/ml 10 ml vial SC SCH ×4 (07:58→22:26)
--- NOTE | 2017-07-01 15:16 | PN ---
DATE: LOCATION: [facility], bed A. SUBJECTIVE: This 66-year-old male seen and examined in rounds, appear to be awake, alert with intermittent period of complaint of severe abdominal pain. The entire chart is reviewed including, but not limited to the most recent lab and radiology study results, current and the previous medication list, current and the previous medical events. Case discussed at length with staff. Today, his lab showed hemoglobin 8.7, low with low hematocrit 24.8, with platelet count of 119. Low sodium 130, with increase blood glucose level 165, but low calcium 7.9 and low magnesium 1.5. Hepatitis profile was reported to be negative. Stool for occult blood also was reported to be previously negative. PHYSICAL EXAMINATION: GENERAL: A 66-year-old male. VITAL SIGNS: Afebrile with pulse of 72, respiratory rate 18 to 20, blood pressure 126/76. HEENT: Showed pale, dry oral mucous membrane. Nonicteric sclerae. LUNGS: Few scattered crepitation. Decreased air entry at bases. HEART: Positive S1 and S2. ABDOMEN: Soft. Bowel sounds are present. No mass or organomegaly. No rebound tenderness or guarding, but generalized tenderness with clean dressing. EXTREMITIES: Without significant clubbing, cyanosis or edema. NEUROLOGIC: No reported new neurological deficits, sensory or motor. IMPRESSION: 1. Incarcerated intraabdominal wall ventral hernia treated surgically with partial small bowel resection. 2. Intraabdominal abscess formation, drained, postsurgical. 3. Re-exacerbation of peptic ulcer disease. 4. Known history, but not limited to thrombocytopenia as well as recent history of electrolyte imbalance. 5. Anemia secondary to above most likely. SUGGESTIONS: 1. Continue current management. 2. Again repeat stool for occult blood. 3. Serum lipase and amylase level to be ordered. 4. Blood transfusion to keep hemoglobin 10% g as needed. 5. No need for aggressive GI workup in the meantime until the patient is more stable clinically. 6. Further recommendation to follow. Senthil Damon MD cc: Senthil Damon MD
[2017-07-01 15:39] LABS: AMYLASE 38 U/L (30-110)
--- NOTE | 2017-07-01 16:42 | CP.PCM.PN ---
Subjective - Date & Time of Evaluation Date of Evaluation: 07/01/17 Time of Evaluation: 16:41 - Subjective Subjective: Surgery: Dr. Mitchell Pt seen and examined. Resting comfortably in bed. No complaints. Pt is eager to go home. Objective - Vital Signs/Intake and Output Vital Signs (last 24 hours): Temp Pulse Resp BP Pulse Ox 98.2 F 69 19 121/78 100 07/01/17 07:10 07/01/17 07:10 07/01/17 07:10 07/01/17 07:10 07/01/17 07:10 Intake and Output: 07/01/17 07/01/17 06:59 18:59 Intake Total 1300 280 Output Total 977 15 Balance 323 265 - Medications Medications: Current Medications Clonidine HCl (Catapres Tts1 0.1 Mg/24 Hr) 1 patch TD Q7D@1000 [facility] Last Admin: 06/30/17 10:52 Dose: 1 patch Famotidine (Pepcid) 20 mg PO BID [facility] Last Admin: 07/01/17 09:18 Dose: 20 mg Heparin Sodium (Porcine) (Heparin) 5,000 units SC Q8 [facility] Last Admin: 07/01/17 13:36 Dose: 5,000 units Vancomycin/Sodium Chloride (Vancomycin 1 Gm/Ns 200 Ml) 1 gm in 200 mls @ 133 mls/hr IVPB Q12H [facility] Stop: 07/05/17 16:01 Last Admin: 07/01/17 05:09 Dose: 133 mls/hr Insulin Aspart (Novolog) 0 unit SC ACHS [facility] PRN Reason: Protocol Last Admin: 07/01/17 12:12 Dose: 1 unit Ondansetron HCl (Zofran Inj) 4 mg IVP Q4 PRN PRN Reason: nausea Last Admin: 06/22/17 14:41 Dose: 4 mg Tramadol HCl (Ultram) 50 mg PO TID [facility] Last Admin: 07/01/17 13:38 Dose: 50 mg - Labs Labs: 07/01/17 06:19 07/01/17 06:19 PT 15.5 SECONDS (9.7-12.2) H 06/14/17 08:47 INR 1.4 06/14/17 08:47 APTT 31 SECONDS (21-34) 06/14/17 08:47 - Constitutional Appears: Non-toxic, No Acute Distress - Head Exam Head Exam: ATRAUMATIC, NORMOCEPHALIC - Eye Exam Eye Exam: EOMI - ENT Exam ENT Exam: Mucous Membranes Moist - Respiratory Exam Respiratory Exam: NORMAL BREATHING PATTERN. absent: Accessory Muscle Use, Respiratory Distress - GI/Abdominal Exam GI & Abdominal Exam: Soft. absent: Distended, Firm, Guarding, Rigid Additional comments: incision C/D/I IR drain in place, serous output - Neurological Exam Neurological Exam: Alert, Awake, Oriented x3 Assessment and Plan - Assessment and Plan (Free Text) Assessment: 66M w. incisonal hernia, s/p open repair w. biologic mesh, small bowel resection POD#17, w. development of seroma, s/p IR drainage -abx per ID -encourage ambulation and IS use -no plans for further surgical intervention at this time -d/w attending Dionna PGY3
--- NOTE | 2017-07-01 17:07 | PN ---
FOLLOWUP SUBJECTIVE: The patient denies any chest pain or shortness of breath. No reported arrhythmia. PHYSICAL EXAMINATION VITAL SIGNS: Blood pressure 121/78, heart rate 69, temperature 98.2, respirations 19. HEENT: Pale conjunctivae. CHEST: Diminished breath sounds over the bases. HEART: S1 and S2 regular. EXTREMITIES: 1+ pitting edema. LABORATORY DATA: Today's hemoglobin and hematocrit 8.7 and 24.8, platelet count 198,000. White count is within normal limits. Today's SMA-7: Sodium , potassium 3.9, chloride 99, CO2 of 24, glucose 109, BUN 8, creatinine 0.7. Microbiology report of the anterior abdominal wall fluid was positive for Enterococcus faecium. ASSESSMENT: 1. Hypertension and hypertensive heart disease. 2. Status post repair of anterior abdominal wall hernia and small bowel resection. Currently, having drainage for an infected anterior abdominal wall fluid collection. 3. Uncontrolled diabetes mellitus. 4. Mild thrombocytopenia. 5. Mild hyponatremia. 6. Anemia. RECOMMENDATIONS: Continue current clonidine patch, subcutaneous heparin. Continue IV vancomycin at 1 g q. 12 hours. I discontinued telemetry monitoring today. Pavel Contreras MD
--- NOTE | 2017-07-01 19:58 | CP.PCM.PN ---
Subjective - Date & Time of Evaluation Date of Evaluation: 07/01/17 Time of Evaluation: 18:05 - Subjective Subjective: Pt seen and evaluated at bedside, c/o post op pain, has intraabdominal infection , on antibiotics and ID eval Objective - Vital Signs/Intake and Output Vital Signs (last 24 hours): Temp Pulse Resp BP Pulse Ox 98.1 F 71 20 125/71 99 07/01/17 15:09 07/01/17 15:09 07/01/17 15:09 07/01/17 15:09 07/01/17 15:09 Intake and Output: 07/01/17 07/02/17 18:59 06:59 Intake Total 280 Output Total 15 Balance 265 - Medications Medications: Current Medications Clonidine HCl (Catapres Tts1 0.1 Mg/24 Hr) 1 patch TD Q7D@1000 [facility] Last Admin: 06/30/17 10:52 Dose: 1 patch Famotidine (Pepcid) 20 mg PO BID [facility] Last Admin: 07/01/17 17:46 Dose: 20 mg Heparin Sodium (Porcine) (Heparin) 5,000 units SC Q8 [facility] Last Admin: 07/01/17 13:36 Dose: 5,000 units Vancomycin/Sodium Chloride (Vancomycin 1 Gm/Ns 200 Ml) 1 gm in 200 mls @ 133 mls/hr IVPB Q12H [facility] Stop: 07/05/17 16:01 Last Admin: 07/01/17 17:09 Dose: 133 mls/hr Insulin Aspart (Novolog) 0 unit SC ACHS [facility] PRN Reason: Protocol Last Admin: 07/01/17 17:46 Dose: Not Given Ondansetron HCl (Zofran Inj) 4 mg IVP Q4 PRN PRN Reason: nausea Last Admin: 06/22/17 14:41 Dose: 4 mg Tramadol HCl (Ultram) 50 mg PO TID [facility] Last Admin: 07/01/17 17:46 Dose: 50 mg - Labs Labs: 07/01/17 06:19 07/01/17 06:19 PT 15.5 SECONDS (9.7-12.2) H 06/14/17 08:47 INR 1.4 06/14/17 08:47 APTT 31 SECONDS (21-34) 06/14/17 08:47 - Constitutional Appears: No Acute Distress - Head Exam Head Exam: ATRAUMATIC, NORMAL INSPECTION, NORMOCEPHALIC - Eye Exam Eye Exam: EOMI, Normal appearance, PERRL Pupil Exam: NORMAL ACCOMODATION, PERRL - Respiratory Exam Respiratory Exam: Clear to Ausculation Bilateral, NORMAL BREATHING PATTERN - Cardiovascular Exam Cardiovascular Exam: REGULAR RHYTHM, +S1, +S2. absent: Murmur - GI/Abdominal Exam GI & Abdominal Exam: Soft, Normal Bowel Sounds. absent: Tenderness - Rectal Exam Rectal Exam: Deferred Assessment and Plan (1) Intestinal obstruction Status: Acute (2) Thrombocytopenia Status: Acute (3) Ventral hernia Assessment & Plan: 66M w. incisonal hernia, s/p open repair w. biologic mesh, small bowel resection POD#17, w. development of seroma, s/p IR drainage -abx per ID -encourage ambulation and IS use -no plans for further surgical intervention at this time Status: Acute (4) HTN (hypertension) Status: Acute (5) Diabetes mellitus Status: Chronic
--- NOTE | 2017-07-01 23:34 | CP.PCM.PN ---
Subjective - Date & Time of Evaluation Date of Evaluation: 07/01/17 Time of Evaluation: 23:34 - Subjective Subjective: CHIEF COMPLAINTS TODAY : afebrile, offers no new complaints, IR Drained right lower abdomen drainage serous 50ml fluid per shift ROS. HEENT : N. Resp : No SOB wheezing, cough Cardio : No CP, PND orthopnea GI : No abd. Pain, n/v +VE RIGHT ANTERIOR ABDOMEN DRAIN, MIDLINE INCISION WITH GEENA IN PLACE. 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 Musculoskel : N Ext. : Pedal pulses intact, no edema or calf pain Derm : N Psych : N. PE. Pt. is alert awake in no distress. V.S As noted in the chart Head ,ear nose,throat and eyes : Normal. Neck : Supple with normal carotids. Lungs: Clear air entry. Heart : S1 & S2 normal . . No murmur. S4 + Abd : Hypoactive Bowel Sounds, Soft (MIDLINE INCISION WITH GEENA IN PLACE. SOME BRUISING ANTERIOR ABDOMINAL WALL. ALSO DRAINAGE WITH 8 [place] CATHETER NOTED IN [place] AND THE COLLECTING BAG.) Neuro : Moves all ext. with no localized deficit. Ext : No edema with intact pulses. Neg. calf tenderness Derm : No rashes or decubitus ulcer. Radiology/Labs . ABDOMINAL FLUID CULTURE-enterococcus faecium. s- vancomycin CARMEN <0.5, linizolid CARMEN 2 BLOOD CULTURES 06/30/17 -24 HOURS. cREATININE 0.7/bun 8 wbc 9.3, h&h 8.7 PLATELETS 119 Asssessment : 66 yr old M w. incisonal hernia, s/p open repair w. biologic mesh, small bowel resection ON 06/14/17- POD#17, w. development of seroma/abscess S/P IR ,ULTRASOUND GUIDED DRAINAGE OF ABDOMINAL WALL COLLECTION AT SITE OF SURGICAL GEENA AND PLACEMENT OFF 8 [place] DRAINAGE CATHETER 06/28/17. DRAINAGE FLUID +VE Enterococcus faecium. Plan : SURGERY FOLLOW-UP NOTED. NO PLANS OF SURGICAL INTERVENTION PER SURGERY NOW. WILL GIVE A TRIAL OF IV ANTIBIOTICS FOR 4 WEEKS PRESENTLY. CONTINUE IV VANCOMYCIN 1 G EVERY 12 HOURLY x 4WEEKS. ADD IV INVANZ 1GM IVPB Q 24HRLY FOR GM-VE. X 4WEEKS F/U VANCO TROUGH LEVELS AND KEEP BETWEEN 10 AND 20.. MONITOR RENAL FUNCTIONS CLOSELY. MONITOR THROMBOCYTOPENIA PATIENT HAS HEP C. OFF IV ZOSYN F/U DRAIN CARE/AND DRAINAGE PER SURGERY. GI ALSO ON BOARD. PT WILL NEED TO F/U WITH [facility] FOR HEPATITIS C/ OR PER GI AFTER STABILIZATION OF HIS INFECTION. WILL FOLLOW PATIENT WHILE IN THE HOSPITAL. - Objective - Vital Signs/Intake and Output Vital Signs (last 24 hours): Temp Pulse Resp BP Pulse Ox 98.1 F 71 20 125/71 99 07/01/17 15:09 07/01/17 15:09 07/01/17 15:09 07/01/17 15:09 07/01/17 15:09 Intake and Output: 07/01/17 07/02/17 18:59 06:59 Intake Total 280 700 Output Total 15 615 Balance 265 85 - Medications Medications: Current Medications Clonidine HCl (Catapres Tts1 0.1 Mg/24 Hr) 1 patch TD Q7D@1000 [facility] Last Admin: 06/30/17 10:52 Dose: 1 patch Famotidine (Pepcid) 20 mg PO BID [facility] Last Admin: 07/01/17 17:46 Dose: 20 mg Heparin Sodium (Porcine) (Heparin) 5,000 units SC Q8 [facility] Last Admin: 07/01/17 22:26 Dose: 5,000 units Vancomycin/Sodium Chloride (Vancomycin 1 Gm/Ns 200 Ml) 1 gm in 200 mls @ 133 mls/hr IVPB Q12H [facility] Stop: 07/05/17 16:01 Last Admin: 07/01/17 17:09 Dose: 133 mls/hr Insulin Aspart (Novolog) 0 unit SC ACHS [facility] PRN Reason: Protocol Last Admin: 07/01/17 22:26 Dose: Not Given Ondansetron HCl (Zofran Inj) 4 mg IVP Q4 PRN PRN Reason: nausea Last Admin: 06/22/17 14:41 Dose: 4 mg Tramadol HCl (Ultram) 50 mg PO TID [facility] Last Admin: 07/01/17 17:46 Dose: 50 mg - Labs Labs: 07/01/17 06:19 07/01/17 06:19 PT 15.5 SECONDS (9.7-12.2) H 06/14/17 08:47 INR 1.4 06/14/17 08:47 APTT 31 SECONDS (21-34) 06/14/17 08:47 Assessment and Plan (1) S/P repair of recurrent ventral hernia Status: Acute (2) Status post exploratory laparotomy Status: Acute (3) Small bowel obstruction Status: Acute (4) Diabetes mellitus Status: Chronic (5) Hepatitis C infection Status: Chronic (6) Hypertension Status: Chronic
[2017-07-02] MEDS: Vancomycin 1 gm/NS 200 ml 1 GM/200 ML BAG IVPB SCH ×2 (05:07→16:34)
[2017-07-02] MEDS ORDERED: Oxycodone/Acetaminophen 5/325 mg Tab PO STA (05:28)
[2017-07-02] MEDS: (Novolog) Insulin Aspart, Recombinant 100 u/ml 10 ml vial SC SCH ×4 (08:13→21:27)
[2017-07-02] MEDS: Magnesium Sulfate 1 gm in D5W 1 GM/100 ML BAG IVPB SCH ×2 (09:01→09:04)
--- NOTE | 2017-07-02 09:48 | CP.PCM.PN ---
Subjective - Date & Time of Evaluation Date of Evaluation: 07/02/17 Time of Evaluation: 07:00 - Subjective Subjective: GENERAL SURGERY PROGRESS NOTE FOR DR. CURIEL Patient seen and examined at bedside. He is having normal bowel movements, last BM yesterday. He is passing flatus. He had pain last night and was given a dose of Percocet. He is tolerating diet and denies nausea or vomiting. He is using his IS and ambulating. Objective - Vital Signs/Intake and Output Vital Signs (last 24 hours): Temp Pulse Resp BP Pulse Ox 97.9 F 72 18 143/80 99 07/02/17 07:15 07/02/17 07:15 07/02/17 07:15 07/02/17 07:15 07/02/17 07:15 Intake and Output: 07/02/17 07/02/17 06:59 18:59 Intake Total 700 Output Total 625 Balance 75 - Medications Medications: Current Medications Clonidine HCl (Catapres Tts1 0.1 Mg/24 Hr) 1 patch TD Q7D@1000 [facility] Last Admin: 06/30/17 10:52 Dose: 1 patch Famotidine (Pepcid) 20 mg PO BID [facility] Last Admin: 07/02/17 09:00 Dose: 20 mg Heparin Sodium (Porcine) (Heparin) 5,000 units SC Q8 [facility] Vancomycin/Sodium Chloride (Vancomycin 1 Gm/Ns 200 Ml) 1 gm in 200 mls @ 133 mls/hr IVPB Q12H [facility] Stop: 07/05/17 16:01 Last Admin: 07/02/17 05:07 Dose: 133 mls/hr Ertapenem 1 gm/ Sodium (Chloride) 50 mls @ 100 mls/hr IV Q24H [facility] Insulin Aspart (Novolog) 0 unit SC ACHS [facility] PRN Reason: Protocol Last Admin: 07/02/17 08:13 Dose: Not Given Ondansetron HCl (Zofran Inj) 4 mg IVP Q4 PRN PRN Reason: nausea Last Admin: 06/22/17 14:41 Dose: 4 mg Oxycodone/Acetaminophen (Percocet 5/325 Mg Tab) 1 tab PO Q4H PRN PRN Reason: breakthrough pain Stop: 07/05/17 06:18 Tramadol HCl (Ultram) 50 mg PO TID [facility] Last Admin: 07/02/17 09:00 Dose: 50 mg - Labs Labs: 07/01/17 06:19 07/01/17 06:19 PT 15.5 SECONDS (9.7-12.2) H 06/14/17 08:47 INR 1.4 06/14/17 08:47 APTT 31 SECONDS (21-34) 06/14/17 08:47 - Constitutional Appears: Non-toxic, No Acute Distress - Eye Exam Eye Exam: EOMI, Normal appearance - Respiratory Exam Respiratory Exam: NORMAL BREATHING PATTERN. absent: Respiratory Distress - Cardiovascular Exam Cardiovascular Exam: +S1, +S2 - GI/Abdominal Exam GI & Abdominal Exam: Soft. absent: Distended, Firm, Guarding, Rigid, Tenderness , Rebound Additional comments: roddy in place IR drain in place, 40cc output over past 24 hours - Neurological Exam Neurological Exam: Alert, Awake - Psychiatric Exam Psychiatric exam: Normal Affect, Normal Mood - Skin Skin Exam: Normal Color Assessment and Plan - Assessment and Plan (Free Text) Assessment: 66yo M with recurrent ventral hernia and thrombocytopenia s/p exploratory laparotomy, extensive ROLANDO, repair of recurrent ventral hernia with biologic mesh , small bowel resection with primary anastomosis POD#18, now s/p IR US guided abdominal abscess drainage with placement of an 8Fr drainage catheter 4 days ago. - Afebrile, VSS - Continue Physical therapy - Tolerating regular diet, having regular bowel movements - Encouraged OOB, ambulation, and IS use - Culture from IR drainage: enterococcus facecium, on Vancomycin x4 weeks and Invanz x4 weeks per ID - Hepatitis C antibody is reactive, ordered Hep C viral RNA - Discussed plan with Dr. Stephen Brownlee PGY-3
--- NOTE | 2017-07-02 12:47 | PN ---
LOCATION: [facility], bed A. SUBJECTIVE: This is a 66-year-old male seen and examined early in rounds today without reported significant clinical changes with intermittent period, again with sharp abdominal pain, with reported normal bowel movement, experienced passing gas, tolerating oral intake adequately, but no reported nausea or vomiting, but dyspepsia. The entire chart is reviewed including but not limited to the most recent lab and radiology study results, current and the previous medication list, current and the previous medical events and today's lab showed blood glucose level of 124. PHYSICAL EXAMINATION: GENERAL: A 66-year-old male. VITAL SIGNS: Afebrile with pulse of 70, respiratory rate 18 to 20, blood pressure of 130/78. HEENT: Showed pale, dry oral mucous membrane. Nonicteric sclerae. LUNGS: Few scattered crepitation with decreased air entry at bases. HEART: Positive S1 and S2. ABDOMEN: Mild to moderate generalized tenderness with clean dressing, but bowel sounds are present. No mass or organomegaly. No rebound tenderness or guarding. EXTREMITIES: Without significant clubbing, cyanosis or edema. IMPRESSION: 1. Incarcerated anterior abdominal wall ventral hernia treated surgically. 2. Partial small bowel resection. 3. Intraabdominal postsurgical abscess formation, aspirated by IR. 4. Re-exacerbation of peptic ulcer disease. 5. Anemia secondary to above. 6. Known history of thrombocytopenia. 7. Electrolyte imbalance, recent history. SUGGESTIONS: 1. Continue current management. 2. Blood transfusion as needed to keep hemoglobin around 10 gm%. 3. Again, the patient would need endoscopic evaluation of the entire GI tract when he is more stable clinically. Senthil Damon MD cc: Senthil Damon MD
[2017-07-02] MEDS: Meropenem 1 GM in Sodium Chloride 0.9% 100 ML IVPB SCH ×2 (16:33→21:26)
--- NOTE | 2017-07-02 21:11 | CP.PCM.PN ---
Subjective - Date & Time of Evaluation Date of Evaluation: 07/02/17 Time of Evaluation: 18:00 - Subjective Subjective: Has intermittent lower abdominal pain Objective - Vital Signs/Intake and Output Vital Signs (last 24 hours): Temp Pulse Resp BP Pulse Ox 97.9 F 84 20 145/83 100 07/02/17 15:35 07/02/17 15:35 07/02/17 15:35 07/02/17 15:35 07/02/17 15:35 - Medications Medications: Current Medications Clonidine HCl (Catapres Tts1 0.1 Mg/24 Hr) 1 patch TD Q7D@1000 [facility] Last Admin: 06/30/17 10:52 Dose: 1 patch Famotidine (Pepcid) 20 mg PO BID [facility] Last Admin: 07/02/17 17:38 Dose: 20 mg Heparin Sodium (Porcine) (Heparin) 5,000 units SC Q8 [facility] Last Admin: 07/02/17 13:41 Dose: 5,000 units Vancomycin/Sodium Chloride (Vancomycin 1 Gm/Ns 200 Ml) 1 gm in 200 mls @ 133 mls/hr IVPB Q12H [facility] Stop: 07/05/17 16:01 Last Admin: 07/02/17 16:34 Dose: 133 mls/hr Meropenem 1 gm/ Sodium (Chloride) 100 mls @ 100 mls/hr IVPB Q8 [facility] Last Admin: 07/02/17 16:33 Dose: Not Given Insulin Aspart (Novolog) 0 unit SC ACHS [facility] PRN Reason: Protocol Last Admin: 07/02/17 16:33 Dose: Not Given Ondansetron HCl (Zofran Inj) 4 mg IVP Q4 PRN PRN Reason: nausea Last Admin: 06/22/17 14:41 Dose: 4 mg Oxycodone/Acetaminophen (Percocet 5/325 Mg Tab) 1 tab PO Q4H PRN PRN Reason: breakthrough pain Stop: 07/05/17 06:18 Tramadol HCl (Ultram) 50 mg PO TID [facility] Last Admin: 07/02/17 17:41 Dose: 50 mg - Labs Labs: 07/01/17 06:19 07/01/17 06:19 PT 15.5 SECONDS (9.7-12.2) H 06/14/17 08:47 INR 1.4 06/14/17 08:47 APTT 31 SECONDS (21-34) 06/14/17 08:47 - Head Exam Head Exam: ATRAUMATIC - Eye Exam Eye Exam: Normal appearance - Respiratory Exam Respiratory Exam: NORMAL BREATHING PATTERN - Cardiovascular Exam Cardiovascular Exam: +S1, +S2 - GI/Abdominal Exam GI & Abdominal Exam: Normal Bowel Sounds Assessment and Plan (1) Anemia Assessment & Plan: chronic disease H/H stable Status: Acute (2) Thrombocytopenia Assessment & Plan: hep C and liver disease Status: Acute (3) Elevated CEA Assessment & Plan: GI w/u Status: Acute
--- NOTE | 2017-07-02 23:30 | CP.PCM.PN ---
Subjective - Date & Time of Evaluation Date of Evaluation: 07/02/17 Time of Evaluation: 17:00 - Subjective Subjective: PT SEEN AND EXAMINED Objective - Vital Signs/Intake and Output Vital Signs (last 24 hours): Temp Pulse Resp BP Pulse Ox 97.9 F 84 20 145/83 100 07/02/17 15:35 07/02/17 15:35 07/02/17 15:35 07/02/17 15:35 07/02/17 15:35 - Medications Medications: Current Medications Clonidine HCl (Catapres Tts1 0.1 Mg/24 Hr) 1 patch TD Q7D@1000 [facility] Last Admin: 06/30/17 10:52 Dose: 1 patch Famotidine (Pepcid) 20 mg PO BID [facility] Last Admin: 07/02/17 17:38 Dose: 20 mg Heparin Sodium (Porcine) (Heparin) 5,000 units SC Q8 [facility] Last Admin: 07/02/17 21:26 Dose: 5,000 units Vancomycin/Sodium Chloride (Vancomycin 1 Gm/Ns 200 Ml) 1 gm in 200 mls @ 133 mls/hr IVPB Q12H [facility] Stop: 07/05/17 16:01 Last Admin: 07/02/17 16:34 Dose: 133 mls/hr Meropenem 1 gm/ Sodium (Chloride) 100 mls @ 100 mls/hr IVPB Q8 [facility] Last Admin: 07/02/17 21:26 Dose: 100 mls/hr Insulin Aspart (Novolog) 0 unit SC ACHS [facility] PRN Reason: Protocol Last Admin: 07/02/17 21:27 Dose: Not Given Ondansetron HCl (Zofran Inj) 4 mg IVP Q4 PRN PRN Reason: nausea Last Admin: 06/22/17 14:41 Dose: 4 mg Oxycodone/Acetaminophen (Percocet 5/325 Mg Tab) 1 tab PO Q4H PRN PRN Reason: breakthrough pain Stop: 07/05/17 06:18 Tramadol HCl (Ultram) 50 mg PO TID [facility] Last Admin: 07/02/17 17:41 Dose: 50 mg - Labs Labs: 07/01/17 06:19 07/01/17 06:19 PT 15.5 SECONDS (9.7-12.2) H 06/14/17 08:47 INR 1.4 06/14/17 08:47 APTT 31 SECONDS (21-34) 06/14/17 08:47 Assessment and Plan (1) Intestinal obstruction Status: Acute (2) Thrombocytopenia Status: Acute (3) Ventral hernia Status: Acute (4) HTN (hypertension) Status: Acute (5) Diabetes mellitus Status: Chronic
--- NOTE | 2017-07-02 23:44 | CP.PCM.PN ---
Subjective - Date & Time of Evaluation Date of Evaluation: 07/02/17 Time of Evaluation: 23:44 - Subjective Subjective: CHIEF COMPLAINTS TODAY : afebrile, C/O INTERMITTENT ABDOMINAL PAIN ANTERIORLY IR Drained right lower abdomen drainage serous ROS. HEENT : N. Resp : No SOB wheezing, cough Cardio : No CP, PND orthopnea GI : No abd. Pain, n/v +VE RIGHT ANTERIOR ABDOMEN DRAIN, MIDLINE INCISION WITH GEENA IN PLACE. 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 Musculoskel : N Ext. : Pedal pulses intact, no edema or calf pain Derm : N Psych : N. PE. Pt. is alert awake in no distress. V.S As noted in the chart Head ,ear nose,throat and eyes : Normal. Neck : Supple with normal carotids. Lungs: Clear air entry. Heart : S1 & S2 normal . . No murmur. S4 + Abd : Hypoactive Bowel Sounds, Soft (MIDLINE INCISION WITH GEENA IN PLACE. SOME BRUISING ANTERIOR ABDOMINAL WALL. ALSO DRAINAGE WITH 8 [place] CATHETER NOTED IN Juli-Baird AND THE COLLECTING BAG.) Neuro : Moves all ext. with no localized deficit. Ext : No edema with intact pulses. Neg. calf tenderness Derm : No rashes or decubitus ulcer. Radiology/Labs . ABDOMINAL FLUID CULTURE- ENTEROCOCCUS FAECIUM s- vancomycin CARMEN <0.5, linizolid CARMEN 2 BLOOD CULTURES 06/30/17 -24 HOURS. cREATININE 0.7/bun 8 wbc 9.3, h&h 8.7 PLATELETS 119 Asssessment : 66 yr old M w. incisonal hernia, s/p open repair w. biologic mesh, small bowel resection ON 06/14/17- POD#17, w. development of seroma/abscess S/P IR ,ULTRASOUND GUIDED DRAINAGE OF ABDOMINAL WALL COLLECTION AT SITE OF SURGICAL GEENA AND PLACEMENT OFF 8 [place] DRAINAGE CATHETER 06/28/17. DRAINAGE FLUID +VE Enterococcus faecium. Plan : SURGERY FOLLOW-UP NOTED. WILL GIVE A TRIAL OF IV ANTIBIOTICS FOR 4 WEEKS PRESENTLY. CONTINUE IV VANCOMYCIN 1 G EVERY 12 HOURLY x 4WEEKS. ADD IV INVANZ 1GM IVPB Q 24HRLY FOR GM-VE. X 4WEEKS (""PHARMACY DOES NOT CARRY INVANZ-WILL GIVE mERREM 1 G EVERY 8 HOURLY WHILE PATIENT IN THE HOSPITAL. ) F/U VANCO TROUGH LEVELS AND KEEP BETWEEN 10 AND 20.. MONITOR RENAL FUNCTIONS CLOSELY. MONITOR THROMBOCYTOPENIA PATIENT HAS HEP C. F/U DRAIN CARE/AND DRAINAGE PER SURGERY. Objective - Vital Signs/Intake and Output Vital Signs (last 24 hours): Temp Pulse Resp BP Pulse Ox 97.9 F 84 20 145/83 100 07/02/17 15:35 07/02/17 15:35 07/02/17 15:35 07/02/17 15:35 07/02/17 15:35 - Medications Medications: Current Medications Clonidine HCl (Catapres Tts1 0.1 Mg/24 Hr) 1 patch TD Q7D@1000 [facility] Last Admin: 06/30/17 10:52 Dose: 1 patch Famotidine (Pepcid) 20 mg PO BID [facility] Last Admin: 07/02/17 17:38 Dose: 20 mg Heparin Sodium (Porcine) (Heparin) 5,000 units SC Q8 [facility] Last Admin: 07/02/17 21:26 Dose: 5,000 units Vancomycin/Sodium Chloride (Vancomycin 1 Gm/Ns 200 Ml) 1 gm in 200 mls @ 133 mls/hr IVPB Q12H [facility] Stop: 07/05/17 16:01 Last Admin: 07/02/17 16:34 Dose: 133 mls/hr Meropenem 1 gm/ Sodium (Chloride) 100 mls @ 100 mls/hr IVPB Q8 [facility] Last Admin: 07/02/17 21:26 Dose: 100 mls/hr Insulin Aspart (Novolog) 0 unit SC ACHS [facility] PRN Reason: Protocol Last Admin: 07/02/17 21:27 Dose: Not Given Ondansetron HCl (Zofran Inj) 4 mg IVP Q4 PRN PRN Reason: nausea Last Admin: 06/22/17 14:41 Dose: 4 mg Oxycodone/Acetaminophen (Percocet 5/325 Mg Tab) 1 tab PO Q4H PRN PRN Reason: breakthrough pain Stop: 07/05/17 06:18 Tramadol HCl (Ultram) 50 mg PO TID [facility] Last Admin: 07/02/17 17:41 Dose: 50 mg - Labs Labs: 07/01/17 06:19 07/01/17 06:19 PT 15.5 SECONDS (9.7-12.2) H 06/14/17 08:47 INR 1.4 06/14/17 08:47 APTT 31 SECONDS (21-34) 06/14/17 08:47 Assessment and Plan (1) S/P repair of recurrent ventral hernia Status: Acute (2) Status post exploratory laparotomy Status: Acute (3) Small bowel obstruction Status: Acute (4) Diabetes mellitus Status: Chronic (5) Hepatitis C infection Status: Chronic (6) Hypertension Status: Chronic
[2017-07-03] MEDS: Vancomycin 1 gm/NS 200 ml 1 GM/200 ML BAG IVPB SCH ×2 (04:18→18:47)
[2017-07-03] MEDS: Oxycodone/Acetaminophen 5/325 mg Tab PO PRN (04:25)
[2017-07-03] MEDS: Meropenem 1 GM in Sodium Chloride 0.9% 100 ML IVPB SCH ×2 (06:14→21:20)
[2017-07-03 07:47] LABS: BASO % 0.5 % (0.0-2.0); EOS % 0.3 % (0.0-4.0); HEMATOCRIT 27.2 % (35.0-51.0); LYMPH # 2.6 K/uL (1.0-4.3); LYMPH % 29.3 % (20.0-40.0); MEAN CELL VOLUME 100.4 fL (80.0-94.0); MEAN CORPUSCULAR HEMOGLOBIN 33.7 pg (27.0-31.0); MEAN CORPUSCULAR HGB CONC 33.6 g/dL (33.0-37.0); MEAN PLATELET VOLUME 8.8 fL (7.2-11.7); MONO # 0.9 K/uL (0.0-0.8); MONO % 9.9 % (0.0-10.0); NRBC % 0.1 % (0.0-2.0); RED CELL DISTRIBUTION WIDTH 20.3 % (11.5-14.5); WHITE BLOOD COUNT 8.9 K/uL (4.8-10.8)
[2017-07-03 08:17] LABS: CHLORIDE 100 mmol/L (98-107); POTASSIUM 3.6 mmol/L (3.6-5.2); SODIUM 130 mmol/L (132-148)
[2017-07-03 08:20] LABS: CARBON DIOXIDE 24 mmol/L (22-30); GFR AFRICAN-AMERICAN > 60
[2017-07-03 08:21] LABS: BLOOD UREA NITROGEN 6 mg/dL (9-20); CALCIUM 7.7 mg/dl (8.6-10.4); GLUCOSE,RANDOM 90 mg/dL (75-110)
[2017-07-03] MEDS: (Novolog) Insulin Aspart, Recombinant 100 u/ml 10 ml vial SC SCH ×4 (08:32→21:21)
--- NOTE | 2017-07-03 10:44 | CP.PCM.PN ---
Subjective - Date & Time of Evaluation Date of Evaluation: 07/03/17 Time of Evaluation: 10:42 - Subjective Subjective: Surgery: Dr. Mitchell Patient doing well. Pain controlled. Tolerating diet. Ambulating frequently. Afebrile. Per nursing no acute events overnight. Objective - Vital Signs/Intake and Output Vital Signs (last 24 hours): Temp Pulse Resp BP Pulse Ox 98 F 70 20 123/99 H 99 07/03/17 07:00 07/03/17 07:00 07/03/17 07:00 07/03/17 07:00 07/03/17 07:00 Intake and Output: 07/03/17 07/03/17 06:59 18:59 Intake Total 300 Output Total 10 Balance 290 - Medications Medications: Current Medications Clonidine HCl (Catapres Tts1 0.1 Mg/24 Hr) 1 patch TD Q7D@1000 [facility] Last Admin: 06/30/17 10:52 Dose: 1 patch Famotidine (Pepcid) 20 mg PO BID [facility] Last Admin: 07/03/17 10:16 Dose: 20 mg Heparin Sodium (Porcine) (Heparin) 5,000 units SC Q8 [facility] Last Admin: 07/03/17 06:15 Dose: 5,000 units Vancomycin/Sodium Chloride (Vancomycin 1 Gm/Ns 200 Ml) 1 gm in 200 mls @ 133 mls/hr IVPB Q12H [facility] Stop: 07/05/17 16:01 Last Admin: 07/03/17 04:18 Dose: 133 mls/hr Meropenem 1 gm/ Sodium (Chloride) 100 mls @ 100 mls/hr IVPB Q8 [facility] Last Admin: 07/03/17 06:14 Dose: 100 mls/hr Insulin Aspart (Novolog) 0 unit SC ACHS [facility] PRN Reason: Protocol Last Admin: 07/03/17 08:32 Dose: 1 unit Ondansetron HCl (Zofran Inj) 4 mg IVP Q4 PRN PRN Reason: nausea Last Admin: 06/22/17 14:41 Dose: 4 mg Oxycodone/Acetaminophen (Percocet 5/325 Mg Tab) 1 tab PO Q4H PRN PRN Reason: breakthrough pain Stop: 07/05/17 06:18 Last Admin: 07/03/17 04:25 Dose: 1 tab Tramadol HCl (Ultram) 50 mg PO TID [facility] Last Admin: 07/03/17 10:16 Dose: 50 mg - Labs Labs: 07/03/17 07:19 07/03/17 07:19 PT 15.5 SECONDS (9.7-12.2) H 06/14/17 08:47 INR 1.4 06/14/17 08:47 APTT 31 SECONDS (21-34) 06/14/17 08:47 - Constitutional Appears: Non-toxic, No Acute Distress - Head Exam Head Exam: ATRAUMATIC, NORMOCEPHALIC - Eye Exam Eye Exam: EOMI, Normal appearance - ENT Exam ENT Exam: Mucous Membranes Moist - Respiratory Exam Respiratory Exam: NORMAL BREATHING PATTERN. absent: Respiratory Distress - Cardiovascular Exam Cardiovascular Exam: REGULAR RHYTHM. absent: Tachycardia - GI/Abdominal Exam GI & Abdominal Exam: Soft. absent: Distended, Tenderness Additional comments: RLQ IR drain w/ seroupurulent fluid output - Neurological Exam Neurological Exam: Alert, Awake - Psychiatric Exam Psychiatric exam: Normal Affect, Normal Mood Assessment and Plan - Assessment and Plan (Free Text) Assessment: 66 y/o male s/p ventral hernia repair w/ biologic mesh placement, SB resection POD 19 w/ intra-abdominal abscess s/p IR drainage Plan: -cont abx per ID -PT -reg diet -pain control -daily labs -OOB and IS use -d/w Dr. Stephen Hoover PGY3
--- NOTE | 2017-07-03 13:11 | PN ---
LOCATION: [facility], bed A. SUBJECTIVE: This is a 66 years old male seen and examined in rounds with intermittent period of abdominal pain on and off, on Percocet p.o., without reported active bleeding, passing gas as well as having bowel movement. The entire chart is reviewed including but not limited to the most recent lab and radiology study results, current and the previous medication list, current and the previous medical events, and today's lab showed blood glucose level of 169. No reported chest pain, significant shortness of breath, active bleeding, nausea, or vomiting. PHYSICAL EXAMINATION: GENERAL: A 66 years old male, awake, alert, and oriented. VITAL SIGNS: Afebrile with pulse of 76, respiratory rate 20 to 22, blood pressure of 124/72. HEENT: Showed pale, dry oral mucous membrane. Nonicteric sclerae. LUNGS: A few scattered crepitation; decreased air entry at bases. HEART: Positive S1 and S2. ABDOMEN: Soft. Bowel sounds are present. No mass or organomegaly. No rebound tenderness or guarding. Generalized abdominal pain mainly at the site of the surgery. Abdominal tenderness at the site of the surgery is positive, mild. Abdominal dressing appeared to be intact on the right. EXTREMITIES: Without edema, clubbing, or cyanosis. It has to be mentioned that reported positive hepatitis C infection, chronic was mentioned, and the patient has to be treated by the ID j2ee consultant as outpatient. IMPRESSION: 1. Incarcerated anterior abdominal wall ventral hernia, treated surgically. 2. Status post partial small bowel resection. 3. Re-exacerbation of peptic ulcer disease. 4. Anemia secondary to above. 5. Postoperative intraabdominal abscess formation, treated by the Interventional Radiology team. 6. Thrombocytopenia by history of unclear etiology. 7. Electrolyte imbalance, improved. 8. Known history of hypertension with history of diabetes mellitus. SUGGESTIONS: 1. Continue current management. 2. Follow up cancer markers again. 3. The patient again would need endoscopic evaluation of the GI tract when he is more stable clinically that could be done, however, as an outpatient. Senthil Damon MD cc: Senthil Damon MD Patient chart.
--- NOTE | 2017-07-03 22:57 | CP.PCM.PN ---
Subjective - Date & Time of Evaluation Date of Evaluation: 07/03/17 Time of Evaluation: 22:57 - Subjective Subjective: CHIEF COMPLAINTS TODAY : afebrile, FEELING BETTER AMBULATING IR Drain right lower abdomen +VE DRAINAGE ROS. HEENT : N. Resp : No SOB wheezing, cough Cardio : No CP, PND orthopnea GI : No abd. Pain, n/v +VE RIGHT ANTERIOR ABDOMEN DRAIN, MIDLINE INCISION WITH GEENA IN PLACE. 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 Musculoskel : N Ext. : Pedal pulses intact, no edema or calf pain Derm : N Psych : N. PE. Pt. is alert awake in no distress. V.S As noted in the chart Head ,ear nose,throat and eyes : Normal. Neck : Supple with normal carotids. Lungs: Clear air entry. Heart : S1 & S2 normal . . No murmur. S4 + Abd Soft (MIDLINE INCISION WITH GEENA IN PLACE. ALSO DRAINAGE WITH 8 [place] CATHETER NOTED IN Juli-Baird AND THE COLLECTING BAG.) Neuro : Moves all ext. with no localized deficit. Ext : No edema with intact pulses. Neg. calf tenderness Derm : No rashes or decubitus ulcer. Radiology/Labs . ABDOMINAL FLUID CULTURE- ENTEROCOCCUS FAECIUM s- vancomycin CARMEN <0.5, linizolid CARMEN 2 BLOOD CULTURES 06/30/17 -24 HOURS. vANCO TROUGH 10.7 07/02/17 OKAY. wbc 8.9 HEMOGLOBIN 9.1. pLATELETS INCREASED TO 140. rENAL FUNCTIONS STABLE Asssessment : 66 yr old M w. incisonal hernia, s/p open repair w. biologic mesh, small bowel resection ON 06/14/17- POD#17, w. development of seroma/abscess S/P IR ,ULTRASOUND GUIDED DRAINAGE OF ABDOMINAL WALL COLLECTION AT SITE OF SURGICAL GEENA AND PLACEMENT OFF 8 [place] DRAINAGE CATHETER 06/28/17. DRAINAGE FLUID +VE Enterococcus faecium. Plan : SURGERY FOLLOW-UP NOTED. CONTINUE IV ANTIBIOTICS FOR 4 WEEKS PRESENTLY. CONTINUE IV VANCOMYCIN 1 G EVERY 12 HOURLY x 4WEEKS. ADD IV INVANZ 1GM IVPB Q 24HRLY FOR GM-VE. X 4WEEKS (""PHARMACY DOES NOT CARRY INVANZ-WILL GIVE mERREM 1 G EVERY 8 HOURLY WHILE PATIENT IN THE HOSPITAL. ) F/U VANCO TROUGH LEVELS WEEKLY AND KEEP BETWEEN 10 AND 20.. MONITOR RENAL FUNCTIONS CLOSELY. MONITOR THROMBOCYTOPENIA PATIENT HAS HEP C. F/U DRAIN CARE/AND DRAINAGE PER SURGERY. Objective - Vital Signs/Intake and Output Vital Signs (last 24 hours): Temp Pulse Resp BP Pulse Ox 98.2 F 81 20 135/84 99 07/03/17 15:31 07/03/17 15:31 07/03/17 15:31 07/03/17 15:31 07/03/17 15:31 - Medications Medications: Current Medications Clonidine HCl (Catapres Tts1 0.1 Mg/24 Hr) 1 patch TD Q7D@1000 [facility] Last Admin: 06/30/17 10:52 Dose: 1 patch Famotidine (Pepcid) 20 mg PO BID [facility] Last Admin: 07/03/17 18:47 Dose: 20 mg Heparin Sodium (Porcine) (Heparin) 5,000 units SC Q8 [facility] Last Admin: 07/03/17 21:20 Dose: 5,000 units Vancomycin/Sodium Chloride (Vancomycin 1 Gm/Ns 200 Ml) 1 gm in 200 mls @ 133 mls/hr IVPB Q12H [facility] Stop: 07/05/17 16:01 Last Admin: 07/03/17 18:47 Dose: 133 mls/hr Meropenem 1 gm/ Sodium (Chloride) 100 mls @ 100 mls/hr IVPB Q8 [facility] Last Admin: 07/03/17 21:20 Dose: 100 mls/hr Insulin Aspart (Novolog) 0 unit SC ACHS [facility] PRN Reason: Protocol Last Admin: 07/03/17 21:21 Dose: Not Given Ondansetron HCl (Zofran Inj) 4 mg IVP Q4 PRN PRN Reason: nausea Last Admin: 06/22/17 14:41 Dose: 4 mg Oxycodone/Acetaminophen (Percocet 5/325 Mg Tab) 1 tab PO Q4H PRN PRN Reason: breakthrough pain Stop: 07/05/17 06:18 Last Admin: 07/03/17 04:25 Dose: 1 tab Tramadol HCl (Ultram) 50 mg PO TID [facility] Last Admin: 07/03/17 18:47 Dose: 50 mg - Labs Labs: 07/03/17 07:19 07/03/17 07:19 PT 15.5 SECONDS (9.7-12.2) H 06/14/17 08:47 INR 1.4 06/14/17 08:47 APTT 31 SECONDS (21-34) 06/14/17 08:47 Assessment and Plan (1) S/P repair of recurrent ventral hernia Status: Acute (2) Status post exploratory laparotomy Status: Acute (3) Small bowel obstruction Status: Acute (4) Diabetes mellitus Status: Chronic (5) Hepatitis C infection Status: Chronic (6) Hypertension Status: Chronic
--- NOTE | 2017-07-03 23:32 | CP.PCM.PN ---
Subjective - Date & Time of Evaluation Date of Evaluation: 07/03/17 Time of Evaluation: 20:00 - Subjective Subjective: PT SEEN AND EXAMINED BY ME TODAY, PT C/O LEG AND FOOT PAIN B/L, REMAINS ON ANTIBIOTICS, NO NAUSEA, VOMITTING, FEELING BETTER Objective - Vital Signs/Intake and Output Vital Signs (last 24 hours): Temp Pulse Resp BP Pulse Ox 98.2 F 81 20 135/84 99 07/03/17 15:31 07/03/17 15:31 07/03/17 15:31 07/03/17 15:31 07/03/17 15:31 - Medications Medications: Current Medications Clonidine HCl (Catapres Tts1 0.1 Mg/24 Hr) 1 patch TD Q7D@1000 [facility] Last Admin: 06/30/17 10:52 Dose: 1 patch Famotidine (Pepcid) 20 mg PO BID [facility] Last Admin: 07/03/17 18:47 Dose: 20 mg Heparin Sodium (Porcine) (Heparin) 5,000 units SC Q8 [facility] Last Admin: 07/03/17 21:20 Dose: 5,000 units Vancomycin/Sodium Chloride (Vancomycin 1 Gm/Ns 200 Ml) 1 gm in 200 mls @ 133 mls/hr IVPB Q12H [facility] Stop: 07/05/17 16:01 Last Admin: 07/03/17 18:47 Dose: 133 mls/hr Meropenem 1 gm/ Sodium (Chloride) 100 mls @ 100 mls/hr IVPB Q8 [facility] Last Admin: 07/03/17 21:20 Dose: 100 mls/hr Insulin Aspart (Novolog) 0 unit SC ACHS [facility] PRN Reason: Protocol Last Admin: 07/03/17 21:21 Dose: Not Given Ondansetron HCl (Zofran Inj) 4 mg IVP Q4 PRN PRN Reason: nausea Last Admin: 06/22/17 14:41 Dose: 4 mg Oxycodone/Acetaminophen (Percocet 5/325 Mg Tab) 1 tab PO Q4H PRN PRN Reason: breakthrough pain Stop: 07/05/17 06:18 Last Admin: 07/03/17 04:25 Dose: 1 tab Tramadol HCl (Ultram) 50 mg PO TID [facility] Last Admin: 07/03/17 18:47 Dose: 50 mg - Labs Labs: 07/03/17 07:19 07/03/17 07:19 PT 15.5 SECONDS (9.7-12.2) H 06/14/17 08:47 INR 1.4 06/14/17 08:47 APTT 31 SECONDS (21-34) 06/14/17 08:47 - Constitutional Appears: No Acute Distress - Head Exam Head Exam: ATRAUMATIC, NORMAL INSPECTION, NORMOCEPHALIC - Eye Exam Eye Exam: EOMI, Normal appearance, PERRL Pupil Exam: NORMAL ACCOMODATION, PERRL - Respiratory Exam Respiratory Exam: Clear to Ausculation Bilateral, NORMAL BREATHING PATTERN - Cardiovascular Exam Cardiovascular Exam: REGULAR RHYTHM, +S1, +S2. absent: Murmur - GI/Abdominal Exam GI & Abdominal Exam: Soft, Normal Bowel Sounds. absent: Tenderness Assessment and Plan (1) Intestinal obstruction Status: Acute (2) Thrombocytopenia Status: Acute (3) Ventral hernia Status: Acute (4) HTN (hypertension) Status: Acute (5) Diabetes mellitus Status: Chronic
[2017-07-04] MEDS: Vancomycin 1 gm/NS 200 ml 1 GM/200 ML BAG IVPB SCH ×2 (04:11→16:15)
[2017-07-04 05:04] LABS: BASO % 0.6 % (0.0-2.0); EOS % 0.2 % (0.0-4.0); HEMATOCRIT 24.7 % (35.0-51.0); LYMPH # 1.8 K/uL (1.0-4.3); MEAN CELL VOLUME 101.3 fL (80.0-94.0); MEAN CORPUSCULAR HEMOGLOBIN 34.1 pg (27.0-31.0); MEAN CORPUSCULAR HGB CONC 33.7 g/dL (33.0-37.0); MEAN PLATELET VOLUME 8.6 fL (7.2-11.7); MONO # 0.9 K/uL (0.0-0.8); MONO % 11.8 % (0.0-10.0); RED CELL DISTRIBUTION WIDTH 20.7 % (11.5-14.5); WHITE BLOOD COUNT 7.8 K/uL (4.8-10.8)
[2017-07-04] MEDS: Meropenem 1 GM in Sodium Chloride 0.9% 100 ML IVPB SCH ×3 (05:13→21:22)
[2017-07-04 05:18] LABS: CHLORIDE 102 mmol/L (98-107); POTASSIUM 4.2 mmol/L (3.6-5.2); SODIUM 132 mmol/L (132-148)
[2017-07-04 05:21] LABS: BLOOD UREA NITROGEN 6 mg/dL (9-20); CARBON DIOXIDE 24 mmol/L (22-30); GFR AFRICAN-AMERICAN > 60; GLUCOSE,RANDOM 128 mg/dL (75-110)
[2017-07-04] MEDS: (Novolog) Insulin Aspart, Recombinant 100 u/ml 10 ml vial SC SCH ×4 (08:30→22:14)
[2017-07-04] MEDS: Oxycodone/Acetaminophen 5/325 mg Tab PO PRN (09:18)
--- NOTE | 2017-07-04 13:36 | CP.PCM.PN ---
Subjective - Date & Time of Evaluation Date of Evaluation: 07/04/17 Time of Evaluation: 07:00 - Subjective Subjective: GENERAL SURGERY PROGRESS NOTE FOR DR. CURIEL Patient seen and examined at bedside. He is having normal bowel movements. He is tolerating diet and denies nausea or vomiting. He has some suprapubic pain. He is using his IS and ambulating. Objective - Vital Signs/Intake and Output Vital Signs (last 24 hours): Temp Pulse Resp BP Pulse Ox 98.0 F 78 20 118/76 98 07/04/17 08:20 07/04/17 08:20 07/04/17 08:20 07/04/17 08:20 07/04/17 08:20 Intake and Output: 07/04/17 07/04/17 06:59 18:59 Intake Total 300 Output Total 10 Balance 290 - Medications Medications: Current Medications Clonidine HCl (Catapres Tts1 0.1 Mg/24 Hr) 1 patch TD Q7D@1000 [facility] Last Admin: 06/30/17 10:52 Dose: 1 patch Famotidine (Pepcid) 20 mg PO BID [facility] Last Admin: 07/03/17 18:47 Dose: 20 mg Heparin Sodium (Porcine) (Heparin) 5,000 units SC Q8 [facility] Last Admin: 07/04/17 05:12 Dose: 5,000 units Vancomycin/Sodium Chloride (Vancomycin 1 Gm/Ns 200 Ml) 1 gm in 200 mls @ 133 mls/hr IVPB Q12H [facility] Stop: 07/05/17 16:01 Last Admin: 07/04/17 04:11 Dose: 133 mls/hr Meropenem 1 gm/ Sodium (Chloride) 100 mls @ 100 mls/hr IVPB Q8 [facility] Last Admin: 07/04/17 05:13 Dose: 100 mls/hr Insulin Aspart (Novolog) 0 unit SC ACHS [facility] PRN Reason: Protocol Last Admin: 07/04/17 08:30 Dose: Not Given Ondansetron HCl (Zofran Inj) 4 mg IVP Q4 PRN PRN Reason: nausea Last Admin: 06/22/17 14:41 Dose: 4 mg Oxycodone/Acetaminophen (Percocet 5/325 Mg Tab) 1 tab PO Q4H PRN PRN Reason: breakthrough pain Stop: 07/05/17 06:18 Last Admin: 07/04/17 09:18 Dose: 1 tab Tramadol HCl (Ultram) 50 mg PO TID [facility] Last Admin: 07/03/17 18:47 Dose: 50 mg - Labs Labs: 07/04/17 04:59 07/04/17 04:59 PT 15.5 SECONDS (9.7-12.2) H 06/14/17 08:47 INR 1.4 06/14/17 08:47 APTT 31 SECONDS (21-34) 06/14/17 08:47 - Constitutional Appears: Non-toxic, No Acute Distress - Head Exam Head Exam: ATRAUMATIC, NORMAL INSPECTION - Eye Exam Eye Exam: EOMI, Normal appearance - Respiratory Exam Respiratory Exam: NORMAL BREATHING PATTERN. absent: Respiratory Distress - Cardiovascular Exam Cardiovascular Exam: +S1, +S2 - GI/Abdominal Exam GI & Abdominal Exam: Soft. absent: Distended, Firm, Guarding, Rigid, Tenderness , Rebound Additional comments: Mila in place IR drain in place with serous drainage, 10cc over past 24 hours - Neurological Exam Neurological Exam: Alert, Awake, Oriented x3 - Psychiatric Exam Psychiatric exam: Normal Affect, Normal Mood - Skin Skin Exam: Dry, Normal Color, Warm Assessment and Plan - Assessment and Plan (Free Text) Assessment: 66yo M with recurrent ventral hernia and thrombocytopenia s/p exploratory laparotomy, extensive ROLANDO, repair of recurrent ventral hernia with biologic mesh , small bowel resection with primary anastomosis POD#20, now s/p IR US guided abdominal abscess drainage with placement of an 8Fr drainage catheter 4 days ago. - Afebrile, VSS - No leukocytosis - Anemia Hgb 8.3 - Continue Physical therapy - Tolerating regular diet, having regular bowel movements - Encouraged OOB, ambulation, and IS use - Culture from IR drainage: enterococcus facecium, on Vancomycin x4 weeks and Invanz x4 weeks per ID (currently on Merrem instead since pharmacy does not have Invanz) - Hepatitis C antibody is reactive, ordered Hep C viral RNA - Possible removal of IR drain tomorrow due to low output - Discussed plan with Dr. Stephen Brownlee PGY-3
--- NOTE | 2017-07-04 17:53 | PN ---
DATE: LOCATION: [facility], bed A. SUBJECTIVE: This 66-year-old male seen and examined in rounds with intermittent period of abdominal pain, but less than before, tolerating oral intake. The patient still have his MANA drainage intact with tea-colored discharge. No reported nausea or vomiting. The entire chart is reviewed including, but not limited to the most recent lab and radiology study results, current and the previous medication list, and current and the previous medical events. LABORATORY DATA: Today's lab showed hemoglobin dropped to 8.3 and hematocrit of 24.7 with low platelets of 119 with normal sodium, but low BUN and creatinine with blood glucose level of 147 and calcium of 7. PHYSICAL EXAMINATION GENERAL: A 66-year-old male. VITAL SIGNS: Afebrile with pulse of 86, respiratory rate of 20 to 22, and blood pressure of 128/72. HEENT: Showed pale, dry, oral mucous membranes. Nonicteric sclera. LUNGS: Few scattered crepitation. Decreased air entry at bases. EXTREMITIES: Shows mild lower extremity edematous changes. No clubbing or cyanosis. NEUROLOGIC: No reported new neurological deficits, sensory, or motor. IMPRESSION: 1. Status post repair incarcerated abdominal hernia with partial small bowel resection. 2. Intraabdominal abscess formation post surgery, aspiration took place. 3. Known history of diabetes mellitus and hypertension. 4. Reported history of viral hepatitis C infection. 5. Anemia most likely secondary to above. 6. Thrombocytopenia of unclear etiology. SUGGESTIONS: 1. Agree with your plan. 2. Blood transfusion to keep hemoglobin around 10 gram percent as needed. 3. Antireflux measures. 4. Again the patient will need endoscopic evaluation of the gastrointestinal tract when he is more stable clinically due to this subsequent drop of hemoglobin and hematocrit that to be discussed with the admitting MD. Senthil Damon MD
--- NOTE | 2017-07-04 22:26 | CP.PCM.PN ---
Subjective - Date & Time of Evaluation Date of Evaluation: 07/04/17 Time of Evaluation: 20:00 - Subjective Subjective: PT SEEN AND EXAMINED BY ME TODAY Objective - Vital Signs/Intake and Output Vital Signs (last 24 hours): Temp Pulse Resp BP Pulse Ox 98.4 F 81 22 126/80 100 07/04/17 15:00 07/04/17 15:00 07/04/17 15:00 07/04/17 15:00 07/04/17 15:00 - Medications Medications: Current Medications Clonidine HCl (Catapres Tts1 0.1 Mg/24 Hr) 1 patch TD Q7D@1000 [facility] Last Admin: 06/30/17 10:52 Dose: 1 patch Famotidine (Pepcid) 20 mg PO BID [facility] Last Admin: 07/04/17 17:36 Dose: 20 mg Heparin Sodium (Porcine) (Heparin) 5,000 units SC Q8 [facility] Last Admin: 07/04/17 21:22 Dose: 5,000 units Vancomycin/Sodium Chloride (Vancomycin 1 Gm/Ns 200 Ml) 1 gm in 200 mls @ 133 mls/hr IVPB Q12H [facility] Stop: 07/05/17 16:01 Last Admin: 07/04/17 16:15 Dose: 133 mls/hr Meropenem 1 gm/ Sodium (Chloride) 100 mls @ 100 mls/hr IVPB Q8 [facility] Last Admin: 07/04/17 21:22 Dose: 100 mls/hr Insulin Aspart (Novolog) 0 unit SC ACHS [facility] PRN Reason: Protocol Last Admin: 07/04/17 22:14 Dose: Not Given Ondansetron HCl (Zofran Inj) 4 mg IVP Q4 PRN PRN Reason: nausea Last Admin: 06/22/17 14:41 Dose: 4 mg Oxycodone/Acetaminophen (Percocet 5/325 Mg Tab) 1 tab PO Q4H PRN PRN Reason: breakthrough pain Stop: 07/05/17 06:18 Last Admin: 07/04/17 09:18 Dose: 1 tab Tramadol HCl (Ultram) 50 mg PO TID [facility] Last Admin: 07/04/17 17:36 Dose: 50 mg - Labs Labs: 07/04/17 04:59 07/04/17 04:59 PT 15.5 SECONDS (9.7-12.2) H 06/14/17 08:47 INR 1.4 06/14/17 08:47 APTT 31 SECONDS (21-34) 06/14/17 08:47 Assessment and Plan (1) Intestinal obstruction Status: Acute (2) Thrombocytopenia Status: Acute (3) Ventral hernia Status: Acute (4) HTN (hypertension) Status: Acute (5) Diabetes mellitus Status: Chronic
[2017-07-05] MEDS: Vancomycin 1 gm/NS 200 ml 1 GM/200 ML BAG IVPB SCH ×2 (03:30→17:22)
[2017-07-05] MEDS: Oxycodone/Acetaminophen 5/325 mg Tab PO PRN (03:34)
[2017-07-05] MEDS: Meropenem 1 GM in Sodium Chloride 0.9% 100 ML IVPB SCH (05:27)
[2017-07-05 06:52] LABS: BASO % 0.5 % (0.0-2.0); EOS % 0.2 % (0.0-4.0); HEMATOCRIT 24.2 % (35.0-51.0); LYMPH # 1.9 K/uL (1.0-4.3); LYMPH % 25.1 % (20.0-40.0); MEAN CELL VOLUME 102.6 fL (80.0-94.0); MEAN CORPUSCULAR HEMOGLOBIN 34.8 pg (27.0-31.0); MEAN CORPUSCULAR HGB CONC 33.9 g/dL (33.0-37.0); MEAN PLATELET VOLUME 8.5 fL (7.2-11.7); MONO # 0.8 K/uL (0.0-0.8); MONO % 10.2 % (0.0-10.0); NRBC % 0.1 % (0.0-2.0); RED CELL DISTRIBUTION WIDTH 20.7 % (11.5-14.5); WHITE BLOOD COUNT 7.6 K/uL (4.8-10.8)
[2017-07-05] MEDS: (Novolog) Insulin Aspart, Recombinant 100 u/ml 10 ml vial SC SCH ×4 (07:38→21:57)
[2017-07-05 08:17] LABS: CHLORIDE 104 mmol/L (98-107); SODIUM 133 mmol/L (132-148)
[2017-07-05 08:20] LABS: CARBON DIOXIDE 23 mmol/L (22-30); GFR AFRICAN-AMERICAN > 60
[2017-07-05 08:21] LABS: BLOOD UREA NITROGEN 6 mg/dL (9-20); CALCIUM 7.8 mg/dl (8.6-10.4); GLUCOSE,RANDOM 115 mg/dL (75-110)
[2017-07-05 09:02] LABS: POTASSIUM 3.7 mmol/L (3.6-5.2)
--- NOTE | 2017-07-05 10:23 | CP.PCM.PN ---
Subjective - Date & Time of Evaluation Date of Evaluation: 07/05/17 Time of Evaluation: 06:45 - Subjective Subjective: General Surgery Dr. Mitchell Pt S&E @bedside. NAEO. pt has no complaints. pt reports no BM x2days. Pt denies F/C, N/V, D/C. Pt tolerating regular diet. Objective - Vital Signs/Intake and Output Vital Signs (last 24 hours): Temp Pulse Resp BP Pulse Ox 98 F 90 20 130/76 100 07/05/17 09:05 07/05/17 09:05 07/05/17 09:05 07/05/17 09:05 07/05/17 09:05 Intake and Output: 07/05/17 07/05/17 06:59 18:59 Intake Total 700 540 Output Total 300 310 Balance 400 230 Selected Entries 07/05/17 07:00 Output, 10 Drainage Amount [Right Lower Abdomen] - Medications Medications: Current Medications Clonidine HCl (Catapres Tts1 0.1 Mg/24 Hr) 1 patch TD Q7D@1000 [facility] Last Admin: 06/30/17 10:52 Dose: 1 patch Famotidine (Pepcid) 20 mg PO BID [facility] Last Admin: 07/04/17 17:36 Dose: 20 mg Heparin Sodium (Porcine) (Heparin) 5,000 units SC Q8 [facility] Last Admin: 07/05/17 05:27 Dose: 5,000 units Vancomycin/Sodium Chloride (Vancomycin 1 Gm/Ns 200 Ml) 1 gm in 200 mls @ 133 mls/hr IVPB Q12H [facility] Stop: 07/05/17 16:01 Last Admin: 07/05/17 03:30 Dose: 133 mls/hr Meropenem 1 gm/ Sodium (Chloride) 100 mls @ 100 mls/hr IVPB Q8 [facility] Last Admin: 07/05/17 05:27 Dose: 100 mls/hr Insulin Aspart (Novolog) 0 unit SC ACHS [facility] PRN Reason: Protocol Last Admin: 07/05/17 07:38 Dose: Not Given Ondansetron HCl (Zofran Inj) 4 mg IVP Q4 PRN PRN Reason: nausea Last Admin: 06/22/17 14:41 Dose: 4 mg Tramadol HCl (Ultram) 50 mg PO TID [facility] Last Admin: 07/04/17 17:36 Dose: 50 mg - Labs Labs: 07/05/17 06:45 07/05/17 06:45 PT 15.5 SECONDS (9.7-12.2) H 06/14/17 08:47 INR 1.4 06/14/17 08:47 APTT 31 SECONDS (21-34) 06/14/17 08:47 - Constitutional Appears: Non-toxic, No Acute Distress - Head Exam Head Exam: NORMAL INSPECTION - Eye Exam Eye Exam: Normal appearance - ENT Exam ENT Exam: Mucous Membranes Moist - Respiratory Exam Respiratory Exam: NORMAL BREATHING PATTERN. absent: Accessory Muscle Use, Respiratory Distress - Cardiovascular Exam Cardiovascular Exam: absent: Bradycardia, Tachycardia - GI/Abdominal Exam GI & Abdominal Exam: Soft. absent: Distended, Firm, Guarding, Rigid, Tenderness , Rebound Additional comments: incision c/d/i. well approximated IR drain w/ scant output - Extremities Exam Extremities Exam: Normal Inspection - Neurological Exam Neurological Exam: Alert, Awake, Oriented x3 - Psychiatric Exam Psychiatric exam: Normal Affect, Normal Mood - Skin Skin Exam: Dry, Intact, Normal Color, Warm Assessment and Plan - Assessment and Plan (Free Text) Assessment: 66 y/o M w/ POD#21 s/o exploratory laparotomy, extensive ROLANDO, repair of recurrent ventral hernia with biologic mesh, small bowel resection w/ primary anastomosis, now POD#5 s/p IR US guided placement of an 8Fr drainage catheter . - Continue Physical therapy - give Dulcolax SD for constipation - Encouraged OOB, ambulation, and IS use - cont IV Abx per ID - remove IR drain today - pt cleared for discharge w/ IV Abx from surgical standpoint Pt discussed w/ Dr. Stephen Patel DO PGY2
[2017-07-05] MEDS: Meropenem 1 GM in Dextrose 5% In Water 100 ML IVPB SCH ×2 (13:52→21:56)
--- NOTE | 2017-07-05 14:26 | PN ---
DATE: LOCATION: [facility], bed 8. SUBJECTIVE: This is a 66-year-old male seen and examined in rounds today without reported active bleeding, appeared to be awake, alert and oriented with no reported bowel movement for the last 48 hours but no nausea or vomiting, tolerating regular diet so far. The entire chart is reviewed including but not limited to the most recent lab and radiology study results, current and previous medication list, current and previous medical events. Case discussed with the staff at length as well as the surgical team. Today's lab showed hemoglobin dropped to 8.2 with hematocrit 24.2 with platelet count 111, with blood glucose level of 184, but low calcium 7.8 with recently reported low magnesium and low calcium. PHYSICAL EXAMINATION GENERAL: The patient is a 66-year-old male, awake, alert and oriented. VITAL SIGNS: Afebrile, heart rate of 82, respiratory rate 20 to 22, blood pressure 136/78. HEENT: Showed pale, dry oral mucous membranes. Nonicteric sclerae. LUNGS: Few scattered crepitation. Decreased air entry at bases. HEART: Positive S1 and S2. ABDOMEN: Soft with slight distention, mild generalized tenderness. No mass or organomegaly. No rebound tenderness or guarding. Bowel sounds are hypoactive. Covered with clean dressing. No discharge. EXTREMITIES: Without significant clubbing, cyanosis or significant edema. NEUROLOGIC: No reported new neurological deficits, sensory or motor. No focal deficits. Peripheral pulses are present bilaterally. IMPRESSION: 1. Incarcerated ventral anterior abdominal wall hernia, treated surgically with partial small bowel resection. 2. Anemia, hypochromic microcystic, most likely secondary to above versus upper and/or lower gastrointestinal blood loss. 3. Elevated CEA level, to rule out occult gastrointestinal malignancy. 4. Reported history of hepatitis C viral infection. 5. Thrombocytopenia of unclear etiology. 6. Postoperative intraabdominal abscess formation, drained. SUGGESTIONS: 1. Continue current management. 2. Colace 1 tablet 3 times a day. 3. The patient may need to repeat abdominal CAT scan before discharge home. 4. Due to the patient's hypochromic microcytic anemia, endoscopic evaluation of the gastrointestinal tract should be kept in mind. Senthil Damon MD cc: Senthil Damon MD. [facility] # [id number]
--- NOTE | 2017-07-05 22:39 | CP.PCM.PN ---
Subjective - Date & Time of Evaluation Date of Evaluation: 07/05/17 Time of Evaluation: 20:40 - Subjective Subjective: PT SEEN AND EXAMINED BY ME TODAY, PT C/O LEG AND FOOT PAIN B/L, REMAINS ON ANTIBIOTICS, NO NAUSEA, VOMITTING, FEELING BETTER Objective - Vital Signs/Intake and Output Vital Signs (last 24 hours): Temp Pulse Resp BP Pulse Ox 98.1 F 71 20 125/75 100 07/05/17 16:51 07/05/17 16:51 07/05/17 16:51 07/05/17 16:51 07/05/17 16:51 Intake and Output: 07/05/17 07/06/17 18:59 06:59 Intake Total 640 Output Total 330 Balance 310 - Medications Medications: Current Medications Clonidine HCl (Catapres Tts1 0.1 Mg/24 Hr) 1 patch TD Q7D@1000 [facility] Last Admin: 06/30/17 10:52 Dose: 1 patch Famotidine (Pepcid) 20 mg PO BID [facility] Last Admin: 07/05/17 17:22 Dose: 20 mg Meropenem 1 gm/ Dextrose 100 mls @ 100 mls/hr IVPB Q8 [facility] Last Admin: 07/05/17 21:56 Dose: 100 mls/hr Insulin Aspart (Novolog) 0 unit SC ACHS [facility] PRN Reason: Protocol Last Admin: 07/05/17 21:57 Dose: Not Given Ondansetron HCl (Zofran Inj) 4 mg IVP Q4 PRN PRN Reason: nausea Last Admin: 06/22/17 14:41 Dose: 4 mg Tramadol HCl (Ultram) 50 mg PO TID [facility] Last Admin: 07/05/17 17:22 Dose: 50 mg - Labs Labs: 07/05/17 06:45 07/05/17 06:45 PT 15.5 SECONDS (9.7-12.2) H 06/14/17 08:47 INR 1.4 06/14/17 08:47 APTT 31 SECONDS (21-34) 06/14/17 08:47 - Constitutional Appears: No Acute Distress - Head Exam Head Exam: ATRAUMATIC, NORMAL INSPECTION, NORMOCEPHALIC - Eye Exam Eye Exam: EOMI, Normal appearance, PERRL Pupil Exam: NORMAL ACCOMODATION, PERRL - Respiratory Exam Respiratory Exam: Clear to Ausculation Bilateral, NORMAL BREATHING PATTERN - Cardiovascular Exam Cardiovascular Exam: REGULAR RHYTHM, +S1, +S2. absent: Murmur - GI/Abdominal Exam GI & Abdominal Exam: Soft, Normal Bowel Sounds. absent: Tenderness - Rectal Exam Rectal Exam: Deferred Assessment and Plan (1) Intestinal obstruction Assessment & Plan: 66 y/o M w/ POD#21 s/o exploratory laparotomy, extensive ROLANDO, repair of recurrent ventral hernia with biologic mesh, small bowel resection w/ primary anastomosis, now POD#5 s/p IR US guided placement of an 8Fr drainage catheter . - Continue Physical therapy - give Dulcolax ME for constipation - Encouraged OOB, ambulation, and IS use - cont IV Abx per ID - remove IR drain today - pt cleared for discharge w/ IV Abx from surgical standpoint Status: Acute (2) Thrombocytopenia Status: Acute (3) Ventral hernia Status: Acute (4) HTN (hypertension) Status: Acute (5) Diabetes mellitus Status: Chronic
--- NOTE | 2017-07-05 22:48 | CP.PCM.PN ---
Subjective - Date & Time of Evaluation Date of Evaluation: 07/05/17 Time of Evaluation: 22:48 - Subjective Subjective: CHIEF COMPLAINTS TODAY : afebrile, FEELING BETTER c/o cconstipation. States no bowel movement for 2 days. IR Drain right lower abdomen +VE DRAINAGE ROS. HEENT : N. Resp : No SOB wheezing, cough Cardio : No CP, PND orthopnea GI : No abd. Pain, n/v +VE RIGHT ANTERIOR ABDOMEN DRAIN, MIDLINE INCISION WITH GEENA IN PLACE. WOUND C/D/I NURSES MEDICAL ASSISTANTS PHLEBOTOMISTS : No headache , focal deficit. Musculoskel : N Ext. : Pedal pulses intact, no edema or calf pain Derm : N Psych : N. PE. Pt. is alert awake in no distress. V.S As noted in the chart Head ,ear nose,throat and eyes : Normal. Neck : Supple with normal carotids. Lungs: Clear air entry. Heart : S1 & S2 normal . . No murmur. S4 + Abd Soft (MIDLINE INCISION WITH GEENA IN PLACE. ALSO DRAINAGE WITH 8 [place]ian CATHETER NOTED IN [place] AND THE COLLECTING BAG.) Neuro : Moves all ext. with no localized deficit. Ext : No edema with intact pulses. Neg. calf tenderness Derm : No rashes or decubitus ulcer. Radiology/Labs . ABDOMINAL FLUID CULTURE- ENTEROCOCCUS FAECIUM s- vancomycin CARMEN <0.5, linizolid CARMEN 2 BLOOD CULTURES 06/30/17 -24 HOURS. VANCO TROUGH 10.7 07/02/17 OKAY. wbc 7.6 HEMOGLOBIN 8.2 pLATELETS INCREASED TO 140. rENAL FUNCTIONS STABLE Asssessment : 66 yr old M w. incisonal hernia, s/p open repair w. biologic mesh, small bowel resection ON 06/14/17- POD#17, w. development of seroma/abscess S/P IR ,ULTRASOUND GUIDED DRAINAGE OF ABDOMINAL WALL COLLECTION AT SITE OF SURGICAL GEENA AND PLACEMENT OFF 8 [place]ian DRAINAGE CATHETER 06/28/17. DRAINAGE FLUID +VE Enterococcus faecium. Plan : SURGERY FOLLOW-UP NOTED. CONTINUE IV ANTIBIOTICS FOR 4 WEEKS PRESENTLY. CONTINUE IV VANCOMYCIN 1 G EVERY 12 HOURLY x 4WEEKS. ADD IV INVANZ 1GM IVPB Q 24HRLY FOR GM-VE. X 4WEEKS (""PHARMACY DOES NOT CARRY INVANZ-WILL GIVE MERREM 1 G EVERY 8 HOURLY WHILE PATIENT IN THE HOSPITAL. ) F/U VANCO TROUGH LEVELS WEEKLY AND KEEP BETWEEN 10 AND 20.. MONITOR RENAL FUNCTIONS CLOSELY. MONITOR THROMBOCYTOPENIA PATIENT HAS HEP C. F/U DRAIN CARE/AND DRAINAGE PER SURGERY. Objective - Vital Signs/Intake and Output Vital Signs (last 24 hours): Temp Pulse Resp BP Pulse Ox 98.1 F 71 20 125/75 100 07/05/17 16:51 07/05/17 16:51 07/05/17 16:51 07/05/17 16:51 07/05/17 16:51 Intake and Output: 07/05/17 07/06/17 18:59 06:59 Intake Total 640 700 Output Total 330 Balance 310 700 - Medications Medications: Current Medications Clonidine HCl (Catapres Tts1 0.1 Mg/24 Hr) 1 patch TD Q7D@1000 [facility] Last Admin: 06/30/17 10:52 Dose: 1 patch Famotidine (Pepcid) 20 mg PO BID [facility] Last Admin: 07/05/17 17:22 Dose: 20 mg Meropenem 1 gm/ Dextrose 100 mls @ 100 mls/hr IVPB Q8 [facility] Last Admin: 07/05/17 21:56 Dose: 100 mls/hr Insulin Aspart (Novolog) 0 unit SC ACHS [facility] PRN Reason: Protocol Last Admin: 07/05/17 21:57 Dose: Not Given Ondansetron HCl (Zofran Inj) 4 mg IVP Q4 PRN PRN Reason: nausea Last Admin: 06/22/17 14:41 Dose: 4 mg Tramadol HCl (Ultram) 50 mg PO TID [facility] Last Admin: 07/05/17 17:22 Dose: 50 mg - Labs Labs: 07/05/17 06:45 07/05/17 06:45 PT 15.5 SECONDS (9.7-12.2) H 06/14/17 08:47 INR 1.4 06/14/17 08:47 APTT 31 SECONDS (21-34) 06/14/17 08:47 Assessment and Plan (1) S/P repair of recurrent ventral hernia Status: Acute (2) Status post exploratory laparotomy Status: Acute (3) Small bowel obstruction Status: Acute (4) Diabetes mellitus Status: Chronic (5) Hepatitis C infection Status: Chronic (6) Hypertension Status: Chronic
[2017-07-06] MEDS: Vancomycin 1 gm/NS 200 ml 1 GM/200 ML BAG IVPB SCH ×2 (04:30→16:41)
[2017-07-06] MEDS: Meropenem 1 GM in Dextrose 5% In Water 100 ML IVPB SCH ×3 (06:10→21:55)
--- NOTE | 2017-07-06 08:30 | CP.PCM.PN ---
Subjective - Date & Time of Evaluation Date of Evaluation: 07/06/17 Time of Evaluation: 07:00 - Subjective Subjective: GENERAL SURGERY PROGRESS NOTE FOR DR. CURIEL Patient seen and examined at bedside. He states that he has not had a BM for 3 days. He is passing flatus. He is tolerating diet and denies nausea or vomiting. He is using his IS and ambulating. IR drain was removed yesterday. Objective - Vital Signs/Intake and Output Vital Signs (last 24 hours): Temp Pulse Resp BP Pulse Ox 98.8 F 59 L 17 105/68 95 07/06/17 07:25 07/06/17 07:25 07/06/17 07:25 07/06/17 07:25 07/06/17 07:25 Intake and Output: 07/06/17 07/06/17 06:59 18:59 Intake Total 700 Output Total 400 Balance 300 - Medications Medications: Current Medications Clonidine HCl (Catapres Tts1 0.1 Mg/24 Hr) 1 patch TD Q7D@1000 [facility] Last Admin: 06/30/17 10:52 Dose: 1 patch Docusate Sodium (Colace) 100 mg PO BID [facility] Famotidine (Pepcid) 20 mg PO BID [facility] Last Admin: 07/05/17 17:22 Dose: 20 mg Meropenem 1 gm/ Dextrose 100 mls @ 100 mls/hr IVPB Q8 [facility] Last Admin: 07/06/17 06:10 Dose: 100 mls/hr Vancomycin/Sodium Chloride (Vancomycin 1 Gm/Ns 200 Ml) 1 gm in 200 mls @ 166.6 mls/hr IVPB Q12H [facility] Stop: 07/11/17 03:01 Last Admin: 07/06/17 04:30 Dose: 166.6 mls/hr Insulin Aspart (Novolog) 0 unit SC ACHS [facility] PRN Reason: Protocol Last Admin: 07/05/17 21:57 Dose: Not Given Ondansetron HCl (Zofran Inj) 4 mg IVP Q4 PRN PRN Reason: nausea Last Admin: 06/22/17 14:41 Dose: 4 mg Tramadol HCl (Ultram) 50 mg PO TID [facility] Last Admin: 07/05/17 17:22 Dose: 50 mg - Labs Labs: 07/05/17 06:45 07/05/17 06:45 PT 15.5 SECONDS (9.7-12.2) H 06/14/17 08:47 INR 1.4 06/14/17 08:47 APTT 31 SECONDS (21-34) 06/14/17 08:47 - Constitutional Appears: Non-toxic, No Acute Distress - Head Exam Head Exam: ATRAUMATIC, NORMAL INSPECTION - Eye Exam Eye Exam: EOMI, Normal appearance - Respiratory Exam Respiratory Exam: NORMAL BREATHING PATTERN. absent: Respiratory Distress - Cardiovascular Exam Cardiovascular Exam: +S1, +S2 - GI/Abdominal Exam GI & Abdominal Exam: Soft. absent: Distended, Firm, Guarding, Rigid, Tenderness , Rebound Additional comments: [place] in place over midline incision - Neurological Exam Neurological Exam: Alert, Awake - Psychiatric Exam Psychiatric exam: Normal Affect, Normal Mood - Skin Skin Exam: Dry, Normal Color, Warm Assessment and Plan - Assessment and Plan (Free Text) Assessment: 66yo M with recurrent ventral hernia and thrombocytopenia s/p exploratory laparotomy, extensive ROLANDO, repair of recurrent ventral hernia with biologic mesh , small bowel resection with primary anastomosis POD#22, now s/p IR US guided abdominal abscess drainage with placement of an 8Fr drainage catheter 6 days ago. - Afebrile, VSS - Continue Physical therapy - Tolerating regular diet - No BM for 3 days, added Colace BID - Encouraged OOB, ambulation, and IS use - Culture from IR drainage: enterococcus facecium, on Vancomycin x4 weeks and Invanz x4 weeks per ID (currently on Merrem instead since pharmacy does not have Invanz) - Per Dr. White: may need repeat CT before discharge and may need endoscopic evaluation of GI tract due to anemia - Hepatitis C antibody is reactive, Hep C viral RNA still pending - IR drain removed yesterday due to low output - Will remove remaining roddy today - Discussed plan with Dr. Stephen Brownlee PGY-3
[2017-07-06] MEDS: (Novolog) Insulin Aspart, Recombinant 100 u/ml 10 ml vial SC SCH ×4 (08:47→21:56)
--- NOTE | 2017-07-06 13:11 | CP.PCM.PN ---
Subjective - Date & Time of Evaluation Date of Evaluation: 07/06/17 Time of Evaluation: 13:11 - Subjective Subjective: CHIEF COMPLAINTS TODAY : afebrile, FEELING BETTER AMBULATING IR Drain right lower abdomen /AND GEENA REMOVED. aNXIOUS TO GO HOME. ROS. HEENT : N. Resp : No SOB wheezing, cough Cardio : No CP, PND orthopnea GI : No abd. Pain, n/v ,GEENA REMOVED. mIDLINE INCISION CLEAN AND DRY. SECURITY OFFICERS AND GUARDS : No headache , focal deficit. Musculoskel : N Ext. : Pedal pulses intact, no edema or calf pain Derm : N Psych : N. PE. Pt. is alert awake in no distress. V.S As noted in the chart Head ,ear nose,throat and eyes : Normal. Neck : Supple with normal carotids. Lungs: Clear air entry. Heart : S1 & S2 normal . . No murmur. S4 + Abd Soft , GEENA REMOVED. mIDLINE INCISION CLEAN AND DRY. nO TENDERNESS ELICITED. Neuro : Moves all ext. with no localized deficit. Ext : No edema with intact pulses. Neg. calf tenderness Derm : No rashes or decubitus ulcer. Radiology/Labs . ABDOMINAL FLUID CULTURE- ENTEROCOCCUS FAECIUM s- vancomycin CARMEN <0.5, linizolid CARMEN 2 BLOOD CULTURES 06/30/17 -24 HOURS. vANCO TROUGH 10.7 07/02/17 OKAY. wbc 8.9 HEMOGLOBIN 9.1. pLATELETS INCREASED TO 140. rENAL FUNCTIONS STABLE Asssessment : 66 yr old M w. incisonal hernia, s/p open repair w. biologic mesh, small bowel resection ON 06/14/17- POD#17, w. development of seroma/abscess S/P IR ,ULTRASOUND GUIDED DRAINAGE OF ABDOMINAL WALL COLLECTION AT SITE OF SURGICAL GEENA AND PLACEMENT OFF 8 Danish DRAINAGE CATHETER 06/28/17. DRAINAGE FLUID +VE Enterococcus faecium. Plan : SURGERY FOLLOW-UP NOTED. CONTINUE IV ANTIBIOTICS FOR 4 WEEKS PRESENTLY. CONTINUE IV VANCOMYCIN 1 G EVERY 12 HOURLY x 4WEEKS. ADD IV INVANZ 1GM IVPB Q 24HRLY FOR GM-VE. X 4WEEKS F/U VANCO TROUGH LEVELS WEEKLY AND KEEP BETWEEN 10 AND 20.. MONITOR RENAL FUNCTIONS CLOSELY. MONITOR THROMBOCYTOPENIA PATIENT HAS HEP C. wILL FOLLOW THE PATIENT WHILE IN HOSPITAL. cASE DISCUSSED WITH STAFF /siebel solution architect MS. BUCK. Objective - Vital Signs/Intake and Output Vital Signs (last 24 hours): Temp Pulse Resp BP Pulse Ox 98.8 F 59 L 17 105/68 95 07/06/17 07:25 07/06/17 07:25 07/06/17 07:25 07/06/17 07:25 07/06/17 07:25 Intake and Output: 07/06/17 07/06/17 06:59 18:59 Intake Total 700 Output Total 400 Balance 300 - Medications Medications: Current Medications Clonidine HCl (Catapres Tts1 0.1 Mg/24 Hr) 1 patch TD Q7D@1000 [facility] Last Admin: 06/30/17 10:52 Dose: 1 patch Docusate Sodium (Colace) 100 mg PO BID [facility] Last Admin: 07/06/17 09:24 Dose: 100 mg Famotidine (Pepcid) 20 mg PO BID [facility] Last Admin: 07/06/17 09:24 Dose: 20 mg Meropenem 1 gm/ Dextrose 100 mls @ 100 mls/hr IVPB Q8 [facility] Last Admin: 07/06/17 06:10 Dose: 100 mls/hr Vancomycin/Sodium Chloride (Vancomycin 1 Gm/Ns 200 Ml) 1 gm in 200 mls @ 166.6 mls/hr IVPB Q12H [facility] Stop: 07/11/17 03:01 Last Admin: 07/06/17 04:30 Dose: 166.6 mls/hr Insulin Aspart (Novolog) 0 unit SC ACHS [facility] PRN Reason: Protocol Last Admin: 07/06/17 12:34 Dose: 2 unit Ondansetron HCl (Zofran Inj) 4 mg IVP Q4 PRN PRN Reason: nausea Last Admin: 06/22/17 14:41 Dose: 4 mg Oxycodone/Acetaminophen (Percocet 5/325 Mg Tab) 1 tab PO Q4H PRN PRN Reason: breakthrough pain Stop: 07/09/17 08:29 Tramadol HCl (Ultram) 50 mg PO TID [facility] Last Admin: 07/05/17 17:22 Dose: 50 mg - Labs Labs: 07/05/17 06:45 07/05/17 06:45 PT 15.5 SECONDS (9.7-12.2) H 06/14/17 08:47 INR 1.4 06/14/17 08:47 APTT 31 SECONDS (21-34) 06/14/17 08:47 Assessment and Plan (1) S/P repair of recurrent ventral hernia Status: Acute (2) Status post exploratory laparotomy Status: Acute (3) Small bowel obstruction Status: Acute (4) Diabetes mellitus Status: Chronic (5) Hepatitis C infection Status: Chronic (6) Hypertension Status: Chronic
[2017-07-06] MEDS: Oxycodone/Acetaminophen 5/325 mg Tab PO PRN (18:28)
--- NOTE | 2017-07-06 19:59 | CP.PCM.PN ---
Subjective - Date & Time of Evaluation Date of Evaluation: 07/06/17 Time of Evaluation: 19:00 - Subjective Subjective: No complaints. Objective - Vital Signs/Intake and Output Vital Signs (last 24 hours): Temp Pulse Resp BP Pulse Ox 98.1 F 81 20 148/87 100 07/06/17 16:45 07/06/17 16:45 07/06/17 16:45 07/06/17 16:45 07/06/17 16:45 - Medications Medications: Current Medications Clonidine HCl (Catapres Tts1 0.1 Mg/24 Hr) 1 patch TD Q7D@1000 [facility] Last Admin: 06/30/17 10:52 Dose: 1 patch Docusate Sodium (Colace) 100 mg PO BID [facility] Last Admin: 07/06/17 18:28 Dose: 100 mg Famotidine (Pepcid) 20 mg PO BID [facility] Last Admin: 07/06/17 18:28 Dose: 20 mg Meropenem 1 gm/ Dextrose 100 mls @ 100 mls/hr IVPB Q8 [facility] Last Admin: 07/06/17 13:49 Dose: 100 mls/hr Vancomycin/Sodium Chloride (Vancomycin 1 Gm/Ns 200 Ml) 1 gm in 200 mls @ 166.6 mls/hr IVPB Q12H [facility] Stop: 07/11/17 03:01 Last Admin: 07/06/17 16:41 Dose: 166.6 mls/hr Insulin Aspart (Novolog) 0 unit SC ACHS [facility] PRN Reason: Protocol Last Admin: 07/06/17 18:34 Dose: Not Given Ondansetron HCl (Zofran Inj) 4 mg IVP Q4 PRN PRN Reason: nausea Last Admin: 06/22/17 14:41 Dose: 4 mg Oxycodone/Acetaminophen (Percocet 5/325 Mg Tab) 1 tab PO Q4H PRN PRN Reason: breakthrough pain Stop: 07/09/17 08:29 Last Admin: 07/06/17 18:28 Dose: 1 tab Tramadol HCl (Ultram) 50 mg PO TID [facility] Last Admin: 07/06/17 18:32 Dose: Not Given - Labs Labs: 07/05/17 06:45 07/05/17 06:45 PT 15.5 SECONDS (9.7-12.2) H 10/09/17 08:47 INR 1.4 06/14/17 08:47 APTT 31 SECONDS (21-34) 06/14/17 08:47 - Head Exam Head Exam: ATRAUMATIC - Eye Exam Eye Exam: Normal appearance - ENT Exam ENT Exam: Mucous Membranes Dry - Respiratory Exam Respiratory Exam: NORMAL BREATHING PATTERN - Cardiovascular Exam Cardiovascular Exam: +S1, +S2 - GI/Abdominal Exam GI & Abdominal Exam: Normal Bowel Sounds Assessment and Plan (1) Anemia Assessment & Plan: H/H fairly stable chronic disease elevated CEA noted; endoscopy per GI Status: Acute (2) Thrombocytopenia Assessment & Plan: mild hep C, liver disease Status: Acute (3) Elevated CEA Assessment & Plan: GI w/u Status: Acute
--- NOTE | 2017-07-06 20:01 | CP.PCM.PN ---
Subjective - Date & Time of Evaluation Date of Evaluation: 07/05/17 Time of Evaluation: 18:00 - Subjective Subjective: No complaints. Objective - Vital Signs/Intake and Output Vital Signs (last 24 hours): Temp Pulse Resp BP Pulse Ox 98.1 F 81 20 148/87 100 07/06/17 16:45 07/06/17 16:45 07/06/17 16:45 07/06/17 16:45 07/06/17 16:45 - Medications Medications: Current Medications Clonidine HCl (Catapres Tts1 0.1 Mg/24 Hr) 1 patch TD Q7D@1000 [facility] Last Admin: 06/30/17 10:52 Dose: 1 patch Docusate Sodium (Colace) 100 mg PO BID [facility] Last Admin: 07/06/17 18:28 Dose: 100 mg Famotidine (Pepcid) 20 mg PO BID [facility] Last Admin: 07/06/17 18:28 Dose: 20 mg Meropenem 1 gm/ Dextrose 100 mls @ 100 mls/hr IVPB Q8 [facility] Last Admin: 07/06/17 13:49 Dose: 100 mls/hr Vancomycin/Sodium Chloride (Vancomycin 1 Gm/Ns 200 Ml) 1 gm in 200 mls @ 166.6 mls/hr IVPB Q12H [facility] Stop: 07/11/17 03:01 Last Admin: 07/06/17 16:41 Dose: 166.6 mls/hr Insulin Aspart (Novolog) 0 unit SC ACHS [facility] PRN Reason: Protocol Last Admin: 07/06/17 18:34 Dose: Not Given Ondansetron HCl (Zofran Inj) 4 mg IVP Q4 PRN PRN Reason: nausea Last Admin: 06/22/17 14:41 Dose: 4 mg Oxycodone/Acetaminophen (Percocet 5/325 Mg Tab) 1 tab PO Q4H PRN PRN Reason: breakthrough pain Stop: 07/09/17 08:29 Last Admin: 07/06/17 18:28 Dose: 1 tab Tramadol HCl (Ultram) 50 mg PO TID [facility] Last Admin: 07/06/17 18:32 Dose: Not Given - Labs Labs: 07/05/17 06:45 07/05/17 06:45 PT 15.5 SECONDS (9.7-12.2) H 10/09/17 08:47 INR 1.4 06/14/17 08:47 APTT 31 SECONDS (21-34) 06/14/17 08:47 - Head Exam Head Exam: ATRAUMATIC - Eye Exam Eye Exam: Normal appearance - ENT Exam ENT Exam: Mucous Membranes Dry - Respiratory Exam Respiratory Exam: NORMAL BREATHING PATTERN - Cardiovascular Exam Cardiovascular Exam: +S1, +S2 - GI/Abdominal Exam GI & Abdominal Exam: Normal Bowel Sounds Assessment and Plan (1) Anemia Assessment & Plan: H/H fairly stable chronic disease elevated CEA noted; endoscopy per GI Status: Acute (2) Thrombocytopenia Assessment & Plan: mild hep C and liver disease Status: Acute (3) Elevated CEA Assessment & Plan: endoscopy per GI Status: Acute
--- NOTE | 2017-07-06 20:03 | CP.PCM.PN ---
Subjective - Date & Time of Evaluation Date of Evaluation: 07/03/17 Time of Evaluation: 17:00 - Subjective Subjective: Has mild lower abdominal pain. Objective - Vital Signs/Intake and Output Vital Signs (last 24 hours): Temp Pulse Resp BP Pulse Ox 98.1 F 81 20 148/87 100 07/06/17 16:45 07/06/17 16:45 07/06/17 16:45 07/06/17 16:45 07/06/17 16:45 - Medications Medications: Current Medications Clonidine HCl (Catapres Tts1 0.1 Mg/24 Hr) 1 patch TD Q7D@1000 [facility] Last Admin: 06/30/17 10:52 Dose: 1 patch Docusate Sodium (Colace) 100 mg PO BID [facility] Last Admin: 07/06/17 18:28 Dose: 100 mg Famotidine (Pepcid) 20 mg PO BID [facility] Last Admin: 07/06/17 18:28 Dose: 20 mg Meropenem 1 gm/ Dextrose 100 mls @ 100 mls/hr IVPB Q8 [facility] Last Admin: 07/06/17 13:49 Dose: 100 mls/hr Vancomycin/Sodium Chloride (Vancomycin 1 Gm/Ns 200 Ml) 1 gm in 200 mls @ 166.6 mls/hr IVPB Q12H [facility] Stop: 07/11/17 03:01 Last Admin: 07/06/17 16:41 Dose: 166.6 mls/hr Insulin Aspart (Novolog) 0 unit SC ACHS [facility] PRN Reason: Protocol Last Admin: 07/06/17 18:34 Dose: Not Given Ondansetron HCl (Zofran Inj) 4 mg IVP Q4 PRN PRN Reason: nausea Last Admin: 06/22/17 14:41 Dose: 4 mg Oxycodone/Acetaminophen (Percocet 5/325 Mg Tab) 1 tab PO Q4H PRN PRN Reason: breakthrough pain Stop: 07/09/17 08:29 Last Admin: 07/06/17 18:28 Dose: 1 tab Tramadol HCl (Ultram) 50 mg PO TID [facility] Last Admin: 07/06/17 18:32 Dose: Not Given - Labs Labs: 07/05/17 06:45 07/05/17 06:45 PT 15.5 SECONDS (9.7-12.2) H 06/14/17 08:47 INR 1.4 06/14/17 08:47 APTT 31 SECONDS (21-34) 06/14/17 08:47 - Head Exam Head Exam: ATRAUMATIC - Eye Exam Eye Exam: Normal appearance - ENT Exam ENT Exam: Mucous Membranes Dry - Respiratory Exam Respiratory Exam: NORMAL BREATHING PATTERN - Cardiovascular Exam Cardiovascular Exam: +S1, +S2 - GI/Abdominal Exam GI & Abdominal Exam: Normal Bowel Sounds Assessment and Plan (1) Anemia Assessment & Plan: H/H fairly stable chronic disease elevated CEA noted; endoscopy per GI Status: Acute (2) Thrombocytopenia Assessment & Plan: liver disease, hep c Status: Acute (3) Elevated CEA Assessment & Plan: endoscopy per GI Status: Acute
--- NOTE | 2017-07-06 21:01 | CP.PCM.PN ---
Subjective - Date & Time of Evaluation Date of Evaluation: 07/06/17 Time of Evaluation: 19:00 - Subjective Subjective: Pt is feeling better, s/p incarcerated hernia surgery and post op infection, cleared by Id for discharge Objective - Vital Signs/Intake and Output Vital Signs (last 24 hours): Temp Pulse Resp BP Pulse Ox 98.1 F 81 20 148/87 100 07/06/17 16:45 07/06/17 16:45 07/06/17 16:45 07/06/17 16:45 07/06/17 16:45 - Medications Medications: Current Medications Clonidine HCl (Catapres Tts1 0.1 Mg/24 Hr) 1 patch TD Q7D@1000 [facility] Last Admin: 06/30/17 10:52 Dose: 1 patch Docusate Sodium (Colace) 100 mg PO BID [facility] Last Admin: 07/06/17 18:28 Dose: 100 mg Famotidine (Pepcid) 20 mg PO BID [facility] Last Admin: 07/06/17 18:28 Dose: 20 mg Meropenem 1 gm/ Dextrose 100 mls @ 100 mls/hr IVPB Q8 [facility] Last Admin: 07/06/17 13:49 Dose: 100 mls/hr Vancomycin/Sodium Chloride (Vancomycin 1 Gm/Ns 200 Ml) 1 gm in 200 mls @ 166.6 mls/hr IVPB Q12H [facility] Stop: 07/11/17 03:01 Last Admin: 07/06/17 16:41 Dose: 166.6 mls/hr Insulin Aspart (Novolog) 0 unit SC ACHS [facility] PRN Reason: Protocol Last Admin: 07/06/17 18:34 Dose: Not Given Ondansetron HCl (Zofran Inj) 4 mg IVP Q4 PRN PRN Reason: nausea Last Admin: 06/22/17 14:41 Dose: 4 mg Oxycodone/Acetaminophen (Percocet 5/325 Mg Tab) 1 tab PO Q4H PRN PRN Reason: breakthrough pain Stop: 07/09/17 08:29 Last Admin: 07/06/17 18:28 Dose: 1 tab Tramadol HCl (Ultram) 50 mg PO TID [facility] Last Admin: 07/06/17 18:32 Dose: Not Given - Labs Labs: 07/05/17 06:45 07/05/17 06:45 PT 15.5 SECONDS (9.7-12.2) H 06/14/17 08:47 INR 1.4 06/14/17 08:47 APTT 31 SECONDS (21-34) 06/14/17 08:47 - Constitutional Appears: No Acute Distress - Head Exam Head Exam: ATRAUMATIC, NORMAL INSPECTION, NORMOCEPHALIC - Eye Exam Eye Exam: EOMI, Normal appearance, PERRL Pupil Exam: NORMAL ACCOMODATION, PERRL - Respiratory Exam Respiratory Exam: Decreased Breath Sounds, Rales, Rhonchi - Cardiovascular Exam Cardiovascular Exam: REGULAR RHYTHM, +S1, +S2. absent: Murmur - GI/Abdominal Exam GI & Abdominal Exam: Soft, Normal Bowel Sounds. absent: Tenderness - Rectal Exam Rectal Exam: Deferred Assessment and Plan (1) Intestinal obstruction Status: Acute (2) Thrombocytopenia Status: Acute (3) Ventral hernia Status: Acute (4) HTN (hypertension) Status: Acute (5) Diabetes mellitus Status: Chronic
[2017-07-07] MEDS: Vancomycin 1 gm/NS 200 ml 1 GM/200 ML BAG IVPB SCH ×2 (03:41→14:35)
[2017-07-07] MEDS: Meropenem 1 GM in Dextrose 5% In Water 100 ML IVPB SCH (05:23)
[2017-07-07] MEDS: Oxycodone/Acetaminophen 5/325 mg Tab PO PRN (05:33)
--- NOTE | 2017-07-07 06:34 | PN ---
DATE: LOCATION: [facility], bed 8. SUBJECTIVE: This is 66 years old male, tolerating oral intake well with intermittent period of abdominal pain, but less abdominal distention. No reported chest pain or palpitation, but was reporting constipation, passing gas well. The entire chart is reviewed including but not limited to the most recent lab and radiology study results, current and previous medication list, current and previous medical events. Case discussed with the staff at length and the abdominal, abscess drainage was removed by the IR yesterday. LABORATORY DATA: Today his lab showed blood glucose level of 224. PHYSICAL EXAMINATION: GENERAL: A 66 years old male. VITAL SIGNS: Afebrile with pulse of 62, respiratory rate of 20 to 22, and blood pressure 110/64. HEENT: Show pale, dry oral mucoid membranes, nonicteric sclerae. LUNGS: Few scattered crepitation. Decreased air entry at bases. HEART: Positive S1 and S2. ABDOMEN: Soft with mild distention, mild generalized tenderness. No mass or organomegaly. No rebound tenderness or guarding. SKIN: Clean dressing seen. EXTREMITIES: Lower extremity mild edematous changes. No clubbing or cyanosis. NEUROLOGIC: No reported new focal neurological deficits, sensory or motor. Peripheral pulses are present bilaterally, but hypoactive, but weak. IMPRESSION: 1. Postoperative anterior abdominal wall, incarcerated hernia repair. 2. Partial small bowel resection. 3. Postoperative abscess formation, drained successfully. 4. Anemia secondary to above. 5. Increase CEA level. 6. Rule out occult gastrointestinal malignancy. 7. Thrombocytopenia of unclear etiology. 8. Reported history of hepatitis C viral infection. SUGGESTIONS: 1. Continue current management. 2. Again repeat scan of abdomen and pelvis before discharge home. 3. Endoscopic evaluation of the gastrointestinal tract that could be done as an outpatient while the patient is more stable clinically. Further recommendation to follow. Senthil Damon MD
[2017-07-07] MEDS: (Novolog) Insulin Aspart, Recombinant 100 u/ml 10 ml vial SC SCH ×3 (07:46→18:09)
[2017-07-07 08:03] LABS: BASO % 0.4 % (0.0-2.0); EOS % 0.3 % (0.0-4.0); LYMPH # 1.8 K/uL (1.0-4.3); LYMPH % 23.2 % (20.0-40.0); MEAN CELL VOLUME 101.7 fL (80.0-94.0); MEAN CORPUSCULAR HEMOGLOBIN 34.3 pg (27.0-31.0); MEAN CORPUSCULAR HGB CONC 33.7 g/dL (33.0-37.0); MEAN PLATELET VOLUME 8.2 fL (7.2-11.7); MONO # 0.9 K/uL (0.0-0.8); MONO % 11.2 % (0.0-10.0); NRBC % 0.2 % (0.0-2.0); WHITE BLOOD COUNT 7.7 K/uL (4.8-10.8)
[2017-07-07 08:46] LABS: CHLORIDE 103 mmol/L (98-107); SODIUM 131 mmol/L (132-148)
[2017-07-07 08:47] LABS: POTASSIUM 3.7 mmol/L (3.6-5.2)
[2017-07-07 08:48] VITALS: O2SAT 100
[2017-07-07 08:49] LABS: BLOOD UREA NITROGEN 7 mg/dL (9-20); CARBON DIOXIDE 23 mmol/L (22-30); GFR AFRICAN-AMERICAN > 60
[2017-07-07 08:50] LABS: GLUCOSE,RANDOM 102 mg/dL (75-110)
--- NOTE | 2017-07-07 12:32 | CP.PCM.PN ---
Subjective - Date & Time of Evaluation Date of Evaluation: 07/07/17 Time of Evaluation: 12:30 Objective - Vital Signs/Intake and Output Vital Signs (last 24 hours): Temp Pulse Resp BP Pulse Ox 97.9 F 69 18 126/68 100 07/07/17 07:20 07/07/17 07:20 07/07/17 07:20 07/07/17 07:20 07/07/17 07:20 Intake and Output: 07/07/17 07/07/17 06:59 18:59 Intake Total 408 Output Total 600 Balance -192 - Medications Medications: Current Medications Clonidine HCl (Catapres Tts1 0.1 Mg/24 Hr) 1 patch TD Q7D@1000 [facility] Last Admin: 07/07/17 10:08 Dose: 1 patch Docusate Sodium (Colace) 100 mg PO BID [facility] Last Admin: 07/07/17 10:08 Dose: 100 mg Famotidine (Pepcid) 20 mg PO BID [facility] Last Admin: 07/07/17 10:08 Dose: 20 mg Vancomycin/Sodium Chloride (Vancomycin 1 Gm/Ns 200 Ml) 1 gm in 200 mls @ 166.6 mls/hr IVPB Q12H [facility] Stop: 07/11/17 03:01 Last Admin: 07/07/17 03:41 Dose: 166.6 mls/hr Insulin Aspart (Novolog) 0 unit SC ACHS [facility] PRN Reason: Protocol Last Admin: 07/07/17 12:28 Dose: Not Given Ondansetron HCl (Zofran Inj) 4 mg IVP Q4 PRN PRN Reason: nausea Last Admin: 06/22/17 14:41 Dose: 4 mg Oxycodone/Acetaminophen (Percocet 5/325 Mg Tab) 1 tab PO Q4H PRN PRN Reason: breakthrough pain Stop: 07/09/17 08:29 Last Admin: 07/07/17 05:33 Dose: 1 tab Tramadol HCl (Ultram) 50 mg PO TID [facility] Last Admin: 07/07/17 10:07 Dose: 50 mg - Labs Labs: 07/07/17 07:33 07/07/17 07:33 PT 15.5 SECONDS (9.7-12.2) H 06/14/17 08:47 INR 1.4 06/14/17 08:47 APTT 31 SECONDS (21-34) 06/14/17 08:47
--- NOTE | 2017-07-07 12:50 | CP.PCM.PN ---
Subjective - Date & Time of Evaluation Date of Evaluation: 07/07/17 Time of Evaluation: 12:00 - Subjective Subjective: No complaints. Objective - Vital Signs/Intake and Output Vital Signs (last 24 hours): Temp Pulse Resp BP Pulse Ox 97.9 F 69 18 126/68 100 07/07/17 07:20 07/07/17 07:20 07/07/17 07:20 07/07/17 07:20 07/07/17 07:20 Intake and Output: 07/07/17 07/07/17 06:59 18:59 Intake Total 408 Output Total 600 Balance -192 - Medications Medications: Current Medications Clonidine HCl (Catapres Tts1 0.1 Mg/24 Hr) 1 patch TD Q7D@1000 [facility] Last Admin: 07/07/17 10:08 Dose: 1 patch Docusate Sodium (Colace) 100 mg PO BID [facility] Last Admin: 07/07/17 10:08 Dose: 100 mg Famotidine (Pepcid) 20 mg PO BID [facility] Last Admin: 07/07/17 10:08 Dose: 20 mg Vancomycin/Sodium Chloride (Vancomycin 1 Gm/Ns 200 Ml) 1 gm in 200 mls @ 166.6 mls/hr IVPB Q12H [facility] Stop: 07/11/17 03:01 Last Admin: 07/07/17 03:41 Dose: 166.6 mls/hr Insulin Aspart (Novolog) 0 unit SC ACHS [facility] PRN Reason: Protocol Last Admin: 07/07/17 12:28 Dose: Not Given Ondansetron HCl (Zofran Inj) 4 mg IVP Q4 PRN PRN Reason: nausea Last Admin: 06/22/17 14:41 Dose: 4 mg Oxycodone/Acetaminophen (Percocet 5/325 Mg Tab) 1 tab PO Q4H PRN PRN Reason: breakthrough pain Stop: 07/09/17 08:29 Last Admin: 07/07/17 05:33 Dose: 1 tab Tramadol HCl (Ultram) 50 mg PO TID [facility] Last Admin: 07/07/17 10:07 Dose: 50 mg - Labs Labs: 07/07/17 07:33 07/07/17 07:33 PT 15.5 SECONDS (9.7-12.2) H 06/14/17 08:47 INR 1.4 06/14/17 08:47 APTT 31 SECONDS (21-34) 06/14/17 08:47 - Head Exam Head Exam: ATRAUMATIC - Eye Exam Eye Exam: Normal appearance - ENT Exam ENT Exam: Mucous Membranes Dry - Respiratory Exam Respiratory Exam: NORMAL BREATHING PATTERN - Cardiovascular Exam Cardiovascular Exam: +S1, +S2 - GI/Abdominal Exam GI & Abdominal Exam: Normal Bowel Sounds Assessment and Plan (1) Anemia Assessment & Plan: H/H fairly stable chronic disease elevated CEA noted; endoscopy per GI Status: Acute (2) Thrombocytopenia Assessment & Plan: mild hep c and liver disease Status: Acute (3) Elevated CEA Assessment & Plan: GI w/u Status: Acute
--- NOTE | 2017-07-07 13:09 | CP.PCM.PN ---
Subjective - Date & Time of Evaluation Date of Evaluation: 07/07/17 Time of Evaluation: 11:10 - Subjective Subjective: Patient seen today , states feels well, wants to go home , denies any abdominal pain, N/V/, tolerating diet s/p exploratory laparotomy, extensive ROLANDO, repair of recurrent ventral hernia with biologic mesh, small bowel resection with primary anastomosis POD#22, a febrile Hgb - stable -8.4-8.3-8.2-9.1 Objective - Vital Signs/Intake and Output Vital Signs (last 24 hours): Temp Pulse Resp BP Pulse Ox 97.9 F 69 18 126/68 100 07/07/17 07:20 07/07/17 07:20 07/07/17 07:20 07/07/17 07:20 07/07/17 07:20 Intake and Output: 07/07/17 07/07/17 06:59 18:59 Intake Total 408 Output Total 600 Balance -192 - Medications Medications: Current Medications Clonidine HCl (Catapres Tts1 0.1 Mg/24 Hr) 1 patch TD Q7D@1000 [facility] Last Admin: 07/07/17 10:08 Dose: 1 patch Docusate Sodium (Colace) 100 mg PO BID [facility] Last Admin: 07/07/17 10:08 Dose: 100 mg Famotidine (Pepcid) 20 mg PO BID [facility] Last Admin: 07/07/17 10:08 Dose: 20 mg Vancomycin/Sodium Chloride (Vancomycin 1 Gm/Ns 200 Ml) 1 gm in 200 mls @ 166.6 mls/hr IVPB Q12H [facility] Stop: 07/11/17 03:01 Last Admin: 07/07/17 03:41 Dose: 166.6 mls/hr Insulin Aspart (Novolog) 0 unit SC ACHS [facility] PRN Reason: Protocol Last Admin: 07/07/17 12:28 Dose: Not Given Ondansetron HCl (Zofran Inj) 4 mg IVP Q4 PRN PRN Reason: nausea Last Admin: 06/22/17 14:41 Dose: 4 mg Oxycodone/Acetaminophen (Percocet 5/325 Mg Tab) 1 tab PO Q4H PRN PRN Reason: breakthrough pain Stop: 07/09/17 08:29 Last Admin: 07/07/17 05:33 Dose: 1 tab Tramadol HCl (Ultram) 50 mg PO TID [facility] Last Admin: 07/07/17 10:07 Dose: 50 mg - Labs Labs: 07/07/17 07:33 07/07/17 07:33 PT 15.5 SECONDS (9.7-12.2) H 06/14/17 08:47 INR 1.4 06/14/17 08:47 APTT 31 SECONDS (21-34) 06/14/17 08:47 - Constitutional Appears: Well, Non-toxic, No Acute Distress - Respiratory Exam Respiratory Exam: Clear to Ausculation Bilateral, NORMAL BREATHING PATTERN - GI/Abdominal Exam GI & Abdominal Exam: Soft, Normal Bowel Sounds (surgical site well healed ( roddy and drain out) ) - Neurological Exam Neurological Exam: Alert, Awake, Oriented x3 Assessment and Plan - Assessment and Plan (Free Text) Assessment: A/P 6yo Male admitted with recurrent ventral hernia s/p exploratory laparotomy, extensive ROLANDO, repair of recurrent ventral hernia with biologic mesh, small bowel resection with primary anastomosis POD#25, s/p IR US guided abdominal abscess drainage with placement of an 8Fr drainage catheter for abcess/ hematoma hgb stable abdominal fluid -+ for enterococus and started on vanco and merum , and needs [address] Karlie arnold -ID Patient refused the idea of PETE for IV antibiotics and opted to go home and do IV home infusion ( patients states he will be able to do it 4 weeks) D/w Dr. Galindo, recommends to continue vanco and Invanz for 4 weeks and weekly vanco trough level between 10-20 and weekly cbc, bmp D/w Dr. Mitchell cleared for discharge home from surgery standpoint and continue with ID recommendations for antibiotics D/W Dr. Dugan, stable for discharge home today and f/u with Dr. Dugan office in 1 week Discharge plan discussed with patient , who understands and agrees with plan CM arranged home infusion for 4 weeks and lab work RX AND INFUSION INSTRUCTIONS GIVEN TO HOME INF[facility]ION COMPANY AND F/U LAB RESULT WITH DR. DUGAN AND DR. Karlie ARNOLD AND FOR FURTHER ORDERS
--- NOTE | 2017-07-07 13:52 | PN ---
DATE: LOCATION: [facility], bed A. SUBJECTIVE: This 66-year-old male was seen and examined in rounds today without any new complaint. Denied any nausea, vomiting or abdominal pain. Denied any significant shortness of breath or chest pain, tolerating oral intake well with positive bowel movement and bowel sounds. Passing gas. The entire chart is reviewed including, but not limited to the most recent lab and radiology study results, current and previous medication list, current and the previous medical events. LABORATORY DATA: Today's lab showed hemoglobin of 8.4, hematocrit 25.0 with thrombocytopenia of 110 with low sodium 131 and low BUN and creatinine with blood glucose level 136 and low calcium of 8. PHYSICAL EXAMINATION: GENERAL: A 66-year-old male. VITAL SIGNS: Afebrile with pulse of 72, respiratory rate 20 to 22 with blood pressure of 130/66. HEENT: Showed pale, dry mucoid membrane. Nonicteric sclerae. LUNGS: Mild scattered crepitation with few rhonchi bilaterally and slight decrease of air entry at bases. HEART: Positive S1 and S2. ABDOMEN: Soft. Bowel sounds are present. Mildly distended. No mass or organomegaly. No rebound tenderness or guarding. The site of previous surgery appeared to be without any evidence of anterior abdominal wall cellulitis or discharge. RECTAL EXAMINATION: The patient refused. EXTREMITIES: With mild lower extremities edematous changes. NEUROLOGIC: No reported new neurological deficits, sensory or focal. No focal deficits. It has to be mentioned clearly that the patient indicated that he is going home today and he refused any endoscopic evaluation for now; however, that could be scheduled as an outpatient. IMPRESSION: 1. Incarcerated ventral anterior wall hernia, treated surgically. 2. Partial small bowel resection. 3. Postoperative abscess formation, drained by Interventional Radiology, the patient is still on antibiotic. 4. Electrolyte imbalance with hyponatremia and hypocalcemia. 5. Thrombocytopenia of unclear etiology. 6. Hypochromic microcystic anemia, again that could be secondary to chronic disease versus possible gastrointestinal blood loss, the patient has elevated carcinoembryonic antigen level and lower gastrointestinal tract neoplastic lesion should be investigated, to be ruled in or out. 7. Reported history of hepatitis C viral infection that could be treated as an outpatient by Infectious Disease cycle consultant or myself. SUGGESTIONS: 1. Agree with your plan. 2. Endoscopic evaluation of the gastrointestinal tract, again that could be done as an outpatient as the patient refused any aggressive GI workup in the meantime while he is in the hospital. 3. Further recommendation to follow. Senthil Damon MD cc: Senthil Damon MD
[2017-07-07 16:09] VITALS: BP 150/84; PULSE 71; RESP 20; TEMP 98.2
--- NOTE | 2017-07-07 22:18 | CP.PCM.DIS ---
Provider - Provider Date of Admission: 06/05/17 04:47 Attending physician: Harshal Dugan MD Time Spent in preparation of Discharge (in minutes): 56 Diagnosis - Discharge Diagnosis (1) Intestinal obstruction Status: Acute (2) Thrombocytopenia Status: Acute (3) Ventral hernia Status: Acute (4) HTN (hypertension) Status: Acute (5) Diabetes mellitus Status: Chronic Hospital Course - Lab Results Lab Results: Micro Results 06/30/17 18:30 Blood Blood Culture - Final NO GROWTH AFTER 5 DAYS 06/30/17 18:30 Blood Gram Stain - Final TEST NOT PERFORMED 06/30/17 18:00 Blood Blood Culture - Final NO GROWTH AFTER 5 DAYS 06/30/17 18:00 Blood Gram Stain - Final TEST NOT PERFORMED 06/28/17 Unknown Abdominal Fluid Gram Stain - Final 06/28/17 Unknown Abdominal Fluid Body Fluid Culture - Final Enterococcus Faecium 06/14/17 22:29 Naris MRSA Culture (Admit) - Final MRSA NOT DETECTED Most Recent Lab Values WBC 7.7 K/uL (4.8-10.8) 07/07/17 07:33 RBC 2.45 Mil/uL (4.40-5.90) L 07/07/17 07:33 Hgb 8.4 g/dL (12.0-18.0) L 07/07/17 07:33 Hct 25.0 % (35.0-51.0) L 07/07/17 07:33 MCV 101.7 fL (80.0-94.0) H 07/07/17 07:33 MCH 34.3 pg (27.0-31.0) H 07/07/17 07:33 MCHC 33.7 g/dL (33.0-37.0) 07/07/17 07:33 RDW 21.0 % (11.5-14.5) H 07/07/17 07:33 Plt Count 110 K/uL (130-400) L 07/07/17 07:33 MPV 8.2 fL (7.2-11.7) 07/07/17 07:33 Neut % (Auto) 64.9 % (50.0-75.0) 07/07/17 07:33 Lymph % (Auto) 23.2 % (20.0-40.0) 07/07/17 07:33 Evans % (Auto) 11.2 % (0.0-10.0) H 07/07/17 07:33 Eos % (Auto) 0.3 % (0.0-4.0) 07/07/17 07:33 Baso % (Auto) 0.4 % (0.0-2.0) 07/07/17 07:33 Neut # 5.0 K/uL (1.8-7.0) 07/07/17 07:33 Lymph # 1.8 K/uL (1.0-4.3) 07/07/17 07:33 Evans # 0.9 K/uL (0.0-0.8) H 07/07/17 07:33 Eos # 0.0 K/uL (0.0-0.7) 07/07/17 07:33 Baso # 0.0 K/uL (0.0-0.2) 07/07/17 07:33 Neutrophils % (Manual) 59 % (50-75) 06/12/17 06:25 Lymphocytes % (Manual) 27 % (20-40) 06/12/17 06:25 Monocytes % (Manual) 14 % (0-10) H 06/12/17 06:25 Differential Comment 06/30/17 07:06 Platelet Estimate Decreased (NORMAL) L 06/12/17 06:25 Polychromasia Slight 06/12/17 06:25 Hypochromasia (manual) Slight 06/12/17 06:25 Poikilocytosis (manual Slight 06/12/17 06:25 Anisocytosis (manual) Slight 06/12/17 06:25 Microcytosis (manual) Slight 06/12/17 06:25 Macrocytosis (manual) Slight 06/12/17 06:25 Ovalocytes Slight 06/12/17 06:25 Retic Count 1.5 % (0.5-1.5) 06/09/17 07:34 PT 15.5 SECONDS (9.7-12.2) H 06/14/17 08:47 INR 1.4 06/14/17 08:47 APTT 31 SECONDS (21-34) 06/14/17 08:47 Sodium 131 mmol/L (132-148) L 07/07/17 07:33 Potassium 3.7 mmol/L (3.6-5.2) 07/07/17 07:33 Chloride 103 mmol/L (98-107) 07/07/17 07:33 Carbon Dioxide 23 mmol/L (22-30) 07/07/17 07:33 Anion Gap 10 (10-20) 07/07/17 07:33 BUN 7 mg/dL (9-20) L 07/07/17 07:33 Creatinine 0.6 mg/dL (0.8-1.5) L 07/07/17 07:33 Est GFR ( Amer) > 60 07/07/17 07:33 Est GFR (Non-Af Amer) > 60 07/07/17 07:33 POC Glucose (mg/dL) 146 mg/dL (65-110) H 07/07/17 16:29 Random Glucose 102 mg/dL (75-110) 07/07/17 07:33 Calcium 8.0 mg/dl (8.6-10.4) L 07/07/17 07:33 Phosphorus 3.1 mg/dL (2.5-4.5) 06/23/17 06:30 Magnesium 1.5 mg/dL (1.6-2.3) L 07/01/17 06:19 Ferritin 214.0 ng/mL 06/09/17 07:34 Total Bilirubin 0.8 mg/dL (0.2-1.3) 06/23/17 06:30 AST 56 U/L (17-59) 06/23/17 06:30 ALT 47 U/L (21-72) 06/23/17 06:30 Alkaline Phosphatase 60 U/L (38-126) 06/23/17 06:30 Troponin I < 0.0120 ng/mL (0.00-0.120) 06/05/17 02:05 Total Protein 6.0 g/dL (6.3-8.3) L 06/23/17 06:30 Albumin 2.6 g/dL (3.5-5.0) L 06/23/17 06:30 Globulin 3.4 gm/dL (2.2-3.9) 06/23/17 06:30 Albumin/Globulin Ratio 0.8 (1.0-2.1) L 06/23/17 06:30 Triglycerides 99 mg/dL (0-149) 06/23/17 06:30 Cholesterol 62 mg/dL (0-199) 06/23/17 06:30 LDL Cholesterol Direct 35 mg/dL (0-129) 06/23/17 06:30 HDL Cholesterol 15 mg/dL (30-70) L 06/23/17 06:30 Amylase 38 U/L (30-110) 07/01/17 15:15 Lipase 143 U/L (23-300) 07/01/17 15:15 Carcinoembryonic Ag 4.9 ng/mL (0-3.0) H 06/05/17 11:29 Vitamin B12 878 pg/mL (239-931) 06/09/17 07:34 Folate 15.8 ng/mL 06/09/17 07:34 Stool Occult Blood Negative (NEGATIVE) 06/10/17 17:15 Vancomycin Trough 12.2 ug/mL (5.0-10.0) H 07/07/17 13:52 Hepatitis A IgM Ab Negative (NEGATIVE) 06/30/17 07:06 Hep Bs Antigen Negative (NEGATIVE) 06/30/17 07:06 Hep B Core IgM Ab Negative (NEGATIVE) 06/30/17 07:06 Hepatitis C Antibody Reactive (NEGATIVE) 06/30/17 07:06 Blood Type O POSITIVE 06/23/17 06:30 Antibody Screen Negative 06/23/17 06:30 Crossmatch See Detail 06/14/17 14:42 - Hospital Course Hospital Course: A/P 6yo Male admitted with recurrent ventral hernia s/p exploratory laparotomy, extensive ROLANDO, repair of recurrent ventral hernia with biologic mesh, small bowel resection with primary anastomosis POD#25, s/p IR US guided abdominal abscess drainage with placement of an 8Fr drainage catheter for abcess/ hematoma hgb stable abdominal fluid -+ for enterococus and started on vanco and merum , and needs [address] Karlie arnold -ID Patient refused the idea of PETE for IV antibiotics and opted to go home and do IV home infusion ( patients states he will be able to do it 4 weeks) D/w Dr. Galindo, recommends to continue vanco and Invanz for 4 weeks and weekly vanco trough level between 10-20 and weekly cbc, bmp D/w Dr. Mitchell cleared for discharge home from surgery standpoint and continue with ID recommendations for antibiotics stable for discharge home today and f/u with ME IN office in 1 week Discharge plan discussed with patient , who understands and agrees with plan CM arranged home infusion for 4 weeks and lab work RX AND INFUSION INSTRUCTIONS GIVEN TO HOME INFUSION COMPANY AND F/U LAB RESULT Discharge Exam - Head Exam Head Exam: ATRAUMATIC - Eye Exam Eye Exam: EOMI, Normal appearance, PERRL Pupil Exam: NORMAL ACCOMODATION, PERRL - ENT Exam ENT Exam: Mucous Membranes Moist - Respiratory Exam Respiratory Exam: Clear to PA & Lateral, NORMAL BREATHING PATTERN - Cardiovascular Exam Cardiovascular Exam: REGULAR RHYTHM, +S1, +S2 - GI/Abdominal Exam GI & Abdominal Exam: Normal Bowel Sounds Discharge Plan - Discharge Medications Prescriptions: cloNIDine 0.1 mg/24 hr [catapres TTS1 0.1 mg/24 hr] 1 patch TD Q7D@1000 #10 patch Docusate [Colace] 100 mg PO BID #60 cap Ferrous Sulfate 325 mg PO BID #60 tablet Ertapenem [Invanz] 1 gm IVPB ONCE 28 Days vial Polyethylene Glycol 3350 [Miralax] 17 gm PO DAILY 20 Days powd.pack Famotidine [Pepcid] 20 mg PO BID #60 tab traMADol [Ultram] 50 mg PO Q8 PRN #30 tab PRN Reason: Pain, Moderate (4-7) Vancomycin/0.9 % Sod Chloride [Vanco 1.5 gm/250 ml-0.9% NaCl] 1.5 gm IV DAILY 28 Days plast..bag - Follow Up Plan Condition: STABLE Disposition: HOME/ ROUTINE Instructions: Exploratory Laparotomy (DC), Bowel Obstruction (DC), Ventral Hernia (DC), Ventral Hernia Repair (DC) Additional Instructions: Please f/u with Dr. Dugan office in 1 week Please f/u with DR. Mark office in 2 weeks - call and make appointment ( f/ u visit) Continue antibiotics for 4 weeks ( all arranged by for home infusion ) Home care service will do your blood work weekly and contact your MD's Continue all other medication as per Med. Rec. PLEASE GIVE VANCOMYCIN SLOWLY - OVER 90 MINUTES Referrals: Harshal Dugan MD [Staff Provider] - Colby Mitchell Jr., MD [Staff Provider] -
== END 2017-07-07 18:50 | disposition home or self-care (01) | DRG 329 ==
LOC: C.ER 00:41 → C.3T 04:47 → C.9I 06-14 21:24 → C.6T 06-16 18:26
PROVIDERS: ADMIT Internal Medicine; ATTEND Internal Medicine
PROC: 30233N1 Transfusion of Nonautologous Red Blood Cells into Peripheral Vein, Percutaneous Approach (ICD-10-PCS; 2017-06-12)
PROC: 0WUF0JZ Supplement Abdominal Wall with Synthetic Substitute, Open Approach (ICD-10-PCS; 2017-06-14)
PROC: 30233R1 Transfusion of Nonautologous Platelets into Peripheral Vein, Percutaneous Approach (ICD-10-PCS; 2017-06-14)
PROC: 0DB80ZZ Excision of Small Intestine, Open Approach (ICD-10-PCS; principal; 2017-06-14 12:15)
PROC: 0DN80ZZ Release Small Intestine, Open Approach (ICD-10-PCS; 2017-06-14 12:15)
PROC: 02HV33Z Insertion of Infusion Device into Superior Vena Cava, Percutaneous Approach (ICD-10-PCS; 2017-06-21)
PROC: 0W9F30Z Drainage of Abdominal Wall with Drainage Device, Percutaneous Approach (ICD-10-PCS; 2017-06-28)
DX: K43.0 Incisional hernia with obstruction, without gangrene (principal); K56.2 Volvulus; E87.2 Acidosis; E46 Unspecified protein-calorie malnutrition; R18.8 Other ascites; K76.6 Portal hypertension; E11.65 Type 2 diabetes mellitus with hyperglycemia; K92.2 Gastrointestinal hemorrhage, unspecified; T81.4XXA Infection following a procedure, initial encounter; L02.211 Cutaneous abscess of abdominal wall; K56.50 Intestinal adhesions [bands], unspecified as to partial versus complete obstruction; D69.6 Thrombocytopenia, unspecified; R16.1 Splenomegaly, not elsewhere classified; I10 Essential (primary) hypertension; E78.5 Hyperlipidemia, unspecified; R97.0 Elevated carcinoembryonic antigen [CEA]; Z87.11 Personal history of peptic ulcer disease; E87.6 Hypokalemia; E83.51 Hypocalcemia; D50.0 Iron deficiency anemia secondary to blood loss (chronic); F17.210 Nicotine dependence, cigarettes, uncomplicated; Z79.4 Long term (current) use of insulin; B19.20 Unspecified viral hepatitis C without hepatic coma; K74.69 Other cirrhosis of liver

== ENCOUNTER 2018-03-07 11:45 | Emergency (ER) | payer OTHER ==
[2018-03-07 11:46] VITALS: BMI 34.9
[2018-03-07] MEDS ORDERED: Sodium Chloride 0.9% 500 ML IV ONE (13:10)
[2018-03-07] MEDS ORDERED: Iohexol 240 (50 ml) PO STA (13:10)
[2018-03-07 13:25] LABS: BASO % 0.5 % (0.0-2.0); EOS % 0.5 % (0.0-4.0); LYMPH # 1.9 K/uL (1.0-4.3); LYMPH % 27.2 % (20.0-40.0); MEAN CELL VOLUME 102.7 fL (80.0-94.0); MEAN CORPUSCULAR HEMOGLOBIN 36.5 pg (27.0-31.0); MEAN CORPUSCULAR HGB CONC 35.6 g/dL (33.0-37.0); MEAN PLATELET VOLUME 8.7 fL (7.2-11.7); MONO # 0.9 K/uL (0.0-0.8); MONO % 12.6 % (0.0-10.0); NEUT # 4.2 K/uL (1.8-7.0); NEUT % 59.2 % (50.0-75.0); RBC 3.16 Mil/uL (4.40-5.90); RED CELL DISTRIBUTION WIDTH 16.3 % (11.5-14.5); WHITE BLOOD COUNT 7.1 K/uL (4.8-10.8)
--- NOTE | 2018-03-07 13:28 | C.PDOC ---
History Of Present Illness Patient presents to ED with c/o right sided low abdominal pain with occasional radiation to left side associated with nausea for 4 days. Patient came to ED today secondary to pain more persistent and denies sob, gi bleed, dysuria, constipation, vomiting or any other complaints at this time. Time Seen by Provider: 03/07/18 12:44 Chief Complaint (Nursing): Abdominal Pain History Per: Patient History/Exam Limitations: no limitations Onset/Duration Of Symptoms: Days Current Symptoms Are (Timing): Still Present Past Medical History Reviewed: Historical Data, Nursing Documentation, Vital Signs Vital Signs: Last Vital Signs Temp 98.6 F 03/07/18 17:47 Pulse 84 03/07/18 17:47 Resp 20 03/07/18 17:47 BP 154/97 H 03/07/18 17:47 Pulse Ox 98 03/07/18 17:47 - Medical History PMH: Anemia, Diabetes, Gastritis, HTN, Hyperlipidemia Surgical History: No Surg Hx - [facility] Procedures DRAINAGE OF ABDOMINAL WALL WITH DRAIN DEV, PERC APPROACH (06/05/17) ESOPHAGOGASTRODUODENOSCOPY [EGD] W/CLOSED BIOPSY (12/29/14) EXCISION OF SMALL INTESTINE, OPEN APPROACH (06/05/17) INSERT GASTRIC TUBE NEC (12/29/14) INSERTION OF INFUSION DEV INTO SUP VENA CAVA, PERC APPROACH (06/05/17) RELEASE SMALL INTESTINE, OPEN APPROACH (06/05/17) SUPPLEMENT ABDOMINAL WALL WITH SYNTH SUB, OPEN APPROACH (06/05/17) TRANSFUSE NONAUT PLATELETS IN PERIPH VEIN, PERC (06/05/17) TRANSFUSE NONAUT RED BLOOD CELLS IN PERIPH VEIN, PERC (06/05/17) Family History: States: No Known Family Hx - Social History Hx Tobacco Use: Yes Hx Alcohol Use: Yes Hx Substance Use: No - Immunization History Hx Tetanus Toxoid Vaccination: No Hx Influenza Vaccination: Yes (2014) Hx Pneumococcal Vaccination: No Review Of Systems Constitutional: Negative for: Fever, Chills Respiratory: Negative for: Shortness of Breath Gastrointestinal: Positive for: Nausea, Abdominal Pain. Negative for: Vomiting , Diarrhea, Constipation Genitourinary: Negative for: Dysuria, Hematuria Musculoskeletal: Negative for: Back Pain Skin: Negative for: Rash Physical Exam - Physical Exam Appears: Non-toxic, No Acute Distress Skin: Warm, Dry, No Rash Head: Atraumatic, Normacephalic Eye(s): bilateral: Normal Inspection, PERRL, EOMI Oral Mucosa: Moist Throat: No Erythema, No Exudate Neck: Normal ROM, Supple Chest: Symmetrical, No Tenderness Cardiovascular: Rhythm Regular, No Friction Rub, No Murmur Respiratory: Normal Breath Sounds, No Rales, No Rhonchi, No Wheezing Gastrointestinal/Abdominal: Bowel Sounds, Soft, Tenderness (mild to low abdomen R>L), No Guarding, No Rebound Back: No CVA Tenderness, No Paraspinal Tenderness Extremity: Normal ROM, No Swelling Neurological/Psych: Oriented x3, Normal Speech, Normal Cognition, Normal Motor Gait: Steady ED Course And Treatment - Laboratory Results Result Diagrams: 03/07/18 13:20 03/07/18 13:20 O2 Sat by Pulse Oximetry: 99 (RA) Pulse Ox Interpretation: Normal - CT Scan/US CT- Abd & Pelv. Other Rad Studies (CT/US): Read By Radiologist, Radiology Report Reviewed CT/US Interpretation: PROCEDURE: CT Abdomen and Pelvis with contrast. HISTORY : abd pain. COMPARISON: Chest CT with contrast 06/25/2017. TECHNIQUE: Following oral and intravenous contrast administration, a CT examination of the abdomen and pelvis performed from the domes of the diaphragms to the symphysis pubis with reformatted datasets provided not only axial but also sagittal and coronal series. Contrast dose: Visipaque 320, 100 cc. Radiation dose: Total exam DLP = 1127.69 mGy-cm. This CT exam was performed using one or more of the following dose reduction techniques: Automated exposure control, adjustment of the mA and/or kV according to patient size, and/or use of iterative reconstruction technique. FINDINGS: LOWER THORAX: Small hiatal hernia is reiterated. There is a mild left pleural effusion identified from an indeterminate etiology. Compression atelectasis in the left lower lobe. No definite pneumonia bilaterally. LIVER: Cirrhotic liver pattern is reiterated, however, there is an interval lucency identified in the inferior portion right lobe liver measuring 4.4 x 2.8 cm suspicious for interval mass. Enhancement immediately cephalad to this area is inhomogeneous as well potentially representing infiltration of the mass cephalad. . GALLBLADDER AND BILE DUCTS: Stable appearance of the gallbladder is appreciated without prominent distention or radiodense cholelithiasis. PANCREAS: Unremarkable. No gross lesion or ductal dilatation. SPLEEN: Unremarkable. ADRENALS: Unremarkable. No mass. KIDNEYS AND URETERS: Unremarkable. No hydronephrosis. No solid mass. VASCULATURE: Unremarkable. No aortic aneurysm. BOWEL: Stomach is mildly distended with retained oral contrast material. Evaluation of the bowel reveals no obstructive bowel gas pattern throughout the abdomen or pelvis. Sigmoid diverticular changes are reiterated without definitive acute diverticulitis pattern although mild ascites is scattered throughout the abdomen and pelvis, of an indeterminate etiology. Laxity or diastasis of the midline aponeurosis of the rectus abdominus musculature is appreciated with prior postoperative fluid collection related to herniorrhaphy resolved. Limited proximal small bowel enteritis is not excluded there is limited mural thickening of left marvin abdominal small bowel loops is questioned, see images 98 -111 series 3. No definite colitis pattern appreciable. Limited ascites is trapped in a small left inguinal hernia containing only fat and fluid. No right inguinal hernia. No free intra peritoneal gas. APPENDIX: Normal appendix. PERITONEUM: Collection. See bowel section above. LYMPH NODES: Unremarkable. No enlarged lymph nodes. BLADDER: Bladder is collapsed however submucosal fatty changes may reflect chronic cystitis from infectious or inflammatory cause. Clinically correlate further. Process. Clinically. REPRODUCTIVE: Unremarkable. BONES: No acute fracture. OTHER FINDINGS: None. IMPRESSION: 1. Mild abdominal ascites appreciated with no free air or definitive etiology. No abscess identified. Limited segmental enteritis is questioned at the left marvin abdomen. Extensive sigmoid diverticulosis changes are stable. 2. Prior postop fluid collection in the anterior abdominal wall appears to have resolved status post prior hernia repair and apparent small bowel resection. Questionable dehiscence of rectus abdominus musculature anteriorly currently. No overt ventral abdominal wall herniation has occurred at this time. 3. Findings suspicious for interval mass right lobe liver inferiorly. Cirrhotic liver reiterated. Follow-up MRI of the liver is advised without contrast. 4. Additional lesser findings as discussed above. Medical Decision Making Medical Decision Making: On re-exam, the patient reports improvement of symptoms. Lungs are CTA, heart is RRR, abdomen is soft, non-tender and the patient is tolerating PO well. Follow up with the medical doctor within 1-2 days. Return if worsened. Disposition - Disposition Referrals: Harshal Dugan MD [Staff Provider] - Disposition: HOME/ ROUTINE Disposition Time: 17:00 Condition: STABLE Additional Instructions: Follow up with the medical doctor/clinic within 1-2 days without fail. Return if worsened. Prescriptions: Famotidine [Pepcid] 20 mg PO BID #20 tab traMADol [Ultram] 50 mg PO Q6 PRN #15 tab PRN Reason: Pain Instructions: Fluid in the Belly (Ascites) (DC) Forms: [facility] (Samoan) - Clinical Impression Clinical Impression: Abdominal discomfort, Ascites - PA / SAMPLE PATTERNMAKER / Resident Statement MD/DO has reviewed & agrees with the documentation as recorded. - Scribe Statement The provider has reviewed the documentation as recorded by the Johannaibphil Gates All medical record entries made by the Rufus were at my direction and personally dictated by me. I have reviewed the chart and agree that the record accurately reflects my personal performance of the history, physical exam, medical decision making, and the department course for this patient. I have also personally directed, reviewed, and agree with the discharge instructions and disposition.
[2018-03-07 13:35] LABS: HEMOGLOBIN 11.5 g/dL (12.0-18.0)
[2018-03-07 13:37] LABS: ALT/SGPT 23 U/L (21-72); AST/SGOT 34 U/L (17-59); BLOOD UREA NITROGEN 7 mg/dL (9-20); CALCIUM 9.7 mg/dl (8.6-10.4); GFR AFRICAN-AMERICAN > 60; GFR NON-AFRICAN AMERICAN > 60; LIPASE 23 U/L (23-300)
[2018-03-07] MEDS ORDERED: Iohexol 240 (50 ml) ONE (13:51)
[2018-03-07] MEDS ORDERED: Sodium Chloride 0.9% 1,000 ML ONE (13:52)
[2018-03-07] MEDS ORDERED: Iodixanol 320 MG/ML 100 ML BOTTLE IV ONE (15:48)
--- NOTE | 2018-03-07 16:57 | CT ---
PROCEDURE: CT Abdomen and Pelvis with contrast HISTORY: abd pain COMPARISON: Chest CT with contrast 06/25/2017 TECHNIQUE: Following oral and intravenous contrast administration, a CT examination of the abdomen and pelvis performed from the domes of the diaphragms to the symphysis pubis with reformatted datasets provided not only axial but also sagittal and coronal series. Contrast dose: Visipaque 320, 100 cc Radiation dose: Total exam DLP = 1127.69 mGy-cm. This CT exam was performed using one or more of the following dose reduction techniques: Automated exposure control, adjustment of the mA and/or kV according to patient size, and/or use of iterative reconstruction technique. FINDINGS: LOWER THORAX: Small hiatal hernia is reiterated. There is a mild left pleural effusion identified from an indeterminate etiology. Compression atelectasis in the left lower lobe. No definite pneumonia bilaterally. LIVER: Cirrhotic liver pattern is reiterated, however, there is an interval lucency identified in the inferior portion right lobe liver measuring 4.4 x 2.8 cm suspicious for interval mass. Enhancement immediately cephalad to this area is inhomogeneous as well potentially representing infiltration of the mass cephalad. . GALLBLADDER AND BILE DUCTS: Stable appearance of the gallbladder is appreciated without prominent distention or radiodense cholelithiasis. PANCREAS: Unremarkable. No gross lesion or ductal dilatation. SPLEEN: Unremarkable. ADRENALS: Unremarkable. No mass. KIDNEYS AND URETERS: Unremarkable. No hydronephrosis. No solid mass. VASCULATURE: Unremarkable. No aortic aneurysm. BOWEL: Stomach is mildly distended with retained oral contrast material. Evaluation of the bowel reveals no obstructive bowel gas pattern throughout the abdomen or pelvis. Sigmoid diverticular changes are reiterated without definitive acute diverticulitis pattern although mild ascites is scattered throughout the abdomen and pelvis, of an indeterminate etiology. Laxity or diastasis of the midline aponeurosis of the rectus abdominus musculature is appreciated with prior postoperative fluid collection related to herniorrhaphy resolved. Limited proximal small bowel enteritis is not excluded there is limited mural thickening of left marvin abdominal small bowel loops is questioned, see images 98-111 series 3. No definite colitis pattern appreciable. Limited ascites is trapped in a small left inguinal hernia containing only fat and fluid. No right inguinal hernia. No free intra peritoneal gas APPENDIX: Normal appendix. PERITONEUM: Collection. See bowel section above. LYMPH NODES: Unremarkable. No enlarged lymph nodes. BLADDER: Bladder is collapsed however submucosal fatty changes may reflect chronic cystitis from infectious or inflammatory cause. Clinically correlate further. Process. Clinically REPRODUCTIVE: Unremarkable. BONES: No acute fracture. OTHER FINDINGS: None. IMPRESSION: 1. Mild abdominal ascites appreciated with no free air or definitive etiology. No abscess identified. Limited segmental enteritis is questioned at the left marvin abdomen. Extensive sigmoid diverticulosis changes are stable. 2. Prior postop fluid collection in the anterior abdominal wall appears to have resolved status post prior hernia repair and apparent small bowel resection. Questionable dehiscence of rectus abdominus musculature anteriorly currently. No overt ventral abdominal wall herniation has occurred at this time. 3. Findings suspicious for interval mass right lobe liver inferiorly. Cirrhotic liver reiterated. Follow-up MRI of the liver is advised without contrast. 4. Additional lesser findings as discussed above.
[2018-03-07 17:45] LABS: SQUAMOUS EPITHIAL 1 /hpf (0-5); URINE BACTERIA RARE (<OCC); URINE BILIRUBIN NEGATIVE (NEGATIVE); URINE BLOOD NEGATIVE (NEGATIVE); URINE CLARITY Clear (Clear); URINE COLOR Yellow (YELLOW); URINE GLUCOSE (UA) NORMAL (Normal); URINE LEUKOCYTE ESTERASE NEG Leu/uL (Negative); URINE PROTEIN 1+ mg/dL (NEGATIVE); URINE UROBILINOGEN NORMAL mg/dL (0.2-1.0)
[2018-03-07 17:48] VITALS: BP 154/97; PULSE 84; RESP 20; TEMP 98.6
[2018-03-08 17:34] VITALS: O2SAT 99
== END 2018-03-07 17:48 | disposition home or self-care (01) ==
LOC: C.ER 11:45
DX: R18.8 Other ascites (principal); R10.31 Right lower quadrant pain; E11.9 Type 2 diabetes mellitus without complications; E78.5 Hyperlipidemia, unspecified; I10 Essential (primary) hypertension; Z72.0 Tobacco use
CPT/HCPCS: 74177; 80053; 81001; 83690; 85025; 96361; 96374; 96375; 99285; J2270; J2405; J7040; Q9966; Q9967

== ENCOUNTER 2018-04-06 10:09 | Day surgery (SDC) | payer OTHER ==
[~2018-04-06 10:09] MED LIST: Absorbable Gelatin Sponge Size 12-7 ONE
[2018-04-06] MEDS ORDERED: Midazolam 2 MG/2 ML VIAL ONE (11:02)
--- NOTE | 2018-04-06 11:17 | CP.SDSHP ---
Same Day Surgery H & P - History Proposed Procedure: US guided liver mass biopsy Pre-Op Diagnosis: liver mass biopsy - Allergies Allergies: Allergies aspirin Allergy (Unknown, Verified 04/04/18 10:47) " MY MOTHER TOLD ME I WAS ALLERGIC AND NOT TO TAKE" - Impression Impression: Pt with ill defined right hepatic mass seen on recent CT. Plan US guided liver mass biopsy. Pt. Evaluated Today:Candidate for Anesthesia & Procedure: Yes (ASA 3 Malampati 3) - Date & Time Date: 04/06/18 Time: 10:45 Short Stay Discharge - Short Stay Discharge Admitting Diagnosis/Reason for Visit: MASS Disposition: HOME/ ROUTINE
--- NOTE | 2018-04-06 11:20 | PCM.SURG1 ---
Surgeon's Initial Post Op Note - Surgeon's Notes Surgeon: Freeman Myrick MD Snuff Container Inspector: NONE Type of Anesthesia: IV Sedation Pre-Operative Diagnosis: Liver mass Operative Findings: Heterogenous hypoechoic mass right lower liver. Post-Operative Diagnosis: Liver mass Operation Performed: US guided core biopsy. Three 18 g core specimen obtained. Biopsy tract embolized with gelfoam. Specimen/Specimens Removed: 18 g core x 4 Estimated Blood Loss: EBL {In ML}: 2 Blood Products Given: N/A Post-Op Condition: Good Date of Surgery/Procedure: 04/06/18 Time of Surgery/Procedure: 11:15
--- NOTE | 2018-04-06 14:02 | US ---
PROCEDURE: Date of procedure: 04/06/2018 Procedure: Ultrasound-guided percutaneous core biopsy of liver mass, CPT 24435 Ultrasound guidance for biopsy, CPT 68316 Medications: The patient was sedated by the anesthesiologist with IV sedation and monitoring. 8 cubic centimeters 1 percent lidocaine HISTORY: Liver Mass TECHNIQUE: Following informed consent and procedure time-out, the patient was placed supine on bed and limited ultrasound showed liver mass within the right hepatic lobe. After the patient abdomen was prepped and draped in the usual sterile fashion and the skin anesthetized with lidocaine, an 18 gauge core needle was advanced percutaneously under direct ultrasound guidance into the mass. Upon confirmation of needle position, three core specimens were obtained and sent for routine pathology. The biopsy track was then embolized with Gelfoam. A post biopsy ultrasound performed showed no hematoma. A dressing was applied. IMPRESSION: Ultrasound-guided core biopsy of liver mass.
== END 2018-04-06 13:30 | disposition home or self-care (01) ==
LOC: C.SPRAD 10:09
PROVIDERS: ATTEND Radiology Vascular & Interventional Radiology
DX: C22.9 Malignant neoplasm of liver, not specified as primary or secondary (principal); R16.0 Hepatomegaly, not elsewhere classified
CPT/HCPCS: 10022; 88307; 88313; 88342; J2250; J3010

== ENCOUNTER 2018-05-19 12:29 | Inpatient (IN) | payer OTHER ==
[2018-05-19 12:30] VITALS: BMI 34.9
[2018-05-19] MEDS ORDERED: Sodium Chloride 0.9% 500 ML IV ONE ×2 (13:13→14:43)
[2018-05-19] MEDS ORDERED: Sodium Chloride 0.9% 1,000 ML ONE (13:28)
[2018-05-19 13:32] LABS: BASO # 0.1 K/uL (0.0-0.2); MONO # 1.5 K/uL (0.0-0.8)
[2018-05-19 13:38] LABS: BASO % 0.4 % (0.0-2.0); EOS # 0.1 K/uL (0.0-0.7); EOS % 0.3 % (0.0-4.0); HEMOGLOBIN 9.5 g/dL (12.0-18.0); LYMPH # 0.9 K/uL (1.0-4.3); LYMPH % 3.9 % (20.0-40.0); MEAN CELL VOLUME 101.9 fL (80.0-94.0); MEAN CORPUSCULAR HEMOGLOBIN 34.9 pg (27.0-31.0); MEAN CORPUSCULAR HGB CONC 34.3 g/dL (33.0-37.0); MEAN PLATELET VOLUME 9.2 fL (7.2-11.7); MONO % 6.5 % (0.0-10.0); NEUT # 20.7 K/uL (1.8-7.0); NEUT % 88.9 % (50.0-75.0); PLATELET COUNT 96 K/uL (130-400); RBC 2.73 Mil/uL (4.40-5.90); RED CELL DISTRIBUTION WIDTH 15.9 % (11.5-14.5); WHITE BLOOD COUNT 23.3 K/uL (4.8-10.8)
[2018-05-19 13:49] LABS: ALB/GLOB RATIO 0.8 (1.0-2.1); ALBUMIN 3.3 g/dL (3.5-5.0); ALT/SGPT 54 U/L (21-72); AST/SGOT 162 U/L (17-59); BLOOD UREA NITROGEN 22 mg/dL (9-20); CALCIUM 11.6 mg/dl (8.6-10.4); GFR NON-AFRICAN AMERICAN > 60
[2018-05-19 13:55] LABS: CK-MB 0.86 ng/mL (0.0-3.38)
[2018-05-19 13:58] LABS: LYMPHOCYTE 5 % (20-40); MONOCYTE 8 % (0-10); NEUTROPHIL 87 % (50-75); TOTAL CELLS COUNTED 100
[2018-05-19 13:59] LABS: ANISOCYTOSIS SLIGHT; PLATELET ESTIMATE DECREASED (NORMAL)
[2018-05-19 14:00] LABS: BURR CELLS SLIGHT; OVALOCYTES SLIGHT; POIKILOCYTOSIS SLIGHT
[2018-05-19] MEDS ORDERED: Morphine 4 MG/ML VIAL ONE (14:21)
--- NOTE | 2018-05-19 14:22 | C.PDOC ---
History Of Present Illness 67 y/o male with history of Liver CA with Metastasis brought to ED by EMS sent by Oncologist for evaluation of decreased po intake for 1 week and weakness as per [id number]. Patient c/o worsening chronic abdominal pain and denies chest pain, sob, vomiting, diarrhea, dysuria or any other complaints at this time. Time Seen by Provider: 05/19/18 12:57 Chief Complaint (Nursing): Weakness/Neurological Deficit History Per: Patient, Family History/Exam Limitations: no limitations Onset/Duration Of Symptoms: Days Current Symptoms Are (Timing): Still Present Past Medical History Reviewed: Historical Data, Nursing Documentation, Vital Signs Vital Signs: Last Vital Signs Temp 98.6 F 05/19/18 12:33 Pulse 121 H 05/19/18 12:33 Resp 16 05/19/18 12:33 BP 121/79 05/19/18 12:33 Pulse Ox 100 05/19/18 14:28 - Medical History PMH: Anemia, Diabetes, Gastritis, HTN, Hypercholesterolemia, Hyperlipidemia, Hypothyroidism, Kidney Stones, Chronic Kidney Disease Surgical History: No Surg Hx - [facility] Procedures DRAINAGE OF ABDOMINAL WALL WITH DRAIN DEV, PERC APPROACH (06/05/17) ESOPHAGOGASTRODUODENOSCOPY [EGD] W/CLOSED BIOPSY (12/29/14) EXCISION OF SMALL INTESTINE, OPEN APPROACH (06/05/17) INSERT GASTRIC TUBE NEC (12/29/14) INSERTION OF INFUSION DEV INTO SUP VENA CAVA, PERC APPROACH (06/05/17) RELEASE SMALL INTESTINE, OPEN APPROACH (06/05/17) SUPPLEMENT ABDOMINAL WALL WITH SYNTH SUB, OPEN APPROACH (06/05/17) TRANSFUSE NONAUT PLATELETS IN PERIPH VEIN, PERC (06/05/17) TRANSFUSE NONAUT RED BLOOD CELLS IN PERIPH VEIN, PERC (06/05/17) Family History: States: No Known Family Hx - Social History Hx Tobacco Use: Yes Hx Alcohol Use: No Hx Substance Use: No - Immunization History Hx Tetanus Toxoid Vaccination: No Hx Influenza Vaccination: Yes (2014) Hx Pneumococcal Vaccination: No Review Of Systems Constitutional: Negative for: Fever, Chills Cardiovascular: Negative for: Chest Pain Gastrointestinal: Positive for: Abdominal Pain. Negative for: Nausea, Vomiting , Diarrhea Skin: Negative for: Rash Neurological: Positive for: Weakness. Negative for: Numbness Physical Exam - Physical Exam Appears: Non-toxic, Chronically Ill, Other (In mild discomfort) Skin: Warm, Dry, No Rash Head: Atraumatic, Normacephalic Eye(s): bilateral: Normal Inspection Oral Mucosa: Moist Cardiovascular: Rhythm Regular, Other (Tachycardic) Respiratory: Normal Breath Sounds, No Rales, No Rhonchi, No Wheezing Gastrointestinal/Abdominal: Soft, Tenderness (Diffuse greater on epigastric and RUQ), No Guarding, No Rebound, Other (large healed midline surgical scar) Extremity: Normal ROM, No Pedal Edema, Capillary Refill (<2 seconds) Neurological/Psych: Oriented x3, Normal Speech, Normal Cognition ED Course And Treatment - Laboratory Results Result Diagrams: 05/19/18 13:25 05/19/18 13:25 O2 Sat by Pulse Oximetry: 100 (RA) Pulse Ox Interpretation: Normal Progress Note: Blood work ordered. IV fluids and Morphine administered Disposition - Disposition Forms: [facility] [employer] [facility] (Nepali) - Scribe Statement The provider has reviewed the documentation as recorded by the Johannaibphil Gates All medical record entries made by the Johannaibphil were at my direction and personally dictated by me. I have reviewed the chart and agree that the record accurately reflects my personal performance of the history, physical exam, medical decision making, and the department course for this patient. I have also personally directed, reviewed, and agree with the discharge instructions and disposition.
--- NOTE | 2018-05-19 15:16 | RAD ---
Date of service: 05/19/2018 PROCEDURE: CHEST RADIOGRAPH, 1 VIEW HISTORY: WEAKNESS COMPARISON: 01/03/2018. FINDINGS: LUNGS: Clear. PLEURA: No pneumothorax or pleural fluid seen. CARDIOVASCULAR: No radiographic findings to suggest acute or significant cardiovascular disease. OSSEOUS STRUCTURES: No significant abnormalities. VISUALIZED UPPER ABDOMEN: Normal. OTHER FINDINGS: None. IMPRESSION: No active disease.No significant interval change compared to the prior examination(s). . Limitations of the current examination: Low lung volumes/poor inspiratory effort, portable technique.
[2018-05-19 15:21] LABS: SQUAMOUS EPITHIAL 5 /hpf (0-5); URINE BACTERIA OCC (<OCC); URINE BILIRUBIN NEGATIVE (NEGATIVE); URINE BLOOD NEGATIVE (NEGATIVE); URINE CLARITY Hazy (Clear); URINE COLOR Amber (YELLOW); URINE GLUCOSE (UA) NORMAL (Normal); URINE HYALINE CAST >20 /lpf (0-2); URINE LEUKOCYTE ESTERASE TRACE Leu/uL (Negative); URINE PROTEIN NEGATIVE (NEGATIVE)
[2018-05-19] MEDS ORDERED: cefTRIAXone IV 1 gm in Dextros 50 ML IV ONE (15:30)
[2018-05-19 15:32] LABS: VENOUS BLOOD GAS PCO2 38 mmHg (40-60); VENOUS BLOOD GAS PO2 25 mm/Hg (30-55); VENOUS BLOOD PH 7.32 (7.32-7.43)
[2018-05-19] MEDS ORDERED: Sodium Chloride 0.9% 1,000 ML IV ONE ×2 (15:35→15:38)
[2018-05-19] MEDS ORDERED: Vancomycin 1 GM 1 GM/250 ML BAG IV STA (15:37)
[2018-05-19] MEDS ORDERED: Moxifloxacin IV 400mg/250ml NS 400 MG/250 ML BAG IV STA (15:38)
[2018-05-19] MEDS ORDERED: Cefepime 1 GM in Sodium Chloride 0.9% 50 ML IVPB ONE (15:38)
[2018-05-19] MEDS ORDERED: Moxifloxacin IV 400mg/250ml NS 400 MG/250 ML BAG IVPB ONE (15:44)
[2018-05-19] MEDS ORDERED: Iohexol 300 100 ML IJ ONE (16:16)
[2018-05-19 17:22] LABS: VENOUS BLOOD GAS PCO2 37 mmHg (40-60); VENOUS BLOOD GAS PO2 27 mm/Hg (30-55); VENOUS BLOOD PH 7.31 (7.32-7.43)
[2018-05-19] MEDS ORDERED: Vancomycin 1 GM 1 GM/250 ML BAG IVPB ONE (17:23)
[2018-05-19 17:35] LABS: VENOUS BLOOD GAS BASE EXCESS -7.9 mmol/L (0.0-2.0); VENOUS BLOOD GAS PCO2 39 mmHg (40-60); VENOUS BLOOD GAS PO2 27 mm/Hg (30-55); VENOUS BLOOD PH 7.28 (7.32-7.43)
[2018-05-19] MEDS: Sodium Chloride 0.9% 1,000 ML IV SCH (19:07)
[2018-05-19] MEDS: Rosuvastatin Calcium 2.5 mg Tab PO SCH (21:18)
[2018-05-19] MEDS: Piperacillin/Tazobact 3.375 GM in Sodium Chloride 100 ML IVPB SCH (21:19)
[2018-05-19] MEDS: (Novolin R) Insulin Human Regular 100 units/ml vial SC SCH (21:53)
--- NOTE | 2018-05-19 22:32 | CP.PCM.HP ---
Past Patient History - Past Medical History & Family History Past Medical History?: Yes - Past Social History Smoking Status: Former Smoker - CARDIAC Hx Cardiac Disorders: Yes Hx Hypercholesterolemia: Yes Hx Hypertension: Yes - PULMONARY Hx Respiratory Disorders: No - NEUROLOGICAL Hx Neurological Disorder: No - HEENT Hx HEENT Problems: No - RENAL Hx Chronic Kidney Disease: Yes Hx Kidney Stones: Yes - ENDOCRINE/METABOLIC Hx Endocrine Disorders: Yes Hx Hypothyroidism: Yes - HEMATOLOGICAL/ONCOLOGICAL Hx Blood Disorders: Yes Hx Anemia: Yes - INTEGUMENTARY Hx Dermatological Problems: No - MUSCULOSKELETAL/RHEUMATOLOGICAL Hx Falls: No - GASTROINTESTINAL Hx Gastrointestinal Disorders: Yes Hx Gastritis: Yes - GENITOURINARY/GYNECOLOGICAL Hx Genitourinary Disorders: Yes Hx Prostate Problems: Yes (ENLARGED PROSTATE) Hx Urinary Tract Infection: Yes - PSYCHIATRIC Hx Substance Use: No - SURGICAL HISTORY Hx Surgeries: Yes (SEE COMMENT) Hx Herniorrhaphy: Yes (UMBILICAL HERNIA REPAIR 2011) Other/Comment: HX" SURGERY FOR KIDNEY STONES" - ANESTHESIA Hx Anesthesia: Yes Hx Anesthesia Reactions: No Hx Malignant Hyperthermia: No Meds Allergies/Adverse Reactions: Allergies Allergy/AdvReac Type Severity Reaction Status Date / Time aspirin Allergy Unknown " MY Verified 04/04/18 10:47 MOTHER TOLD ME I WAS ALLERGIC AND NOT TO TAKE" Results - Vital Signs Recent Vital Signs: Last Vital Signs Temp 97.9 F 05/19/18 19:43 Pulse 105 H 05/19/18 19:43 Resp 20 05/19/18 19:43 BP 134/81 05/19/18 19:43 Pulse Ox 97 05/19/18 19:43 - Labs Result Diagrams: 05/19/18 13:25 05/19/18 13:25 Labs: Laboratory Results - last 24 hr 05/19/18 05/19/18 05/19/18 12:45 13:25 13:25 WBC 23.3 H D RBC 2.73 L Hgb 9.5 L D Hct 27.8 L MCV 101.9 H MCH 34.9 H MCHC 34.3 RDW 15.9 H Plt Count 96 L MPV 9.2 Neut % (Auto) 88.9 H Lymph % (Auto) 3.9 L [place] % (Auto) 6.5 Eos % (Auto) 0.3 Baso % (Auto) 0.4 Neut # (Auto) 20.7 H Lymph # (Auto) 0.9 L [place] # (Auto) 1.5 H Eos # (Auto) 0.1 Baso # (Auto) 0.1 Neutrophils % (Manual) 87 H Lymphocytes % (Manual) 5 L Monocytes % (Manual) 8 Platelet Estimate Decreased L Poikilocytosis (manual Slight Anisocytosis (manual) Slight Macrocytosis (manual) Slight Ovalocytes Slight [place] Cells Slight pO2 VBG pH VBG pCO2 VBG HCO3 VBG Total CO2 VBG O2 Sat (Calc) VBG Base Excess VBG Potassium Glucose Lactate Crit Value Called To Crit Value Called By Crit Value Read Back Blood Gas Notified Time Sodium 139 Potassium 4.9 Chloride 106 Carbon Dioxide 19 L Anion Gap 20 BUN 22 H Creatinine 0.8 Est GFR ( Amer) > 60 Est GFR (Non-Af Amer) > 60 POC Glucose (mg/dL) 146 H Random Glucose 151 H Calcium 11.6 H Total Bilirubin 2.2 H AST 162 H D ALT 54 Alkaline Phosphatase 95 Ammonia Total Creatine Kinase 103 CK-MB (Mass) 0.86 Troponin I < 0.0120 Total Protein 7.3 Albumin 3.3 L Globulin 4.1 H Albumin/Globulin Ratio 0.8 L Venous Blood Potassium Urine Color Urine Clarity Urine pH Ur Specific [place] Urine Protein Urine Glucose (UA) Urine Ketones Urine Blood Urine Nitrate Urine Bilirubin Urine Urobilinogen Ur Leukocyte Esterase Urine WBC (Auto) Urine RBC (Auto) Ur Squamous Epith Cells Urine Bacteria Hyaline Casts 05/19/18 05/19/18 05/19/18 13:25 15:11 15:28 WBC RBC Hgb Hct MCV MCH MCHC RDW Plt Count MPV Neut % (Auto) Lymph % (Auto) [place] % (Auto) Eos % (Auto) Baso % (Auto) Neut # (Auto) Lymph # (Auto) [place] # (Auto) Eos # (Auto) Baso # (Auto) Neutrophils % (Manual) Lymphocytes % (Manual) Monocytes % (Manual) Platelet Estimate Poikilocytosis (manual Anisocytosis (manual) Macrocytosis (manual) Ovalocytes [place] Cells pO2 25 L VBG pH 7.32 VBG pCO2 38 L VBG HCO3 18.7 VBG Total CO2 20.8 L VBG O2 Sat (Calc) 38.3 L VBG Base Excess -6.0 L VBG Potassium 4.5 Glucose 126 H Lactate 4.2 H* Crit Value Called To Er nurse jennifer pirro Crit Value Called By Godfrquintin rt Crit Value Read Back Y Blood Gas Notified Time 1532 Sodium 139.0 Potassium Chloride 109.0 H Carbon Dioxide Anion Gap BUN Creatinine Est GFR ( Amer) Est GFR (Non-Af Amer) POC Glucose (mg/dL) Random Glucose Calcium Total Bilirubin AST ALT Alkaline Phosphatase Ammonia 51 H D Total Creatine Kinase CK-MB (Mass) Troponin I Total Protein Albumin Globulin Albumin/Globulin Ratio Venous Blood Potassium 4.5 Urine Color [place] Urine Clarity Hazy Urine pH 5.0 Ur Specific [place] 1.019 Urine Protein Negative Urine Glucose (UA) Normal Urine Ketones Trace Urine Blood Negative Urine Nitrate Negative Urine Bilirubin Negative Urine Urobilinogen 4.0 Ur Leukocyte Esterase Trace Urine WBC (Auto) 12 H Urine RBC (Auto) 2 Ur Squamous Epith Cells 5 Urine Bacteria Occ H Hyaline Casts >20 H 05/19/18 05/19/18 05/19/18 17:15 17:32 21:30 WBC RBC Hgb Hct MCV MCH MCHC RDW Plt Count MPV Neut % (Auto) Lymph % (Auto) [place] % (Auto) Eos % (Auto) Baso % (Auto) Neut # (Auto) Lymph # (Auto) [place] # (Auto) Eos # (Auto) Baso # (Auto) Neutrophils % (Manual) Lymphocytes % (Manual) Monocytes % (Manual) Platelet Estimate Poikilocytosis (manual Anisocytosis (manual) Macrocytosis (manual) Ovalocytes [place] Cells pO2 27 L 27 L VBG pH 7.31 L 7.28 L VBG pCO2 37 L 39 L VBG HCO3 18.0 17.2 VBG Total CO2 19.7 L 19.5 L VBG O2 Sat (Calc) 44.7 42.6 VBG Base Excess -7.0 L -7.9 L VBG Potassium 4.6 4.0 Glucose 112 H 107 Lactate 5.2 H* 4.8 H* Crit Value Called To Er nurse dino cool Er nurse dino Crit Value Called By Dequan rt Dequan rt Crit Value Read Back Y Y Blood Gas Notified Time 1722 1735 Sodium 142.0 142.0 Potassium Chloride 113.0 H 113.0 H Carbon Dioxide Anion Gap BUN Creatinine Est GFR ( Amer) Est GFR (Non-Af Amer) POC Glucose (mg/dL) 134 H Random Glucose Calcium Total Bilirubin AST ALT Alkaline Phosphatase Ammonia Total Creatine Kinase CK-MB (Mass) Troponin I Total Protein Albumin Globulin Albumin/Globulin Ratio Venous Blood Potassium 4.6 4.0 Urine Color Urine Clarity Urine pH Ur Specific [place] Urine Protein Urine Glucose (UA) Urine Ketones Urine Blood Urine Nitrate Urine Bilirubin Urine Urobilinogen Ur Leukocyte Esterase Urine WBC (Auto) Urine RBC (Auto) Ur Squamous Epith Cells Urine Bacteria Hyaline Casts
[2018-05-20] MEDS: Piperacillin/Tazobact 3.375 GM in Sodium Chloride 100 ML IVPB SCH ×4 (00:55→20:28)
[2018-05-20] MEDS: Levothyroxine 25 MCG TAB PO SCH (06:11)
[2018-05-20] MEDS: Sodium Chloride 0.9% 1,000 ML IV SCH ×3 (06:19→14:04)
[2018-05-20 06:28] LABS: BASO % 0.1 % (0.0-2.0); HEMOGLOBIN 9.4 g/dL (12.0-18.0); LYMPH # 0.9 K/uL (1.0-4.3); LYMPH % 3.7 % (20.0-40.0); MEAN CELL VOLUME 101.9 fL (80.0-94.0); MEAN CORPUSCULAR HEMOGLOBIN 34.3 pg (27.0-31.0); MEAN CORPUSCULAR HGB CONC 33.7 g/dL (33.0-37.0); MEAN PLATELET VOLUME 9.4 fL (7.2-11.7); MONO # 1.4 K/uL (0.0-0.8); MONO % 5.9 % (0.0-10.0); NEUT % 90.3 % (50.0-75.0); NRBC % 0.3 % (0.0-2.0); PLATELET COUNT 72 K/uL (130-400); RBC 2.74 Mil/uL (4.40-5.90); RED CELL DISTRIBUTION WIDTH 16.6 % (11.5-14.5); WHITE BLOOD COUNT 24.3 K/uL (4.8-10.8)
--- NOTE | 2018-05-20 07:03 | HP ---
CHIEF COMPLAINT: Weakness, tachycardia. HISTORY OF PRESENT ILLNESS: This is a 67-year-old -[place] male, well known to me with history of liver cancer metastatic. He was seen by oncologist today and while he was being seen by an oncologist, the patient was found to be weak, tachycardic. According the patient and the family, the patient has not been eating well for last one week, and the patient also was having abdominal pain, abdominal distention worsening, generalized weakness, tiredness, anorexia, malaise, and fatigue. He denied any polyuria or polydipsia. He denied any hematuria or pyuria. He has nasal congestion, sneezing, generalized weakness, tiredness; and the patient was evaluated and admitted to the floor. The patient has nasal congestion. He has nausea, vomiting, generalized weakness. He has cough. He denies any hematuria or pyuria. He has abdominal pain, abdominal distension. There is no history of head injury, trauma, fall, loss of consciousness. There is no seizure like activity. He has tingling and numbness in the feet. PAST MEDICAL HISTORY: Type 2 diabetes, hypertension, liver cancer, hyperlipidemia, allergic rhinitis. SOCIAL HISTORY: Ex-smoker, Ex-ETOH user. CURRENT MEDICATIONS AT HOME: He is on tramadol, metformin, Flomax, Pravachol, MiraLax, Toprol XL, Cozaar, Synthroid, Flonase, and Pepcid. PHYSICAL EXAMINATION: GENERAL: An elderly male, in distress with weakness. VITAL SIGNS: Blood pressure 134/81, pulse 105, respiratory rate 20, temperature 97.9. SKIN: Dry. Poor turgor. No bruises. No purpura. HEENT: Atraumatic, normocephalic. Positive pallor. Negative jaundice. Extraocular movements are intact. NECK: Supple, no JVD, no lymph node. No thyromegaly. No carotid bruits. CHEST: Chest wall bilateral symmetrical expansion. No masses. Positive gynecomastia. LUNGS: Bilateral scattered rhonchi with decreased air entry. CVS: S1 and S2 regular. ABDOMEN: Soft, nontender. Bowel sounds are positive. The patient has enlarged liver. RECTAL: Enlarged prostate. GENITAL: Normal. EXTREMITIES: No clubbing, cyanosis. +2 edema. BANDMILL OPERATOR: The patient is awake, alert, oriented x3. Cranial nerves II through XII are normal. Power 5/5 x4. Plantars are downgoing. ASSESSMENT: 1. Septicemia with shock with low blood pressure which likely could be respiratory versus blood borne versus abdominal. 2. Liver cancer, metastatic. 3. Dehydration. 4. Type 2 diabetes. 5. . PLAN: Admit. Detailed orders written. Seen and examined. Harshal Dugan MD
[2018-05-20] MEDS: (Novolin R) Insulin Human Regular 100 units/ml vial SC SCH ×4 (08:00→22:22)
[2018-05-20 08:50] LABS: BANDS 1 % (0-2); LYMPHOCYTE 4 % (20-40); MONOCYTE 4 % (0-10); NEUTROPHIL 91 % (50-75); TOTAL CELLS COUNTED 100
[2018-05-20 08:51] LABS: ANISOCYTOSIS SLIGHT; BURR CELLS SLIGHT; HYPOCHROMIC SLIGHT; OVALOCYTES SLIGHT; PLATELET ESTIMATE DECREASED (NORMAL); POIKILOCYTOSIS SLIGHT; TEARDROP CELLS SLIGHT; TOXIC GRANULATION PRESENT
[2018-05-20 09:48] LABS: ALB/GLOB RATIO 0.7 (1.0-2.1); ALBUMIN 2.6 g/dL (3.5-5.0); ALT/SGPT 63 U/L (21-72); AST/SGOT 214 U/L (17-59); BLOOD UREA NITROGEN 20 mg/dL (9-20); CALCIUM 10.9 mg/dl (8.6-10.4); GFR NON-AFRICAN AMERICAN > 60
[2018-05-20] MEDS: POLYETHYLENE GLYCOL 3350 17 GM/Dose PACKET PO SCH (10:05)
[2018-05-20] MEDS: Fluticasone Nasal 50 mcg/Spray NAS SCH (10:05)
[2018-05-20] MEDS: Enoxaparin 30 mg Syringe SC SCH (10:05)
[2018-05-20] MEDS: Metoprolol Succinate 50 mg XL Tab PO SCH (10:06)
--- NOTE | 2018-05-20 10:10 | CT ---
Date of service: 05/19/2018 PROCEDURE: CT Abdomen and Pelvis without intravenous contrast HISTORY: abd pain, hepatic CA, leukocytosis COMPARISON: 03/07/18 TECHNIQUE: Technique. Contrast dose: Radiation dose: Total exam DLP = mGy-cm. This CT exam was performed using one or more of the following dose reduction techniques: Automated exposure control, adjustment of the mA and/or kV according to patient size, and/or use of iterative reconstruction technique. FINDINGS: LOWER THORAX: Unremarkable. LIVER: Marked worsening of hepatic disease with a new 10 cm necrotic mass in the right hepatic lobe with additional right hepatic masses consistent with multicentric hepatoma. Redemonstration of cirrhotic liver with perihepatic ascites extending down the right paracolic gutter. GALLBLADDER AND BILE DUCTS: Unremarkable. PANCREAS: Unremarkable. No gross lesion or ductal dilatation. SPLEEN: Unremarkable. ADRENALS: Unremarkable. No mass. KIDNEYS AND URETERS: Unremarkable. No hydronephrosis. No solid mass. VASCULATURE: Unremarkable. No aortic aneurysm. BOWEL: Unremarkable. No obstruction. No gross mural thickening. APPENDIX: Unremarkable. Normal appendix. PERITONEUM: Pelvic ascites. LYMPH NODES: Unremarkable. No enlarged lymph nodes. BLADDER: Unremarkable. REPRODUCTIVE: Unremarkable. BONES: No acute fracture. OTHER FINDINGS: Large ventral hernia containing bowel loops. IMPRESSION: Marked worsening of hepatic disease with a new 10 cm necrotic mass in the right hepatic lobe with additional right hepatic masses consistent with multicentric hepatoma. Redemonstration of cirrhotic liver with perihepatic ascites extending down the right paracolic gutter
--- NOTE | 2018-05-20 13:58 | CP.PCM.CON ---
History of Present Illness - History of Present Illness History of Present Illness: INFECTIOUS DISEASE CONSULT; HPI. 67-year-old male with history of liver CA with metastasis, history of hepatitis C, diabetes mellitus, hypertension, hyperlipidemia, hypothyroidism, chronic kidney disease, kidney stones who is brought to the ER by EMS, sent by oncologist Dr. Borja for evaluation off decreased by mouth intake for about one week and weakness as per family. Patient complains of worsening abdominal pain but denies any nausea vomiting, diarrhea or dysuria. Patient was found to have increased leukocytosis of 23.3 and increased lactic acid of 4.3. Patient status post code sepsis and received dose of cefepime and Avelox, after appropriate cultures. CT of the abdomen and pelvis with IV contrast on admission 05/19/18 showed marked worsening of hepatic disease and a new 10 cm necrotic mass in the right hepatic lobe with additional right hepatic metastasis consistent with multicentric hepatoma. Patient also was noted to have perihepatic ascites, extending to the right pericolic gutter. Patient also has history off ventral hernia repair with mesh and history off abdominal abscess status post drainage in June 2017 with positive cultures of enterococcus faecium. Patient was started on IV Zosyn and IV vancomycin by PMD. Infectious disease consult requested by pmd for sepsis increasing leukocytosis and chronic abdominal pain. Allergy; ASPIRIN PMH: DM, HTN, HLD, Hep C PSH: Hernia repair w/ Mesh 06/30/17 ALL; NKDA SocialHx: ETOH,Tobacco use, denies drug use MEDS; REVIEWED. Family History: States: No Known Family Hx - Immunization History Hx Tetanus Toxoid Vaccination: No Hx Influenza Vaccination: Yes (2014) Hx Pneumococcal Vaccination: No Review of Systems - Constitutional Constitutional: Fatigue, Lethargy, Malaise, Weakness. absent: Fever - EENT Eyes: absent: Change in Vision Nose/Mouth/Throat: Nasal Congestion, Dry Mouth. absent: Mouth Lesions, Odynophagia - Cardiovascular Cardiovascular: Dyspnea on Exertion, Edema. absent: Chest Pain, Dyspnea - Respiratory Respiratory: absent: Cough - Gastrointestinal Gastrointestinal: Abdominal Pain. absent: Constipation, Diarrhea, Nausea, Odynophagia - Genitourinary Genitourinary: Hx Renal/Bladder Calculi. absent: Dysuria, Hematuria - Reproductive: Male Reproductive:Male: Pelvic Pain - Neurological Neurological: absent: Headaches - Hematologic/Lymphatic Hematologic: As Per HPI. absent: Lymphadenopathy Past Patient History - Past Medical History & Family History Past Medical History?: Yes - Past Social History Smoking Status: Former Smoker - CARDIAC Hx Cardiac Disorders: Yes Hx Hypercholesterolemia: Yes Hx Hypertension: Yes - PULMONARY Hx Respiratory Disorders: No - NEUROLOGICAL Hx Neurological Disorder: No - HEENT Hx HEENT Problems: No - RENAL Hx Chronic Kidney Disease: Yes Hx Kidney Stones: Yes - ENDOCRINE/METABOLIC Hx Hypothyroidism: Yes - HEMATOLOGICAL/ONCOLOGICAL Hx Blood Disorders: Yes Hx Anemia: Yes - INTEGUMENTARY Hx Dermatological Problems: No - MUSCULOSKELETAL/RHEUMATOLOGICAL Hx Falls: No - GASTROINTESTINAL Hx Gastrointestinal Disorders: Yes Hx Gastritis: Yes - GENITOURINARY/GYNECOLOGICAL Hx Genitourinary Disorders: Yes Hx Prostate Problems: Yes (ENLARGED PROSTATE) Hx Urinary Tract Infection: Yes - PSYCHIATRIC Hx Substance Use: No - SURGICAL HISTORY Hx Surgeries: Yes (SEE COMMENT) Hx Herniorrhaphy: Yes (UMBILICAL HERNIA REPAIR 2011) Other/Comment: HX" SURGERY FOR KIDNEY STONES" - ANESTHESIA Hx Anesthesia: Yes Hx Anesthesia Reactions: No Hx Malignant Hyperthermia: No Meds Allergies/Adverse Reactions: Allergies Allergy/AdvReac Type Severity Reaction Status Date / Time aspirin Allergy Unknown " MY Verified 04/04/18 10:47 MOTHER TOLD ME I WAS ALLERGIC AND NOT TO TAKE" - Medications Medications: Current Medications Enoxaparin Sodium (Lovenox) 30 mg SC DAILY [facility] Last Admin: 05/20/18 10:05 Dose: 30 mg Famotidine (Pepcid) 20 mg PO BID [facility] Last Admin: 05/20/18 10:06 Dose: 20 mg Fluticasone Propionate (Flonase) 2 spr VIRA DAILY [facility] Last Admin: 05/20/18 10:05 Dose: 2 spr Sodium Chloride (Sodium Chloride 0.9%) 1,000 mls @ 100 mls/hr IV .Q10H [facility] Last Admin: 05/20/18 12:25 Dose: 100 mls/hr Vancomycin HCl 1,000 mg/ (Sodium Chloride) 200 mls @ 133.333 mls/hr IVPB Q12H [facility] PRN Reason: Protocol Last Admin: 05/20/18 04:36 Dose: 133.333 mls/hr Piperacillin Sod/Tazobactam (Sod 3.375 gm/ Sodium Chloride) 100 mls @ 200 mls/ hr IVPB Q6H [facility] PRN Reason: Protocol Last Admin: 05/20/18 06:11 Dose: 200 mls/hr Insulin Human Regular (Novolin R) 0 unit SC ACHS [facility] PRN Reason: Protocol Last Admin: 05/20/18 11:46 Dose: Not Given Levothyroxine Sodium (Synthroid) 25 mcg PO DAILY@0630 [facility] Last Admin: 05/20/18 06:11 Dose: 25 mcg Losartan Potassium (Cozaar) 50 mg PO DAILY [facility] Last Admin: 05/20/18 10:06 Dose: 50 mg Metformin HCl (Glucophage) 500 mg PO BID [facility] Last Admin: 05/20/18 10:06 Dose: 500 mg Metoprolol Succinate (Toprol Xl) 50 mg PO DAILY [facility] Last Admin: 05/20/18 10:06 Dose: 50 mg Pneumococcal Polyvalent Vaccine (Pneumovax 23 Vaccine) 0.5 ml IM .ONCE ONE Stop: 05/22/18 12:01 Polyethylene Glycol (Miralax) 17 gm PO DAILY [facility] Last Admin: 05/20/18 10:05 Dose: 17 gm Rosuvastatin Calcium (Crestor) 2.5 mg PO HS [facility] Last Admin: 05/19/18 21:18 Dose: 2.5 mg Tamsulosin HCl (Flomax) 0.4 mg PO DAILY [facility] Last Admin: 05/20/18 10:06 Dose: 0.4 mg Tramadol HCl (Ultram) 50 mg PO Q8 PRN PRN Reason: Pain, moderate (4-7) Physical Exam - Head Exam Head Exam: NORMAL INSPECTION - Eye Exam Eye Exam: EOMI, PERRL - ENT Exam ENT Exam: Mucous Membranes Dry, Normal Oropharynx - Neck Exam Neck exam: Positive for: Normal Inspection. Negative for: Lymphadenopathy - Respiratory Exam Respiratory Exam: Decreased Breath Sounds, NORMAL BREATHING PATTERN - Cardiovascular Exam Cardiovascular Exam: REGULAR RHYTHM, +S1, +S2 - GI/Abdominal Exam GI & Abdominal Exam: Hypoactive Bowel Sounds, Soft, Tenderness (generalized mainly right upper quadrant and mid abdomen.) - Extremities Exam Extremities exam: Positive for: pedal edema, pedal pulses present. Negative for : calf tenderness - Neurological Exam Neurological exam: Alert, CN II-XII Intact, Reflexes Normal - Psychiatric Exam Psychiatric exam: Depressed - Skin Skin Exam: Normal Color, Warm Results - Vital Signs Recent Vital Signs: Last Vital Signs Temp 98.0 F 05/20/18 07:22 Pulse 86 05/20/18 10:07 Resp 20 05/20/18 07:22 BP 128/81 05/20/18 10:07 Pulse Ox 99 05/20/18 07:22 - Labs Result Diagrams: 05/20/18 06:15 05/20/18 06:15 Labs: Laboratory Results - last 24 hr 05/19/18 05/19/18 05/19/18 13:25 13:25 15:11 WBC RBC Hgb Hct MCV MCH MCHC RDW Plt Count MPV Neut % (Auto) Lymph % (Auto) [place] % (Auto) Eos % (Auto) Baso % (Auto) Neut # (Auto) Lymph # (Auto) [place] # (Auto) Eos # (Auto) Baso # (Auto) Neutrophils % (Manual) 87 H Band Neutrophils % Lymphocytes % (Manual) 5 L Monocytes % (Manual) 8 Toxic Granulation Platelet Estimate Decreased L Hypochromasia (manual) Poikilocytosis (manual Slight Anisocytosis (manual) Slight Macrocytosis (manual) Slight Tear Drop Cells Ovalocytes Slight [place] Cells Slight pO2 VBG pH VBG pCO2 VBG HCO3 VBG Total CO2 VBG O2 Sat (Calc) VBG Base Excess VBG Potassium Sodium Chloride Glucose Lactate Crit Value Called To Crit Value Called By Crit Value Read Back Blood Gas Notified Time Potassium Carbon Dioxide Anion Gap BUN Creatinine Est GFR ( Amer) Est GFR (Non-Af Amer) POC Glucose (mg/dL) Random Glucose Lactic Acid Calcium Total Bilirubin AST ALT Alkaline Phosphatase Troponin I < 0.0120 Total Protein Albumin Globulin Albumin/Globulin Ratio Venous Blood Potassium Urine Color Lizzie Urine Clarity Hazy Urine pH 5.0 Ur Specific [place] 1.019 Urine Protein Negative Urine Glucose (UA) Normal Urine Ketones Trace Urine Blood Negative Urine Nitrate Negative Urine Bilirubin Negative Urine Urobilinogen 4.0 Ur Leukocyte Esterase Trace Urine WBC (Auto) 12 H Urine RBC (Auto) 2 Ur Squamous Epith Cells 5 Urine Bacteria Occ H Hyaline Casts >20 H 05/19/18 05/19/18 05/19/18 15:28 17:15 17:32 WBC RBC Hgb Hct MCV MCH MCHC RDW Plt Count MPV Neut % (Auto) Lymph % (Auto) [place] % (Auto) Eos % (Auto) Baso % (Auto) Neut # (Auto) Lymph # (Auto) [place] # (Auto) Eos # (Auto) Baso # (Auto) Neutrophils % (Manual) Band Neutrophils % Lymphocytes % (Manual) Monocytes % (Manual) Toxic Granulation Platelet Estimate Hypochromasia (manual) Poikilocytosis (manual Anisocytosis (manual) Macrocytosis (manual) Tear Drop Cells Ovalocytes [place]ark Cells pO2 25 L 27 L 27 L VBG pH 7.32 7.31 L 7.28 L VBG pCO2 38 L 37 L 39 L VBG HCO3 18.7 18.0 17.2 VBG Total CO2 20.8 L 19.7 L 19.5 L VBG O2 Sat (Calc) 38.3 L 44.7 42.6 VBG Base Excess -6.0 L -7.0 L -7.9 L VBG Potassium 4.5 4.6 4.0 Sodium 139.0 142.0 142.0 Chloride 109.0 H 113.0 H 113.0 H Glucose 126 H 112 H 107 Lactate 4.2 H* 5.2 H* 4.8 H* Crit Value Called To Er nurse jennifer cool Er nurse dino cool Er nurse dino Crit Value Called By Dequan rt Dequan rt Dequan rt Crit Value Read Back Y Y Y Blood Gas Notified Time 1532 1722 1735 Potassium Carbon Dioxide Anion Gap BUN Creatinine Est GFR ( Amer) Est GFR (Non-Af Amer) POC Glucose (mg/dL) Random Glucose Lactic Acid Calcium Total Bilirubin AST ALT Alkaline Phosphatase Troponin I Total Protein Albumin Globulin Albumin/Globulin Ratio Venous Blood Potassium 4.5 4.6 4.0 Urine Color Urine Clarity Urine pH Ur Specific [place] Urine Protein Urine Glucose (UA) Urine Ketones Urine Blood Urine Nitrate Urine Bilirubin Urine Urobilinogen Ur Leukocyte Esterase Urine WBC (Auto) Urine RBC (Auto) Ur Squamous Epith Cells Urine Bacteria Hyaline Casts 05/19/18 05/20/18 05/20/18 21:30 06:15 06:15 WBC 24.3 H RBC 2.74 L Hgb 9.4 L Hct 27.9 L MCV 101.9 H MCH 34.3 H MCHC 33.7 RDW 16.6 H Plt Count 72 L D MPV 9.4 Neut % (Auto) 90.3 H Lymph % (Auto) 3.7 L [place] % (Auto) 5.9 Eos % (Auto) 0.0 Baso % (Auto) 0.1 Neut # (Auto) 22.0 H Lymph # (Auto) 0.9 L [place] # (Auto) 1.4 H Eos # (Auto) 0.0 Baso # (Auto) 0.0 Neutrophils % (Manual) 91 H Band Neutrophils % 1 Lymphocytes % (Manual) 4 L Monocytes % (Manual) 4 Toxic Granulation Present Platelet Estimate Decreased L Hypochromasia (manual) Slight Poikilocytosis (manual Slight Anisocytosis (manual) Slight Macrocytosis (manual) Tear Drop Cells Slight Ovalocytes Slight [place] Cells Slight pO2 VBG pH VBG pCO2 VBG HCO3 VBG Total CO2 VBG O2 Sat (Calc) VBG Base Excess VBG Potassium Sodium 145 Chloride 113 H Glucose Lactate Crit Value Called To Crit Value Called By Crit Value Read Back Blood Gas Notified Time Potassium 4.6 Carbon Dioxide 18 L Anion Gap 19 BUN 20 Creatinine 0.7 L Est GFR ( Amer) > 60 Est GFR (Non-Af Amer) > 60 POC Glucose (mg/dL) 134 H Random Glucose 117 H Lactic Acid Calcium 10.9 H Total Bilirubin 1.9 H AST 214 H D ALT 63 Alkaline Phosphatase 95 Troponin I Total Protein 6.4 Albumin 2.6 L D Globulin 3.8 Albumin/Globulin Ratio 0.7 L Venous Blood Potassium Urine Color Urine Clarity Urine pH Ur Specific [place] Urine Protein Urine Glucose (UA) Urine Ketones Urine Blood Urine Nitrate Urine Bilirubin Urine Urobilinogen Ur Leukocyte Esterase Urine WBC (Auto) Urine RBC (Auto) Ur Squamous Epith Cells Urine Bacteria Hyaline Casts 05/20/18 05/20/18 05/20/18 06:26 11:27 11:38 WBC RBC Hgb Hct MCV MCH MCHC RDW Plt Count MPV Neut % (Auto) Lymph % (Auto) [place] % (Auto) Eos % (Auto) Baso % (Auto) Neut # (Auto) Lymph # (Auto) [place] # (Auto) Eos # (Auto) Baso # (Auto) Neutrophils % (Manual) Band Neutrophils % Lymphocytes % (Manual) Monocytes % (Manual) Toxic Granulation Platelet Estimate Hypochromasia (manual) Poikilocytosis (manual Anisocytosis (manual) Macrocytosis (manual) Tear Drop Cells Ovalocytes West Cells pO2 VBG pH VBG pCO2 VBG HCO3 VBG Total CO2 VBG O2 Sat (Calc) VBG Base Excess VBG Potassium Sodium Chloride Glucose Lactate Crit Value Called To Crit Value Called By Crit Value Read Back Blood Gas Notified Time Potassium Carbon Dioxide Anion Gap BUN Creatinine Est GFR ( Amer) Est GFR (Non-Af Amer) POC Glucose (mg/dL) 115 H 127 H Random Glucose Lactic Acid 4.3 H* Calcium Total Bilirubin AST ALT Alkaline Phosphatase Troponin I Total Protein Albumin Globulin Albumin/Globulin Ratio Venous Blood Potassium Urine Color Urine Clarity Urine pH Ur Specific [place] Urine Protein Urine Glucose (UA) Urine Ketones Urine Blood Urine Nitrate Urine Bilirubin Urine Urobilinogen Ur Leukocyte Esterase Urine WBC (Auto) Urine RBC (Auto) Ur Squamous Epith Cells Urine Bacteria Hyaline Casts - Imaging and Cardiology Chest x-ray Status: Report reviewed by me (no active disease. Lower lung volumes.) Assessment & Plan (1) Septicemia Status: Acute (2) Abdominal pain Status: Acute (3) Liver cancer, primary, with metastasis from liver to other site Status: Acute (4) Ascites Status: Acute (5) Dehydration Status: Acute (6) Diabetes mellitus Status: Chronic (7) Hepatitis C infection Status: Chronic (8) Dehydration Status: Acute - Assessment and Plan (Free Text) Plan: PLAN; pANCULTURES CRP. CEA, LDH,CPK. DC IV zOSYN. START iv MERREM1 G 8 HOURLY.05/20/18 ADD IV fLAGYL 500 EVERY 8 HOURLY 05/20/18 CONTINUE iv VANCOMYCIN 1 G EVERY 12 HOURLY. 05/19/18. FOLLOW-UP CULTURES TO ADJUST ANTIBIOTICS. IV FLUIDS PER PMD. WILL FOLLOW ALONG WITH YOU AND MAKE FURTHER RECOMMENDATIONS NEEDED.
[2018-05-20] MEDS: Rosuvastatin Calcium 2.5 mg Tab PO SCH (22:21)
--- NOTE | 2018-05-21 00:19 | CP.PCM.PN ---
Subjective - Date & Time of Evaluation Date of Evaluation: 05/20/18 - Subjective Subjective: sick weak, no nausea, no chest pain, no sob Objective - Vital Signs/Intake and Output Vital Signs (last 24 hours): Temp Pulse Resp BP Pulse Ox 98.5 F 90 20 132/70 100 05/20/18 15:00 05/20/18 17:00 05/20/18 15:00 05/20/18 15:00 05/20/18 15:00 Intake and Output: 05/20/18 05/21/18 18:59 06:59 Intake Total 600 Balance 600 - Medications Medications: Current Medications Enoxaparin Sodium (Lovenox) 30 mg SC DAILY [facility] Last Admin: 05/20/18 10:05 Dose: 30 mg Famotidine (Pepcid) 20 mg PO BID [facility] Last Admin: 05/20/18 18:46 Dose: 20 mg Fluticasone Propionate (Flonase) 2 spr VIRA DAILY [facility] Last Admin: 05/20/18 10:05 Dose: 2 spr Sodium Chloride (Sodium Chloride 0.9%) 1,000 mls @ 100 mls/hr IV .Q10H [facility] Last Admin: 05/20/18 14:04 Dose: Not Given Vancomycin HCl 1,000 mg/ (Sodium Chloride) 200 mls @ 133.333 mls/hr IVPB Q12H [facility] PRN Reason: Protocol Last Admin: 05/20/18 18:46 Dose: 133.333 mls/hr Piperacillin Sod/Tazobactam (Sod 3.375 gm/ Sodium Chloride) 100 mls @ 200 mls/ hr IVPB Q6H [facility] PRN Reason: Protocol Last Admin: 05/20/18 20:28 Dose: 200 mls/hr Insulin Human Regular (Novolin R) 0 unit SC ACHS [facility] PRN Reason: Protocol Last Admin: 05/20/18 22:22 Dose: Not Given Levothyroxine Sodium (Synthroid) 25 mcg PO DAILY@0630 [facility] Last Admin: 05/20/18 06:11 Dose: 25 mcg Losartan Potassium (Cozaar) 50 mg PO DAILY [facility] Last Admin: 05/20/18 10:06 Dose: 50 mg Metformin HCl (Glucophage) 500 mg PO BID [facility] Last Admin: 05/20/18 18:46 Dose: 500 mg Metoprolol Succinate (Toprol Xl) 50 mg PO DAILY [facility] Last Admin: 05/20/18 10:06 Dose: 50 mg Pneumococcal Polyvalent Vaccine (Pneumovax 23 Vaccine) 0.5 ml IM .ONCE ONE Stop: 05/22/18 12:01 Polyethylene Glycol (Miralax) 17 gm PO DAILY [facility] Last Admin: 05/20/18 10:05 Dose: 17 gm Rosuvastatin Calcium (Crestor) 2.5 mg PO HS [facility] Last Admin: 05/20/18 22:21 Dose: 2.5 mg Tamsulosin HCl (Flomax) 0.4 mg PO DAILY [facility] Last Admin: 05/20/18 10:06 Dose: 0.4 mg Tramadol HCl (Ultram) 50 mg PO Q8 PRN PRN Reason: Pain, moderate (4-7) - Labs Labs: 05/20/18 06:15 05/20/18 06:15 - Constitutional Appears: Non-toxic, No Acute Distress, Chronically Ill - Head Exam Head Exam: ATRAUMATIC, NORMAL INSPECTION, NORMOCEPHALIC - Eye Exam Eye Exam: EOMI, Normal appearance, PERRL Pupil Exam: NORMAL ACCOMODATION - ENT Exam ENT Exam: Mucous Membranes Moist, Normal Exam, Normal Oropharynx, TM's Normal Bilaterally - Neck Exam Neck Exam: Normal Inspection - Respiratory Exam Respiratory Exam: Clear to Ausculation Bilateral, NORMAL BREATHING PATTERN - Cardiovascular Exam Cardiovascular Exam: REGULAR RHYTHM, +S1, +S2 - GI/Abdominal Exam GI & Abdominal Exam: Distended, Normal Bowel Sounds - Rectal Exam Rectal Exam: NORMAL INSPECTION - Extremities Exam Extremities Exam: Normal Capillary Refill - Neurological Exam Neurological Exam: Abnormal Gait, Alert, Awake, CN II-XII Intact, Oriented x3 - Psychiatric Exam Psychiatric exam: Flat Affect - Skin Skin Exam: Intact Assessment and Plan (1) Septicemia Status: Acute (2) HTN (hypertension) Status: Chronic (3) Diabetes mellitus Status: Chronic (4) Hepatitis C infection Status: Chronic
[2018-05-21] MEDS: Sodium Chloride 0.9% 1,000 ML IV SCH ×4 (00:47→21:15)
[2018-05-21] MEDS: Meropenem 1 GM in Sodium Chloride 0.9% 100 ML IVPB SCH ×3 (01:39→18:06)
[2018-05-21] MEDS: metroNIDAZOLE IV 500 mg/100 ml 500 MG/100 ML BAG IVPB SCH ×3 (01:39→18:07)
--- NOTE | 2018-05-21 03:44 | CON ---
DATE: 05/20/2018 ONCOLOGY CONSULTATION This is a 67-year-old man who has widely metastatic hepatoma and comes in with severe weakness and hypotension. I saw the patient only about 3 weeks and at that time I ordered a CAT scan and PET scan and this showed a liver that is cirrhotic with multiple metabolic lesions in the liver, the largest being 8 cm, at both lobes of the liver. He also has lymph nodes throughout his abdomen. 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 The sternum has a 1 cm lesion, multiple lytic lesions in his body. I had arranged for him to get Nexavar chemotherapy pills, and I was able to order that for him, I came in to the office yesterday to start the treatment when his blood pressure was 100/palp. He was markedly worse in terms of weakness and was incoherent. We admitted him to the hospital. In the hospital, he was found to have a BUN of 22, calcium is 11.6, and the ammonium level is 51, hemoglobin 9.4, so he has hypercalcemia and dehydration, this is all due to progressive cancer. I tried to talk this to the sister, he lives with his sister, and I talked to her the first time 3 weeks ago as well as yesterday about his terminal status and inability to be cured or really be treated for this cancer, but she does not want to hear anything of it, and she says , so she wants everything done. At this point, he is antibiotics. He will need to be put on medication for his hypercalcemia as per Renal if it does not improve on the IV hydration. No plans at present for active treatment for the cancer as he is to take the pills. Aj Borja MD
[2018-05-21] MEDS: Levothyroxine 25 MCG TAB PO SCH (06:36)
[2018-05-21 07:03] LABS: BASO % 0.1 % (0.0-2.0); HEMOGLOBIN 9.7 g/dL (12.0-18.0); LYMPH # 0.8 K/uL (1.0-4.3); MEAN CELL VOLUME 103.5 fL (80.0-94.0); MEAN CORPUSCULAR HEMOGLOBIN 34.2 pg (27.0-31.0); MEAN CORPUSCULAR HGB CONC 33.1 g/dL (33.0-37.0); MEAN PLATELET VOLUME 8.8 fL (7.2-11.7); MONO # 1.6 K/uL (0.0-0.8); MONO % 5.7 % (0.0-10.0); NEUT # 25.3 K/uL (1.8-7.0); NEUT % 91.2 % (50.0-75.0); NRBC % 0.1 % (0.0-2.0); PLATELET COUNT 78 K/uL (130-400); RBC 2.84 Mil/uL (4.40-5.90); RED CELL DISTRIBUTION WIDTH 16.4 % (11.5-14.5); WHITE BLOOD COUNT 27.7 K/uL (4.8-10.8)
[2018-05-21 07:26] LABS: BLOOD UREA NITROGEN 25 mg/dL (9-20); GFR NON-AFRICAN AMERICAN > 60
[2018-05-21] MEDS: (Novolin R) Insulin Human Regular 100 units/ml vial SC SCH ×4 (08:13→21:17)
[2018-05-21] MEDS ORDERED: Sodium Chloride 0.9% 1,000 ML IV SCH (08:15)
--- NOTE | 2018-05-21 08:54 | CP.PCM.PN ---
Subjective - Date & Time of Evaluation Date of Evaluation: 05/21/18 Time of Evaluation: 08:30 - Subjective Subjective: RN reported patient tachypnic and tachycardic Patient seen and examined at bed laila e, lathargic, arousable, Labs reviewed - co2 -11, anion gap 23 , wbc- 27.7 o2 sat - 97% RA Objective - Vital Signs/Intake and Output Vital Signs (last 24 hours): Temp Pulse Resp BP Pulse Ox 98.2 F 107 H 20 157/79 H 95 05/20/18 23:50 05/21/18 02:14 05/20/18 23:50 05/20/18 23:50 05/20/18 23:50 - Medications Medications: Current Medications Enoxaparin Sodium (Lovenox) 30 mg SC DAILY [facility] Last Admin: 05/20/18 10:05 Dose: 30 mg Famotidine (Pepcid) 20 mg PO BID [facility] Last Admin: 05/20/18 18:46 Dose: 20 mg Fluticasone Propionate (Flonase) 2 spr VIRA DAILY [facility] Last Admin: 05/20/18 10:05 Dose: 2 spr Sodium Chloride (Sodium Chloride 0.9%) 1,000 mls @ 100 mls/hr IV .Q10H [facility] Last Admin: 05/21/18 05:18 Dose: 100 mls/hr Vancomycin HCl 1,000 mg/ (Sodium Chloride) 200 mls @ 133.333 mls/hr IVPB Q12H [facility] PRN Reason: Protocol Last Admin: 05/21/18 05:14 Dose: 133.333 mls/hr Meropenem 1 gm/ Sodium (Chloride) 100 mls @ 100 mls/hr IVPB Q8H [facility] PRN Reason: Protocol Last Admin: 05/21/18 01:39 Dose: 100 mls/hr Metronidazole (Flagyl) 500 mg in 100 mls @ 100 mls/hr IVPB Q8H [facility] PRN Reason: Protocol Last Admin: 05/21/18 01:39 Dose: 100 mls/hr Sodium Chloride (Sodium Chloride 0.9%) 1,000 mls @ 500 mls/hr IV .Q2H [facility] Stop: 05/21/18 10:14 Insulin Human Regular (Novolin R) 0 unit SC ACHS [facility] PRN Reason: Protocol Last Admin: 09/15/18 08:13 Dose: Not Given Levothyroxine Sodium (Synthroid) 25 mcg PO DAILY@0630 [facility] Last Admin: 05/21/18 06:36 Dose: 25 mcg Losartan Potassium (Cozaar) 50 mg PO DAILY [facility] Last Admin: 05/20/18 10:06 Dose: 50 mg Metformin HCl (Glucophage) 500 mg PO BID [facility] Last Admin: 05/20/18 18:46 Dose: 500 mg Metoprolol Succinate (Toprol Xl) 50 mg PO DAILY [facility] Last Admin: 05/20/18 10:06 Dose: 50 mg Pneumococcal Polyvalent Vaccine (Pneumovax 23 Vaccine) 0.5 ml IM .ONCE ONE Stop: 05/22/18 12:01 Polyethylene Glycol (Miralax) 17 gm PO DAILY [facility] Last Admin: 05/20/18 10:05 Dose: 17 gm Rosuvastatin Calcium (Crestor) 2.5 mg PO HS [facility] Last Admin: 05/20/18 22:21 Dose: 2.5 mg Tamsulosin HCl (Flomax) 0.4 mg PO DAILY [facility] Last Admin: 05/20/18 10:06 Dose: 0.4 mg Tramadol HCl (Ultram) 50 mg PO Q8 PRN PRN Reason: Pain, moderate (4-7) - Labs Labs: 05/21/18 06:55 05/21/18 06:55 - Constitutional Appears: In Acute Distress, Confused, Chronically Ill - Respiratory Exam Respiratory Exam: Decreased Breath Sounds (resp. distress, tachypnic ) - Cardiovascular Exam Cardiovascular Exam: Tachycardia, REGULAR RHYTHM, +S1, +S2 Assessment and Plan - Assessment and Plan (Free Text) Assessment: A/P 67 y/o male with history of Liver CA with Metastasis brought to ED by EMS from for evaluation of decreased po intake for 1 week and weakness as . c/ o worsening chronic abdominal pain and hypotensive CT abd/plevis- Marked worsening of hepatic disease with a new 10 cm necrotic mass in the right hepatic lobe with additional right hepatic masses consistent with multicentric hepatoma. Redemonstration of cirrhotic liver with perihepatic ascites extending down the right paracolic gutter Patient started on IVF and antibiotics patient lethargic this am arousable but altered mental status labs this am reviewed and noted sever met. acidosi s will do stat -VBG, amonia level and IVF 1 liter x 1 and continue at 100ml/.hr Patient on antibiotics - flagyl, meerrum and vanco and Dr. Galindo on ID consult D/W Dr. Aceves [employer] for ICU eval seen by Dr. Aceves, neurodiagnostic technician, recommends NAHCO3 drip abg result relayed to Dr. Aceves neurodiagnostic technician, recommends high flow oxygen The above plan discussed with Dr. Dugan CT of chest PE protocol ordered , to r/o PE
[2018-05-21] MEDS: Metoprolol Succinate 50 mg XL Tab PO SCH (09:24)
[2018-05-21] MEDS: Enoxaparin 30 mg Syringe SC SCH (09:25)
[2018-05-21] MEDS: POLYETHYLENE GLYCOL 3350 17 GM/Dose PACKET PO SCH (09:25)
[2018-05-21 10:09] LABS: ARTERIAL BLOOD GAS O2 SAT 69.5 % (95-98); ARTERIAL BLOOD GAS PCO2 21 mm/Hg (35-45); ARTERIAL BLOOD GAS PH 7.26 (7.35-7.45); ARTERIAL BLOOD GAS PO2 40 mm/Hg (80-100)
[2018-05-21 10:16] LABS: MONOCYTE 4 % (0-10); MYELOCYTE 2 % (0-0); TOTAL CELLS COUNTED 100
[2018-05-21 10:17] LABS: ANISOCYTOSIS SLIGHT; BURR CELLS SLIGHT; HYPOCHROMIC SLIGHT; LYMPHOCYTE 2 % (20-40); NEUTROPHIL 92 % (50-75); PLATELET ESTIMATE DECREASED (NORMAL); POIKILOCYTOSIS SLIGHT
[2018-05-21] MEDS: Fluticasone Nasal 50 mcg/Spray NAS SCH (10:22)
--- NOTE | 2018-05-21 10:50 | CP.PCM.CON ---
<Rob Cardozo - Last Filed: 05/21/18 10:50> History of Present Illness - History of Present Illness History of Present Illness: ICU Consult for Dr. Santy Cardozo, PGY-3 IM Past Patient History - Past Medical History & Family History Past Medical History?: Yes - Past Social History Smoking Status: Former Smoker - CARDIAC Hx Cardiac Disorders: Yes Hx Hypercholesterolemia: Yes Hx Hypertension: Yes - PULMONARY Hx Respiratory Disorders: No - NEUROLOGICAL Hx Neurological Disorder: No - HEENT Hx HEENT Problems: No - RENAL Hx Chronic Kidney Disease: Yes Hx Kidney Stones: Yes - ENDOCRINE/METABOLIC Hx Hypothyroidism: Yes - HEMATOLOGICAL/ONCOLOGICAL Hx Blood Disorders: Yes Hx Anemia: Yes - INTEGUMENTARY Hx Dermatological Problems: No - MUSCULOSKELETAL/RHEUMATOLOGICAL Hx Falls: No - GASTROINTESTINAL Hx Gastrointestinal Disorders: Yes Hx Gastritis: Yes - GENITOURINARY/GYNECOLOGICAL Hx Genitourinary Disorders: Yes Hx Prostate Problems: Yes (ENLARGED PROSTATE) Hx Urinary Tract Infection: Yes - PSYCHIATRIC Hx Substance Use: No - SURGICAL HISTORY Hx Surgeries: Yes (SEE COMMENT) Hx Herniorrhaphy: Yes (UMBILICAL HERNIA REPAIR 2011) Other/Comment: HX" SURGERY FOR KIDNEY STONES" - ANESTHESIA Hx Anesthesia: Yes Hx Anesthesia Reactions: No Hx Malignant Hyperthermia: No Meds Allergies/Adverse Reactions: Allergies Allergy/AdvReac Type Severity Reaction Status Date / Time aspirin Allergy Unknown " MY Verified 04/04/18 10:47 MOTHER TOLD ME I WAS ALLERGIC AND NOT TO TAKE" - Medications Medications: Current Medications Enoxaparin Sodium (Lovenox) 30 mg SC DAILY [facility] Last Admin: 05/21/18 09:25 Dose: Not Given Famotidine (Pepcid) 20 mg PO BID [facility] Last Admin: 05/21/18 09:25 Dose: 20 mg Fluticasone Propionate (Flonase) 2 spr VIRA DAILY [facility] Last Admin: 05/21/18 10:22 Dose: 2 spr Sodium Chloride (Sodium Chloride 0.9%) 1,000 mls @ 100 mls/hr IV .Q10H [facility] Last Admin: 05/21/18 05:18 Dose: 100 mls/hr Vancomycin HCl 1,000 mg/ (Sodium Chloride) 200 mls @ 133.333 mls/hr IVPB Q12H [facility] PRN Reason: Protocol Last Admin: 05/21/18 05:14 Dose: 133.333 mls/hr Meropenem 1 gm/ Sodium (Chloride) 100 mls @ 100 mls/hr IVPB Q8H [facility] PRN Reason: Protocol Last Admin: 05/21/18 08:55 Dose: 100 mls/hr Metronidazole (Flagyl) 500 mg in 100 mls @ 100 mls/hr IVPB Q8H [facility] PRN Reason: Protocol Last Admin: 05/21/18 08:54 Dose: 100 mls/hr Sodium Bicarbonate 75 meq/ (Sodium Chloride) 1,000 mls @ 75 mls/hr IV .[id number] [facility] Insulin Human Regular (Novolin R) 0 unit SC ACHS [facility] PRN Reason: Protocol Last Admin: 05/21/18 08:13 Dose: Not Given Levothyroxine Sodium (Synthroid) 25 mcg PO DAILY@0630 [facility] Last Admin: 05/21/18 06:36 Dose: 25 mcg Losartan Potassium (Cozaar) 50 mg PO DAILY [facility] Last Admin: 05/21/18 09:24 Dose: 50 mg Metformin HCl (Glucophage) 500 mg PO BID [facility] Last Admin: 05/21/18 09:24 Dose: 500 mg Metoprolol Succinate (Toprol Xl) 50 mg PO DAILY [facility] Last Admin: 05/21/18 09:24 Dose: 50 mg Pantoprazole Sodium (Protonix Inj) 40 mg IVP DAILY [facility] Last Admin: 05/21/18 10:19 Dose: 40 mg Pneumococcal Polyvalent Vaccine (Pneumovax 23 Vaccine) 0.5 ml IM .ONCE ONE Stop: 05/22/18 12:01 Polyethylene Glycol (Miralax) 17 gm PO DAILY [facility] Last Admin: 05/21/18 09:25 Dose: Not Given Rosuvastatin Calcium (Crestor) 2.5 mg PO HS [facility] Last Admin: 05/20/18 22:21 Dose: 2.5 mg Tamsulosin HCl (Flomax) 0.4 mg PO DAILY [facility] Last Admin: 05/21/18 09:24 Dose: 0.4 mg Tramadol HCl (Ultram) 50 mg PO Q8 PRN PRN Reason: Pain, moderate (4-7) Results - Vital Signs Recent Vital Signs: Last Vital Signs Temp 97.7 F 05/21/18 07:30 Pulse 108 H 05/21/18 07:30 Resp 22 05/21/18 07:30 BP 127/67 05/21/18 07:30 Pulse Ox 96 05/21/18 07:30 - Labs Result Diagrams: 05/21/18 06:55 05/21/18 06:55 Labs: Laboratory Results - last 24 hr 05/20/18 05/20/18 05/20/18 11:27 11:38 16:47 WBC RBC Hgb Hct MCV MCH MCHC RDW Plt Count MPV Neut % (Auto) Lymph % (Auto) [place] % (Auto) Eos % (Auto) Baso % (Auto) Neut # (Auto) Lymph # (Auto) [place] # (Auto) Eos # (Auto) Baso # (Auto) Neutrophils % (Manual) Lymphocytes % (Manual) Monocytes % (Manual) Myelocytes % Platelet Estimate Hypochromasia (manual) Poikilocytosis (manual Anisocytosis (manual) West Cells Puncture Site pCO2 pO2 HCO3 ABG pH ABG Total CO2 ABG O2 Saturation ABG Base Excess Alvarez Test ABG Potassium A-a O2 Difference Respiratory Index Glucose Lactate FiO2 Crit Value Called To Crit Value Called By Crit Value Read Back Blood Gas Notified Time Sodium Potassium Chloride Carbon Dioxide Anion Gap BUN Creatinine Est GFR ( Amer) Est GFR (Non-Af Amer) POC Glucose (mg/dL) 127 H 128 H Random Glucose Lactic Acid 4.3 H* Calcium Ammonia Lactate Dehydrogenase Total Creatine Kinase C-Reactive Protein Arterial Blood Potassium 05/20/18 05/21/18 05/21/18 21:45 06:11 06:55 WBC 27.7 H RBC 2.84 L Hgb 9.7 L Hct 29.4 L MCV 103.5 H MCH 34.2 H MCHC 33.1 RDW 16.4 H Plt Count 78 L MPV 8.8 Neut % (Auto) 91.2 H Lymph % (Auto) 3.0 L [place] % (Auto) 5.7 Eos % (Auto) 0.0 Baso % (Auto) 0.1 Neut # (Auto) 25.3 H Lymph # (Auto) 0.8 L [place] # (Auto) 1.6 H Eos # (Auto) 0.0 Baso # (Auto) 0.0 Neutrophils % (Manual) 92 H Lymphocytes % (Manual) 2 L Monocytes % (Manual) 4 Myelocytes % 2 H Platelet Estimate Decreased L Hypochromasia (manual) Slight Poikilocytosis (manual Slight Anisocytosis (manual) Slight [place] Cells Slight Puncture Site pCO2 pO2 HCO3 ABG pH ABG Total CO2 ABG O2 Saturation ABG Base Excess Alvarez Test ABG Potassium A-a O2 Difference Respiratory Index Glucose Lactate FiO2 Crit Value Called To Crit Value Called By Crit Value Read Back Blood Gas Notified Time Sodium Potassium Chloride Carbon Dioxide Anion Gap BUN Creatinine Est GFR ( Amer) Est GFR (Non-Af Amer) POC Glucose (mg/dL) 121 H 114 H Random Glucose Lactic Acid Calcium Ammonia Lactate Dehydrogenase Total Creatine Kinase C-Reactive Protein Arterial Blood Potassium 05/21/18 05/21/18 05/21/18 06:55 08:42 10:05 WBC RBC Hgb Hct MCV MCH MCHC RDW Plt Count MPV Neut % (Auto) Lymph % (Auto) [place] % (Auto) Eos % (Auto) Baso % (Auto) Neut # (Auto) Lymph # (Auto) [place] # (Auto) Eos # (Auto) Baso # (Auto) Neutrophils % (Manual) Lymphocytes % (Manual) Monocytes % (Manual) Myelocytes % Platelet Estimate Hypochromasia (manual) Poikilocytosis (manual Anisocytosis (manual) West Cells Puncture Site Rba pCO2 21 L pO2 40 L* HCO3 12.0 L ABG pH 7.26 L ABG Total CO2 10.0 L ABG O2 Saturation 69.5 L ABG Base Excess -15.5 L Alvarez Test Na ABG Potassium 3.9 A-a O2 Difference 83.0 Respiratory Index 2.1 Glucose 91 Lactate 6.0 H* FiO2 21.0 Crit Value Called To Crit Value Called By Guilherme gonzalez,rafael Crit Value Read Back Y Blood Gas Notified Time 1010 Sodium 145 148.0 Potassium 4.9 Chloride 116 H 124.0 H Carbon Dioxide 11 L* D Anion Gap 23 H BUN 25 H Creatinine 1.0 Est GFR ( Amer) > 60 Est GFR (Non-Af Amer) > 60 POC Glucose (mg/dL) Random Glucose 125 H Lactic Acid Calcium 11.0 H Ammonia 29 D Lactate Dehydrogenase 1167 H Total Creatine Kinase < 20 L C-Reactive Protein 215.70 H Arterial Blood Potassium 3.9 <Adria Madera - Last Filed: 05/21/18 17:17> History of Present Illness - History of Present Illness History of Present Illness: Patient has worsening acidosis, secondary to metastatic hepatocellular carcinoma. AMS from metabolic encephalopathy, patient is barely coherent. Review of Systems - Review of Systems Systems not reviewed;Unavailable: Altered Mental Status Meds - Medications Medications: Current Medications Enoxaparin Sodium (Lovenox) 30 mg SC DAILY [facility] Last Admin: 05/21/18 09:25 Dose: Not Given Famotidine (Pepcid) 20 mg PO BID [facility] Last Admin: 05/21/18 09:25 Dose: 20 mg Fluticasone Propionate (Flonase) 2 spr VIRA DAILY [facility] Last Admin: 05/21/18 10:22 Dose: 2 spr Sodium Chloride (Sodium Chloride 0.9%) 1,000 mls @ 100 mls/hr IV .Q10H [facility] Last Admin: 05/21/18 11:00 Dose: Not Given Vancomycin HCl 1,000 mg/ (Sodium Chloride) 200 mls @ 133.333 mls/hr IVPB Q12H [facility] PRN Reason: Protocol Last Admin: 05/21/18 05:14 Dose: 133.333 mls/hr Meropenem 1 gm/ Sodium (Chloride) 100 mls @ 100 mls/hr IVPB Q8H [facility] PRN Reason: Protocol Last Admin: 05/21/18 08:55 Dose: 100 mls/hr Metronidazole (Flagyl) 500 mg in 100 mls @ 100 mls/hr IVPB Q8H [facility] PRN Reason: Protocol Last Admin: 05/21/18 08:54 Dose: 100 mls/hr Sodium Bicarbonate 75 meq/ (Sodium Chloride) 1,000 mls @ 75 mls/hr IV .[id number] [facility] Last Admin: 05/21/18 11:00 Dose: 75 mls/hr Insulin Human Regular (Novolin R) 0 unit SC ACHS [facility] PRN Reason: Protocol Last Admin: 05/21/18 11:48 Dose: Not Given Levothyroxine Sodium (Synthroid) 25 mcg PO DAILY@0630 [facility] Last Admin: 05/21/18 06:36 Dose: 25 mcg Losartan Potassium (Cozaar) 50 mg PO DAILY [facility] Last Admin: 05/21/18 09:24 Dose: 50 mg Metformin HCl (Glucophage) 500 mg PO BID [facility] Last Admin: 05/21/18 09:24 Dose: 500 mg Metoprolol Succinate (Toprol Xl) 50 mg PO DAILY [facility] Last Admin: 05/21/18 09:24 Dose: 50 mg Nystatin (Nystatin Oral Susp) 5 ml PO QID [facility] Last Admin: 05/21/18 13:33 Dose: 5 ml Pantoprazole Sodium (Protonix Inj) 40 mg IVP DAILY [facility] Last Admin: 05/21/18 10:19 Dose: 40 mg Pneumococcal Polyvalent Vaccine (Pneumovax 23 Vaccine) 0.5 ml IM .ONCE ONE Stop: 05/22/18 12:01 Polyethylene Glycol (Miralax) 17 gm PO DAILY [facility] Last Admin: 05/21/18 09:25 Dose: Not Given Rosuvastatin Calcium (Crestor) 2.5 mg PO HS [facility] Last Admin: 05/20/18 22:21 Dose: 2.5 mg Tamsulosin HCl (Flomax) 0.4 mg PO DAILY [facility] Last Admin: 05/21/18 09:24 Dose: 0.4 mg Tramadol HCl (Ultram) 50 mg PO Q8 PRN PRN Reason: Pain, moderate (4-7) Physical Exam - Head Exam Head Exam: ATRAUMATIC, NORMAL INSPECTION, NORMOCEPHALIC - Eye Exam Eye Exam: EOMI, Normal appearance, PERRL, Scleral icterus - ENT Exam ENT Exam: Mucous Membranes Dry (oral thrush) - Respiratory Exam Respiratory Exam: Accessory Muscle Use, Clear to Auscultation Bilateral - Cardiovascular Exam Cardiovascular Exam: Tachycardia - GI/Abdominal Exam GI & Abdominal Exam: Normal Bowel Sounds, Soft. absent: Tenderness - Neurological Exam Neurological exam: Alert (barely responsive) Results - Vital Signs Recent Vital Signs: Last Vital Signs Temp 97.7 F 05/21/18 07:30 Pulse 106 H 05/21/18 12:25 Resp 22 05/21/18 14:15 BP 126/76 05/21/18 12:25 Pulse Ox 96 05/21/18 07:30 - Labs Result Diagrams: 05/21/18 06:55 05/21/18 06:55 Labs: Laboratory Results - last 24 hr 05/20/18 05/21/18 05/21/18 21:45 06:11 06:55 WBC 27.7 H RBC 2.84 L Hgb 9.7 L Hct 29.4 L MCV 103.5 H MCH 34.2 H MCHC 33.1 RDW 16.4 H Plt Count 78 L MPV 8.8 Neut % (Auto) 91.2 H Lymph % (Auto) 3.0 L [place] % (Auto) 5.7 Eos % (Auto) 0.0 Baso % (Auto) 0.1 Neut # (Auto) 25.3 H Lymph # (Auto) 0.8 L [place] # (Auto) 1.6 H Eos # (Auto) 0.0 Baso # (Auto) 0.0 Neutrophils % (Manual) 92 H Lymphocytes % (Manual) 2 L Monocytes % (Manual) 4 Myelocytes % 2 H Platelet Estimate Decreased L Hypochromasia (manual) Slight Poikilocytosis (manual Slight Anisocytosis (manual) Slight [place] Cells Slight Puncture Site pCO2 pO2 HCO3 ABG pH ABG Total CO2 ABG O2 Saturation ABG Base Excess Alvarez Test ABG Potassium A-a O2 Difference Respiratory Index Glucose Lactate FiO2 Crit Value Called To Crit Value Called By Crit Value Read Back Blood Gas Notified Time Sodium Potassium Chloride Carbon Dioxide Anion Gap BUN Creatinine Est GFR ( Amer) Est GFR (Non-Af Amer) POC Glucose (mg/dL) 121 H 114 H Random Glucose Calcium Ammonia Lactate Dehydrogenase Total Creatine Kinase C-Reactive Protein Arterial Blood Potassium 05/21/18 05/21/18 05/21/18 06:55 08:42 10:05 WBC RBC Hgb Hct MCV MCH MCHC RDW Plt Count MPV Neut % (Auto) Lymph % (Auto) [place] % (Auto) Eos % (Auto) Baso % (Auto) Neut # (Auto) Lymph # (Auto) [place] # (Auto) Eos # (Auto) Baso # (Auto) Neutrophils % (Manual) Lymphocytes % (Manual) Monocytes % (Manual) Myelocytes % Platelet Estimate Hypochromasia (manual) Poikilocytosis (manual Anisocytosis (manual) West Cells Puncture Site Rba pCO2 21 L pO2 40 L* HCO3 12.0 L ABG pH 7.26 L ABG Total CO2 10.0 L ABG O2 Saturation 69.5 L ABG Base Excess -15.5 L Alvarez Test Na ABG Potassium 3.9 A-a O2 Difference 83.0 Respiratory Index 2.1 Glucose 91 Lactate 6.0 H* FiO2 21.0 Crit Value Called To Crit Value Called By Guilherme gonzalezdrill press operator numerical control Crit Value Read Back Y Blood Gas Notified Time 1010 Sodium 145 148.0 Potassium 4.9 Chloride 116 H 124.0 H Carbon Dioxide 11 L* D Anion Gap 23 H BUN 25 H Creatinine 1.0 Est GFR ( Amer) > 60 Est GFR (Non-Af Amer) > 60 POC Glucose (mg/dL) Random Glucose 125 H Calcium 11.0 H Ammonia 29 D Lactate Dehydrogenase 1167 H Total Creatine Kinase < 20 L C-Reactive Protein 215.70 H Arterial Blood Potassium 3.9 05/21/18 11:46 WBC RBC Hgb Hct MCV MCH MCHC RDW Plt Count MPV Neut % (Auto) Lymph % (Auto) [place] % (Auto) Eos % (Auto) Baso % (Auto) Neut # (Auto) Lymph # (Auto) [place] # (Auto) Eos # (Auto) Baso # (Auto) Neutrophils % (Manual) Lymphocytes % (Manual) Monocytes % (Manual) Myelocytes % Platelet Estimate Hypochromasia (manual) Poikilocytosis (manual Anisocytosis (manual) [place] Cells Puncture Site pCO2 pO2 HCO3 ABG pH ABG Total CO2 ABG O2 Saturation ABG Base Excess Alvarez Test ABG Potassium A-a O2 Difference Respiratory Index Glucose Lactate FiO2 Crit Value Called To Crit Value Called By Crit Value Read Back Blood Gas Notified Time Sodium Potassium Chloride Carbon Dioxide Anion Gap BUN Creatinine Est GFR ( Amer) Est GFR (Non-Af Amer) POC Glucose (mg/dL) 122 H Random Glucose Calcium Ammonia Lactate Dehydrogenase Total Creatine Kinase C-Reactive Protein Arterial Blood Potassium Assessment & Plan (1) Altered mental status Assessment and Plan: The patient has metastatic liver cancer to the bone. He is in metabolic acidosis with altered mental status. After speaking with his sister, Agnieszka Cortez , his lead programmer analyst/decision maker, she has agreed to DNR/DNI and hospice. The patient has an extremely poor prognosis with no hope of recovery and this is the best option for him Critical Care Time 50 minutes Status: Acute Attending/Attestation - Attestation I have personally seen and examined this patient.: Yes I have fully participated in the care of the patient.: Yes I have reviewed all pertinent clinical information: Yes
--- NOTE | 2018-05-21 10:58 | PN ---
DATE: 05/21/2018 LOCATION: 559, bed B. SUBJECTIVE: This 67-year-old male seen initially for GI consultation on 05/20/2018 as requested by the admitting MD, reexamined again today early in rounds with the staff in the floor, appeared to be lethargic with less response to verbal stimuli adequately. The entire chart is reviewed including but not limited to the most recent lab and radiology study results, current and the previous medication list, current and the previous medical events. No reported active GI bleeding or reported significant increase of shortness of breath, chills or fever. Today's lab results showed leukocytosis of 27.7, hemoglobin 9.7, hematocrit 29.4, with thrombocytopenia of 79, with BUN of 25, but normal creatinine. Blood glucose level 125, calcium 11, with subsequent increase of lactic acid yesterday to 4.3, albumin 2.9. The official CAT scan of the abdomen and pelvis was previously reported and reviewed today with nephrotic hepatic mass lesion seen with adjacent additional right hepatic masses, indicative of hepatoma, with liver cirrhosis and ascites. PHYSICAL EXAMINATION: GENERAL: A 67-year-old male. VITAL SIGNS: Afebrile, with pulse of 102, blood pressure 150/76, with respiratory rate 20-22. HEENT: Showed pale, dry oral mucous membranes, mildly icteric sclerae bilaterally. LUNGS: Scattered bilateral crepitations. Decreased air entry at bases. HEART: Positive S1 and S2. ABDOMEN: Soft, with [id number] distention with moderate amount of ascites. No mass or organomegaly. No rebound tenderness or guarding. EXTREMITIES: With edematous changes. No clubbing or cyanosis. NEUROLOGIC: No reported new neurological deficits, sensory or motor. The patient appears to be lethargic, does not respond adequately to any verbal stimuli. IMPRESSION: 1. Hepatic carcinoma with metastatic lesion, to rule out metastasis to the brain due to the patient's mental status changes. 2. Multiple past medical history including but not limited to hyperlipidemia, peptic ulcer disease, hypothyroidism, hypertension, renal stone with chronic renal insufficiency as well as diabetes mellitus. 3. Anemia, most likely secondary to above. 3. Electrolyte imbalance with hypercalcemia. SUGGESTIONS: 1. Agree with your plan. 2. Correct the patient's underlying lactic acidosis. 3. Rehydration. 4. Central hyperalimentation due to the patient's poor oral intake and hypoalbuminemia with malnutrition. 5. No aggressive GI workup at this point despite the family's request to have complete workup. We will follow up closely with you. Senthil Damon MD
[2018-05-21] MEDS: Sodium Bicarbonate 8.4% 75 MEQ in Sodium Chloride 0.45% 925 ML IV SCH ×2 (11:00→23:30)
[2018-05-21] MEDS: Nystatin 100,000 Units/ml Oral Susp 5 ml UD PO SCH ×2 (13:33→21:15)
[2018-05-21] MEDS ORDERED: Morphine 4 MG/ML VIAL IV PRN (17:18)
--- NOTE | 2018-05-21 18:07 | CP.PCM.PN ---
Subjective - Date & Time of Evaluation Date of Evaluation: 05/21/18 Time of Evaluation: 18:07 - Subjective Subjective: afebrile patient tachypnic and tachycardic BARELY Arousable, INCOHERANT SEEN BY ICU TEAM Labs reviewed - WBC 27.9 INCREASING co2 -11, anion gap 23 , wbc- 27.7 o2 sat - 97% RA DISCUSSIONS WITH ICU- TEAM NOTED. PATIENT NOW DNR/DNI PER fAMILY MEMBERS. PATIENT WITH SEVERE METABOLIC ACIDOSIS AND TOXIC /METABOLIC ENCEPHALOPATHY CONTINUE COMFORT MEASURES/iv ANTIBIOTICS. PROGNOSIS GUARDED.METASTATIC CA OF THE LIVER. Objective - Vital Signs/Intake and Output Vital Signs (last 24 hours): Temp Pulse Resp BP Pulse Ox 97.2 F L 111 H 20 138/84 99 05/21/18 17:23 05/21/18 17:23 05/21/18 17:23 05/21/18 17:23 05/21/18 17:23 Intake and Output: 05/21/18 05/21/18 06:59 18:59 Intake Total 1500 Balance 1500 - Medications Medications: Current Medications Enoxaparin Sodium (Lovenox) 30 mg SC DAILY [facility] Last Admin: 05/21/18 09:25 Dose: Not Given Famotidine (Pepcid) 20 mg PO BID [facility] Last Admin: 05/21/18 09:25 Dose: 20 mg Fluticasone Propionate (Flonase) 2 spr VIRA DAILY [facility] Last Admin: 05/21/18 10:22 Dose: 2 spr Sodium Chloride (Sodium Chloride 0.9%) 1,000 mls @ 100 mls/hr IV .Q10H [facility] Last Admin: 05/21/18 11:00 Dose: Not Given Vancomycin HCl 1,000 mg/ (Sodium Chloride) 200 mls @ 133.333 mls/hr IVPB Q12H [facility] PRN Reason: Protocol Last Admin: 05/21/18 05:14 Dose: 133.333 mls/hr Meropenem 1 gm/ Sodium (Chloride) 100 mls @ 100 mls/hr IVPB Q8H [facility] PRN Reason: Protocol Last Admin: 05/21/18 08:55 Dose: 100 mls/hr Metronidazole (Flagyl) 500 mg in 100 mls @ 100 mls/hr IVPB Q8H [facility] PRN Reason: Protocol Last Admin: 05/21/18 08:54 Dose: 100 mls/hr Sodium Bicarbonate 75 meq/ (Sodium Chloride) 1,000 mls @ 75 mls/hr IV .[id number] [facility] Last Admin: 05/21/18 11:00 Dose: 75 mls/hr Insulin Human Regular (Novolin R) 0 unit SC ACHS [facility] PRN Reason: Protocol Last Admin: 05/21/18 11:48 Dose: Not Given Levothyroxine Sodium (Synthroid) 25 mcg PO DAILY@0630 [facility] Last Admin: 05/21/18 06:36 Dose: 25 mcg Losartan Potassium (Cozaar) 50 mg PO DAILY [facility] Last Admin: 05/21/18 09:24 Dose: 50 mg Metformin HCl (Glucophage) 500 mg PO BID [facility] Last Admin: 05/21/18 09:24 Dose: 500 mg Metoprolol Succinate (Toprol Xl) 50 mg PO DAILY [facility] Last Admin: 05/21/18 09:24 Dose: 50 mg Morphine Sulfate (Morphine) 4 mg IV Q6 PRN PRN Reason: Pain, Mild (1-3) Nystatin (Nystatin Oral Susp) 5 ml PO QID [facility] Last Admin: 05/21/18 13:33 Dose: 5 ml Pantoprazole Sodium (Protonix Inj) 40 mg IVP DAILY [facility] Last Admin: 05/21/18 10:19 Dose: 40 mg Pneumococcal Polyvalent Vaccine (Pneumovax 23 Vaccine) 0.5 ml IM .ONCE ONE Stop: 05/22/18 12:01 Polyethylene Glycol (Miralax) 17 gm PO DAILY [facility] Last Admin: 05/21/18 09:25 Dose: Not Given Rosuvastatin Calcium (Crestor) 2.5 mg PO HS [facility] Last Admin: 05/20/18 22:21 Dose: 2.5 mg Tamsulosin HCl (Flomax) 0.4 mg PO DAILY [facility] Last Admin: 05/21/18 09:24 Dose: 0.4 mg Tramadol HCl (Ultram) 50 mg PO Q8 PRN PRN Reason: Pain, moderate (4-7) - Labs Labs: 05/21/18 06:55 05/21/18 06:55 - Constitutional Appears: Unkempt, Cachectic, Chronically Ill - Head Exam Head Exam: ATRAUMATIC - Eye Exam Eye Exam: PERRL, Scleral icterus - ENT Exam ENT Exam: Mucous Membranes Dry - Neck Exam Neck Exam: Normal Inspection - Respiratory Exam Respiratory Exam: Decreased Breath Sounds - Cardiovascular Exam Cardiovascular Exam: Tachycardia, REGULAR RHYTHM, +S1, +S2 - GI/Abdominal Exam GI & Abdominal Exam: Distended, Guarding, Soft, Tenderness, Hypoactive Bowel Sounds - Extremities Exam Extremities Exam: Pedal Edema. absent: Calf Tenderness - Neurological Exam Neurological Exam: Altered - Psychiatric Exam Psychiatric exam: Flat Affect - Skin Skin Exam: Diaphoretic, Warm Assessment and Plan (1) Septicemia Status: Acute (2) Abdominal pain Status: Acute (3) Liver cancer, primary, with metastasis from liver to other site Status: Acute (4) Ascites Status: Acute (5) Dehydration Status: Acute (6) Diabetes mellitus Status: Chronic (7) Hepatitis C infection Status: Chronic (8) Dehydration Status: Acute - Assessment and Plan (Free Text) Plan: CONTINUE iv MERREM1 G 8 HOURLY.05/20/18 ON IV fLAGYL 500 EVERY 8 HOURLY 05/20/18 CONTINUE iv VANCOMYCIN 1 G EVERY 12 HOURLY. 05/19/18. FOLLOW-UP CULTURES TO ADJUST ANTIBIOTICS. IV FLUIDS PER PMD. PROGNOSIS VERY POOR. TERMINAL METASTATIC CA OF HE LIVER. LIVER. FAMILY UNDERSTANDS AND PATIENT DNR/DNI NOW. CONTINUE SUPPORTIVE CARE
--- NOTE | 2018-05-21 19:58 | CP.PCM.PN ---
Objective - Vital Signs/Intake and Output Vital Signs (last 24 hours): Temp Pulse Resp BP Pulse Ox 97.2 F L 111 H 20 138/84 99 05/21/18 17:23 05/21/18 17:23 05/21/18 17:23 05/21/18 17:23 05/21/18 17:23 Intake and Output: 05/21/1818 18:59 06:59 Intake Total 1500 Balance 1500 - Medications Medications: Current Medications Enoxaparin Sodium (Lovenox) 30 mg SC DAILY [facility] Last Admin: 05/21/18 09:25 Dose: Not Given Famotidine (Pepcid) 20 mg PO BID [facility] Last Admin: 05/21/18 09:25 Dose: 20 mg Fluticasone Propionate (Flonase) 2 spr VIRA DAILY [facility] Last Admin: 05/21/18 10:22 Dose: 2 spr Sodium Chloride (Sodium Chloride 0.9%) 1,000 mls @ 100 mls/hr IV .Q10H [facility] Last Admin: 05/21/18 11:00 Dose: Not Given Vancomycin HCl 1,000 mg/ (Sodium Chloride) 200 mls @ 133.333 mls/hr IVPB Q12H [facility] PRN Reason: Protocol Last Admin: 05/21/18 18:07 Dose: 133.333 mls/hr Meropenem 1 gm/ Sodium (Chloride) 100 mls @ 100 mls/hr IVPB Q8H [facility] PRN Reason: Protocol Last Admin: 05/21/18 18:06 Dose: 100 mls/hr Metronidazole (Flagyl) 500 mg in 100 mls @ 100 mls/hr IVPB Q8H [facility] PRN Reason: Protocol Last Admin: 05/21/18 18:07 Dose: 100 mls/hr Sodium Bicarbonate 75 meq/ (Sodium Chloride) 1,000 mls @ 75 mls/hr IV .[id number] [facility] Last Admin: 05/21/18 11:00 Dose: 75 mls/hr Insulin Human Regular (Novolin R) 0 unit SC ACHS [facility] PRN Reason: Protocol Last Admin: 05/21/18 18:04 Dose: Not Given Levothyroxine Sodium (Synthroid) 25 mcg PO DAILY@0630 [facility] Last Admin: 05/21/18 06:36 Dose: 25 mcg Losartan Potassium (Cozaar) 50 mg PO DAILY [facility] Last Admin: 05/21/18 09:24 Dose: 50 mg Metformin HCl (Glucophage) 500 mg PO BID [facility] Last Admin: 05/21/18 09:24 Dose: 500 mg Metoprolol Succinate (Toprol Xl) 50 mg PO DAILY [facility] Last Admin: 05/21/18 09:24 Dose: 50 mg Morphine Sulfate (Morphine) 4 mg IV Q6 PRN PRN Reason: Pain, Mild (1-3) Nystatin (Nystatin Oral Susp) 5 ml PO QID [facility] Last Admin: 05/21/18 13:33 Dose: 5 ml Pantoprazole Sodium (Protonix Inj) 40 mg IVP DAILY [facility] Last Admin: 05/21/18 10:19 Dose: 40 mg Pneumococcal Polyvalent Vaccine (Pneumovax 23 Vaccine) 0.5 ml IM .ONCE ONE Stop: 05/22/18 12:01 Polyethylene Glycol (Miralax) 17 gm PO DAILY [facility] Last Admin: 05/21/18 09:25 Dose: Not Given Rosuvastatin Calcium (Crestor) 2.5 mg PO HS [facility] Last Admin: 05/20/18 22:21 Dose: 2.5 mg Tamsulosin HCl (Flomax) 0.4 mg PO DAILY [facility] Last Admin: 05/21/18 09:24 Dose: 0.4 mg Tramadol HCl (Ultram) 50 mg PO Q8 PRN PRN Reason: Pain, moderate (4-7) - Labs Labs: 05/21/18 06:55 05/21/18 06:55 Assessment and Plan (1) Septicemia Status: Acute (2) HTN (hypertension) Status: Chronic (3) Diabetes mellitus Status: Chronic (4) Hepatitis C infection Status: Chronic
[2018-05-21] MEDS: Rosuvastatin Calcium 2.5 mg Tab PO SCH (21:14)
--- NOTE | 2018-05-21 22:55 | CARD ---
APPROVED REPORT Date of service: 05/19/2018 EKG Measurement Heart [id number] <Conclusion> Sinus tachycardia with premature atrial complexes Anterior infarct, age undetermined Abnormal ECG
--- NOTE | 2018-05-21 23:27 | PN ---
DATE: 05/21/2018 SUBJECTIVE: The patient is acidotic. He is sick. He is hemodynamically stable. He has no . PHYSICAL EXAMINATION: VITAL SIGNS: BP 138/84, pulse 111, respiratory rate 20, temperature 97.2. LUNGS: Bilaterally clear. CARDIOVASCULAR SYSTEM: S1 and S2 are regular. ABDOMEN: Soft. CENTRAL NERVOUS SYSTEM: The patient is lethargic and barely responsive. ASSESSMENT: 1. Terminal end-stage liver cancer. 2. Septicemia. 3. Metabolic acidosis due to septicemia. 4. Dehydration. PLAN: The patient is DNR/DNI. He is for hospice. He is at the end of his life. Monitor the patient. Harshal Dugan MD
[2018-05-22 00:37] VITALS: BP 110/74; PULSE 106; TEMP 99; O2SAT 110
[2018-05-22] MEDS: metroNIDAZOLE IV 500 mg/100 ml 500 MG/100 ML BAG IVPB SCH (01:00)
[2018-05-22] MEDS: Meropenem 1 GM in Sodium Chloride 0.9% 100 ML IVPB SCH (01:00)
[2018-05-22 01:33] VITALS: RESP 22
[2018-05-22] MEDS: Sodium Chloride 0.9% 1,000 ML IV SCH (05:30)
[2018-05-22] MEDS: Levothyroxine 25 MCG TAB PO SCH (05:32)
--- NOTE | 2018-05-22 06:29 | CP.PCM.PRO ---
Pronouncement of Note - Clinical Findings Physical Exam: No Response Verbal/Painful Stimuli, Absent Peripheral Pulses{ Carotid & Femoral}, Absent Heart & Breath Sounds, Pupils Fixed & Dilated, Absence of Vital Signs - Pronouncement Time Time of Pronouncement of : 06:25 - Notifications Pronouncement Notifications: Family Notified
--- NOTE | 2018-05-22 09:47 | CP.PCM.PRO ---
Pronouncement of Note - [place] Certificate Additional Comments: Patient was pronounced by Dr Dinh this morning. Time of prouncement at 6.25 am on 05/22/18. certificate number [id number]
[2018-05-22] MEDS ORDERED: Pneumococcal 23-Valent Vaccine IM ONE (12:00)
--- NOTE | 2018-05-22 22:56 | CP.PCM.DIS ---
Provider - Provider Date of Admission: 05/19/18 15:38 Attending physician: Harshal Dugan MD Diagnosis - Discharge Diagnosis (1) Septicemia Status: Acute (2) HTN (hypertension) Status: Chronic (3) Diabetes mellitus Status: Chronic (4) Hepatitis C infection Status: Chronic Hospital Course - Lab Results Lab Results: Micro Results 05/19/18 13:00 Blood Blood Culture - Preliminary NO GROWTH AFTER 3 DAYS 05/19/18 13:30 Blood Blood Culture - Preliminary NO GROWTH AFTER 3 DAYS 05/21/18 02:07 Naris MRSA Culture (Admit) - Final MRSA NOT DETECTED Most Recent Lab Values WBC 27.7 K/uL (4.8-10.8) H 05/21/18 06:55 RBC 2.84 Mil/uL (4.40-5.90) L 05/21/18 06:55 Hgb 9.7 g/dL (12.0-18.0) L 05/21/18 06:55 Hct 29.4 % (35.0-51.0) L 05/21/18 06:55 MCV 103.5 fL (80.0-94.0) H 05/21/18 06:55 MCH 34.2 pg (27.0-31.0) H 05/21/18 06:55 MCHC 33.1 g/dL (33.0-37.0) 05/21/18 06:55 RDW 16.4 % (11.5-14.5) H 05/21/18 06:55 Plt Count 78 K/uL (130-400) L 05/21/18 06:55 MPV 8.8 fL (7.2-11.7) 05/21/18 06:55 Neut % (Auto) 91.2 % (50.0-75.0) H 05/21/18 06:55 Lymph % (Auto) 3.0 % (20.0-40.0) L 05/21/18 06:55 [place] % (Auto) 5.7 % (0.0-10.0) 05/21/18 06:55 Eos % (Auto) 0.0 % (0.0-4.0) 05/21/18 06:55 Baso % (Auto) 0.1 % (0.0-2.0) 05/21/18 06:55 Neut # (Auto) 25.3 K/uL (1.8-7.0) H 05/21/18 06:55 Lymph # (Auto) 0.8 K/uL (1.0-4.3) L 05/21/18 06:55 Hyde # (Auto) 1.6 K/uL (0.0-0.8) H 05/21/18 06:55 Eos # (Auto) 0.0 K/uL (0.0-0.7) 05/21/18 06:55 Baso # (Auto) 0.0 K/uL (0.0-0.2) 05/21/18 06:55 Neutrophils % (Manual) 92 % (50-75) H 05/21/18 06:55 Band Neutrophils % 1 % (0-2) 05/20/18 06:15 Lymphocytes % (Manual) 2 % (20-40) L 05/21/18 06:55 Monocytes % (Manual) 4 % (0-10) 05/21/18 06:55 Myelocytes % 2 % (0-0) H 05/21/18 06:55 Toxic Granulation Present 05/20/18 06:15 Platelet Estimate Decreased (NORMAL) L 05/21/18 06:55 Hypochromasia (manual) Slight 05/21/18 06:55 Poikilocytosis (manual Slight 05/21/18 06:55 Anisocytosis (manual) Slight 05/21/18 06:55 Macrocytosis (manual) Slight 05/19/18 13:25 Tear Drop Cells Slight 05/20/18 06:15 Ovalocytes Slight 05/20/18 06:15 [place] Cells Slight 05/21/18 06:55 Puncture Site Rba 05/21/18 10:05 pCO2 21 mm/Hg (35-45) L 05/21/18 10:05 pO2 40 mm/Hg (80-100) L* 05/21/18 10:05 HCO3 12.0 mmol/L (21-28) L 05/21/18 10:05 ABG pH 7.26 (7.35-7.45) L 05/21/18 10:05 ABG Total CO2 10.0 mmol/L (22-28) L 05/21/18 10:05 ABG O2 Saturation 69.5 % (95-98) L 05/21/18 10:05 ABG Base Excess -15.5 mmol/L (-2.0-3.0) L 05/21/18 10:05 Alvarez Test Na 05/21/18 10:05 ABG Potassium 3.9 mmol/L (3.6-5.2) 05/21/18 10:05 VBG pH 7.28 (7.32-7.43) L 05/19/18 17:32 VBG pCO2 39 mmHg (40-60) L 05/19/18 17:32 VBG HCO3 17.2 mmol/L 05/19/18 17:32 VBG Total CO2 19.5 mmol/L (22-28) L 05/19/18 17:32 VBG O2 Sat (Calc) 42.6 % (40-65) 05/19/18 17:32 VBG Base Excess -7.9 mmol/L (0.0-2.0) L 05/19/18 17:32 VBG Potassium 4.0 mmol/L (3.6-5.2) 05/19/18 17:32 A-a O2 Difference 83.0 mm/Hg 05/21/18 10:05 Respiratory Index 2.1 05/21/18 10:05 Sodium 148.0 mmol/l (132-148) 05/21/18 10:05 Chloride 124.0 mmol/L (98-107) H 05/21/18 10:05 Glucose 91 mg/dl (75-110) 05/21/18 10:05 Lactate 6.0 mmol/L (0.7-2.1) H* 05/21/18 10:05 FiO2 21.0 % 05/21/18 10:05 Crit Value Called To 05/21/18 10:05 Crit Value Called By Guilherme gonzalez,interventional physician 05/21/18 10:05 Crit Value Read Back Y 05/21/18 10:05 Blood Gas Notified Time 1010 05/21/18 10:05 Sodium 145 mmol/L (132-148) 05/21/18 06:55 Potassium 4.9 mmol/L (3.6-5.2) 05/21/18 06:55 Chloride 116 mmol/L (98-107) H 05/21/18 06:55 Carbon Dioxide 11 mmol/L (22-30) L* D 05/21/18 06:55 Anion Gap 23 (10-20) H 05/21/18 06:55 BUN 25 mg/dL (9-20) H 05/21/18 06:55 Creatinine 1.0 mg/dL (0.8-1.5) 05/21/18 06:55 Est GFR ( Amer) > 60 05/21/18 06:55 Est GFR (Non-Af Amer) > 60 05/21/18 06:55 POC Glucose (mg/dL) 133 mg/dL (65-110) H 05/21/18 20:59 Random Glucose 125 mg/dL (75-110) H 05/21/18 06:55 Lactic Acid 6.9 mmol/L (0.7-2.1) H* 05/21/18 20:12 Calcium 11.0 mg/dl (8.6-10.4) H 05/21/18 06:55 Total Bilirubin 1.9 mg/dL (0.2-1.3) H 05/20/18 06:15 AST 214 U/L (17-59) H D 05/20/18 06:15 ALT 63 U/L (21-72) 05/20/18 06:15 Alkaline Phosphatase 95 U/L (38-126) 05/20/18 06:15 Ammonia 29 umol/L (9-33) D 05/21/18 08:42 Lactate Dehydrogenase 1167 U/L (313-618) H 05/21/18 06:55 Total Creatine Kinase < 20 U/L (55-170) L 05/21/18 06:55 CK-MB (Mass) 0.86 ng/mL (0.0-3.38) 05/19/18 13:25 Troponin I < 0.0120 ng/mL (0.00-0.120) 05/19/18 13:25 C-Reactive Protein 215.70 mg/L (0.0-9.9) H 05/21/18 06:55 Total Protein 6.4 g/dL (6.3-8.3) 05/20/18 06:15 Albumin 2.6 g/dL (3.5-5.0) L D 05/20/18 06:15 Globulin 3.8 gm/dL (2.2-3.9) 05/20/18 06:15 Albumin/Globulin Ratio 0.7 (1.0-2.1) L 05/20/18 06:15 Arterial Blood Potassium 3.9 mmol/L (3.6-5.2) 05/21/18 10:05 Venous Blood Potassium 4.0 mmol/L (3.6-5.2) 05/19/18 17:32 Urine Color Lizzie (YELLOW) 05/19/18 15:11 Urine Clarity Hazy (Clear) 05/19/18 15:11 Urine pH 5.0 (5.0-8.0) 05/19/18 15:11 Ur Specific [place] 1.019 (1.003-1.030) 05/19/18 15:11 Urine Protein Negative mg/dL (NEGATIVE) 05/19/18 15:11 Urine Glucose (UA) Normal mg/dL (Normal) 05/19/18 15:11 Urine Ketones Trace mg/dL (NEGATIVE) 05/19/18 15:11 Urine Blood Negative (NEGATIVE) 05/19/18 15:11 Urine Nitrate Negative (NEGATIVE) 05/19/18 15:11 Urine Bilirubin Negative (NEGATIVE) 05/19/18 15:11 Urine Urobilinogen 4.0 mg/dL (0.2-1.0) 05/19/18 15:11 Ur Leukocyte Esterase Trace Caryn/uL (Negative) 05/19/18 15:11 Urine WBC (Auto) 12 /hpf (0-5) H 05/19/18 15:11 Urine RBC (Auto) 2 /hpf (0-3) 05/19/18 15:11 Ur Squamous Epith Cells 5 /hpf (0-5) 05/19/18 15:11 Urine Bacteria Occ (<OCC) H 05/19/18 15:11 Hyaline Casts >20 /lpf (0-2) H 05/19/18 15:11 - Hospital Course Hospital Course: admitted with sepsis weakness, stayed sick, weak, no fever, high wbc, patient got sick and , Discharge Exam - Head Exam Head Exam: NORMAL INSPECTION - Eye Exam Eye Exam: EOMI, Normal appearance Pupil Exam: NORMAL ACCOMODATION - ENT Exam ENT Exam: Mucous Membranes Moist, Normal Exam, Normal Oropharynx, TM's Normal Bilaterally - Neck Exam Neck exam: Normal Inspection - Respiratory Exam Respiratory Exam: NORMAL BREATHING PATTERN - Cardiovascular Exam Cardiovascular Exam: REGULAR RHYTHM, +S1, +S2 - GI/Abdominal Exam GI & Abdominal Exam: Normal Bowel Sounds - Rectal Exam Rectal Exam: NORMAL INSPECTION - Neurological Exam Neurological exam: Abnormal Gait, Altered Discharge Plan - Follow Up Plan Condition: GOOD Disposition: WITH WITHOUT AUTOPSY
--- NOTE | 2018-05-23 00:30 | CON ---
DATE: 05/20/2018 That is from Senthil Damon MD to Harshal Dugan MD. I was called for GI consultation by the admitting medical team. The patient is seen and fully examined on 05/20/[address] Harshal Dugan. The entire chart is reviewed including but not limited to most recent lab and radiology study results, current and the previous medication list, current and the previous medical events, allergy to medication list as well as all the available current and the previous medical notes and records. Case discussed with the staff as well as all the sr. consultant at the time of my GI consultation on 05/20/2018. HISTORY OF PRESENT ILLNESS: This is a 67-year-old male, known case for me from previous admissions with known history of liver cancer and metastatic lesions who was admitted to the hospital due to loss of appetite, decreased oral intake, generalized weakness, and malaise with more aggressively increased complain of abdominal pain and increased abdominal girth but no reported actual chest pain, palpitation, significant shortness of breath or vomiting. No chills or fever. However, the patient was complaining of intermittent period of dyspepsia with nausea on and off. PAST MEDICAL HISTORY: Including mainly but not limited to, 1. Liver cirrhosis. 2. Peptic ulcer disease. 3. Poorly controlled diabetes mellitus, hypertension, hyperlipidemia. 4. Known history of hypothyroidism, renal stone with chronic renal insufficiency. 5. The patient had partial small bowel resection before with status post gastrostomy tube previously as well as more one time of blood and platelet transfusion previously. FAMILY HISTORY: Unknown. SOCIAL HISTORY: Reported history of cigarette smoking, but no recent history of alcohol intake. CURRENT MEDICATIONS: Post admission medication list reviewed. ALLERGIES TO MEDICATIONS: UNCLEAR. LABORATORY DATA: Initial blood workup post admission showed leukocytosis of 23.3, platelet count 96, hemoglobin 9.5, hematocrit 27.8. Blood glucose level 151, BUN 22 with normal creatinine, CO2 content of 19 indicative of metabolic acidosis. PHYSICAL EXAMINATION: GENERAL: A 67-year-old male, somewhat appears to be lethargic, afebrile. VITAL SIGNS: Pulse of 108, respiratory rate 18 to 20, blood pressure of 124/72. HEENT: Showed pale dry oral mucoid membrane with mild bilateral icteric sclerae. LYMPH NODES: No lymphadenitis or lymphadenopathy. LUNGS: Few scattered mild crepitation. Breathing sounds are present bilaterally but decreased at bases. HEART: Positive S1 and S2 with increased rate. ABDOMEN: Soft with [id number] distention, positive for small amount of ascites with generalized tenderness. No mass or organomegaly. No rebound tenderness or guarding. RECTAL: The patient refused. EXTREMITIES: Lower extremity edematous changes. No clubbing or cyanosis. Peripheral pulses are present but decreased at bases. NEUROLOGIC: No reported new neurological deficits, sensory or motor. No reported new focal deficits. It has to be mentioned that all the official radiology study reports were reviewed and seen. IMPRESSION: 1. Liver cancer with metastatic disease by history. 2. Ascites, rule out spontaneous bacterial peritonitis, keeping in mind the patient's leukocytosis. 3. Anemia, most likely secondary to above. The possibility of gastrointestinal blood loss, however, was raised. 4. Multiple past medical history as above. 5. Anemia, the possibility of gastrointestinal blood loss upper versus lower was raised versus, most likely anemia secondary to chronic disease. SUGGESTIONS: 1. Agree with your plan. 2. Guaiac all the stools daily x3. 3. Blood transfusion as needed. Keep hemoglobin around 10 g percent, that to be discussed with the Oncology/Hematology sr. consultant on the case. 4. Proton pump inhibitors. 5. Abdominal paracentesis with followup evaluation and workup, and analysis of the ascitic fluid. 6. The patient may benefit from Flagyl I.V. 7. Further recommendation to follow and no aggressive GI procedures in the meantime as the patient carries very poor prognosis at this point. 8. Central hyperalimentation due to the patient's poor oral intake to be ordered versus, less likely his need for PEG tube insertion if his condition unchanged. 9. Correct any underlying coagulopathy. 10. Correct any underlying electrolyte imbalance. Further recommendation to follow. Thank you for letting me participate in your patient's case management. Senthil Damon MD
== END 2018-05-22 11:15 | DRG 871 ==
LOC: C.ER 12:29 → C.9E 15:38 → C.5S 16:55
PROVIDERS: ADMIT Internal Medicine; ATTEND Internal Medicine
DX: A41.9 Sepsis, unspecified organism (principal); R65.21 Severe sepsis with septic shock; G93.41 Metabolic encephalopathy; C22.0 Liver cell carcinoma; R18.8 Other ascites; C79.51 Secondary malignant neoplasm of bone; E03.9 Hypothyroidism, unspecified; E11.22 Type 2 diabetes mellitus with diabetic chronic kidney disease; I12.9 Hypertensive chronic kidney disease with stage 1 through stage 4 chronic kidney disease, or unspecified chronic kidney disease; N18.9 Chronic kidney disease, unspecified; N40.0 Benign prostatic hyperplasia without lower urinary tract symptoms; E86.0 Dehydration; E78.5 Hyperlipidemia, unspecified; K74.60 Unspecified cirrhosis of liver; B19.20 Unspecified viral hepatitis C without hepatic coma; Z66 Do not resuscitate; E11.65 Type 2 diabetes mellitus with hyperglycemia; Z79.4 Long term (current) use of insulin